=== PATIENT | female | born 1965 | race Caucasian/White ===

== ENCOUNTER → 2020-09-10 13:48 | Outpatient (BNVA) | payer BC, SELFPAY | PROVIDERS: PCP Nurse Practitioner Family; Referring Provider Nurse Practitioner Family; Visit Provider Surgery | DX: Z76.89 Persons encountering health services in other specified circumstances (principal) ==

== ENCOUNTER 2020-09-20 07:22 | Outpatient (REF) | payer OTHER, SELFPAY ==
[2020-09-20 08:04] LABS: MANUAL DIFF FLAG NO
[2020-09-20 08:06] LABS: Basophils Percent Auto 0.6 % (0-2); Eosinophils Absolute Auto 0.1 X10*3/uL (0.0-0.4); Eosinophils Percent Auto 2.1 % (0-4); Hemoglobin 12.7 g/dl (12.0-16.0); Imm Gran Abs Auto 0.02 X10*3/uL (0.00-0.03); Imm Gran Pct Auto 0.4 % (0.0-0.4); Lymphocytes Absolute Auto 1.4 X10*3/uL (1.2-4.9); Lymphocytes Percent Auto 29.8 % (20-40); Mean Corpuscular HGB Conc 33.4 g/dl (31.0-35.0); Mean Corpuscular Hemoglobin 31.1 pg (27.0-33.0); Mean Corpuscular Volume 92.9 fL (80-98); Mean Platelet Volume 10.2 fL (9.4-12.3); Monocytes Absolute Auto 0.4 X10*3/uL (0.1-1.2); Monocytes Percent Auto 8.5 % (2-11); Neutrophils Absolute Auto 2.8 X10*3/uL (2.0-8.3); Neutrophils Percent Auto 58.6 % (45-73); Platelet Count 239 X10*3/uL (160-400); Red Blood Count 4.09 X10*6/uL (4.20-5.50); Red Cell Distribution Width 12.6 % (11.0-16.0); White Blood Count 4.7 X10*3/uL (4.8-10.8)
[2020-09-20 08:37] LABS: Alanine Aminotransferase 24 U/L (0-31); Albumin Level 4.5 g/dL (3.5-5.0); Alkaline Phosphatase 100 U/L (39-117); Anion Gap 10 (12-20); Aspartate Amino Transferase 23 U/L (5-31); Bilirubin Total 0.6 mg/dL (0.0-1.0); Blood Urea Nitrogen 18 mg/dL (9-16); C Reactive Protein 0.07 mg/dL (< or = 0.50); Calcium 9.1 mg/dL (8.4-10.2); Carbon Dioxide 31 mmol/L (22-29); Chloride 105 mmol/L (96-108); Cholesterol 165 mg/dL; Estimated Glomerular Filt Rate > 60; Glucose Fasting 102 mg/dL (60-99); HDL Cholesterol 50 mg/dL; Iron 111 mcg/dL (30-160); LDL Cholesterol Calculated 92 mg/dl; Percent Iron Saturation 35 % (15-50); Potassium 4.2 mmol/l (3.3-5.1); Sodium 142 mmol/L (135-145); Total Iron Binding Capacity 321 mcg/dL (228-428); Total Protein 6.8 g/dL (6.5-8.0); Triglycerides 119 mg/dL; Unsaturated Iron Binding 210 ug/dL
[2020-09-20 08:58] LABS: Thyroid Stimulating Hormone 3.18 uIU/mL (0.32-4.0); Vitamin D 25-OH Total 55.3 ng/mL (>30)
[2020-09-20 09:02] LABS: Vitamin B12 901 pg/mL (200-900)
[2020-09-24 17:38] LABS: Vitamin A 55 mcg/dL (38-98)
[2020-09-25 03:18] LABS: Zinc 68 mcg/dL (60-130)
[2020-09-25 12:12] LABS: Vitamin B1 53 nmol/L (8-30)
== END 2020-09-20 07:23 | disposition home or self-care (01) ==
LOC: HO.LAB 07:22
PROVIDERS: PCP Nurse Practitioner Family; Visit Provider Surgery
DX: Z01.818 Encounter for other preprocedural examination (principal); K91.2 Postsurgical malabsorption, not elsewhere classified; Z90.3 Acquired absence of stomach [part of]
CPT/HCPCS: 36415; 80053; 80061; 82306; 82607; 83540; 84425; 84443; 84590; 84630; 85025; 86140

== ENCOUNTER 2021-05-09 07:58 | Outpatient (REF) | payer OTHER, SELFPAY ==
--- NOTE | ~2021-05-09 | XR_ITS ---
EXAMINATION: WEIGHT-BEARING AP VIEWS OF BOTH KNEES AND LATERAL AND SUNRISE VIEW OF THE LEFT KNEE CLINICAL INFORMATION: Pain COMPARISON: None TECHNIQUE: As above FINDINGS: No effusion. Minor patella spurring. No subluxation. Minor tibial spine for for spurring bilaterally. Joint spaces are preserved. XR/XR knee LT 2V IMPRESSION: Minor spurring only.
--- NOTE | ~2021-05-09 | XR_ITS ---
EXAMINATION: WEIGHT-BEARING AP VIEWS OF BOTH KNEES AND LATERAL AND SUNRISE VIEW OF THE LEFT KNEE CLINICAL INFORMATION: Pain COMPARISON: None TECHNIQUE: As above FINDINGS: No effusion. Minor patella spurring. No subluxation. Minor tibial spine for for spurring bilaterally. Joint spaces are preserved. XR/XR knee standing BI IMPRESSION: Minor spurring only.
== END 2021-05-09 07:59 | disposition home or self-care (01) ==
LOC: HO.HOSX 07:58
PROVIDERS: Visit Provider Orthopaedic Surgery
DX: M17.12 Unilateral primary osteoarthritis, left knee (principal)
CPT/HCPCS: 73560; 73565

== ENCOUNTER → 2021-08-28 07:55 | Outpatient (BNVA) | payer OTHER, SELFPAY | PROVIDERS: PCP Nurse Practitioner Family; Referring Provider Nurse Practitioner Family; Visit Provider Nurse Practitioner ==

== ENCOUNTER → 2021-09-12 07:40 | Outpatient (BNVA) | payer OTHER, SELFPAY | PROVIDERS: PCP Nurse Practitioner Family; Referring Provider Nurse Practitioner Family; Visit Provider Nurse Practitioner ==

== ENCOUNTER → 2021-10-31 10:18 | Outpatient (BNVA) | payer OTHER, SELFPAY | PROVIDERS: PCP Nurse Practitioner Family; Referring Provider Nurse Practitioner Family; Visit Provider Nurse Practitioner ==

== ENCOUNTER 2021-11-07 07:13 | Outpatient (REF) | payer OTHER, SELFPAY ==
[2021-11-07 07:49] LABS: Cholesterol 172 mg/dL; HDL Cholesterol 48 mg/dL; LDL Cholesterol Calculated 93 mg/dl; Triglycerides 158 mg/dL
[2021-11-07 08:09] LABS: TSH reflex Free T4 2.86 uIU/mL (0.32-4.0)
== END 2021-11-07 07:14 | disposition home or self-care (01) ==
LOC: HO.LAB 07:13
PROVIDERS: PCP Nurse Practitioner Family; Visit Provider Nurse Practitioner
DX: E03.9 Hypothyroidism, unspecified (principal); E78.5 Hyperlipidemia, unspecified
CPT/HCPCS: 36415; 80061; 84443

== ENCOUNTER → 2021-12-06 08:26 | Outpatient (BNVA) | payer OTHER, SELFPAY | PROVIDERS: PCP Nurse Practitioner Family; Referring Provider Nurse Practitioner Family; Visit Provider Nurse Practitioner | DX: Z13.89 Encounter for screening for other disorder (principal) ==

== ENCOUNTER → 2022-01-14 11:34 | Outpatient (BNVA) | payer OTHER, SELFPAY | PROVIDERS: PCP Nurse Practitioner Family; Visit Provider Physician Assistant | DX: Z13.89 Encounter for screening for other disorder (principal) ==

== ENCOUNTER → 2022-01-16 07:51 | Outpatient (BNVA) | payer OTHER, SELFPAY | PROVIDERS: PCP Nurse Practitioner Family; Visit Provider Nurse Practitioner | DX: Z13.89 Encounter for screening for other disorder (principal) ==

== ENCOUNTER 2022-01-24 08:50 | Outpatient (REF) | payer OTHER, SELFPAY ==
--- NOTE | ~2022-01-24 | XR_ITS ---
EXAMINATION: XR PELVIS CLINICAL INFORMATION: Pain COMPARISON: Previous x-ray of the pelvis October 2014, CT and MR of the left hip October and December 2014 TECHNIQUE: AP view of the pelvis. FINDINGS: Bone alignment is normal. No acute fracture or dislocation is seen. There is abnormal appearance of the left greater trochanter. This is similar to previous exams. Again, differential would include changes related to old trauma and possible osteochondroma. There is mild arthritis at both hip joints. There is a small osteophyte at the left iliac crest. Sacroiliac joints and pubic symphysis are normal. Soft tissues are normal. XR/XR pelvis 1-2V IMPRESSION: Mild arthritis at both hip joints. Stable appearance to the left lesser trochanter. Again, differential would include changes related to old trauma and osteochondroma.
== END 2022-01-24 08:51 | disposition home or self-care (01) ==
LOC: HO.HOSX 08:50
PROVIDERS: Visit Provider Orthopaedic Surgery
DX: M93.25 Osteochondritis dissecans of hip (principal)
CPT/HCPCS: 72170

== ENCOUNTER → 2022-02-04 08:51 | Outpatient (BNVA) | payer OTHER, SELFPAY | PROVIDERS: PCP Nurse Practitioner Family; Visit Provider Surgery Vascular Surgery | DX: I83.11 Varicose veins of right lower extremity with inflammation (principal) ==

== ENCOUNTER → 2022-02-07 12:32 | Outpatient (BNVA) | payer OTHER, SELFPAY | PROVIDERS: PCP Nurse Practitioner Family; Visit Provider Surgery Vascular Surgery | DX: I83.11 Varicose veins of right lower extremity with inflammation (principal) | CPT/HCPCS: 36475 ==

== ENCOUNTER 2022-02-10 15:28 | Outpatient (REF) | payer OTHER, SELFPAY ==
--- NOTE | ~2022-02-10 | US_ITS ---
EXAMINATION: US VENOUS ULTRASOUND WITH DOPPLER LOWER EXTREMITY, RIGHT CLINICAL INFORMATION: Status post right greater saphenous vein radiofrequency ablation. Evaluate for DVT COMPARISON: None TECHNIQUE: Ultrasound of the deep veins is performed from the hip to the calf with compression sonography and color and pulse Doppler assessment. Spectral analysis with color-flow imaging is performed. FINDINGS: There is normal venous compression and respiratory variation and augmented flow. The visualized common femoral vein, superficial femoral vein, profunda femoral vein, popliteal vein, and the trifurcation region shows no evidence of deep venous thrombosis. There is no significant popliteal fossa cyst. Incidental note is made of a right inguinal node at 35 x 6 x 18 mm. US/US venous duplex LE RT IMPRESSION: No DVT demonstrated in the right lower extremity.
== END 2022-02-10 15:29 | disposition home or self-care (01) ==
LOC: HO.US 15:28
PROVIDERS: Visit Provider Surgery Vascular Surgery
DX: M79.604 Pain in right leg (principal)
CPT/HCPCS: 93971

== ENCOUNTER → 2022-02-20 11:46 | Outpatient (BNVA) | payer OTHER, SELFPAY | PROVIDERS: PCP Nurse Practitioner Family; Visit Provider Surgery Vascular Surgery | DX: Z13.89 Encounter for screening for other disorder (principal) ==

== ENCOUNTER → 2022-02-28 12:24 | Outpatient (BNVA) | payer OTHER, SELFPAY | PROVIDERS: PCP Nurse Practitioner Family; Visit Provider Surgery Vascular Surgery | DX: I83.12 Varicose veins of left lower extremity with inflammation (principal) | CPT/HCPCS: 36475 ==

== ENCOUNTER 2022-03-03 13:25 | Outpatient (REF) | payer OTHER, SELFPAY ==
--- NOTE | ~2022-03-03 | US_ITS ---
EXAMINATION: US VENOUS ULTRASOUND WITH DOPPLER LOWER EXTREMITY, LEFT CLINICAL INFORMATION: Leg pain. Post RF ablation 02/28/2022 COMPARISON: Previous exam January 2022 TECHNIQUE: Ultrasound of the deep veins is performed from the hip to the calf with compression sonography and color and pulse Doppler assessment. Spectral analysis with color-flow imaging is performed. FINDINGS: There is normal venous compression and respiratory variation and augmented flow. The visualized common femoral vein, superficial femoral vein, profunda femoral vein, popliteal vein, and the trifurcation region shows no evidence of deep venous thrombosis. There is echogenic material seen in the greater saphenous vein post RF ablation. This is 4.5 cm from the saphenofemoral junction. The greater saphenous vein is closed. The contralateral right common femoral vein is patent. There is no significant popliteal fossa cyst. US/US venous duplex LE LT IMPRESSION: No DVT demonstrated in the left lower extremity.
== END 2022-03-03 13:26 | disposition home or self-care (01) ==
LOC: HO.US 13:25
PROVIDERS: Visit Provider Surgery Vascular Surgery
DX: M79.605 Pain in left leg (principal)
CPT/HCPCS: 93971

== ENCOUNTER 2022-03-05 07:40 | Outpatient (REF) | payer OTHER, SELFPAY ==
--- NOTE | ~2022-03-05 | FL_ITS ---
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 Fluoroscopy time: 0.4 minutes DAP: 1.07 Gycm2 Images: 2 FINDINGS: There is spinal needle with tip at the left hip lesser trochanter in area of chronic osseous deformity. There is contrast along the intertrochanteric region. No visible vascular communication. FL/FL guidance in treatment room IMPRESSION: Fluoroscopy for pain management procedure.
== END 2022-03-05 07:41 | disposition home or self-care (01) ==
LOC: HO.RADIR 07:40
PROVIDERS: Visit Provider Internal Medicine
DX: M93.25 Osteochondritis dissecans of hip (principal)
CPT/HCPCS: 20610; J1040

== ENCOUNTER 2022-04-07 08:30 | Outpatient (REF) | payer OTHER, SELFPAY ==
[2022-04-07 08:57] LABS: MANUAL DIFF FLAG NO
[2022-04-07 09:27] LABS: Basophils Absolute Auto 0.1 X10*3/uL (0.0-0.2); Basophils Percent Auto 0.7 % (0-2); Eosinophils Absolute Auto 0.1 X10*3/uL (0.0-0.4); Eosinophils Percent Auto 1.8 % (0-4); Hemoglobin 12.7 g/dl (12.0-16.0); Imm Gran Abs Auto 0.06 X10*3/uL (0.00-0.03); Imm Gran Pct Auto 0.8 % (0.0-0.4); Lymphocytes Absolute Auto 1.7 X10*3/uL (1.2-4.9); Lymphocytes Percent Auto 24.5 % (20-40); Mean Corpuscular HGB Conc 33.4 g/dl (31.0-35.0); Mean Corpuscular Hemoglobin 30.5 pg (27.0-33.0); Mean Corpuscular Volume 91.3 fL (80.0-98.0); Mean Platelet Volume 9.8 fL (9.4-12.3); Monocytes Absolute Auto 0.6 X10*3/uL (0.1-1.2); Monocytes Percent Auto 8.4 % (2-11); Neutrophils Absolute Auto 4.5 x10*3/uL (2.0-8.3); Neutrophils Percent Auto 63.8 % (45-73); Platelet Count 293 X10*3/uL (160-400); Red Blood Count 4.16 X10*6/uL (4.20-5.50); Red Cell Distribution Width 13.2 % (11.0-16.0); White Blood Count 7.1 X10*3/uL (4.8-10.8)
[2022-04-07 09:54] LABS: Alanine Aminotransferase 37 U/L (0-31); Albumin Level 4.6 g/dL (3.5-5.0); Alkaline Phosphatase 141 U/L (39-117); Anion Gap 11 (12-20); Aspartate Amino Transferase 28 U/L (5-31); Bilirubin Total 0.5 mg/dL (0.0-1.0); Blood Urea Nitrogen 14 mg/dL (9-16); C Reactive Protein 0.34 mg/dL (< or = 0.50); Calcium 9.2 mg/dL (8.4-10.2); Carbon Dioxide 30 mmol/L (22-29); Chloride 103 mmol/L (96-108); Cholesterol 214 mg/dL; Estimated Glomerular Filt Rate > 60; Glucose Random 122 mg/dL (60-115); HDL Cholesterol 52 mg/dL; Iron 85 mcg/dL (30-160); LDL Cholesterol Calculated 110 mg/dl; Percent Iron Saturation 22 % (15-50); Potassium 4.2 mmol/L (3.3-5.1); Sodium 140 mmol/L (135-145); Total Iron Binding Capacity 378 mcg/dL (228-428); Total Protein 7.3 g/dL (6.5-8.0); Triglycerides 264 mg/dL; Unsaturated Iron Binding 293 ug/dL
[2022-04-07 10:05] LABS: Estimated Average Glucose 128 mg/dL; Hemoglobin A1c % 6.1 %
[2022-04-07 10:19] LABS: Ferritin 127 ng/mL (10-250); TSH reflex Free T4 4.13 uIU/mL (0.32-4.0); Vitamin D 25-OH Total 48.8 ng/mL (>30)
[2022-04-07 10:32] LABS: Folate > 20.0 ng/mL (> or = 4.0); Vitamin B12 970 pg/mL (200-900)
[2022-04-07 10:51] LABS: Free T4 (Free Thyroxine) 0.92 ng/dL (0.71-1.85); Insulin 18 uU/mL (2-29)
[2022-04-09 12:56] LABS: Calcium (PTHI) 9.4 mg/dL (8.6-10.4); PTHI 48 pg/mL (16-77)
[2022-04-11 21:47] LABS: Zinc 78 mcg/dL (60-130)
[2022-04-12 10:22] LABS: Vitamin B1 33 nmol/L (8-30)
== END 2022-04-07 08:31 | disposition home or self-care (01) ==
LOC: HO.LAB 08:30
PROVIDERS: PCP Nurse Practitioner Family; Visit Provider Physician Assistant Surgical
DX: Z90.3 Acquired absence of stomach [part of] (principal)
CPT/HCPCS: 36415; 80053; 80061; 82306; 82607; 82728; 82746; 83036; 83525; 83540; 83970; 84425; 84439; 84443; 84590; 84630; 85025; 86140

== ENCOUNTER 2022-04-25 11:24 | Emergency (ER) | payer OTHER, SELFPAY ==
--- NOTE | ~2022-04-25 | MR_ITS ---
STUDY PERFORMED: MRA CHEST WITH AND WITHOUT CONTRAST Stacy Palomares M.D., Ph.D. HISTORY: Chest pain. Jerman-Danlos syndrome COMPARISON: Noncontrast chest CT 04/25/2022 DESCRIPTION: Routine chest MRA protocol without and with contrast was performed. 20 mL of Gadavist was administered. Images were evaluated on independent dedicated technologist workstation and images were reconstructed with concurrent radiologist supervision and subsequently interpreted. FINDINGS: VASCULAR: 1. Ascending thoracic aorta: Descending thoracic aorta measures 3.6 x 3.7 cm. No evidence of aneurysm, dissection or stenosis. 2. Thoracic aortic arch: No evidence of aneurysm, dissection or stenosis. 3. Descending thoracic aorta: No evidence of aneurysm, dissection or stenosis. 4. Mesenteric arteries: The visualized portions of the celiac axis and superior mesenteric artery are patent. 5. Renal arteries: Single right renal artery is patent with an early bifurcation. 2 left renal arteries are both patent. 6. Abdominal aorta: The visualized portions of the abdominal aorta are patent without evidence of aneurysm, dissection or stenosis. NON-VASCULAR: Lungs: The lungs are clear with no evidence of inflammation or nodules. Mediastinum: The mediastinum is normal. Central vascular structures are unremarkable. No hilar or mediastinal lymphadenopathy. Pericardium/Pleura: There is no significant effusion. No pleural mass or thickening. Chest Wall/Axilla: Unremarkable. Upper Abdomen: No acute findings. Osseous Structures: No acute findings. MR/MR angio chest wo/w con IMPRESSION: No evidence of aneurysm, dissection or stenosis involving the thoracic aorta or visualized portions of the upper abdominal aorta.
--- NOTE | ~2022-04-25 | XR_ITS ---
EXAMINATION: XR CHEST CLINICAL INFORMATION: Chest pain. COMPARISON: 09/06/2018 chest radiographs. TECHNIQUE: Frontal view of the chest was obtained. FINDINGS: No significant abnormality is noted involving the heart, lungs, mediastinum, bony thorax or soft tissues. XR/XR chest 1V IMPRESSION: No acute cardiopulmonary process.
--- NOTE | ~2022-04-25 | CT_ITS ---
EXAMINATION: CT CHEST WITHOUT CONTRAST CLINICAL INFORMATION: Chest pain. History of Jerman-Danlos. Aortic dissection? COMPARISON: None TECHNIQUE: Multidetector volumetric CT imaging of the chest was done. Axial MIP volume rendering provided. Sagittal and coronal reformatted images were obtained. This CT examination was performed using dose optimization techniques as appropriate, variously including the following: *Automated exposure control *Adjustment of mA and/or kV according to patient size (this includes techniques or standardized protocols for targeted exams where dose is matched to indication/reason for exam; i.e. extremities or head) *Use of iterative reconstruction technique DLP: 290 mGy-cm FINDINGS: LUNGS AND PLEURA: Trachea and central airways are widely patent and normal in caliber. There is mild, symmetric appearance of scarring at lung apices. A 0.4 cm subpleural opacity of the medial right apex is likely a component of the apical scarring (image 78, series 5). Small foci of mucus are present in a bronchus of the lateral segment of the right middle lobe (images 201 and 203, series 5). No suspicious lung nodule, mass or pleural effusion. No interstitial lung disease. CARDIOVASCULAR: The heart size is normal. No pericardial effusion. Pulmonary arteries are normal in caliber. The thoracic aorta is in the normal size range. At the level of the right pulmonary artery, the ascending aorta is 3.7 cm AP, 3.5 cm transverse. No intramural hematoma. There are no noncontrast imaging findings to suggest aortic dissection, although evaluation is somewhat limited for lack of IV contrast administration. MEDIASTINUM AND LOWER NECK: No mediastinal mass. The esophagus is unremarkable. The right thyroid lobe is not identified and the visualized left thyroid lobe has an atrophied appearance. LYMPHATICS: No axillary or internal mammary lymphadenopathy. No pathologic sized mediastinal or hilar lymph nodes. UPPER ABDOMEN: Prior gastric sleeve surgery. Adrenal glands are normal. The visualized solid viscera of the upper abdomen are normal. SKELETAL AND CHEST WALL: No chest wall mass. The thoracic vertebra have normal height and alignment. Mild spondylosis of the thoracic spine. CT/CT chest wo IV con IMPRESSION: * No acute imaging abnormalities in the chest. * No aortic aneurysm. No noncontrast imaging findings to suggest aortic dissection.
[2022-04-25 11:27] VITALS: BP 173/93; PULSE 110; RESP 18; TEMP 37.2; O2SAT 94; BMI 31.4
--- NOTE | 2022-04-25 11:28 | ECG_ITS ---
Test Reason : chest pain Blood Pressure : / mmHG Vent. Rate : 108 BPM Atrial Rate : 108 BPM P-R Int : 140 ms QRS Dur : 086 ms QT Int : 358 ms P-R-T Axes : 046 000 022 degrees QTc Int : 479 ms Sinus tachycardia Nonspecific ST and T wave abnormality Abnormal ECG When compared with ECG of 09-SEP-2018 13:23, Nonspecific T wave abnormality now evident in Lateral leads Referred By: Generic ED Physician Electronically Signed By:HECTOR CAMPOS MD
[2022-04-25 11:42] LABS: MANUAL DIFF FLAG NO
[2022-04-25 11:44] LABS: Basophils Absolute Auto 0.1 X10*3/uL (0.0-0.2); Basophils Percent Auto 0.8 % (0-2); Eosinophils Absolute Auto 0.2 X10*3/uL (0.0-0.4); Eosinophils Percent Auto 2.5 % (0-4); Hematocrit 37.9 % (37.0-47.0); Hemoglobin 12.8 g/dl (12.0-16.0); Imm Gran Abs Auto 0.06 X10*3/uL (0.00-0.03); Imm Gran Pct Auto 0.8 % (0.0-0.4); Lymphocytes Absolute Auto 1.6 X10*3/uL (1.2-4.9); Lymphocytes Percent Auto 21.7 % (20-40); Mean Corpuscular HGB Conc 33.8 g/dl (31.0-35.0); Mean Corpuscular Hemoglobin 30.7 pg (27.0-33.0); Mean Corpuscular Volume 90.9 fL (80.0-98.0); Mean Platelet Volume 9.4 fL (9.4-12.3); Monocytes Absolute Auto 0.7 X10*3/uL (0.1-1.2); Monocytes Percent Auto 8.8 % (2-11); Neutrophils Absolute Auto 4.9 x10*3/uL (2.0-8.3); Neutrophils Percent Auto 65.4 % (45-73); Platelet Count 272 X10*3/uL (160-400); Red Blood Count 4.17 X10*6/uL (4.20-5.50); Red Cell Distribution Width 13.2 % (11.0-16.0); White Blood Count 7.5 X10*3/uL (4.8-10.8)
[2022-04-25 12:06] LABS: Troponin-I High Sensitivity < 3.5 ng/L (<3.5-17.0)
[2022-04-25 12:07] LABS: Anion Gap 15 (12-20); Blood Urea Nitrogen 10 mg/dL (9-16); Calcium 9.4 mg/dL (8.4-10.2); Carbon Dioxide 28 mmol/L (22-29); Chloride 101 mmol/L (96-108); Creatinine Clr Calc Pharmacy 76.1; Estimated Glomerular Filt Rate > 60; Glucose Random 118 mg/dL (60-115); Potassium 3.9 mmol/L (3.3-5.1); Sodium 140 mmol/L (135-145)
--- NOTE | 2022-04-25 13:05 | ED.CHESTPAIN ---
HPI - Chest Pain General Chief Complaint: Chest Pain Stated Complaint: chest pains/SOB Time Seen by Provider: 04/25/22 12:29 Source: patient Mode of arrival: ambulatory Limitations: no limitations History of Present Illness HPI narrative: Patient presents emergency department for evaluation of chest pain. Described as substernal crushing pain that radiates up the mid chest in in to her jaw. This started wall at work. States she was on the phone with patient when she suddenly developed the pain. She does report a history of anxiety, she trialed taking lorazepam without any change in her pain. Her pain has been constant for the past 2-1/2 hours but varying in intensity. At its worst is 8/10, currently 3/10. Unable to identify any exacerbating or alleviating factors. Reports associated shortness of breath when the pain is more severe. States she has had similar episodes of pain like this in the past, but have not occurred over the past year. Has a prior history of attention per her report, which resolved after her gastrectomy. She reports otherwise feeling well recently with no concerning symptoms for possible sick exposures. Denies fevers, chills, lightheadedness, dizziness, headache, neck pain, back pain, nausea, vomiting, abdominal pain, numbness or tingling of the extremities, weakness. Related Data Home Medications Medication Instructions Recorded Confirmed amitriptyline 100 mg tablet 100 mg PO BEDTIME 09/10/20 03/31/22 atorvastatin 20 mg tablet 20 mg PO DAILY 09/10/20 03/31/22 biotin 10,000 mcg capsule mcg PO DAILY 09/10/20 03/31/22 clonidine HCl 0.2 mg tablet 0.2 mg PO BEDTIME 09/10/20 03/31/22 duloxetine 60 mg capsule,delayed 60 mg PO DAILY 09/10/20 03/31/22 release levothyroxine 75 mcg tablet 75 mcg PO DAILY 09/10/20 03/31/22 multivitamin with iron 1 tab PO DAILY 09/10/20 03/31/22 dicyclomine 10 mg capsule 10 mg PO QID 08/28/21 03/31/22 trazodone 50 mg tablet 100 mg PO BEDTIME 04/22/22 Previous Rx's Medication Instructions Recorded linaclotide 290 mcg capsule 290 mcg PO QAM 90 days #90 caps 09/24/21 (Linzess) sennosides 8.6 mg capsule (senna) 17.2 mg PO BEDTIME constipation 30 12/06/21 days #60 caps Allergies Allergy/AdvReac Type Severity Reaction Status Date / Time promethazine [From PHENERGAN] Allergy Intermediate RASH Verified 04/25/22 11:26 cefazolin [CEFAZOLIN] Allergy Unknown ANAPHYLAXIS Verified 04/25/22 11:26 Iodinated Contrast Media Allergy Unknown ANAPHYLAXIS Verified 04/25/22 11:26 [IV Dye, Iodine Containing Contrast ] prednisone [PREDNISONE] Allergy Unknown HYPERTENSION, Verified 04/25/22 11:26 high BP,headache aripiprazole [From Abilify] AdvReac Severe tardive Verified 04/25/22 11:26 dyskinesia DOG SHAMPOO Allergy Unknown ANAPHYLAXIS Uncoded 03/31/22 11:02 Review of Systems Review of Systems: Constitutional : No Weight loss, No Fever, No Chills ENT/Mouth :? No sore throat, No Rhinorrhea Eyes: No Eye Pain, No Swelling Cardiovascular : pos Chest Pain, pos SOB, no Dyspnea on Exertion, No Orthopnea, No Edema, No Palpitations Respiratory : No Cough, No Sputum Gastrointestinal : no Nausea, No Vomiting, No Diarrhea, No abdominal Pain, No Hematochezia, No Melena Genitourinary : No Dysuria, No Urinary Frequency Musculoskeletal : No joint pain, No Myalgias, No Joint Swelling Skin : No Skin Lesions, No rash Neuro : No Weakness, No Numbness, No Dizziness, No Headache Psych : No Anxiety/Panic, No Depression Heme/Lymph: No Bruising, No Lymphadenopathy Endocrine : No Polyuria, No Polydipsia Yes all other systems are reviewed and are negative [facility] Past Medical History Attestation statement: The following information was validated with the patient. Source: old records reviewed Medical History Anxiety Back pain Chronic constipation Depression Jerman-Danlos syndrome type III Fibromyalgia History of kidney stones Hyperlipidemia Hypothyroidism IBS (irritable colon syndrome) Insomnia Surgical History History of bladder suspension procedure History of endometrial ablation History of sleeve gastrectomy Hx of appendectomy Hx of hysterectomy Hx of partial thyroidectomy Hx of toe surgery Hx of tubal ligation Status post left foot surgery Family History Family History Father Liver disease Diabetes mellitus Hypertension Mother Hypertension Diabetes mellitus Arthritis Son Asthma Depression Anxiety Daughter Asthma Depression Migraines Chronic pain Anxiety Sister No problems noted. Brother Down's syndrome Hypothyroidism Social History Social History Alcohol intake: never Patient Tobacco Use Status: Never used Tobacco Use of substances other than those prescribed or required for medical reasons: No Advance Directives: Yes Advance Directives Information Provided: Yes Advance Directives on File: No Current occupational status: employed Current occupation: rt handed/[employer] Physical Exam Vital Signs: Vital Signs: Last Vital Signs Temp 98.6 F 04/25/22 15:25 Pulse 83 04/25/22 21:12 Resp 16 04/25/22 21:12 BP 143/70 H 04/25/22 21:12 Pulse Ox 95 04/25/22 18:08 O2 Del Method 04/25/22 18:08 BMI result Body Mass Index 31.4 Vital signs have been reviewed as normal and appeared to be correct. Hypertensive 159/90 on repeat.? tachycardia 110 initially, 95 on repeat.? Respiration rate normal. Temperature normal.? Oxygen saturation normal. Appearance: Alert.?Oriented to person, place and time. No acute distress.?Normal affect. Eyes: Pupils equal, round and reactive to light.? ENT: Pharynx normal.?? Neck: Normal inspection.? Neck supple.?? CVS: Heart sounds normal. Sinus tachycardia? Pulses normal and equal bilaterally?? Respiratory: No respiratory distress.? Lung sounds clear to auscultation bilaterally?? Abdomen: Soft and non-tender. Normoactive bowel sounds. Skin: Skin warm and dry.? Normal skin color.? Extremities: No lower extremity edema.? Neuro: Moves all extremities spontaneously. Sensation intact bilaterally. CN II-XII intact. No focal neuro deficits. Ambulates with normal steady gait. Course Course Course Narrative: Patient is a 56-year-old female with a past medical history of obesity, sleeve gastrectomy, hyperlipidemia, hypothyroidism, irritable bowel syndrome, fibromyalgia, reportedly thought to have postural tachycardia syndrome per her r developer with no confirmed diagnosis, and Jerman-Danlos syndrome type 3. She presents emergency department today for evaluation of chest pain. Reports a history of similar pains in the past but not within the last year. Reports a history of having an echocardiogram and stress test through [facility] some years ago which were reportedly normal. Will obtain CBC to evaluate for leukocytosis/ anemia, CMP and lipase to evaluate for abnormal electrolytes /abnormal renal function/ abnormal hepatic/biliary function, EKG and troponin to evaluate for ischemia/ACS. Chest x-ray to evaluate for consolidation/ infiltrate/ mass/ pulmonary congestion. Will trial nitro paste. Given presenting symptoms and history of Jerman-Danlos will obtain CTA of the chest to exclude aortic dissection. No tachycardia, no hypoxia, PERC negative unlikely PE. Reevaluation(s) Reevaluation #1: CBC is overall unremarkable. CMP overall unremarkable. Troponin <3.5, EKG reveals sinus tachycardia no acute ischemic findings, will obtain delta troponin for re-evaluation. Chest x-ray with no acute cardiopulmonary findings, no widened mediastinum. Time: 13:30 Reevaluation #2: Patient allergic to iodinated contrast media, reports an anaphylactic reaction at the age of 17. Discussed this case with ED Attending Dr. Fagan, who recommends/ agrees with plan of care; obtain CT of the chest without contrast in addition to D-dimer to evaluate for aortic dissection. Time: 14:26 Reevaluation #3: Delta troponin negative, < 3.5, unlikely ACS. D-dimer is elevated 471. Given anaphylactic allergy to contrast dye, allergy to prednisone, unable to obtain CT imaging to rule out dissection. Spoke with radiologist provided recommendation to obtain MRA of chest for further evaluation of aortic dissection. Time: 15:06 Additional Reevaluation(s): 1800: had MRA chest, results pending, CP currently 10/31. no apparent distress. MRA of the chest without evidence of aneurysm, dissection, or stenosis. Discussed these findings with patient. Advised the plan of care for discharge home, outpatient follow-up with her primary care provider within 1-2 days, discussed worrisome signs and symptoms to return back to the emergency department for. All questions were answered, and patient discharged home in stable condition. MDM - Chest Pain Medical Records Data Attestation: I reviewed the patient's medical records. Lab Data Attestation: I reviewed the patient's lab results. Result diagrams: 04/25/22 11:35 04/25/22 11:35 Labs: Lab Results 04/25/22 04/25/22 04/25/22 Range/Units 11:35 11:35 11:35 WBC 7.5 (4.8-10.8) X10*3/uL RBC 4.17 L (4.20-5.50) X10*6/uL Hgb 12.8 (12.0-16.0) g/dl Hct 37.9 (37.0-47.0) % MCV 90.9 (80.0-98.0) fL MCH 30.7 (27.0-33.0) pg MCHC 33.8 (31.0-35.0) g/dl RDW 13.2 (11.0-16.0) % Plt Count 272 (160-400) X10*3/uL MPV 9.4 (9.4-12.3) fL Immature Gran % (Auto) 0.8 H (0.0-0.4) % Neut % (Auto) 65.4 (45-73) % Lymph % (Auto) 21.7 (20-40) % Milam % (Auto) 8.8 (2-11) % Eos % (Auto) 2.5 (0-4) % Baso % (Auto) 0.8 (0-2) % Lymph # (Auto) 1.6 (1.2-4.9) X10*3/uL Milam # (Auto) 0.7 (0.1-1.2) X10*3/uL Eos # (Auto) 0.2 (0.0-0.4) X10*3/uL Baso # (Auto) 0.1 (0.0-0.2) X10*3/uL Abs Immat Gran (auto) 0.06 H (0.00-0.03) X10*3/uL Absolute Neuts (auto) 4.9 (2.0-8.3) x10*3/uL Absolute Nucleated RBC 0.000 (0.0-0.012) X10*3/uL Nucleated RBC % (auto) 0.0 (0.0-0.2) /100WBC D-Dimer High Sensitivty NG/ML Sodium 140 (135-145) mmol/L Potassium 3.9 (3.3-5.1) mmol/L Chloride 101 (96-108) mmol/L Carbon Dioxide 28 (22-29) mmol/L Anion Gap 15 (12-20) BUN 10 (9-16) mg/dL Creatinine 0.85 (0.5-1.4) mg/dL Estim Creat Clear Calc 76.1 Estimated GFR > 60 Random Glucose 118 H (60-115) mg/dL Calcium 9.4 (8.4-10.2) mg/dL Total Bilirubin 0.5 (0.0-1.0) mg/dL Direct Bilirubin < 0.2 (0.0-0.5) mg/dL AST 24 (5-31) U/L ALT 32 H (0-31) U/L Alkaline Phosphatase 143 H (39-117) U/L Troponin I High Sens < 3.5 (<3.5-17.0) ng/L Total Protein 7.8 (6.5-8.0) g/dL Albumin 4.7 (3.5-5.0) g/dL Lipase 60 (8-78) U/L 04/25/22 04/25/22 Range/Units 14:25 14:33 WBC (4.8-10.8) X10*3/uL RBC (4.20-5.50) X10*6/uL Hgb (12.0-16.0) g/dl Hct (37.0-47.0) % MCV (80.0-98.0) fL MCH (27.0-33.0) pg MCHC (31.0-35.0) g/dl RDW (11.0-16.0) % Plt Count (160-400) X10*3/uL MPV (9.4-12.3) fL Immature Gran % (Auto) (0.0-0.4) % Neut % (Auto) (45-73) % Lymph % (Auto) (20-40) % Milam % (Auto) (2-11) % Eos % (Auto) (0-4) % Baso % (Auto) (0-2) % Lymph # (Auto) (1.2-4.9) X10*3/uL Milam # (Auto) (0.1-1.2) X10*3/uL Eos # (Auto) (0.0-0.4) X10*3/uL Baso # (Auto) (0.0-0.2) X10*3/uL Abs Immat Gran (auto) (0.00-0.03) X10*3/uL Absolute Neuts (auto) (2.0-8.3) x10*3/uL Absolute Nucleated RBC (0.0-0.012) X10*3/uL Nucleated RBC % (auto) (0.0-0.2) /100WBC D-Dimer High Sensitivty 471 NG/ML Sodium (135-145) mmol/L Potassium (3.3-5.1) mmol/L Chloride (96-108) mmol/L Carbon Dioxide (22-29) mmol/L Anion Gap (12-20) BUN (9-16) mg/dL Creatinine (0.5-1.4) mg/dL Estim Creat Clear Calc Estimated GFR Random Glucose (60-115) mg/dL Calcium (8.4-10.2) mg/dL Total Bilirubin (0.0-1.0) mg/dL Direct Bilirubin (0.0-0.5) mg/dL AST (5-31) U/L ALT (0-31) U/L Alkaline Phosphatase (39-117) U/L Troponin I High Sens < 3.5 (<3.5-17.0) ng/L Total Protein (6.5-8.0) g/dL Albumin (3.5-5.0) g/dL Lipase (8-78) U/L Imaging Data Chest x-ray: Radiologist's impression: XR/XR chest 1V IMPRESSION: No acute cardiopulmonary process. CT scan - chest: Radiologist's impression: CT/CT chest wo con IMPRESSION: *? No acute imaging abnormalities in the chest. *? No aortic aneurysm. No noncontrast imaging findings to suggest aortic dissection. MRA chest: Radiologist's impression: MR/MR angio chest wo/w con IMPRESSION: No evidence of aneurysm, dissection or stenosis involving the thoracic aorta or visualized portions of the upper abdominal aorta. ECG Data ECG #1: Attestation: I personally reviewed and interpreted this ECG as follows: ECG interpretation date: 04/25/22 Interpretation: Rate: 108 Rhythm:? Sinus tachycardia Humphrey:? Normal Normal P waves.? Normal [place].?? Normal QRS complex.?? ST T wave :??No ST elevation, no T-wave inversion qTC: 479 prior studies:? August 2018 The study has been interpreted contemporaneously by me. Discharge Plan Discharge Clinical Impression: Chest pain Patient Disposition: Home, Self-Care Instructions: Chest Pain (ED), Noncardiac Chest Pain (ED) Additional Instructions: Please contact your primary care provider to arrange for a follow-up visit within the next 3 days. Return to the emergency department any new or worsening symptoms or concerns. Prescriptions: No Action Linzess 290 mcg capsule 290 mcg PO QAM 90 Days Qty: 90 2RF trazodone 50 mg tablet 100 mg PO BEDTIME amitriptyline 100 mg tablet 100 mg PO BEDTIME duloxetine 60 mg capsule,delayed release(DR/EC) 60 mg PO DAILY clonidine HCl 0.2 mg tablet 0.2 mg PO BEDTIME atorvastatin 20 mg tablet 20 mg PO DAILY levothyroxine 75 mcg tablet 75 mcg PO DAILY biotin 10,000 mcg capsule PO DAILY multivitamin with iron Tablet 1 tab PO DAILY Label Comments: opurity bariatric vitamin senna 8.6 mg capsule 17.2 mg PO BEDTIME 30 Days Qty: 60 3RF dicyclomine 10 mg capsule 10 mg PO QID Interventions: ED Discharge Assessment Last Done: 04/25/22 21:12 Discharge Date/Time: 04/25/22 21:13
[2022-04-25 13:08] LABS: Alanine Aminotransferase 32 U/L (0-31); Albumin Level 4.7 g/dL (3.5-5.0); Alkaline Phosphatase 143 U/L (39-117); Aspartate Amino Transferase 24 U/L (5-31); Bilirubin Direct < 0.2 mg/dL (0.0-0.5); Bilirubin Total 0.5 mg/dL (0.0-1.0); Lipase 60 U/L (8-78); Total Protein 7.8 g/dL (6.5-8.0)
[2022-04-25 13:30] VITALS: BP 147/84; PULSE 90; RESP 18; O2SAT 97
[2022-04-25] MEDS: Nitroglycerin 2 % Oint 1 GM Packet 0.5 INCH TRANSDERMA (13:39)
[2022-04-25 14:44] LABS: D Dimer High Sensitivity 471 NG/ML
[2022-04-25 14:50] LABS: Troponin-I High Sensitivity < 3.5 ng/L (<3.5-17.0)
[2022-04-25 15:25] VITALS: BP 149/86; PULSE 94; RESP 16; TEMP 37; O2SAT 97
--- NOTE | 2022-04-25 16:48 | PC.NURSE ---
pt of to mri
[2022-04-25 18:08] VITALS: BP 146/88; PULSE 92; RESP 18; O2SAT 95
--- NOTE | 2022-04-25 19:05 | PC.NURSE ---
Assumed care of this pt. at 1900 - report from Yudith Gamboa RN
[2022-04-25 21:12] VITALS: BP 143/70; PULSE 83; RESP 16
--- NOTE | 2022-04-25 21:13 | PC.NURSE ---
discussed pt concerns regarding chest pain. Reviewed discharge instructions with pt . Pt verbalized understanding.
== END 2022-04-25 21:13 | disposition home or self-care (01) ==
PROVIDERS: Nurse Practitioner Family; Emergency Provider Emergency Medicine; PCP Nurse Practitioner Family
DX: R07.89 Other chest pain (principal); R06.02 Shortness of breath; Z79.899 Other long term (current) drug therapy; Z20.822 Contact with and (suspected) exposure to COVID-19
CPT/HCPCS: 36415; 71045; 71250; 71555; 80048; 80076; 83690; 84484; 85025; 85379; 93005; 96374; 99285; A9585

== ENCOUNTER 2022-04-30 06:07 | Outpatient (REF) | payer OTHER, SELFPAY ==
--- NOTE | ~2022-04-30 | FL_ITS ---
EXAMINATION: XR FLUOROSCOPY WITH IMAGES CLINICAL INFORMATION: SI joint pain. COMPARISON: None. TECHNIQUE: Fluoroscopy performed by Myrna. Fluoroscopy time: 0.1 minute. Cumulative Dose: 5.42 mGy. DAP: 0.883 Gy-cm2. Images: 1. FINDINGS: There is needle positioned over the right SI joint. There is no contrast visualized. The soft tissues are normal. No bony abnormality. FL/FL guidance in treatment room IMPRESSION: Fluoroscopy was provided to referrer for pain management.
--- NOTE | ~2022-04-30 | FL_ITS ---
EXAMINATION: XR FLUOROSCOPY WITH IMAGES CLINICAL INFORMATION: SI joint pain. COMPARISON: None. TECHNIQUE: Fluoroscopy performed by Myrna. Fluoroscopy time: 0.1 minute. Cumulative Dose: 5.42 mGy. DAP: 0.883 Gy-cm2. Images: 1. FINDINGS: There is needle positioned over the right SI joint. There is no contrast visualized. The soft tissues are normal. No bony abnormality. FL/FL guidance in treatment room IMPRESSION: Fluoroscopy was provided to referrer for pain management.
== END 2022-04-30 06:08 | disposition home or self-care (01) ==
LOC: HO.RADIR 06:07
PROVIDERS: Visit Provider Internal Medicine
DX: M70.61 Trochanteric bursitis, right hip (principal); M53.3 Sacrococcygeal disorders, not elsewhere classified
CPT/HCPCS: 20610; 27096; J1040; J2795; Q9967

== ENCOUNTER 2022-06-05 13:41 | Outpatient (REF) | payer OTHER, SELFPAY ==
[2022-06-07 08:06] LABS: Follicle Stimulating Hormone 38.3 mIU/mL
[2022-06-10 15:32] LABS: Testosterone, Total 10 ng/dL (2-45)
[2022-06-13 22:15] LABS: Estradiol Free 0.06 pg/mL; Estradiol, Ultrasensitive 3 pg/mL
== END 2022-06-05 13:42 | disposition home or self-care (01) ==
LOC: HO.LAB 13:41
PROVIDERS: PCP Nurse Practitioner Family; Visit Provider Nurse Practitioner Family
DX: E03.9 Hypothyroidism, unspecified (principal); R61 Generalized hyperhidrosis
CPT/HCPCS: 36415; 82670; 82681; 83001; 84403

== ENCOUNTER 2022-07-03 11:19 | Outpatient (REF) | payer OTHER, SELFPAY ==
[2022-07-03 12:38] LABS: Thyroid Stimulating Hormone 1.16 uIU/mL (0.32-4.0)
== END 2022-07-03 11:20 | disposition home or self-care (01) ==
LOC: HO.LAB 11:19
PROVIDERS: PCP Nurse Practitioner Family; Visit Provider Internal Medicine Endocrinology, Diabetes & Metabolism
DX: E03.9 Hypothyroidism, unspecified (principal)
CPT/HCPCS: 36415; 84439; 84443

== ENCOUNTER 2022-07-30 07:00 | Outpatient (RCR) | payer OTHER, SELFPAY ==
--- NOTE | 2022-06-19 09:20 | MHC.PT.EP ---
[facility] [place] [facility] [place] Office [place] Office [address] Grisel Ivan [address] [phone] F: [phone] F: [phone] F: [phone] F: [phone] Physical Therapy Plan of Care Date of Evaluation: Date of Surgery: Diagnosis: low back pain GOES BY MARIN Assessment: 56 y/o F referred to PT with LBP. 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 S/s consistent with lumbar derangement, overlapping SI dysfunction, and L-sided hip impingement resulting in pain and difficulty with prolonged sitting > 30min, driving, and sleeping secondary to decreased lumbar AROM, decreased L hip AROM, decreased hip/core strength, increased tissue tension, R posterior innominate, and impaired gait pattern. We reviewed her desk ergnomics and reviewed using a lumbar roll in addition to her other set-up. Recommend PT 2x/week for 5 weeks to address impairments, implement HEP, and optimize functional mobility. Frequency and Duration: The patient will be seen 2x/week for 5 weeks Short Term Goals: 3 weeks Initiate and compliance with HEP Improve lumbar AROM extension to 100% to faciliate normal joint mechanics Demonstrate symmetrical arm swing with gait Mcfp Goals: 5 weeks I with HEP and self management of sx Improve B LE strength to 4+/5 throughout to faciliate daily activites. Pt will reports 50% decrease in overall pain with sitting and tolerate sitting > 60min Treatment Plan: Modalities to reduce pain, spasms and effusion. Manual therapy to restore motion and function. Therapeutic exercise to improve strength and flexibility. Neuromuscular re-education for posture and balance. Therapeutic activities to return to functional activities of daily living. Electronically signed by: Angela Bey PT Please sign and return to therapist. Thank you for your referral.
--- NOTE | 2022-07-30 09:44 | MHC.PT.DC ---
[facility] [place] Office [place] Office [place] Office [address] Grisel Ivan [address] [phone] F: [phone] F: [phone] F: [phone] F: [phone] Physical Therapy Discharge Report Diagnosis: low back pain Date of Surgery: Date of Evaluation: 06/19/22 Date of Discharge: 07/30/22 Treatments to Date: 8 Cancellations to Date: 3 No Shows to Date: 0 Discharge Status: Improved Function Independent with HEP Discharge Summary: Reports feeling ready for d/c and is I with HEP. She has made progress towards goals and has decreased pain overall. No further questions. Electronically signed by: Angela Bey PT Please sign and return to therapist. Thank you for your referral.
== END 2022-07-30 09:45 | disposition home or self-care (01) ==
LOC: HO.PT 07:00
PROVIDERS: Visit Provider Internal Medicine
DX: M54.50 Low back pain, unspecified (principal)
CPT/HCPCS: 97110; 97140; 97161; 97530

== ENCOUNTER 2022-12-04 07:51 | Outpatient (REF) | payer OTHER, SELFPAY ==
--- NOTE | ~2022-12-04 | US_ITS ---
EXAMINATION: US ABDOMEN LIMITED CLINICAL INFORMATION: Right upper quadrant pain. COMPARISON: None available. TECHNIQUE: Real-time imaging of the right upper quadrant abdominal viscera. FINDINGS: PANCREAS: Normal. LIVER: Normal. The liver is normal in size. The liver contour is normal. Mild increased echogenicity observed likely related to fatty infiltration. No focal hepatic lesion. There is no intrahepatic biliary duct dilatation seen. GALLBLADDER: Normal. The gallbladder is physiologically distended without evidence of stones, sludge, polyps, wall thickening or pericholecystic fluid. COMMON BILE DUCT: Normal in caliber measuring 0.3 cm in diameter. RIGHT KIDNEY: Normal. No hydronephrosis. No renal calculi or focal parenchymal lesions. The kidney measures 12.4 cm in maximum dimension. FREE FLUID: None. US/US abdomen limited IMPRESSION: No gallstones or biliary dilatation. Mild increased echogenicity of the liver consistent with fatty infiltration.
== END 2022-12-04 07:52 | disposition home or self-care (01) ==
LOC: HO.US 07:51
PROVIDERS: PCP Nurse Practitioner Family; Visit Provider Physician Assistant Surgical
DX: R10.11 Right upper quadrant pain (principal)
CPT/HCPCS: 76705

== ENCOUNTER 2022-12-09 16:15 | Outpatient (REF) | payer OTHER, SELFPAY ==
[2022-12-18 22:23] LABS: Pancreatic Elastase-1 >500 mcg/g
== END 2022-12-09 16:16 | disposition home or self-care (01) ==
LOC: HO.LNP 16:15
PROVIDERS: Visit Provider Nurse Practitioner
DX: K58.1 Irritable bowel syndrome with constipation (principal)
CPT/HCPCS: 82656

== ENCOUNTER 2022-12-16 08:00 | Outpatient (REF) | payer OTHER, SELFPAY ==
[2022-12-16 10:04] LABS: Alanine Aminotransferase 26 U/L (0-31); Anion Gap 13 (12-20); Aspartate Amino Transferase 24 U/L (5-31); Blood Urea Nitrogen 12 mg/dL (9-16); Calcium 9.3 mg/dL (8.4-10.2); Carbon Dioxide 29 mmol/L (22-29); Chloride 103 mmol/L (96-108); Cholesterol 177 mg/dL; Estimated Glomerular Filt Rate > 60; Glucose Random 144 mg/dL (60-115); HDL Cholesterol 42 mg/dL; LDL Cholesterol Calculated 84 mg/dl; Potassium 4.3 mmol/L (3.3-5.1); Sodium 141 mmol/L (135-145); Triglycerides 256 mg/dL
[2022-12-16 10:28] LABS: Estimated Average Glucose 134 mg/dL; Hemoglobin A1c % 6.3 %
[2022-12-16 10:34] LABS: Free T4 (Free Thyroxine) 0.98 ng/dL (0.71-1.85); Thyroid Stimulating Hormone 0.42 uIU/mL (0.32-4.0)
== END 2022-12-16 08:01 | disposition home or self-care (01) ==
LOC: HO.LAB 08:00
PROVIDERS: Absent Provider Nurse Practitioner Family; PCP Nurse Practitioner Family; Visit Provider Internal Medicine Endocrinology, Diabetes & Metabolism
DX: E03.9 Hypothyroidism, unspecified (principal); R61 Generalized hyperhidrosis; I73.9 Peripheral vascular disease, unspecified; E78.5 Hyperlipidemia, unspecified; R73.01 Impaired fasting glucose
CPT/HCPCS: 36415; 80048; 80061; 83036; 84439; 84443; 84450; 84460

== ENCOUNTER → 2022-12-23 07:58 | Outpatient (BNVA) | payer OTHER, MEDICAID, SELFPAY | PROVIDERS: PCP Nurse Practitioner Family; Visit Provider Internal Medicine Endocrinology, Diabetes & Metabolism | DX: Z13.89 Encounter for screening for other disorder (principal) ==

== ENCOUNTER → 2023-01-09 10:54 | Outpatient (REF) | payer OTHER, MEDICAID, SELFPAY ==
--- NOTE | ~2023-01-09 | NM_ITS ---
EXAMINATION: BILIARY TRACT IMAGING STUDY WITH CCK CLINICAL INFORMATION: Right upper quadrant pain.. COMPARISON: No previous biliary scan is available for comparison. Abdominal ultrasound dated 12/04/2022 is available for comparison.. TECHNIQUE: Serial gamma scintillation camera images were obtained over the abdomen for a total observation period of 90 minutes following the intravenous administration of 5.0 mCi Tc-99m Mebrofenin. FINDINGS: There is good concentration of activity in the liver by 5 minutes post injection. Biliary activity is visualized by 15 minutes. The gallbladder is well visualized by 25 minutes. Small bowel is well visualized by 60 minutes. At 60 minutes post radiopharmaceutical injection, a 30-minute infusion of 1.7 micrograms Sincalide was then begun and an additional 30 minutes of images were obtained. Some gallbladder emptying is noted, but this is less than normal. At the end of the study there is almost complete clearance of activity from the liver and visualization of diffuse small bowel activity but abnormal persistent activity is present in the gallbladder. The calculated gallbladder ejection fraction is 32% (normal gallbladder ejection fraction is greater than 35%). NM/NM hepatobiliary w pharm IMPRESSION: 1. Visualization of the gallbladder is evidence of a patent cystic duct and strong evidence against the diagnosis of acute cholecystitis. The common bile duct is patent. Liver function appears normal. 2. Poor gallbladder emptying and a low gallbladder ejection fraction are evidence of impaired gallbladder contractility and most likely due to chronic cholecystitis.
== END ==
LOC: HO.NUCMED 10:54
PROVIDERS: Visit Provider Physician Assistant Surgical
DX: R10.11 Right upper quadrant pain (principal); Z90.3 Acquired absence of stomach [part of]
CPT/HCPCS: 78227; A9537

== ENCOUNTER 2023-05-24 21:27 | Emergency (ER) | payer OTHER, SELFPAY ==
[2023-05-24 21:29] VITALS: BMI 30.9
[2023-05-24 21:36] VITALS: BP 157/78; PULSE 95; RESP 12; TEMP 37; O2SAT 96
--- NOTE | 2023-05-24 22:21 | ED_ITS ---
HPI - General Adult General Chief complaint: Back Pain/Injury Stated complaint: Back pain/Work Inj Time Seen by Provider: 05/24/23 21:55 Source: patient, RN notes reviewed and old records reviewed Mode of arrival: ambulatory Limitations: no limitations History of Present Illness HPI narrative: 57-year-old female presents for evaluation of lower back pain. 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 She reports that she was pushing a stretcher around 9 hours ago when she felt a pressure in my lower back. ? She reports the pain is slowly been getting worse throughout her shift Her pain is worse with walking and standing from a seated position Her pain is a 7/10 Denies any bladder or bowel incontinence pain Denies any lower extremity weakness The patient has a history of a mild disc bulge and arthritis in her back Related Data Home Medications Medication Instructions Recorded Confirmed amitriptyline 100 mg tablet 100 mg PO BEDTIME 09/10/20 05/30/22 atorvastatin 20 mg tablet 20 mg PO DAILY 09/10/20 05/30/22 biotin 10,000 mcg capsule mcg PO DAILY 09/10/20 05/30/22 clonidine HCl 0.2 mg tablet 0.2 mg PO BEDTIME 09/10/20 05/30/22 duloxetine 60 mg capsule,delayed 60 mg PO DAILY 09/10/20 05/30/22 release multivitamin with iron 1 tab PO DAILY 09/10/20 05/30/22 dicyclomine 10 mg capsule 10 mg PO QID 08/28/21 05/30/22 trazodone 50 mg tablet 100 mg PO BEDTIME 04/22/22 05/30/22 valbenazine 80 mg capsule 80 mg PO DAILY 05/30/22 05/30/22 (Ingrezza) lorazepam 1 mg tablet 1 mg PO TID PRN 06/24/22 amitriptyline 100 mg tablet 100 mg PO BEDTIME 12/23/22 atorvastatin 20 mg tablet 20 mg PO DAILY 12/23/22 bupropion HCl 150 mg 24 hr tablet, 150 mg PO QAM 12/23/22 extended release cetirizine 10 mg capsule (Zyrtec) 10 mg PO DAILY PRN 12/23/22 clonidine HCl 0.2 mg tablet 0.2 mg PO QPM 12/23/22 dicyclomine 10 mg capsule 10 mg PO TID 12/23/22 duloxetine 60 mg capsule,delayed 60 mg PO QAM 12/23/22 release lorazepam 1 mg tablet 1 mg PO TID PRN 12/23/22 valbenazine 80 mg capsule 80 mg PO DAILY 12/23/22 (Ingrezza) Previous Rx's Medication Instructions Recorded sennosides 8.6 mg capsule (senna) 17.2 mg PO BEDTIME constipation 30 12/06/21 days #60 caps linaclotide 290 mcg capsule 290 mcg PO QAM #30 caps 06/10/22 (Linzess) levothyroxine 125 mcg tablet 125 mcg PO DAILY #30 tabs 11/14/22 (Synthroid) omeprazole 40 mg capsule,delayed 40 mg PO DAILY #30 caps 01/19/23 release dexamethasone 4 mg tablet 4 mg PO BID #6 tabs 05/24/23 methocarbamol 500 mg tablet 500 mg PO QID PRN muscle spasm #20 05/24/23 tabs Allergies Allergy/AdvReac Type Severity Reaction Status Date / Time promethazine [From PHENERGAN] Allergy Intermediate RASH Verified 12/02/22 14:40 cefazolin [CEFAZOLIN] Allergy Unknown ANAPHYLAXIS Verified 12/02/22 14:40 Iodinated Contrast Media Allergy Unknown ANAPHYLAXIS Verified 12/02/22 14:40 [IV Dye, Iodine Containing Contrast ] aripiprazole [From Abilify] AdvReac Severe tardive Verified 12/02/22 14:40 dyskinesia prednisone [PREDNISONE] AdvReac Unknown HYPERTENSION, Verified 12/02/22 14:40 high BP,headache DOG SHAMPOO Allergy Unknown ANAPHYLAXIS Uncoded 12/02/22 14:40 Review of Systems 2 Constitutional: Constitutional: Denies chills and Denies fever(s) Cardiovascular: Cardiovascular: Denies chest pain and Denies dyspnea Respiratory: Respiratory: Denies cough and Denies dyspnea Gastrointestinal: Gastrointestinal: Denies abdominal pain, Denies nausea and Denies vomiting Musculoskeletal: Musculoskeletal: Reports back pain and Denies tingling Integumentary/Breasts: Skin/Breast: Denies erythema Neurologic: Denies tingling, Denies paresthesias and Denies tremor(s) [facility] Past Medical History Medical History (Updated 05/24/23 @ 22:24 by Tavares Muller) Anxiety Back pain Chronic constipation Depression Jerman-Danlos syndrome type III Fibromyalgia History of kidney stones Hyperlipidemia Hypothyroidism IBS (irritable colon syndrome) Insomnia Surgical History History of bladder suspension procedure History of endometrial ablation History of sleeve gastrectomy Hx of appendectomy Hx of hysterectomy Hx of partial thyroidectomy Hx of toe surgery Hx of tubal ligation Status post left foot surgery Family History Family History Father Liver disease Diabetes mellitus Hypertension Mother Hypertension Diabetes mellitus Arthritis Son Asthma Depression Anxiety Daughter Asthma Depression Migraines Chronic pain Anxiety Sister No problems noted. 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 [employer] Physical Exam ED Vital Signs: Vital Signs - 24 hr 05/24/23 21:36 Temperature 98.6 F Pulse Rate 95 Respiratory Rate 12 Blood Pressure 157/78 H Pulse Oximetry 96 Oxygen Delivery Method Room Air BMI result Body Mass Index 30.9 Const General: healthy appearing, comfortable, no acute distress, alert and awake Nutritional Appearance: well nourished Orientation/consciousness: patient oriented x3 HENMT Head: Yes normocephalic and Yes atraumatic Eyes Eyelids: Yes eyelids normal Conjunctivae: conjunctivae normal Sclerae: sclerae normal Corneas: corneas normal Pupils: Equal, round and reactive pupils present EOM: EOMs intact bilaterally Neck Neck: Yes full ROM Resp Effort & Inspection: normal respiratory effort, able to speak in complete sentences and not labored Back/Spine/Pelvis Other: Tenderness in the lumbar sacral region without any focal tenderness. There is no service of deformities. Straight leg raise negative bilaterally. Skin General skin exam: elasticity normal Neuro General: patient oriented x3 Cranial nerves: Yes Equal, round and reactive pupils present and Yes Bilaterally intact EOM present Cognition (Neuro): normal cognition Extrem Other: Moving all extremities well without any obvious deformities Medical Decision Making Medical Decision Making MDM Narrative: [age] in female presents for evaluation of lower back pain after pushing a stretcher. There were no falls. History exam consistent muscle strain, she has some tenderness with no deformities or neurologic signs or symptoms. No indication for emergent imaging at this time. The patient will follow-up with [facility] Differential Diagnosis Differential Diagnoses: The differential diagnosis associated with the presentation includes Acute low back pain Sciatica Radiculopathy Burst fracture less likely Tests considered The following testing was considered but not selected: X-ray of the lumbar spine Discharge Plan Discharge Clinical Impression: Low back pain Patient Disposition: Home, Self-Care Instructions: Acute Low Back Pain (ED) Additional Instructions: Your symptoms are likely related to a pulled muscle plus or minus a pinched nerve. Take dexamethasone twice daily for the next 3 days Use ibuprofen/Tylenol for pain Use methocarbamol as needed for muscle spasms. This may make you sleepy, do not drink alcohol or drive after taking it Follow-up with your primary doctor Follow-up with [facility] by calling on Thursday Return for new or worsening symptoms, especially develops fevers, intractable pain that does not improve, weakness, bladder or bowel incontinence Prescriptions: New dexamethasone 4 mg tablet 4 mg PO BID Qty: 6 0RF methocarbamol 500 mg tablet 500 mg PO QID PRN (Reason: muscle spasm) Qty: 20 0RF No Action trazodone 50 mg tablet 100 mg PO BEDTIME Linzess 290 mcg capsule 290 mcg PO QAM Qty: 30 6RF levothyroxine [Synthroid] 125 mcg tablet 125 mcg PO DAILY Qty: 30 4RF omeprazole 40 mg capsule,delayed release(DR/EC) 40 mg PO DAILY Qty: 30 2RF amitriptyline 100 mg tablet 100 mg PO BEDTIME duloxetine 60 mg capsule,delayed release(DR/EC) 60 mg PO DAILY clonidine HCl 0.2 mg tablet 0.2 mg PO BEDTIME atorvastatin 20 mg tablet 20 mg PO DAILY biotin 10,000 mcg capsule PO DAILY multivitamin with iron Tablet 1 tab PO DAILY Patient Comments: opurity bariatric vitamin senna 8.6 mg capsule 17.2 mg PO BEDTIME 30 Days Qty: 60 3RF lorazepam 1 mg tablet 1 mg PO TID PRN amitriptyline 100 mg tablet 100 mg PO BEDTIME dicyclomine 10 mg capsule 10 mg PO TID duloxetine 60 mg capsule,delayed release(DR/EC) 60 mg PO QAM bupropion HCl 150 mg tablet extended release 24 hr 150 mg PO QAM atorvastatin 20 mg tablet 20 mg PO DAILY Zyrtec 10 mg capsule 10 mg PO DAILY PRN clonidine HCl 0.2 mg tablet 0.2 mg PO QPM Ingrezza 80 mg capsule 80 mg PO DAILY dicyclomine 10 mg capsule 10 mg PO QID Ingrezza 80 mg capsule 80 mg PO DAILY lorazepam 1 mg tablet 1 mg PO TID PRN Referrals: [facility] [Provider Group] (low back pain)
== END 2023-05-24 22:43 | disposition home or self-care (01) ==
PROVIDERS: Emergency Provider Student in an Organized Health Care Education/Training Program; PCP Nurse Practitioner Family
DX: S39.012A Strain of muscle, fascia and tendon of lower back, initial encounter (principal); X50.9XXA Other and unspecified overexertion or strenuous movements or postures, initial encounter; Y93.9 Activity, unspecified; Y92.239 Unspecified place in hospital as the place of occurrence of the external cause; Y99.0 Civilian activity done for income or pay; Z79.899 Other long term (current) drug therapy
CPT/HCPCS: 99283

== ENCOUNTER → 2023-05-27 10:28 | Outpatient (BNVA) | payer OTHER, SELFPAY | PROVIDERS: PCP Nurse Practitioner Family; Visit Provider Physician Assistant | DX: Z13.89 Encounter for screening for other disorder (principal) | CPT/HCPCS: 99203 ==

== ENCOUNTER → 2023-05-29 15:05 | Outpatient (BNVA) | payer OTHER, SELFPAY | PROVIDERS: PCP Nurse Practitioner Family; Visit Provider Physician Assistant | DX: Z13.89 Encounter for screening for other disorder (principal) | CPT/HCPCS: 99213 ==

== ENCOUNTER → 2023-06-02 14:43 | Outpatient (BNVA) | payer OTHER, SELFPAY | PROVIDERS: PCP Nurse Practitioner Family; Visit Provider Physician Assistant Medical | DX: Z13.89 Encounter for screening for other disorder (principal) | CPT/HCPCS: 99213 ==

== ENCOUNTER 2023-06-09 13:05 | Outpatient (AMB) | payer OTHER, SELFPAY ==
[2023-06-09 13:07] VITALS: BP 116/64; PULSE 87; TEMP 36.4; O2SAT 96; BMI 31.7
--- NOTE | 2023-06-09 13:07 | A.OFFVIS_ITS ---
Intake Vital Signs 06/09/23 13:07 Height 5 ft 4 in Weight 184 lb 11.958 oz BMI 31.7 BP 116/64 Blood Pressure Location Rt brachial Position Sitting Pulse 87 Pulse Source Pulse Oximeter Temp 97.5 F Temp Source Skin Pulse Oximetry (%) 96 Intake Visit Reasons: FM Intake Note: New pt seen today for FM. C/o flare up a few months ago, couldn't think straight. PCP prescribed Lyrica and muscle realxers has gotten better. Also c/o bl hip pain Nuclear Worker Technician Required: No Accompanied by: Self / Same As Patient Allergies promethazine [From PHENERGAN] Allergy (Intermediate, Verified 06/09/23 13:11) RASH cefazolin [CEFAZOLIN] Allergy (Unknown, Verified 06/09/23 13:11) ANAPHYLAXIS Iodinated Contrast Media [IV Dye, Iodine Containing Contrast ] Allergy (Unknown, Verified 06/09/23 13:11) ANAPHYLAXIS aripiprazole [From Abilify] Adverse Reaction (Severe, Verified 06/09/23 13:11) tardive dyskinesia prednisone [PREDNISONE] Adverse Reaction (Unknown, Verified 06/09/23 13:11) HYPERTENSION, high BP,headache DOG SHAMPOO Allergy (Unknown, Uncoded 06/09/23 13:11) ANAPHYLAXIS Medication List - Last Reconciled 06/09/23 by Alisha Rios MD amitriptyline 100 mg PO BEDTIME atorvastatin 20 mg PO DAILY bupropion HCl 150 mg PO QAM cetirizine (Zyrtec) 10 mg PO DAILY PRN chlorhexidine gluconate 0.12% 15 mL PO BID clonidine HCl 0.2 mg PO QPM cyclobenzaprine 10 mg PO TID dicyclomine 10 mg PO TID duloxetine 60 mg PO QAM estradiol 1 patch transdermal QWEEK ibuprofen 800 mg PO TID levothyroxine 125 mcg PO DAILY linaclotide (Linzess) 290 mcg PO QAM lorazepam 1 mg PO TID PRN omeprazole 40 mg PO DAILY pregabalin 100 mg PO TID sennosides (senna) 17.2 mg (2 x 8.6 mg) PO BEDTIME 30 days trazodone 100 mg PO BEDTIME valbenazine (Ingrezza) 80 mg PO DAILY HPI HPI Comments History of Present Illness Details This is a 57-year-old female with fibromyalgia who presents for evaluation. She was last evaluated by whip operator in [address]. [address] Corbin. Patient states that she has had fibromyalgia for many years. Recently she was started on Lyrica by her PCP a few months ago with 90% improvement in her fibromyalgia pain she also gets burning tingling and numbness when she gets up to her 3rd floor in her apartment building. She also gets 10 shortness of breath with activity. She states that she goes to the gym 3 days a week and does resistance training for 30 minutes and she feels great afterwards. She is able to sleep 9-10 hours at night. She uses a CPAP mask but sometimes the mask is not completely firm on her face. She follows up with a psychiatrist every 2- 3 months. Does not have a psychologist [facility] Medical History Jerman-Danlos syndrome type III History of kidney stones Hypothyroidism Back pain Chronic constipation IBS (irritable colon syndrome) Insomnia Hyperlipidemia Anxiety Fibromyalgia Depression Surgical History Hx of partial thyroidectomy Status post left foot surgery History of sleeve gastrectomy History of endometrial ablation Hx of toe surgery History of bladder suspension procedure Hx of hysterectomy Hx of tubal ligation Hx of appendectomy Family History Father Liver disease Diabetes mellitus Hypertension Mother Hypertension Diabetes mellitus Arthritis Son Asthma Depression Anxiety Daughter Asthma Depression Migraines Chronic pain Anxiety Sister No problems noted. 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 Review of Systems Const Reports fatigue, Reports headache(s) and Reports weakness Eyes Reports dry eyes ENT Reports dry mouth and Reports headache(s) Card Reports chest pain and Reports dyspnea on exertion Resp Reports dyspnea on exertion Reports difficulty voiding Musc Reports arthralgias, Reports numbness, Reports stiffness and Reports tingling Neuro Reports headache(s), Reports numbness, Reports tingling and Reports weakness Psych Reports abnormal sleep pattern, Reports anxiety and Reports depression Endo Reports fatigue Physical Exam Vital Signs: Last Vital Signs Temp 97.5 F 06/09/23 13:07 Pulse 87 06/09/23 13:07 BP 116/64 06/09/23 13:07 Pulse Ox 96 06/09/23 13:07 BMI result Body Mass Index 31.7 Const General: cooperative, healthy appearing and comfortable Nutritional Appearance: obese Orientation/consciousness: patient oriented x3 Limitations: no limitations HEENT Head: Yes normocephalic and Yes atraumatic Mouth: moist mucous membranes Resp Effort & Inspection: normal respiratory effort and able to speak in complete sentences Auscultation: clear to auscultation bilaterally Cardio Rate: regular rate Rhythm: regular rhythm Skin General skin exam: no rashes or lesions noted Neuro General: patient oriented x3 Extrem Other: Minimal osteoarthritic changes of both hands with no active synovitis Normal range of motion of both hands, elbows, shoulders without pain Few fibromyalgia tender points Normal nailfold capillaroscopy Positive straight leg raise test on the left Mildly reduced sensation to touch both legs Assessment & Plan Assessment & Plan (1) Fibromyalgia, primary: Code(s): M79.7 - Fibromyalgia Plan: This is a 57-year-old female fibromyalgia who presents as a new patient. I do not see any signs of autoimmune rheumatic disease Discussed management of fibromyalgia with patient. Is a noninflammatory, non- autoimmune central afferent processing disorder leading to a diffuse pain syndrome. Patient follows up regularly with a psychiatrist, I suggested evaluation by a psychotherapist. Try to follow sleep hygiene practices. Patient goes to the gym 3 days a week and does resistance training and feels great afterwards. I advised patient continue to exercise informed her that symptoms will be worse if she stops exercising Patient is already on duloxetine by her psychiatrist, started recently on Lyrica by her PCP which she feels is helping her fibromyalgia symptoms. She can continue with duloxetine and Lyrica Patient states that she gets burning pain in her right leg when climbing up stairs for about 10 years. I suggested evaluation by Neurology. I suggested cardiology evaluation for her chest pain and shortness of breath. Discussed with PCP Follow-up as needed Plan I spent 46 minutes reviewing patient's chart, evaluating patient, counseling patient and documenting in the chart Coding Level of Care Code New Pt Level 4 (45880) Diagnoses Fibromyalgia, primary M79.7
== END 2023-06-09 13:42 | disposition home or self-care (01) ==
PROVIDERS: PCP Nurse Practitioner Family; Visit Provider Student in an Organized Health Care Education/Training Program
DX: M79.7 Fibromyalgia (principal)
CPT/HCPCS: 99204

== ENCOUNTER → 2023-06-09 13:05 | Outpatient (BNVA) | payer OTHER, SELFPAY | PROVIDERS: PCP Nurse Practitioner Family; Visit Provider Student in an Organized Health Care Education/Training Program ==

== ENCOUNTER → 2023-06-09 14:13 | Outpatient (BNVA) | payer OTHER, SELFPAY | PROVIDERS: PCP Nurse Practitioner Family; Visit Provider Physician Assistant Medical | DX: Z13.89 Encounter for screening for other disorder (principal) | CPT/HCPCS: 99213 ==

== ENCOUNTER 2023-06-19 13:00 | Outpatient (RCR) | payer OTHER, SELFPAY ==
--- NOTE | 2023-06-01 14:55 | MHC.PT.EP ---
[facility] [place] Office [place] Office [place] Office [address] Grisel Ivan [address] [phone] F: [phone] F: [phone] F: [phone] F: [phone] Physical Therapy Plan of Care Date of Evaluation: 06/01/23 Date of Surgery: n/a Diagnosis: lumbar sprain Assessment: Patient is a 57 year old female presenting to PT with complaints of pain in her low back. Pt reports onset of pain began 05/24/2023 due to pushing a stretcher at work. She presents today with impairments in pain, lumbar ROM, core strength, hip strength, posture. 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 Pt expresses usp goal of reducing pain, and is motivated to work towards this in PT. Clinical presentation today is most consistent with signs and sx associated with low back pain and pt will benefit from skilled PT 2 week x 4 weeks to address the following problems and impairments noted upon evaluation: pain, lumbar ROM, core strength, hip strength, posture. These problems limit the patient with the following functional activities: pain, lumbar ROM, core strength, hip strength, posture. The prescribed treatment plan of care is medically necessary. Co-morbidities of erwin danlos syndrome type III and fibromyalgia were identified and taken into considerations of plan of care. Pt was educated on HEP, role of PT, prognosis, POC. Frequency and Duration: The patient will be seen 2 x week x 4 weeks Short Term Goals: Pt will demonstrate centralization of sx in 2 weeks. Pt will demonstrate improved hip MMT strength by 1/3 grade in 2 weeks for improved lumbopelvic stability. Pt will demonstrate ability to perform PPT with good core control in 2 weeks. Intermediate Goals: Pt will demonstrate improved Raissa by 10% in 4 weeks for improved functional mobility. Pt will demonstrate ability to ambulate with min to no pain in 4 weeks for return to PLOF. Pt will demonstrate ability to work a full shift with min to no pain in 4 weeks for improved tolerance to work. Pt will demonstrate ability to bend and lift with min to no pain in 4 weeks for improved tolerance to ADLs and household duties. Treatment Plan: Modalities to reduce pain, spasms and effusion. Manual therapy to restore motion and function. Therapeutic exercise to improve strength and flexibility. Neuromuscular re-education for posture and balance. Therapeutic activities to return to functional activities of daily living. Electronically signed by: Shanae Jean, PT, DPT, ATC Please sign and return to therapist. Thank you for your referral.
--- NOTE | 2023-07-24 07:16 | MHC.PT.DC ---
[facility] [place] Office [place] [facility] [place] [facility] [address] Grisel Ivan [address] [phone] F: [phone] F: [phone] F: [phone] F: [phone] Physical Therapy Discharge Report Diagnosis: lumbar sprain Date of Surgery: n/a Date of Evaluation: 06/01/23 Date of Discharge: 07/24/23 Treatments to Date: 6 Cancellations to Date: 1 No Shows to Date: 0 Discharge Status: Improved Function Independent with HEP Discharge Summary: Pt was placed on 30 day hold. Has not called to be scheduled so will be d/c as previously planned. Electronically signed by: Shanae Jean, PT, DPT, ATC Please sign and return to therapist. Thank you for your referral.
== END 2023-07-24 07:16 | disposition home or self-care (01) ==
LOC: HO.PTCHIC 13:00
PROVIDERS: PCP Nurse Practitioner Family; Visit Provider Physician Assistant
DX: S33.5XXD Sprain of ligaments of lumbar spine, subsequent encounter (principal)
CPT/HCPCS: 97110; 97140; 97161

== ENCOUNTER → 2023-06-19 14:52 | Outpatient (BNVA) | payer OTHER, SELFPAY | PROVIDERS: PCP Nurse Practitioner Family; Visit Provider Physician Assistant | DX: Z13.89 Encounter for screening for other disorder (principal) | CPT/HCPCS: 99213 ==

== ENCOUNTER 2023-07-15 08:05 | Outpatient (REF) | payer OTHER, SELFPAY ==
[2023-07-15 09:18] LABS: MANUAL DIFF FLAG NO
[2023-07-15 09:25] LABS: Basophils Percent Auto 0.6 % (0-2); Eosinophils Absolute Auto 0.3 X10*3/uL (0.0-0.4); Eosinophils Percent Auto 5.1 % (0-4); Hemoglobin 11.4 g/dl (12.0-16.0); Imm Gran Abs Auto 0.05 X10*3/uL (0.00-0.03); Imm Gran Pct Auto 0.7 % (0.0-0.4); Lymphocytes Absolute Auto 1.8 X10*3/uL (1.2-4.9); Lymphocytes Percent Auto 26.3 % (20-40); Mean Corpuscular HGB Conc 32.6 g/dl (31.0-35.0); Mean Corpuscular Hemoglobin 29.5 pg (27.0-33.0); Mean Corpuscular Volume 90.7 fL (80.0-98.0); Mean Platelet Volume 9.9 fL (9.4-12.3); Monocytes Absolute Auto 0.5 X10*3/uL (0.1-1.2); Monocytes Percent Auto 8.1 % (2-11); Neutrophils Percent Auto 59.2 % (45-73); Platelet Count 286 X10*3/uL (160-400); Red Blood Count 3.86 X10*6/uL (4.20-5.50); Red Cell Distribution Width 13.3 % (11.0-16.0); White Blood Count 6.7 X10*3/uL (4.8-10.8)
[2023-07-15 09:42] LABS: Estimated Average Glucose 146 mg/dL; Hemoglobin A1c % 6.7 % (<6.0)
[2023-07-15 09:50] LABS: Alanine Aminotransferase 36 U/L (0-31); Anion Gap 15 (12-20); Aspartate Amino Transferase 25 U/L (5-31); Blood Urea Nitrogen 12 mg/dL (9-16); Calcium 9.2 mg/dL (8.4-10.2); Carbon Dioxide 27 mmol/L (22-29); Chloride 101 mmol/L (96-108); Cholesterol 225 mg/dL (<200); Estimated Glomerular Filt Rate > 60; Glucose Random 177 mg/dL (60-115); HDL Cholesterol 42 mg/dL (>40); LDL Cholesterol Calculated 107 mg/dL (<100); Potassium 3.9 mmol/L (3.3-5.1); Sodium 139 mmol/L (135-145); Triglycerides 384 mg/dL (<150)
[2023-07-15 10:27] LABS: Vitamin B12 945 pg/mL (200-900)
== END 2023-07-15 08:06 | disposition home or self-care (01) ==
LOC: HO.10HDL 08:05
PROVIDERS: Visit Provider Nurse Practitioner Family
DX: R51.9 Headache, unspecified (principal); E78.5 Hyperlipidemia, unspecified; E03.9 Hypothyroidism, unspecified; E11.9 Type 2 diabetes mellitus without complications
CPT/HCPCS: 36415; 80048; 80061; 82607; 83036; 84443; 84450; 84460; 85025

== ENCOUNTER 2023-07-20 11:59 | Emergency (ER) | payer OTHER, SELFPAY ==
[2023-07-20] VITALS (7 sets, daily range): BP systolic 118–171; BP diastolic 68–89; PULSE 84–95; RESP 16–20; TEMP 36.4–37.1; O2SAT 98–99; BMI 33.0
--- NOTE | ~2023-07-20 | XR_ITS ---
EXAMINATION: XR KNEE, RIGHT CLINICAL INFORMATION: Pain. Fall. COMPARISON: Previous x-ray April 2021 TECHNIQUE: Four views of the right knee. FINDINGS: Bone alignment is normal. No fracture or dislocation. Disc spaces are normal. No joint effusion. Small osteophyte at the quadriceps tendon insertion to the patella. 0.8 x 1.2 cm sclerotic density in the distal femoral metaphysis. This is stable from previous x-ray April 2021. 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 XR/XR knee RT 4V IMPRESSION: No fracture or dislocation.
--- NOTE | 2023-07-20 12:03 | ED.GENADULT ---
HPI - General Adult General Chief complaint: Fall Stated complaint: Fall Time Seen by Provider: 07/20/23 13:05 Related Data Home Medications Medication Instructions Recorded Confirmed biotin 10,000 mcg capsule mcg PO DAILY 09/10/20 05/30/22 multivitamin with iron 1 tab PO DAILY 09/10/20 05/30/22 trazodone 50 mg tablet 100 mg PO BEDTIME 04/22/22 05/30/22 amitriptyline 100 mg tablet 100 mg PO BEDTIME 12/23/22 atorvastatin 20 mg tablet 20 mg PO DAILY 12/23/22 bupropion HCl 150 mg 24 hr tablet, 150 mg PO QAM 12/23/22 extended release cetirizine 10 mg capsule (Zyrtec) 10 mg PO DAILY PRN 12/23/22 clonidine HCl 0.2 mg tablet 0.2 mg PO QPM 12/23/22 dicyclomine 10 mg capsule 10 mg PO TID 12/23/22 duloxetine 60 mg capsule,delayed 60 mg PO QAM 12/23/22 release lorazepam 1 mg tablet 1 mg PO TID PRN 12/23/22 valbenazine 80 mg capsule 80 mg PO DAILY 12/23/22 (Ingrezza) cyclobenzaprine 10 mg tablet 10 mg PO TID 06/05/23 pregabalin 100 mg capsule 100 mg PO TID 06/05/23 Previous Rx's Medication Instructions Recorded sennosides 8.6 mg capsule (senna) 17.2 mg (2 x 8.6 mg) PO BEDTIME 12/06/21 constipation 30 days #60 caps linaclotide 290 mcg capsule 290 mcg PO QAM #30 caps 06/10/22 (Linzess) levothyroxine 125 mcg tablet 125 mcg PO DAILY #30 tabs 06/01/23 omeprazole 40 mg capsule,delayed 40 mg PO DAILY #30 caps 06/03/23 release naproxen 500 mg tablet 500 mg PO BID PRN back pain #28 06/09/23 tabs Allergies Allergy/AdvReac Type Severity Reaction Status Date / Time promethazine [From PHENERGAN] Allergy Intermediate RASH Verified 07/20/23 12:08 cefazolin [CEFAZOLIN] Allergy Unknown ANAPHYLAXIS Verified 07/20/23 12:08 Iodinated Contrast Media Allergy Unknown ANAPHYLAXIS Verified 07/20/23 12:08 [IV Dye, Iodine Containing Contrast ] aripiprazole [From Abilify] AdvReac Severe tardive Verified 07/20/23 12:08 dyskinesia prednisone [PREDNISONE] AdvReac Unknown HYPERTENSION, Verified 07/20/23 12:08 high BP,headache DOG SHAMPOO Allergy Unknown ANAPHYLAXIS Uncoded 06/09/23 13:11 [facility] Past Medical History Medical History Jerman-Danlos syndrome type III History of kidney stones Hypothyroidism Back pain Chronic constipation IBS (irritable colon syndrome) Insomnia Hyperlipidemia Anxiety Fibromyalgia Depression Surgical History Hx of partial thyroidectomy Status post left foot surgery History of sleeve gastrectomy History of endometrial ablation Hx of toe surgery History of bladder suspension procedure Hx of hysterectomy Hx of tubal ligation Hx of appendectomy Family History Family History Father Liver disease Diabetes mellitus Hypertension Mother Hypertension Diabetes mellitus Arthritis Son Asthma Depression Anxiety Daughter Asthma Depression Migraines Chronic pain Anxiety Sister No problems noted. 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 Physical Exam ED Vital Signs: Vital Signs - 24 hr 07/20/23 12:04 07/20/23 12:31 07/20/23 13:28 Temperature 97.6 F 98.7 F Pulse Rate 88 86 84 Respiratory Rate 20 16 Blood Pressure 158/79 H 171/89 H 158/83 H Pulse Oximetry 99 99 Oxygen Delivery Method Room Air Room Air 07/20/23 13:31 07/20/23 13:31 07/20/23 16:00 Temperature Pulse Rate 91 95 91 Respiratory Rate 16 Blood Pressure 143/71 H 118/68 139/71 Pulse Oximetry 98 Oxygen Delivery Method Room Air 07/20/23 17:35 07/20/23 17:35 07/20/23 17:36 Temperature Pulse Rate 85 90 90 Respiratory Rate Blood Pressure 135/77 132/82 126/79 Pulse Oximetry Oxygen Delivery Method BMI result Body Mass Index 33.0 Course Course Course Narrative: This is an RME: Additional HPI, ROS, PE not included below will be deferred to primary provider. This is a [id number]-female, with a hx of anxiety, depression, Jerman-Danlos syndrome, hyperlipidemia, hypothyroidism, presenting to the emergency department with a complaint of near syncope just [employer]. Pt states that she was feeling lightheaded while walking and started to get wobbly legs, like spaghetti . She then collapsed. Reports that this is the second time that this has happened. She states that she is scheduled to have an echocardiogram tomorrow. She ate breakfast at 9am this morning. She also endorses that she her her right knee during this episode. Plan: Labs, EKG, POC, right knee x-ray Medications Administered Discontinued Medications Generic Name Dose Route Start Last Admin Trade Name Freq PRN Reason Stop Dose Admin Sodium Chloride 2,000 mls @ 999 mls/hr 07/20/23 13:42 07/20/23 16:03 Ns IVCONT 07/20/23 15:42 Infused .Q2H1M ONE Infusion Medical Decision Making Medical Decision Making MDM Narrative: -until pros Lab Data 07/20/23 12:19 07/20/23 12:19 Labs: Lab Results 07/20/23 07/20/23 07/20/23 Range/Units 12:19 12:30 13:30 WBC 8.1 (4.8-10.8) X10*3/uL RBC 4.08 L (4.20-5.50) X10*6/uL Hgb 12.5 (12.0-16.0) g/dl Hct 36.5 L (37.0-47.0) % MCV 89.5 (80.0-98.0) fL MCH 30.6 (27.0-33.0) pg MCHC 34.2 (31.0-35.0) g/dl RDW 13.3 (11.0-16.0) % Plt Count 292 (160-400) X10*3/uL MPV 9.5 (9.4-12.3) fL Immature Gran % (Auto) 0.6 H (0.0-0.4) % Neut % (Auto) 60.0 (45-73) % Lymph % (Auto) 26.3 (20-40) % [place] % (Auto) 9.5 (2-11) % Eos % (Auto) 2.7 (0-4) % Baso % (Auto) 0.9 (0-2) % Lymph # (Auto) 2.1 (1.2-4.9) X10*3/uL [place] # (Auto) 0.8 (0.1-1.2) X10*3/uL Eos # (Auto) 0.2 (0.0-0.4) X10*3/uL Baso # (Auto) 0.1 (0.0-0.2) X10*3/uL Abs Immat Gran (auto) 0.05 H (0.00-0.03) X10*3/uL Absolute Neuts (auto) 4.8 (2.0-8.3) x10*3/uL Absolute Nucleated RBC 0.000 (0.0-0.012) X10*3/uL Nucleated RBC % (auto) 0.0 (0.0-0.2) /100WBC Hold Purple Top SEE NOTE PT 10.7 L (11.1-13.3) SEC INR 0.9 (0.9-1.1) APTT 29.3 (26.0-36.4) SEC D-Dimer High Sensitivty 272 NG/ML Sodium 136 (135-145) mmol/L Potassium 3.8 (3.3-5.1) mmol/L Chloride 101 (96-108) mmol/L Carbon Dioxide 25 (22-29) mmol/L Anion Gap 14 (12-20) BUN 12 (9-16) mg/dL Creatinine 0.82 (0.5-1.4) mg/dL Estim Creat Clear Calc 79.8 Estimated GFR > 60 POC Glucose 135 H (60-115) mg/dL Random Glucose 136 H (60-115) mg/dL Calcium 10.0 D (8.4-10.2) mg/dL Total Bilirubin 0.3 (0.0-1.0) mg/dL Direct Bilirubin 0.1 (0.0-0.5) mg/dL AST 24 (5-31) U/L ALT 29 (0-31) U/L Alkaline Phosphatase 140 H (39-117) U/L Troponin I High Sens < 2.7 (<3.5-17.0) ng/L B-Natriuretic Peptide < 10 (<100) pg/mL Total Protein 7.8 (6.5-8.0) g/dL Albumin 4.5 (3.5-5.0) g/dL Urine Color Yellow Urine Appearance Clear Urine pH 7.0 (5.0-9.0) Ur Specific [place] 1.010 (1.005-1.025) Urine Protein Negative (Neg-Trace) mg/dL Urine Glucose (UA) Negative (Negative) mg/dL Urine Ketones Negative (Negative) mg/dL Urine Blood Negative (Negative) Urine Nitrite Negative (Negative) Ur Leukocyte Esterase Trace H (Negative) Urine RBC 0-2 (0-2) /HPF Urine WBC 0-5 (0-5) /HPF Ur Squamous Epith Cells 0-2 (0-2) /HPF Urine Bacteria None Seen (None Seen) Hyaline Casts 0-2 (0-2) /LPF Urine Opiates Screen Not Detected (Not Detect) Urine Fentanyl Screen Not Detected (Not Detect) Ur Barbiturates Screen Not Detected (Not Detect) Ur Phencyclidine Scrn Not Detected (Not Detect) Ur Amphetamines Screen Not Detected (Not Detect) U Benzodiazepines Scrn Not Detected (Not Detect) Urine Cocaine Screen Not Detected (Not Detect) U Marijuana (THC) Screen Not Detected (Not Detect) Ethyl Alcohol < 10 mg/dL Discharge Plan Discharge Prescriptions: No Action trazodone 50 mg tablet 100 mg PO BEDTIME Linzess 290 mcg capsule 290 mcg PO QAM Qty: 30 6RF levothyroxine 125 mcg tablet 125 mcg PO DAILY Qty: 30 4RF omeprazole 40 mg capsule,delayed release(DR/EC) 40 mg PO DAILY Qty: 30 0RF biotin 10,000 mcg capsule PO DAILY multivitamin with iron Tablet 1 tab PO DAILY Patient Comments: opurity bariatric vitamin senna 8.6 mg capsule 17.2 mg PO BEDTIME 30 Days Qty: 60 3RF lorazepam 1 mg tablet 1 mg PO TID PRN amitriptyline 100 mg tablet 100 mg PO BEDTIME dicyclomine 10 mg capsule 10 mg PO TID duloxetine 60 mg capsule,delayed release(DR/EC) 60 mg PO QAM bupropion HCl 150 mg tablet extended release 24 hr 150 mg PO QAM atorvastatin 20 mg tablet 20 mg PO DAILY Zyrtec 10 mg capsule 10 mg PO DAILY PRN clonidine HCl 0.2 mg tablet 0.2 mg PO QPM Ingrezza 80 mg capsule 80 mg PO DAILY pregabalin 100 mg capsule 100 mg PO TID cyclobenzaprine 10 mg tablet 10 mg PO TID naproxen 500 mg tablet 500 mg PO BID PRN (Reason: back pain) Qty: 28 0RF
--- NOTE | 2023-07-20 12:05 | ECG_ITS ---
Test Reason : lightheaded/syncope Blood Pressure : / mmHG Vent. Rate : 091 BPM Atrial Rate : 091 BPM P-R Int : 130 ms QRS Dur : 090 ms QT Int : 368 ms P-R-T Axes : 041 003 012 degrees QTc Int : 452 ms Normal sinus rhythm RSR' or QR pattern in V1 suggests right ventricular conduction delay Otherwise normal ECG No previous ECGs available Referred By: Brenda Caldwell Electronically Signed By:JOLIE STARK MD
[2023-07-20 12:26] LABS: MANUAL DIFF FLAG NO
[2023-07-20 12:28] LABS: Basophils Absolute Auto 0.1 X10*3/uL (0.0-0.2); Basophils Percent Auto 0.9 % (0-2); Eosinophils Absolute Auto 0.2 X10*3/uL (0.0-0.4); Eosinophils Percent Auto 2.7 % (0-4); Hematocrit 36.5 % (37.0-47.0); Hemoglobin 12.5 g/dl (12.0-16.0); Imm Gran Abs Auto 0.05 X10*3/uL (0.00-0.03); Imm Gran Pct Auto 0.6 % (0.0-0.4); Lymphocytes Absolute Auto 2.1 X10*3/uL (1.2-4.9); Lymphocytes Percent Auto 26.3 % (20-40); Mean Corpuscular HGB Conc 34.2 g/dl (31.0-35.0); Mean Corpuscular Hemoglobin 30.6 pg (27.0-33.0); Mean Corpuscular Volume 89.5 fL (80.0-98.0); Mean Platelet Volume 9.5 fL (9.4-12.3); Monocytes Absolute Auto 0.8 X10*3/uL (0.1-1.2); Monocytes Percent Auto 9.5 % (2-11); Neutrophils Absolute Auto 4.8 x10*3/uL (2.0-8.3); Platelet Count 292 X10*3/uL (160-400); Red Blood Count 4.08 X10*6/uL (4.20-5.50); Red Cell Distribution Width 13.3 % (11.0-16.0); White Blood Count 8.1 X10*3/uL (4.8-10.8)
--- NOTE | 2023-07-20 12:37 | PC.NURSE ---
a&ox3, vss and up to date aside from being slightly hypertensive. pt comes in today d/t fall at work. pt is employee at [employer]. states she was walking down the stairs when all of the sudden she became dizzy/lightheaded. pt attempted to walk across the street and fell to the ground hitting right side of body. pt c/o 5/10 right shoulder/hip/knee pain. small scrape noted on right knee. bleeding controlled. POC = 135mg/dL. pt awaiting xray. pt aware of plan of care at this time. respirations even and unlabored. call mott placed within reach.
[2023-07-20 12:38] LABS: Glucose, Whole Blood 135 mg/dL (60-115)
[2023-07-20 12:44] LABS: Alanine Aminotransferase 29 U/L (0-31); Albumin Level 4.5 g/dL (3.5-5.0); Alkaline Phosphatase 140 U/L (39-117); Anion Gap 14 (12-20); Aspartate Amino Transferase 24 U/L (5-31); Bilirubin Direct 0.1 mg/dL (0.0-0.5); Bilirubin Total 0.3 mg/dL (0.0-1.0); Blood Urea Nitrogen 12 mg/dL (9-16); Carbon Dioxide 25 mmol/L (22-29); Chloride 101 mmol/L (96-108); Creatinine Clr Calc Pharmacy 79.8; Estimated Glomerular Filt Rate > 60; Glucose Random 136 mg/dL (60-115); Potassium 3.8 mmol/L (3.3-5.1); Sodium 136 mmol/L (135-145); Total Protein 7.8 g/dL (6.5-8.0)
[2023-07-20 12:55] LABS: Troponin-I High Sensitivity < 2.7 ng/L (<3.5-17.0)
--- NOTE | 2023-07-20 13:20 | ED.FALL ---
HPI - Fall General Chief Complaint: Fall Stated Complaint: Fall Time Seen by Provider: 07/20/23 13:05 Source: patient Mode of arrival: ambulatory Limitations: no limitations History of Present Illness HPI Narrative: To the emergency room complaining of a fall after feeling lightheaded, sudden onset of decreased lower extremity strength, near syncope and a fall. Patient states that she was walking up the stairs to work, patient started feeling lightheaded, shaky, landed on the right side of her body. Patient currently complaining of significant right knee pain, mild shoulder pain. Patient states that she did not hit her head, did not lose consciousness, not on blood thinners. Patient denies any prior chest pain or shortness of breath. Patient states this is the 2nd time that it has happens, it is that she feels lightheaded and falls. Patient is scheduled for an outpatient echocardiogram tomorrow. Patient states that several years ago she had a Holter monitor, diagnosed with an arrhythmia and started on digoxin. Patient currently does not follow up with Cardiology Related Data Home Medications Medication Instructions Recorded Confirmed biotin 10,000 mcg capsule mcg PO DAILY 09/10/20 05/30/22 multivitamin with iron 1 tab PO DAILY 09/10/20 05/30/22 trazodone 50 mg tablet 100 mg PO BEDTIME 04/22/22 05/30/22 amitriptyline 100 mg tablet 100 mg PO BEDTIME 12/23/22 atorvastatin 20 mg tablet 20 mg PO DAILY 12/23/22 bupropion HCl 150 mg 24 hr tablet, 150 mg PO QAM 12/23/22 extended release cetirizine 10 mg capsule (Zyrtec) 10 mg PO DAILY PRN 12/23/22 clonidine HCl 0.2 mg tablet 0.2 mg PO QPM 12/23/22 dicyclomine 10 mg capsule 10 mg PO TID 12/23/22 duloxetine 60 mg capsule,delayed 60 mg PO QAM 12/23/22 release lorazepam 1 mg tablet 1 mg PO TID PRN 12/23/22 valbenazine 80 mg capsule 80 mg PO DAILY 12/23/22 (Ingrezza) cyclobenzaprine 10 mg tablet 10 mg PO TID 06/05/23 pregabalin 100 mg capsule 100 mg PO TID 06/05/23 Previous Rx's Medication Instructions Recorded sennosides 8.6 mg capsule (senna) 17.2 mg (2 x 8.6 mg) PO BEDTIME 12/06/21 constipation 30 days #60 caps linaclotide 290 mcg capsule 290 mcg PO QAM #30 caps 06/10/22 (Linzess) levothyroxine 125 mcg tablet 125 mcg PO DAILY #30 tabs 06/01/23 omeprazole 40 mg capsule,delayed 40 mg PO DAILY #30 caps 06/03/23 release naproxen 500 mg tablet 500 mg PO BID PRN back pain #28 06/09/23 tabs Allergies Allergy/AdvReac Type Severity Reaction Status Date / Time promethazine [From PHENERGAN] Allergy Intermediate RASH Verified 07/20/23 12:08 cefazolin [CEFAZOLIN] Allergy Unknown ANAPHYLAXIS Verified 07/20/23 12:08 Iodinated Contrast Media Allergy Unknown ANAPHYLAXIS Verified 07/20/23 12:08 [IV Dye, Iodine Containing Contrast ] aripiprazole [From Abilify] AdvReac Severe tardive Verified 07/20/23 12:08 dyskinesia prednisone [PREDNISONE] AdvReac Unknown HYPERTENSION, Verified 07/20/23 12:08 high BP,headache DOG SHAMPOO Allergy Unknown ANAPHYLAXIS Uncoded 06/09/23 13:11 Review of Systems Review of Systems: Constitutional : No Weight loss, No Fever, No Chills, No Night Sweats, No Fatigue, No Malaise ENT/Mouth : No Hearing loss, No Ear Pain, No Nasal Congestion, No Sinus Pain, No Hoarseness, No sore throat, No Rhinorrhea, No Swallowing Difficulty Eyes: No Eye Pain, No Swelling, No Redness, No Foreign Body, No Discharge, No Vision Changes Cardiovascular : No Chest Pain, No SOB, No Dyspnea on Exertion, No Orthopnea, No Edema, No Palpitations, complaining of near syncope Respiratory : No Cough, No Sputum, No Wheezing, No Smoke Exposure, No Dyspnea Gastrointestinal : No Nausea, No Vomiting, No Diarrhea, No Constipation, No abdominal Pain, No Hematochezia, No Melena Genitourinary : no irregular bleeding, No Dysuria, No Urinary Frequency, No Hematuria, No Urinary Incontinence, No Urgency, No Flank Pain, No Urinary Flow Changes, No Hesitancy Musculoskeletal : Complaining of right shoulder pain, complaining of right knee pain , complaining of sudden onset of lower extremity weakness, No Myalgias, No Joint Swelling Skin : No Skin Lesions, No rash Neuro : Sudden onset of lower extremity weakness accompanied by lightheadedness, No Numbness, No Paresthesias, No Loss of Consciousness, No Dizziness, No Headache Psych : No Anxiety/Panic, No Depression, No SI/HI/AH/VH, No Social Issues, Heme/Lymph: No Bruising, No Bleeding,No Lymphadenopathy Endocrine : No Polyuria, No Polydipsia, No Temperature Intolerance [facility] Past Medical History Medical History Jerman-Danlos syndrome type III History of kidney stones Hypothyroidism Back pain Chronic constipation IBS (irritable colon syndrome) Insomnia Hyperlipidemia Anxiety Fibromyalgia Depression Surgical History Hx of partial thyroidectomy Status post left foot surgery History of sleeve gastrectomy History of endometrial ablation Hx of toe surgery History of bladder suspension procedure Hx of hysterectomy Hx of tubal ligation Hx of appendectomy Family History Family History Father Liver disease Diabetes mellitus Hypertension Mother Hypertension Diabetes mellitus Arthritis Son Asthma Depression Anxiety Daughter Asthma Depression Migraines Chronic pain Anxiety Sister No problems noted. 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 Oriented X3. No acute distress. Eyes: Pupils equal, round and reactive to light. ENT: Pharynx normal. Neck: Normal inspection. Neck supple. No lymph nodes noted. No crepitus CVS: Normal heart rate and rhythm. Pulses normal. Normal S1 and S2 Respiratory: No respiratory distress. Breath sounds normal. No Wheezing. No rales Abdomen: Soft and nontender. No rigidity. No distention. Skin: Skin warm and dry. Normal skin color. Normal skin turgor. Extremities: No lower extremity edema. No Lacerations. No Rash Neuro: Oriented X 3. No motor deficit. No sensory deficit. Moving all extremities. No slurred speech. CN 2 through 12 grossly intact Psych: calm, cooperative, normal affect Medications Administered Discontinued Medications Generic Name Dose Route Start Last Admin Trade Name Freq PRN Reason Stop Dose Admin Sodium Chloride 2,000 mls @ 999 mls/hr 07/20/23 13:42 07/20/23 16:03 Ns IVCONT 07/20/23 15:42 Infused .Q2H1M ONE Infusion Medical Decision Making Medical Decision Making [facility] Narrative: -my interpretation of EKG: Normal sinus rhythm, heart rate 91, no ST segment depression or elevation, no T-wave inversion, QTC 452 -my interpretation of labs, hematology and chemistry of baseline, troponin 1. Negative -BNP, D-dimer, urinalysis, imaging and orthostatic vitals pending -my interpretation of labs, BMP negative, D-dimer is 278, age adjustment dimer of 520 to be considered positive, wells criteria score for pulmonary embolism is 0 -patient's orthostatic vitals were positive, a blood pressure drop of 25 points. Patient was very lightheaded. Patient received IV fluids. -after IV fluids, orthostatic vitals negative, patient was walked around the emergency room, no lightheadedness/dizziness. Vitals stable, patient ready for discharge. Patient will follow-up with her primary care physician and her echocardiogram tomorrow Differential Diagnosis Differential Diagnoses: The differential diagnosis associated with the presentation includes (UTI, orthostatic hypertension, ACS) Admission/Observation Consideration of admission/observation: Escalation of care including admission/observation considered (Given the patient's presentation, admission on arrival was considered) Lab Data [facility] Lab Attestation statement: I reviewed the patient's lab results. 07/20/23 12:19 07/20/23 12:19 Labs: Lab Results 07/20/23 07/20/23 07/20/23 Range/Units 12:19 12:30 13:30 WBC 8.1 (4.8-10.8) X10*3/uL RBC 4.08 L (4.20-5.50) X10*6/uL Hgb 12.5 (12.0-16.0) g/dl Hct 36.5 L (37.0-47.0) % MCV 89.5 (80.0-98.0) fL MCH 30.6 (27.0-33.0) pg MCHC 34.2 (31.0-35.0) g/dl RDW 13.3 (11.0-16.0) % Plt Count 292 (160-400) X10*3/uL MPV 9.5 (9.4-12.3) fL Immature Gran % (Auto) 0.6 H (0.0-0.4) % Neut % (Auto) 60.0 (45-73) % Lymph % (Auto) 26.3 (20-40) % [place] % (Auto) 9.5 (2-11) % Eos % (Auto) 2.7 (0-4) % Baso % (Auto) 0.9 (0-2) % Lymph # (Auto) 2.1 (1.2-4.9) X10*3/uL [place] # (Auto) 0.8 (0.1-1.2) X10*3/uL Eos # (Auto) 0.2 (0.0-0.4) X10*3/uL Baso # (Auto) 0.1 (0.0-0.2) X10*3/uL Abs Immat Gran (auto) 0.05 H (0.00-0.03) X10*3/uL Absolute Neuts (auto) 4.8 (2.0-8.3) x10*3/uL Absolute Nucleated RBC 0.000 (0.0-0.012) X10*3/uL Nucleated RBC % (auto) 0.0 (0.0-0.2) /100WBC Hold Purple Top SEE NOTE PT 10.7 L (11.1-13.3) SEC INR 0.9 (0.9-1.1) APTT 29.3 (26.0-36.4) SEC D-Dimer High Sensitivty 272 NG/ML Sodium 136 (135-145) mmol/L Potassium 3.8 (3.3-5.1) mmol/L Chloride 101 (96-108) mmol/L Carbon Dioxide 25 (22-29) mmol/L Anion Gap 14 (12-20) BUN 12 (9-16) mg/dL Creatinine 0.82 (0.5-1.4) mg/dL Estim Creat Clear Calc 79.8 Estimated GFR > 60 POC Glucose 135 H (60-115) mg/dL Random Glucose 136 H (60-115) mg/dL Calcium 10.0 D (8.4-10.2) mg/dL Total Bilirubin 0.3 (0.0-1.0) mg/dL Direct Bilirubin 0.1 (0.0-0.5) mg/dL AST 24 (5-31) U/L ALT 29 (0-31) U/L Alkaline Phosphatase 140 H (39-117) U/L Troponin I High Sens < 2.7 (<3.5-17.0) ng/L B-Natriuretic Peptide < 10 (<100) pg/mL Total Protein 7.8 (6.5-8.0) g/dL Albumin 4.5 (3.5-5.0) g/dL Urine Color Yellow Urine Appearance Clear Urine pH 7.0 (5.0-9.0) Ur Specific [place] 1.010 (1.005-1.025) Urine Protein Negative (Neg-Trace) mg/dL Urine Glucose (UA) Negative (Negative) mg/dL Urine Ketones Negative (Negative) mg/dL Urine Blood Negative (Negative) Urine Nitrite Negative (Negative) Ur Leukocyte Esterase Trace H (Negative) Urine RBC 0-2 (0-2) /HPF Urine WBC 0-5 (0-5) /HPF Ur Squamous Epith Cells 0-2 (0-2) /HPF Urine Bacteria None Seen (None Seen) Hyaline Casts 0-2 (0-2) /LPF Urine Opiates Screen Not Detected (Not Detect) Urine Fentanyl Screen Not Detected (Not Detect) Ur Barbiturates Screen Not Detected (Not Detect) Ur Phencyclidine Scrn Not Detected (Not Detect) Ur Amphetamines Screen Not Detected (Not Detect) U Benzodiazepines Scrn Not Detected (Not Detect) Urine Cocaine Screen Not Detected (Not Detect) U Marijuana (THC) Screen Not Detected (Not Detect) Ethyl Alcohol < 10 mg/dL Critical Care Time Critical Care Time Critical Care Time: Yes Total Critical Care Time: 60 Attestation: I have personally provided critical care time. Time includes review of lab data, radiology results, discussion with consultants, and monitoring for potential decompensation. Intervention performed as documented. Discharge Plan Discharge Clinical Impression: Orthostatic hypotension Patient Disposition: Home, Self-Care Instructions: Near Syncope (ED) Additional Instructions: Please follow-up with your primary care physician tomorrow. If you have any worsening or new symptoms, please return to the emergency room or call 911 Prescriptions: No Action trazodone 50 mg tablet 100 mg PO BEDTIME Linzess 290 mcg capsule 290 mcg PO QAM Qty: 30 6RF levothyroxine 125 mcg tablet 125 mcg PO DAILY Qty: 30 4RF omeprazole 40 mg capsule,delayed release(DR/EC) 40 mg PO DAILY Qty: 30 0RF biotin 10,000 mcg capsule PO DAILY multivitamin with iron Tablet 1 tab PO DAILY Patient Comments: opurity bariatric vitamin senna 8.6 mg capsule 17.2 mg PO BEDTIME 30 Days Qty: 60 3RF lorazepam 1 mg tablet 1 mg PO TID PRN amitriptyline 100 mg tablet 100 mg PO BEDTIME dicyclomine 10 mg capsule 10 mg PO TID duloxetine 60 mg capsule,delayed release(DR/EC) 60 mg PO QAM bupropion HCl 150 mg tablet extended release 24 hr 150 mg PO QAM atorvastatin 20 mg tablet 20 mg PO DAILY Zyrtec 10 mg capsule 10 mg PO DAILY PRN clonidine HCl 0.2 mg tablet 0.2 mg PO QPM Ingrezza 80 mg capsule 80 mg PO DAILY pregabalin 100 mg capsule 100 mg PO TID cyclobenzaprine 10 mg tablet 10 mg PO TID naproxen 500 mg tablet 500 mg PO BID PRN (Reason: back pain) Qty: 28 0RF
--- NOTE | 2023-07-20 13:39 | PC.NURSE ---
labs drawn and orthostats performed by [employer].
[2023-07-20 13:46] LABS: Appearance Urine Clear; Color Urine Yellow; Glucose Urine UA Negative (Negative); Leukocyte Esterase Urine Trace (Negative); Nitrite Urine Negative (Negative); UMIC TRIGGER UACC YES; Urine Blood Negative (Negative); Urine Ketones Negative (Negative); Urine Protein Negative (Neg-Trace)
[2023-07-20 13:48] LABS: Amphetamine Screen Urine Not Detected (Not Detect); Barbiturates, Urine Not Detected (Not Detect); Benzodiazepines Screen Urine Not Detected (Not Detect); Cannabinoid Screen Urine Not Detected (Not Detect); Cocaine Screen Urine Not Detected (Not Detect); Fentanyl, urine Not Detected (Not Detect); INTERNATIONAL NORM RATIO 0.9 (0.9-1.1); Opiate Screen Urine Not Detected (Not Detect); Phencyclidine Screen Urine Not Detected (Not Detect); Prothrombin Time 10.7 SEC (11.1-13.3)
[2023-07-20 13:50] LABS: D Dimer High Sensitivity 272 NG/ML
[2023-07-20 13:51] LABS: Partial Thromboplastin Time 29.3 SEC (26.0-36.4)
[2023-07-20] MEDS: 0.9 % Sodium Chloride 2,000 ML 999 ML IVCONT (13:51)
[2023-07-20 13:52] LABS: Bacteria Urine None Seen (None Seen); Hyaline Casts Urine 0-2 /LPF (0-2); RBC Urine 0-2 /HPF (0-2); Squamous Epithelial Cell Urine 0-2 /HPF (0-2); WBC Urine 0-5 /HPF (0-5)
[2023-07-20 13:52] LABS: B Type Natriuretic Peptide < 10 pg/mL (<100)
[2023-07-20 13:53] LABS: Ethanol < 10 mg/dL
--- NOTE | 2023-07-20 14:02 | PC.NURSE ---
20gIV placed in left AC w/o difficultly. IV fluids administered per provider order. non-stick adhesive w/ lubricant jelly and gauze applied to right knee laceration. pt resting comfortably in no apparent distress at this time. respirations even and unlabored.
--- NOTE | 2023-07-20 16:05 | PC.NURSE ---
vss and u to date. IV fluids completely administered and d/c'd. pt resting comfortably in no distress. c/o no pain at this time. respirations remain even and unlabored. call mott placed within reach.
--- NOTE | 2023-07-20 17:51 | PC.NURSE ---
pt able to ambulate w/o difficulty at this time. will notify provider so pt can be provided w/ d/c paperwork.
--- NOTE | 2023-07-20 17:51 | MHC.EDTECH ---
Patient walk around 200 ft did well. no dizziness or lightheaded.
== END 2023-07-20 18:19 | disposition home or self-care (01) ==
PROVIDERS: Physician Assistant Medical; Emergency Provider Emergency Medicine; PCP Nurse Practitioner Family
DX: S89.91XA Unspecified injury of right lower leg, initial encounter (principal); I16.0 Hypertensive urgency; M25.561 Pain in right knee; R51.9 Headache, unspecified; M54.2 Cervicalgia; R06.02 Shortness of breath; R55 Syncope and collapse; W10.2XXA Fall (on)(from) incline, initial encounter; Y93.9 Activity, unspecified; Y92.9 Unspecified place or not applicable; Y99.0 Civilian activity done for income or pay; Z79.899 Other long term (current) drug therapy
CPT/HCPCS: 36415; 73564; 80048; 80076; 80307; 81001; 82947; 83880; 84484; 85025; 85379; 85610; 85730; 93005; 96360; 96361; 99285

== ENCOUNTER → 2023-07-21 11:01 | Outpatient (REF) | payer OTHER, SELFPAY ==
--- NOTE | 2023-07-21 11:05 | CA_ITS ---
Acquisition Time: 2023-07-21 11:06:29 Total Exercise Time: 00:04:00 Test Indications: Chest Pain Medications: LEVITHYROXINE CLONIDINE DYCYCLOMINE LINZESS LORAZAPAM OMEPRAZOLE PRAVASTATIN WELLBUTRIN Protocol: ANNE Max HR: 171 BPM 105% of Pred: 162 BPM Max BP: 184/068 mmHG Max Work Load: 5.8 METS Exercise stress test exercise 4 min of anne protocol achieving 90% MPHR, with mild to moderate SOB, 6/10 chest discomfort in immedate recovery, without arrhythmias seen through artifact, with normotensive response to exercise, without EKG changes Chest doe resolved with rest.Test reviewed with Dr. Navarro Exercise stress echocardiogram was reviewed. At rest, there is normal LVEF and wall motion. With peak exercise, there is appropriate augmentation of wall thickening and contractility. There is normal decrease in end-systolic volumes. Overall, no evidence of ischemia at the attained workload. Referred By: Blanco Price Overread By: ARAMIS NAILS
== END ==
LOC: HO.CARD 11:01
PROVIDERS: PCP Nurse Practitioner Family; Visit Provider Nurse Practitioner Family
DX: R07.89 Other chest pain (principal)
CPT/HCPCS: 93350; Q9957

== ENCOUNTER → 2023-07-21 11:05 | Outpatient (BNV) | payer OTHER, SELFPAY | PROVIDERS: PCP Nurse Practitioner Family; Visit Provider Internal Medicine | DX: R07.89 Other chest pain (principal) | CPT/HCPCS: 93016; 93018; 93350 ==

== ENCOUNTER → 2023-07-27 10:04 | Outpatient (BNVA) | payer OTHER, SELFPAY | PROVIDERS: PCP Nurse Practitioner Family; Visit Provider Internal Medicine ==

== ENCOUNTER 2023-07-31 10:04 | Outpatient (AMB) | payer OTHER, SELFPAY ==
--- NOTE | 2023-07-31 10:09 | A.OFFVIS_ITS ---
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/ Magdalena Garner/ortho hypoten/chest pain Intake Note: NPV Veneer Glue Spreader Required: No Accompanied by: Self / Same As Patient Allergies promethazine [From PHENERGAN] Allergy (Intermediate, Verified 07/31/23 10:11) RASH cefazolin [CEFAZOLIN] Allergy (Unknown, Verified 07/31/23 10:11) ANAPHYLAXIS Iodinated Contrast Media [IV Dye, Iodine Containing Contrast ] Allergy (Unknown, Verified 07/31/23 10:11) ANAPHYLAXIS aripiprazole [From Abilify] Adverse Reaction (Severe, Verified 07/31/23 10:11) tardive dyskinesia prednisone [PREDNISONE] Adverse Reaction (Unknown, Verified 07/31/23 10:11) HYPERTENSION, high BP,headache DOG SHAMPOO Allergy (Unknown, Uncoded 07/31/23 10:11) ANAPHYLAXIS Medication List - Last Reconciled 07/31/23 by Curt Lainez MD amitriptyline 100 mg PO BEDTIME atorvastatin 20 mg PO DAILY bupropion HCl 150 mg PO QAM cetirizine (Zyrtec) 10 mg PO DAILY PRN clonidine HCl 0.2 mg PO QPM cyclobenzaprine 10 mg PO TID dicyclomine 10 mg PO TID duloxetine 60 mg PO QAM levothyroxine 125 mcg PO DAILY linaclotide (Linzess) 290 mcg PO QAM lorazepam 1 mg PO TID PRN naproxen 500 mg PO BID PRN omeprazole 40 mg PO DAILY pregabalin 100 mg PO TID sennosides (senna) 17.2 mg (2 x 8.6 mg) PO BEDTIME 30 days tirzepatide (Mounjaro) 2.5 mg subcut QWEEK trazodone 100 mg PO BEDTIME valbenazine (Ingrezza) 80 mg PO DAILY HPI HPI Comments History of Present Illness Details Kiana is here for evaluation various symptoms. She has fibromyalgia and many chronic complaints. From the cardiac standpoint, she is concerned about a couple of falls. She states that she randomly gets sensation of her legs getting extremely weak and they start shaky and that she also gets dizzy and she has fallen a couple of times. No true loss of consciousness. Otherwise, she gets chest pains intermittently with and without exertion. Shortness of breath as well. There is no documented coronary disease, myocardial infarction or cardiomyopathy in the past. [facility] Medical History Jerman-Danlos syndrome type III History of kidney stones Hypothyroidism Back pain Chronic constipation IBS (irritable colon syndrome) Insomnia Hyperlipidemia Anxiety Fibromyalgia Depression Surgical History Hx of partial thyroidectomy Status post left foot surgery History of sleeve gastrectomy History of endometrial ablation Hx of toe surgery History of bladder suspension procedure Hx of hysterectomy Hx of tubal ligation Hx of appendectomy Family History Father Liver disease Diabetes mellitus Hypertension Mother Hypertension Diabetes mellitus Arthritis Son Asthma Depression Anxiety Daughter Asthma Depression Migraines Chronic pain Anxiety Sister No problems noted. 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 Review of Systems Const Denies chills, Denies daytime sleepiness, Denies fatigue, Denies fever(s), Denies frequent falls, Denies night sweats, Denies snoring, Denies weakness, Denies weight gain and Denies weight loss Eyes Denies loss of vision ENT Denies dizziness and Denies hearing loss Card Denies chest pain, Denies chest pain with activity, Denies syncope, Denies rapid heart rate, Denies edema, Denies claudication, Denies leg edema, Denies lightheadedness, Denies palpitations, Denies dyspnea, Denies dyspnea on exertion and Denies orthopnea Resp Denies cough, Denies excessive phlegm production, Denies dyspnea, Denies dyspnea on exertion, Denies snoring and Denies wheezing GI Denies abdominal pain, Denies hematochezia, Denies change in bowel habits, Denies change in stool character, Denies heartburn, Denies nausea and Denies vomiting Denies hematuria, Denies urinary frequency and Denies dysuria Musc Denies arthralgias, Denies muscle weakness, Denies numbness and Denies tingling Skin/Breast Denies nail changes and Denies rash Neuro Denies Abnormal speech present, Denies dizziness, Denies syncope, Denies frequent falls, Denies loss of vision, Denies memory loss, Denies numbness, Denies tingling and Denies weakness Psych Denies depression and Denies memory loss Endo Denies fatigue and Denies palpitations Aller/Immun Denies wheezing Physical Exam Vital Signs: Last Vital Signs Pulse 89 07/31/23 10:10 BP 118/74 07/31/23 10:10 BMI result Body Mass Index 32.5 Const General: comfortable and no acute distress Orientation/consciousness: patient oriented x3 HEENT Other: Unremarkable Head: Yes normal to inspection Neck Neck: Yes normal visual inspection Chest Chest palpation & inspection: normal inspection of the chest Resp Auscultation: clear to auscultation bilaterally Cardio Palpation: normal PMI Heart sounds: S1 normal heart sound present, S2 normal heart sound present, no gallops, no murmurs and no rubs GI Palpation (GI): Soft to palpation Back/Spine/Pelvis Other: unremarkable Skin General skin exam: no rashes or lesions noted Neuro General: patient oriented x3 Speech: No Abnormal speech present Extrem General: Yes normal to inspection Psych Mental Status: mental status grossly normal Assessment & Plan Assessment & Plan (1) Dizziness: Code(s): R42 - Dizziness and giddiness Plan: Uncertain etiology. Could be just gait issues/muscular weakness. From the cardiac standpoint, we will assess for any orthostatic hypotension extra. Get a formal tilt-table test. Echocardiogram. (2) Precordial chest pain: Code(s): R07.2 - Precordial pain Plan: EKG shows sinus rhythm at 91/Min; no significant ST-T changes and otherwise unremarkable. Normal OH and corrected QT. In the exercise stress echocardiogram, no significant abnormality at 5.8 Mets. She exercised for about 4 minutes. Had complained of shortness of breath and chest discomfort. Can proceed with coronary CTA for further evaluation. Orders: Orders CT Cardiac Coronary Angio Today I25.10 - Atherosclerotic heart disease of steb[place] coronary artery without angina pectoris, R07.2 - Precordial pain CA echo transthoracic complete Today R07.2 - Precordial pain ECG Tilt Table Test Today R42 - Dizziness and giddiness, R55 - Syncope and collapse Basic Metabolic Panel Today R07.2 - Precordial pain Coding Level of Care Code New Pt Level 4 (34601) Diagnoses Dizziness R42 Precordial chest pain R07.2
[2023-07-31 10:10] VITALS: BP 118/74; PULSE 89; BMI 32.5
== END 2023-07-31 10:32 | disposition home or self-care (01) ==
PROVIDERS: PCP Nurse Practitioner Family; Visit Provider Internal Medicine
DX: R42 Dizziness and giddiness (principal); R07.2 Precordial pain
CPT/HCPCS: 99204

== ENCOUNTER → 2023-07-31 10:04 | Outpatient (BNVA) | payer OTHER, SELFPAY | PROVIDERS: PCP Nurse Practitioner Family; Visit Provider Internal Medicine | DX: R07.2 Precordial pain (principal); R42 Dizziness and giddiness | CPT/HCPCS: 99202 ==

== ENCOUNTER 2023-08-11 13:00 | Outpatient (AMB) | payer OTHER, SELFPAY ==
--- NOTE | 2023-08-11 13:02 | MHC.OFFVIS ---
Intake Vital Signs 08/11/23 13:04 Weight 188 lb 7.924 oz BP 144/80 H Blood Pressure Location Lt brachial Position Sitting Pulse 109 H Pulse Source Pulse Oximeter Intake Visit Reasons: hyperglycemia Intake Note: New patient of Dr. Chavez present today for Hyperglycemia. HgA1C: 6.1% Check And Transfer Beader Required: No Accompanied by: Self / Same As Patient Allergies promethazine [From PHENERGAN] Allergy (Intermediate, Verified 08/11/23 13:06) RASH cefazolin [CEFAZOLIN] Allergy (Unknown, Verified 08/11/23 13:06) ANAPHYLAXIS Iodinated Contrast Media [IV Dye, Iodine Containing Contrast ] Allergy (Unknown, Verified 08/11/23 13:06) ANAPHYLAXIS aripiprazole [From Abilify] Adverse Reaction (Severe, Verified 08/11/23 13:06) tardive dyskinesia prednisone [PREDNISONE] Adverse Reaction (Unknown, Verified 08/11/23 13:06) HYPERTENSION, high BP,headache DOG SHAMPOO Allergy (Unknown, Uncoded 07/31/23 10:11) ANAPHYLAXIS Medication List - Last Reconciled 08/11/23 by Bobby Chavez MD amitriptyline 100 mg PO BEDTIME atorvastatin 20 mg PO DAILY bupropion HCl 150 mg PO QAM cetirizine (Zyrtec) 10 mg PO DAILY PRN clonidine HCl 0.2 mg PO QPM cyclobenzaprine 10 mg PO TID dicyclomine 10 mg PO TID diphenhydramine HCl (Benadryl) 25 mg PO DIRECTED PRN duloxetine 60 mg PO QAM famotidine (Pepcid) 20 mg PO DIRECTED levothyroxine 125 mcg PO DAILY linaclotide (Linzess) 290 mcg PO QAM lorazepam 1 mg PO TID PRN naproxen 500 mg PO BID PRN omeprazole 40 mg PO DAILY prednisone 20 mg PO DIRECTED pregabalin 100 mg PO TID sennosides (senna) 17.2 mg (2 x 8.6 mg) PO BEDTIME 30 days tirzepatide (Mounjaro) 2.5 mg subcut QWEEK tirzepatide (Mounjaro) 2.5 mg subcut QWEEK trazodone 100 mg PO BEDTIME valbenazine (Ingrezza) 80 mg PO DAILY HPI HPI Comments History of Present Illness Details 57 YO F who is seen in consultation for T2DM at the request of PCP. Initially diagnosed with T2DM in 6 mos . Was initially started on treatment with metformin .Prior to slleve in 2018 - Tolerated metformin and glipizide Current regimen Mounjaro 2.5 mg Qwkly. Per the CGM Dexcom CGMS is active 93 % of time . data t Avg glucose is 113 . Variability of 24 The patient's blood sugars were in target 97% of the time, above target 3% of the time, and below target 0% of the time Most recent A1C [], [down] from prior [] on []. Family history of T2DM in []. Has eyes checked yearly, last eye exam last wk , denies retinopathy. Denies neuropathy, . Denies nephropathy, Not on SHANTI/ARB. Has HLD, on statin. . Denies CAD. [facility] Medical History (Updated 08/11/23 @ 13:29 by Bobby Chavez MD) Orthostatic dizziness Type 2 diabetes mellitus Jerman-Danlos syndrome type III History of kidney stones Hypothyroidism Back pain Chronic constipation IBS (irritable colon syndrome) Insomnia Hyperlipidemia Anxiety Fibromyalgia Depression Surgical History Hx of partial thyroidectomy Status post left foot surgery History of sleeve gastrectomy History of endometrial ablation Hx of toe surgery History of bladder suspension procedure Hx of hysterectomy Hx of tubal ligation Hx of appendectomy Family History Father Liver disease Diabetes mellitus Hypertension Mother Hypertension Diabetes mellitus Arthritis Son Asthma Depression Anxiety Daughter Asthma Depression Migraines Chronic pain Anxiety Sister No problems noted. 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 Absence of acromegalic features. Neck exam reveals nl size thyroid about 15 gms. No thyroid nodules palpable. No carotid bruits present. Lungs CTA. Heart S1 S2, Reg R/R. No M/R/ G. Skin exam reveals absence of vitiligo or acanthosis nigricans. Abdominal exam reveals Soft NT/ND with NA BS. No organomegaly present. Neck Other: . Extrem Other: Visual exam of foot performed. No ulcerations or open lesions. No onchomycosis, no callouses.Pulses 2 + distally Sensation intact to monofilament exam. Vibratory sensation sensed is intact with 128 Hz tuning fork Assessment & Plan Assessment & Plan (1) Type 2 diabetes mellitus: Code(s): E11.9 - Type 2 diabetes mellitus without complications Plan: This is a 57-year-old female with history of type 2 diabetes being treated with Mounjaro 2.5 mg Qwkly with excellent glycemic control and no known microvascular or macrovascular complications. Plan is to continue current therapy. Will also push lifestyle changes diet and exercise (2) Orthostatic dizziness: Code(s): R42 - Dizziness and giddiness Plan: Will refer to Dr.. Cowan of [facility] (3) Hyperlipidemia: Code(s): E78.5 - Hyperlipidemia, unspecified Plan: Elevated triglycerides on a statin. LDL is at goal. Will start Vascepa 2 g b.i.d. and recheck lipid profile in 2 months Orders: Orders Lipid Panel 2 Months E11.9 - Type 2 diabetes mellitus without complications Referrals Cardiology Referral R42 - Dizziness and giddiness Medications: New icosapent ethyl (Vascepa) 2 grams (2 x 1 gram) PO BID 120 caps 5RF tirzepatide (Mounjaro) 5 mg (0.5 mL) subcut QWEEK 2 mL 4RF blood-glucose sensor (Dexcom G7 Sensor device) As directed change every 10 days 3 ea 4RF Coding Level of Care Code Est Pt Level 4 (56802) Diagnoses Type 2 diabetes mellitus E11.9 Orthostatic dizziness R42 Hyperlipidemia E78.5
[2023-08-11 13:04] VITALS: BP 144/80; PULSE 109
== END 2023-08-11 14:00 | disposition home or self-care (01) ==
PROVIDERS: PCP Nurse Practitioner Family; Visit Provider Internal Medicine Endocrinology, Diabetes & Metabolism
DX: E11.9 Type 2 diabetes mellitus without complications (principal); R42 Dizziness and giddiness; E78.5 Hyperlipidemia, unspecified
CPT/HCPCS: 99214

== ENCOUNTER → 2023-08-11 13:00 | Outpatient (BNVA) | payer OTHER, SELFPAY | PROVIDERS: PCP Nurse Practitioner Family; Visit Provider Internal Medicine Endocrinology, Diabetes & Metabolism | DX: E11.9 Type 2 diabetes mellitus without complications (principal); E78.5 Hyperlipidemia, unspecified; R42 Dizziness and giddiness; Z79.899 Other long term (current) drug therapy | CPT/HCPCS: 83036 ==

== ENCOUNTER → 2023-08-31 07:54 | Outpatient (REF) | payer OTHER, SELFPAY ==
--- NOTE | 2023-08-31 07:56 | CA_ITS ---
Transthoracic Echocardiogram Patient (Last, First, Middle): Kiana Fournier M Gender: Female Date of : 1965 Age: 57 Procedure Date: 08/31/2023 Procedure Type: Transthoracic Echocardiogram Location: OP Height: 162.56 cm Weight: 82.56 kg BSA: 1.88 m2 Heart Rate: bpm BP: 124 / 80 mmHg Case Manager: VISHNU/VIKI Referring MD: Curt Lainez MD Symptoms: R07.2 - Precordial pain Study Quality: Adequate with contrast ECG Rhythm: Sinus Conclusions: - The left ventricular systolic function is normal. The calculated ejection fraction is 55% by biplane method. - No obvious valvular pathology seen on this study. - There is mild dilatation of the ascending aorta measuring 3.80 cm. Findings Procedure Information Contrast agent, definity, is being given per protocol without apparent complications. Left Ventricle Normal left ventricular cavity size. There is normal left ventricular wall thickness. The left ventricular systolic function is normal. The calculated ejection fraction is 55% by biplane method. There is no evidence of regional wall motion abnormalities. Diastolic function is normal for age. Right Ventricle Normal right ventricular cavity size. There is mildly decreased right ventricular systolic function. Atria Both atria are normal in size. Aortic Valve There is a normal trileaflet aortic valve. There is no aortic valve stenosis. There is no aortic valve regurgitation. Mitral Valve The mitral valve appears normal. There is no mitral valve regurgitation. There is no mitral valve stenosis. Pulmonic Valve The pulmonic valve is likely normal. Tricuspid Valve There is trace tricuspid valve regurgitation. There is no evidence of pulmonary hypertension. Great Vessels There is mild dilatation of the ascending aorta measuring 3.80 cm. Venous The inferior vena cava is normal in size and collapses greater than 50% with inspiration. Pericardium/Pleural There is no evidence of pericardial effusion. Prior Study Comparison No prior study available for comparison. Recommendations, Care & Conclusions No obvious valvular pathology seen on this study. Measurements 2D Linear Measurements IVSd: 1.07 0.6-0.9/0.6-1.0 cm LVIDd: 4.94 3.9-5.3/4.2-5.9 cm LVIDd Index: 2.63 2.4-3.2/2.2-3.1 cm/m2 LVIDs: 3.12 2.0-3.6 cm LVPWd: 0.69 0.7-1.1 cm LA Diam: 3.20 2.7-3.8/3.0-4.0 cm LAIDs Index: 1.70 1.5-2.3 cm/m2 LV Mass: 187.42 67-162/88-224 g LV Mass Index: 99.69 43-95/49-115 g/m2 LVOT Diam: 2.00 3.0+(-)1.3 cm 2D Systolic Function EF 4C: 60.50 >55% EF 2C: 48.20 >55% EF BiP: 55.00 >55% Mitral Valve MV Pk E: 0.61 MV PK A: 0.89 MV Decel Time: 197.00 E/A: 0.70 E'Lateral: 10.00 E'Medial: 8.27 E/E' Med: 7.30 E/E' Lat: 6.10 PHT: 58.00 MVA PHT: 3.79 Decel Garrett: 3.08 Aortic Valve AoV Pk Toro: 1.24 AoV Mn Toro: 0.86 AoV VTI: 0.22 AoV Pk Grad: 6.00 Aov Mn Grad: 3.00 ABBEY Cont.VTI: 2.95 LVOT LVOT Pk Toro: 0.95 LVOT Mn Toro: 0.62 LVOT VTI: 0.20 LVOT Pk Grad: 4.00 LVOT Mn Grad: 2.00 LVOT Diam: 2.00 LVOT Area: 3.14 Diastolic Function MV Pk E: 0.61 MV Pk A: 0.89 E/A: 0.70 E'Medial: 8.27 E/E' Med: 7.30 E' Laterial: 10.00 E/E' Lat: 6.10 Right Ventricle TAPSE (mm): 16.50 TVS' Toro: 8.70 Tricuspid Valve TR Pk Toro: 2.13 TR Pk Grad: 18.00 RA Press: 3.00 RVSP: 21.00 Great Vessels Aorta Sinus of Valsalva: 3.04 2.0-3.[address] Ridge: 2.64 1.7-3.4 cm Ao Asc: 3.80 2.1-3.4 cm Updated in Other Vendor System with Status of Final Curt Lainez MD electronically signed on 08/31/2023 11:54:00 AM with status of Final
== END ==
LOC: HO.CARD 07:54
PROVIDERS: PCP Nurse Practitioner Family; Visit Provider Internal Medicine
DX: R07.2 Precordial pain (principal)
CPT/HCPCS: 93306; Q9957

== ENCOUNTER → 2023-08-31 07:56 | Outpatient (BNV) | payer OTHER, SELFPAY | PROVIDERS: PCP Nurse Practitioner Family; Visit Provider Internal Medicine | DX: R07.2 Precordial pain (principal) | CPT/HCPCS: 93306 ==

== ENCOUNTER 2023-09-02 09:25 | Outpatient (REF) | payer OTHER, SELFPAY ==
[2023-09-02 11:06] LABS: Erythrocyte Sedimentation Rate 14 MM/HR (0-20)
[2023-09-02 11:13] LABS: T4 Thyroxine 8.7 ug/dL (4.5-12.0); Thyroid Stimulating Hormone 0.52 uIU/mL (0.32-4.0)
[2023-09-03 15:34] LABS: Lyme Abs Screen <0.90 index
[2023-09-11 04:18] LABS: Aldolase 4.5 U/L (<=8.1)
== END 2023-09-02 09:26 | disposition home or self-care (01) ==
LOC: HO.10HDL 09:25
PROVIDERS: Visit Provider Psychiatry & Neurology Neurology
DX: M79.10 Myalgia, unspecified site (principal)
CPT/HCPCS: 36415; 82085; 82550; 84436; 84443; 85652; 86617; 86618

== ENCOUNTER 2023-10-29 08:07 | Outpatient (AMB) | payer OTHER, SELFPAY ==
[2023-10-29 08:16] VITALS: BP 132/80; PULSE 99; BMI 29.5
--- NOTE | 2023-10-29 08:16 | A.OFFVIS_ITS ---
Intake Vital Signs 10/29/23 08:16 Height 5 ft 4 in Weight 171 lb 15.369 oz BMI 29.5 BP 132/80 Pulse 99 Pulse Source Pulse Oximeter Intake Visit Reasons: follow-up after tilt and cta Allergies promethazine [From PHENERGAN] Allergy (Intermediate, Verified 10/29/23 08:17) RASH cefazolin [CEFAZOLIN] Allergy (Unknown, Verified 10/29/23 08:17) ANAPHYLAXIS Iodinated Contrast Media [IV Dye, Iodine Containing Contrast ] Allergy (Unknown, Verified 10/29/23 08:17) ANAPHYLAXIS aripiprazole [From Abilify] Adverse Reaction (Severe, Verified 10/29/23 08:17) tardive dyskinesia prednisone [PREDNISONE] Adverse Reaction (Unknown, Verified 10/29/23 08:17) HYPERTENSION, high BP,headache DOG SHAMPOO Allergy (Unknown, Uncoded 07/31/23 10:11) ANAPHYLAXIS Medication List - Last Reconciled 10/29/23 by Lizbeth Prieto NP-C amitriptyline 100 mg PO BEDTIME atorvastatin 20 mg PO DAILY blood-glucose sensor ([employer] G7 Sensor device) As directed change every 10 days bupropion HCl 150 mg PO QAM cetirizine (Zyrtec) 10 mg PO DAILY PRN clonidine HCl 0.2 mg PO QPM cyclobenzaprine 10 mg PO TID dicyclomine 10 mg PO TID diphenhydramine HCl (Benadryl) 25 mg PO DIRECTED PRN duloxetine 60 mg PO QAM famotidine (Pepcid) 20 mg PO DIRECTED icosapent ethyl (Vascepa) 2 grams (2 x 1 gram) PO BID levothyroxine 125 mcg PO DAILY linaclotide (Linzess) 290 mcg PO QAM lorazepam 1 mg PO TID PRN naproxen 500 mg PO BID PRN omeprazole 40 mg PO DAILY prednisone 20 mg PO DIRECTED pregabalin 100 mg PO TID sennosides (senna) 17.2 mg (2 x 8.6 mg) PO BEDTIME 30 days tirzepatide (Mounjaro) 2.5 mg (0.5 mL) subcut QWEEK trazodone 100 mg PO BEDTIME valbenazine (Ingrezza) 80 mg PO DAILY HPI follow-up after tilt and cta HPI Details Kiana is a 57-year-old female with past medical history of hyperlipidemia, Jerman-Danlos syndrome, fibromyalgia, hyperthyroid who has been experiencing symptoms of lightheadedness and weakness in her legs upon standing. She recently underwent cardiac testing with echocardiogram, stress echo, CTA of the coronary arteries and tilt-table test. She now presents for follow-up. Today she reports that she has been having symptoms like this for years but it has been increasing in severity. She notices that at times when she gets up from sitting to standing and starts to walk her legs feel unsteady. She has so me involuntary movement of the legs which she is describing as possible seizures. She has had at least 2 falls. No syncope. She does not get symptoms sitting or laying. If she notices her symptoms and sits down they will start to dissipate. No shortness of breath, chest discomfort, palpitations, PND, orthopnea or edema. She has been working on maintaining good hydration. She wears compression stockings daily. [facility]LY [facility] Medical History Orthostatic dizziness Type 2 diabetes mellitus Jerman-Danlos syndrome type III History of kidney stones Hypothyroidism Back pain Chronic constipation IBS (irritable colon syndrome) Insomnia Hyperlipidemia Anxiety Fibromyalgia Depression Surgical History Hx of partial thyroidectomy Status post left foot surgery History of sleeve gastrectomy History of endometrial ablation Hx of toe surgery History of bladder suspension procedure Hx of hysterectomy Hx of tubal ligation Hx of appendectomy Family History Father Liver disease Diabetes mellitus Hypertension Mother Hypertension Diabetes mellitus Arthritis Son Asthma Depression Anxiety Daughter Asthma Depression Migraines Chronic pain Anxiety Sister No problems noted. Brother Down's syndrome Hypothyroidism Social History Alcohol intake: never Patient Tobacco Use Status: Never used Tobacco Current occupational status: employed Current occupation: rt handed/[employer] Review of Systems Const All systems reviewed & are unremarkable except as noted in HPI and below ENT Reports dizziness Card Denies chest pain, Denies chest pain at rest, Denies chest pain with activity, Denies rapid heart rate, Denies pedal edema, Denies edema, Denies leg edema, Denies lightheadedness, Denies palpitations, Denies dyspnea, Denies dyspnea on exertion and Denies orthopnea Resp Denies cough, Denies dyspnea and Denies dyspnea on exertion GI Denies hematochezia and Denies change in stool character Musc Details: spaghetti legs Denies abnormal gait, Denies limited range of motion, Denies muscle cramps, Denies muscle weakness, Denies numbness, Denies radiating pain into limb, Denies stiffness and Denies tingling Neuro Denies abnormal gait, Reports dizziness, Denies numbness and Denies tingling Endo Denies palpitations Physical Exam Vital Signs: Last Vital Signs Pulse 99 10/29/23 08:16 BP 132/80 10/29/23 08:16 BMI result Body Mass Index 29.5 Const General: cooperative, healthy appearing, comfortable and no acute distress Orientation/consciousness: patient oriented x3 Neck Neck: Yes normal visual inspection and Yes no JVD Resp Effort & Inspection: normal respiratory effort Auscultation: clear to auscultation bilaterally, no crackles, no rales, no rhonchi and no wheezes Cardio Jugular venous distension: no JVD Rate: regular rate Rhythm: regular rhythm Heart sounds: S1 normal heart sound present, S2 normal heart sound present, no murmurs and no rubs Skin General skin exam: no rashes or lesions noted Neuro General: patient oriented x3 Extrem General: Yes normal to inspection and No no pedal edema Psych Appearance: grossly normal Mental Status: mental status grossly normal Speech and movement: Normal speech and movement present Assessment & Plan Assessment & Plan (1) Orthostatic dizziness: Code(s): R42 - Dizziness and giddiness Plan: Reports of feeling lightheaded, unsteady and with shaking legs at times when going sitting to standing and walking. Has had 2 falls. No full syncope. Symptoms sound like orthostatic hypotension. She did undergo cardiac testing with EKG last visit showing sinus rhythm with incomplete right bundle branch block, no acute ST or T-wave abnormalities, rate 91. And exercise stress echo done 07/21/2023 with exercise 4 minutes, no EKG changes, brief chest discomfort following peak exercise, no echo evidence of ischemia. A echocardiogram done 08/31/2023 showed EF 55%, no regional wall motion abnormalities, no valve abnormalities, ascending aorta 3.8 cm. A CTA of the coronary arteries was 09/25/2023 showing no definite plaque or stenosis. A tilt-table test was done and results available this visit. Plan on obtaining results and calling with results and plan. She is orthostatic at this visit with blood pressure sitting 126/62, blood pressure standing 108/78, no symptoms at this time. Reviewed need for good hydration, add Gatorade to liquids 3-4 times weekly. Ongoing use of compression stockings. Use caution when going sitting to standing. Sit down if you become symptomatic. Cardiology follow-up when. (2) Precordial chest pain: Comment: CTA of the carter Contreras's done 09/25/2023 showing left main normal, lad, left circumflex and RCA no definitive plaque or stenosis. Code(s): R07.2 - Precordial pain Plan: Prior reports of chest discomfort. Atypical for angina. Cardiac testing as above. No findings of coronary artery disease Coding Level of Care Code Est Pt Level 3 (76217) Diagnoses Orthostatic dizziness R42 Precordial chest pain R07.2 Time Spent (min) 24
== END 2023-10-29 09:11 | disposition home or self-care (01) ==
PROVIDERS: PCP Nurse Practitioner Family; Visit Provider Nurse Practitioner Family
DX: R42 Dizziness and giddiness (principal); R07.2 Precordial pain
CPT/HCPCS: 99213

== ENCOUNTER → 2023-10-29 08:07 | Outpatient (BNVA) | payer OTHER, SELFPAY | PROVIDERS: PCP Nurse Practitioner Family; Visit Provider Nurse Practitioner Family ==

== ENCOUNTER 2023-12-03 07:59 | Outpatient (REF) | payer OTHER, SELFPAY ==
[2023-12-03 11:37] LABS: Cortisol Random 15.8 ug/dL
[2023-12-03 11:40] LABS: Cholesterol 135 mg/dL (<200); HDL Cholesterol 39 mg/dL (>40); LDL Cholesterol Calculated 68 mg/dL (<100); Triglycerides 140 mg/dL (<150)
[2023-12-03 11:45] LABS: Free T4 (Free Thyroxine) 0.96 ng/dL (0.71-1.85); Thyroid Stimulating Hormone 1.29 uIU/mL (0.32-4.0)
== END 2023-12-03 08:00 | disposition home or self-care (01) ==
LOC: HO.10HDL 07:59
PROVIDERS: Visit Provider Internal Medicine Endocrinology, Diabetes & Metabolism
DX: E03.9 Hypothyroidism, unspecified (principal); R42 Dizziness and giddiness; E11.9 Type 2 diabetes mellitus without complications
CPT/HCPCS: 36415; 80061; 82533; 84439; 84443

== ENCOUNTER 2023-12-23 12:01 | Outpatient (AMB) | payer OTHER, SELFPAY ==
--- NOTE | 2023-12-23 12:06 | A.OFFVIS_ITS ---
Vital Signs 12/23/23 12:15 Height 5 ft 4 in Weight 168 lb 13.985 oz BMI 29.0 BP 116/59 L Blood Pressure Location Rt brachial Position Sitting Pulse 102 H Intake Visit Reasons: r/s from missed appointment 11/13 Intake Note: Patient in office today for follow up of IBS. CC: Patient reports occasional constipation. Denies other GI symptoms today. Music Promoter Required: No Allergies promethazine [From PHENERGAN] Allergy (Intermediate, Verified 01/12/24 10:39) RASH cefazolin [CEFAZOLIN] Allergy (Unknown, Verified 01/12/24 10:39) ANAPHYLAXIS Iodinated Contrast Media [IV Dye, Iodine Containing Contrast ] Allergy (Unknown, Verified 01/12/24 10:39) ANAPHYLAXIS aripiprazole [From Abilify] Adverse Reaction (Severe, Verified 01/12/24 10:39) tardive dyskinesia prednisone [PREDNISONE] Adverse Reaction (Unknown, Verified 01/12/24 10:39) HYPERTENSION, high BP,headache DOG SHAMPOO Allergy (Unknown, Uncoded 07/31/23 10:11) ANAPHYLAXIS HPI HPI r/s from missed appointment 11/13: Details: Assessment & Plan (1) Irritable bowel syndrome with constipation: Code(s): K58.1 - Irritable bowel syndrome with constipation Plan: She is dong better and moving her bowels more frequently. She found that if she takes 2 fiber gummies one day and 1 the next along with the senna she is moving her bowels okay. However she continues to have a great deal of bloating and even looks distended today on examination. I am a her to try Gas-X in the evening to see if gas trapping is a part of the problem and will get a stool calprotectin to see if there is any pancreatic insufficiency. If this is okay then we can try treating her for small-bowel bacterial overgrowth. She can not remember when her last colonoscopy was but she thinks that it was performed at [facility]. I will try to request records so I can better guide her as to when she will be due for re-screening. Return office visit in 6 weeks to see how she is doing (2) Abdominal bloating: Code(s): R14.0 - Abdominal distension (gaseous) Orders: Orders Pancreatic Elastase-1 Today K58.1 - Irritable bowel syndrome with constipation LABS: Laboratory Tests 12/09/22 16:15 Stool Pancreat Elastase >500 TODAY'S VISIT She is ok if she continues on her Linzess, she ran out of it for a brief time because she was switching pharmacies but she did restart it. Obviously her constipation returned during this time. She has a new complicating factor of a rectocele it seems to be growing. This causes the stools to pool in the area and she has to usually manipulate the perirectal area to move her bowels which of course is extremely difficult. She wants a referral to a urogynecologist and she thinks we may have 1 here at [facility] but I am uncertain. As I can not pull this up in the computer all refer to gynecology instruct her to call them in find out if they do have someone that does this sort of surgery here. Her doughnut machine operator helper had referred [place] of course but that would be more expensive. She continues on Linzess 290 micro g, she no longer takes her needs omeprazole with the restored bowel motility, she does utilize dicyclomine for cramping. Return office visit in 6 months [facility] Medical History Orthostatic dizziness Type 2 diabetes mellitus Jerman-Danlos syndrome type III History of kidney stones Hypothyroidism Back pain Chronic constipation IBS (irritable colon syndrome) Insomnia Hyperlipidemia Anxiety Fibromyalgia Depression Surgical History Hx of partial thyroidectomy Status post left foot surgery History of sleeve gastrectomy History of endometrial ablation Hx of toe surgery History of bladder suspension procedure Hx of hysterectomy Hx of tubal ligation Hx of appendectomy Family History Father Liver disease Diabetes mellitus Hypertension Mother Hypertension Diabetes mellitus Arthritis Son Asthma Depression Anxiety Daughter Asthma Depression Migraines Chronic pain Anxiety Sister No problems noted. 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 Review of Systems Const Denies fatigue, Denies fever(s), Denies night sweats, Denies poor appetite and Denies weight loss Eyes Details: glasses Reports requires corrective lenses ENT Reports Normal hearing present, Denies dental pain, Denies dysphagia, Denies hearing loss, Denies mouth pain, Denies odynophagia, Denies throat swelling, Denies tongue swelling and Reports other (Dentition adequate) Card Reports no additional complaints Resp Reports no additional complaints GI Details: Denies abdominal pain, Denies melena, Reports bloating, Denies hematochezia, Reports constipation, Denies GI cramping, Denies dysphagia, Denies excessive flatus, Denies early satiety, Reports heartburn, Denies diarrhea, Denies nausea, Denies odynophagia, Denies vomiting and Denies hematemesis Skin/Breast Denies pruritus, Denies lesions, Denies rash and Denies jaundice Neuro Reports Normal hearing present and Denies Abnormal speech present Endo Denies fatigue Aller/Immun Denies throat swelling and Denies tongue swelling Physical Exam Vital Signs: Last Vital Signs Pulse 102 H 12/23/23 12:15 BP 116/59 L 12/23/23 12:15 BMI result Body Mass Index 29.0 Const General: cooperative, no acute distress, well developed and well groomed Nutritional Appearance: well nourished and overweight Orientation/consciousness: oriented to person, oriented to place and oriented to time Limitations: No language barrier HEENT Head: Yes normocephalic and Yes atraumatic Eyes General: appearance normal, both eyes and all related structures Pupils: Equal, round and reactive pupils present Neck Neck: Yes normal visual inspection and Yes no lymphadenopathy Thyroid: Thyroid normal Resp Effort & Inspection: normal respiratory effort and able to speak in complete sentences Auscultation: clear to auscultation bilaterally Cardio Rate: regular rate Rhythm: regular rhythm Heart sounds: Normal, physiologic split S2 sound present Peripheral pulses: radial pulses present and posterior tibial pulses present GI Inspection: No distended, No Abdominal panniculus present and Yes obesity Palpation (GI): Soft to palpation, nontender, no guarding, not rigid and No hepatosplenomegaly present Percussion: Yes normal to percussion Auscultation: normal bowel sounds Rectal Exam - Female: deferred Skin General skin exam: no rashes or lesions noted, turgor normal, skin not dry, no jaundice, No spider nevi and no striae Rashes: no rashes Nails: normal Neuro General: oriented to person, oriented to place and oriented to time Cranial nerves: Yes Equal, round and reactive pupils present and Yes Normal hearing present Speech: No Abnormal speech present Extrem General: Yes normal to inspection, No clubbing, No cyanosis and No edema Psych Appearance: grossly normal and well kempt Mental Status: mental status grossly normal Speech and movement: Normal speech and movement present Affect: normal affect Attitude: cooperative Thought process: Normal thought process present and not confabulating Thought content: Normal thought content present Insight: Limited insight present (Psych) Judgement: Limited judgement present (Psych) Assessment & Plan Assessment & Plan (1) GERD (gastroesophageal reflux disease): Code(s): K21.9 - Gastro-esophageal reflux disease without esophagitis Category: Medical (2) Irritable bowel syndrome with constipation: Code(s): K58.1 - Irritable bowel syndrome with constipation Category: Medical (3) Rectocele: Code(s): N81.6 - Rectocele Category: Medical Plan She is ok if she continues on her Linzess, she ran out of it for a brief time because she was switching pharmacies but she did restart it. Obviously her constipation returned during this time. She has a new complicating factor of a rectocele it seems to be growing. This causes the stools to pool in the area and she has to usually manipulate the perirectal area to move her bowels which of course is extremely difficult. She wants a referral to a urogynecologist and she thinks we may have 1 here at [facility] but I am uncertain. As I can not pull this up in the computer all refer to gynecology instruct her to call them in find out if they do have someone that does this sort of surgery here. Her doughnut machine operator helper had referred [facility] of course but that would be more expensive. She continues on Linzess 290 micro g, she no longer takes her needs omeprazole with the restored bowel motility, she does utilize dicyclomine for cramping. Return office visit in 6 months Orders: Referrals HEAD OF DATA Referral N81.6 - Rectocele Medications: New dicyclomine 10 mg PO TID 90 caps 6RF Refilled linaclotide (Linzess) 290 mcg PO QAM 30 caps 6RF K58.1 - Irritable bowel syndrome with constipation sennosides (senna) 17.2 mg (2 x 8.6 mg) PO BEDTIME 60 caps 6RF constipation 30 days K58.1 - Irritable bowel syndrome with constipation Coding Level of Care Code Est Pt Level 3 (83619) Diagnoses GERD (gastroesophageal reflux disease) K21.9 Irritable bowel syndrome with constipation K58.1 Rectocele N81.6
[2023-12-23 12:15] VITALS: BP 116/59; PULSE 102; BMI 29.0
== END 2023-12-23 12:49 | disposition home or self-care (01) ==
PROVIDERS: PCP Nurse Practitioner Family; Visit Provider Nurse Practitioner
DX: K21.9 Gastro-esophageal reflux disease without esophagitis (principal); K58.1 Irritable bowel syndrome with constipation; N81.6 Rectocele
CPT/HCPCS: 99213

== ENCOUNTER → 2023-12-23 12:01 | Outpatient (BNVA) | payer OTHER, SELFPAY | PROVIDERS: PCP Nurse Practitioner Family; Visit Provider Nurse Practitioner ==

== ENCOUNTER 2024-01-12 10:28 | Outpatient (AMB) | payer OTHER, SELFPAY ==
--- NOTE | 2024-01-12 10:30 | A.OFFVIS_ITS ---
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: No Accompanied by: Self / Same As Patient Allergies promethazine [From PHENERGAN] Allergy (Intermediate, Verified 01/12/24 10:39) RASH cefazolin [CEFAZOLIN] Allergy (Unknown, Verified 01/12/24 10:39) ANAPHYLAXIS Iodinated Contrast Media [IV Dye, Iodine Containing Contrast ] Allergy (Unknown, Verified 01/12/24 10:39) ANAPHYLAXIS aripiprazole [From Abilify] Adverse Reaction (Severe, Verified 01/12/24 10:39) tardive dyskinesia prednisone [PREDNISONE] Adverse Reaction (Unknown, Verified 01/12/24 10:39) HYPERTENSION, high BP,headache DOG SHAMPOO Allergy (Unknown, Uncoded 07/31/23 10:11) ANAPHYLAXIS HPI Comments Details: Patient is a pleasant 58 years old female presents today for follow up for chronic pain syndrome due to fibromyalgia which exacerbates her low back pain, left shoulder, neck and sacroiliac joint pain. 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 She was diagnosed with lumbar strain and prescribed dexamethasone and methocarbamol with partial relief. Patient currently manages her fibromyalgia symptoms with pre gabalin, duloxetine and naproxen. She sees her Psychiatrist Dr. Libia Moyer for anxiety and depression, and takes trazadone, amitriptyline and clonidine. Patient reports she recently tried tizanidine for muscles spasms in her lower back and neck and this has been working well for her with good tolerance and no side effects. She requests refill for this today. Patient would like to address her left shoulder, neck and lower back with interventional treatments. Back pain is axial with facetogenic, discogenic and bilateral SIJ pain components. She has limited range of motion of her neck, worse with extension and lateral rotations. Patient also presents with painful arc syndrome and difficulty with overhead reaches. Pain is described as widespread body pain and localized named pain generators which are constant, dull, sore, hurting, aching, heavy, tiring, exhausting, tight and squeezing. Denies any fever, chills, dizziness, chest pain, weakness, burning, numbness, tingling, gait imbalances, weakness, bladder or bowel dysfunction, or saddle anesthesia. PRIOR Dr. Mejia 05/30/22: Patient is a 56-year-old female presenting for a follow-up after right therapeutic SIJ GTB injection. Patient reports very little relief following the SIJ injection. However, she does complete relief from the trochanteric bursa injection. Past Procedures: 04/30/22: Right Therapeutic SIJ/GTB injection ? No relief from SIJ inj, 100% relief from GTB inj. 03/05/22: Left lesser trochanteric Injection ? 90% relief. FOR[facility]LY [facility], [facility] Medical History Orthostatic dizziness Type 2 diabetes mellitus Jerman-Danlos syndrome type III History of kidney stones Hypothyroidism Back pain Chronic constipation IBS (irritable colon syndrome) Insomnia Hyperlipidemia Anxiety Fibromyalgia Depression Surgical History Hx of partial thyroidectomy Status post left foot surgery History of sleeve gastrectomy History of endometrial ablation Hx of toe surgery History of bladder suspension procedure Hx of hysterectomy Hx of tubal ligation Hx of appendectomy Family History Father Liver disease Diabetes mellitus Hypertension Mother Hypertension Diabetes mellitus Arthritis Son Asthma Depression Anxiety Daughter Asthma Depression Migraines Chronic pain Anxiety Sister No problems noted. 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 Alert and oriented. Mood and affect appropriate. Follows and participates in conversation appropriately. Respiratory effort is unlabored. Able to transition from sit to stand unassisted. Ambulates with bilaterally normal heel strike and toe off. Neck Neck: Yes no lymphadenopathy, Yes supple, No anterior neck swelling, No torticollis, Yes no JVD, No prominent supraclavicular fat pad and No prominent dorsocervical fat pad Back/Spine/Pelvis Other: Patient is able to walk and stand on heels and tip toes with no difficulties demonstrating good motor tone. No limping. Can flex forward to 75-80 degrees and extend to 5-10 degrees before experiencing lumbar pain. Increased pain with lumbar extension. Demonstrates 5/5 strength of quadriceps bilaterally as well as flexion/dorsiflexion of bilateral feet against resistance. 2+ pedal pulses b ilaterally. Seated straight leg rise with dorsiflexion negative bilaterally. +2 patellar and achilles reflexes bilaterally. Facet loading test positive bilaterally. Boom sign, Vinod?s, SI distraction, Pelvic compression and Stinchfield tests are positive bilaterally, right>left. No groin pain with I/E hip rotations. Mild TTP to GTB on the right. Multiple widespread TTPs 16/16 bilaterally, including upper and lower extremities. Cervical Spine: cervical muscular tenderness, pain with cervical ROM, No Cervical spine scars present, cervical spasm, No Cervical spine tenderness and No step off deformity Thoracic/Lumbar Spine: thoracic and lumbar spine normal to inspection, No Thoracic/lumbar spine scar(s), Lasegue's sign negative, straight leg raise negative bilaterally, pain with thoraco-lumbar ROM, paraspinal muscle tenderness, thoraco-lumbar ROM limited, No thoracic spinal tenderness and lumbar spinal tenderness (L4-S1) Pelvis: buttock tenderness Sacroiliac joints: bilaterally tender to palpation Extrem General: Yes capillary refill normal, Yes no clubbing, cyanosis or edema and Yes no calf tenderness Left upper extremity: shoulder/upper arm (Pain and difficulty with overhead reach and backside pocket reaches.) Details: inspection abnormal, tenderness (anterior and lateral aspects) Location: over the biceps tendon, over the subacromial bursa and over the deltoid bursa and crepitus; no ecchymosis, no deformity and no unsual warmth Assessment & Plan Assessment & Plan (1) Low back pain: Code(s): M54.50 - Low back pain, unspecified Category: Medical (2) Fibromyalgia, primary: Code(s): M79.7 - Fibromyalgia Category: Medical (3) Chronic pain syndrome: Code(s): G89.4 - Chronic pain syndrome Category: Medical (4) Sacroiliitis: Code(s): M46.1 - Sacroiliitis, not elsewhere classified Category: Medical (5) Cervical spondylosis: Code(s): M47.812 - Spondylosis without myelopathy or radiculopathy, cervical region Category: Medical (6) Low back pain: Code(s): M54.50 - Low back pain, unspecified Category: Medical (7) Sacroiliitis: Code(s): M46.1 - Sacroiliitis, not elsewhere classified Category: Medical (8) Left shoulder pain: Code(s): M25.512 - Pain in left shoulder Category: Medical Plan Cervical and lumbar spine imaging to assess degree of degenerative changes, any subluxation, listhesis, compression fractures or pars defects. We will also obtain left shoulder xray to assess degree of arthritis prior to interventional treatments. Discussed treatments for axial low back pain, left shoulder pain and repeating sacroiliac joint injections. Informational booklets provided to patient. Reviewed management of fibromyalgia with patient. Continue current treatment, will restart tizanidine. Side effects and precautions discussed with patient. Consider swimming, gentle stretching exercises, walking, cycling, and aerobic exercise which are the overall most effective treatments. Discuss CBT with psychotherapist. Follow sleep hygiene practices for adequate and maintained sleep. Encouraged weight optimization and well-balanced diet. All questions and concerns have been answered and patient agreed with the plan. Follow-up for x-rays review and sooner as needed. Orders: Orders XR cervical spine 3V 01/12/24 M47.812 - Spondylosis without myelopathy or radiculopathy, cervical region XR shoulder LT min 2V 01/12/24 M25.512 - Pain in left shoulder XR lumbar spine 4V min 01/12/24 M46.1 - Sacroiliitis, not elsewhere classified, M54.50 - Low back pain, unspecified Medications: New tizanidine 2 mg PO TID 30 days PRN 90 tabs 3RF muscle spasticity G89.4 - Chronic pain syndrome, M54.50 - Low back pain, unspecified, M79.7 - Fibromyalgia Coding Level of Care Code Est Pt Level 4 (27583) Diagnoses Low back pain M54.50 Fibromyalgia, primary M79.7 Chronic pain syndrome G89.4 Sacroiliitis M46.1 Cervical spondylosis M47.812 Left shoulder pain M25.512
[2024-01-12 10:37] VITALS: BP 157/74; PULSE 87; O2SAT 98; BMI 28.7
== END 2024-01-12 11:33 | disposition home or self-care (01) ==
PROVIDERS: PCP Nurse Practitioner Family; Visit Provider Nurse Practitioner Family
DX: M54.50 Low back pain, unspecified (principal); M79.7 Fibromyalgia; G89.4 Chronic pain syndrome; M46.1 Sacroiliitis, not elsewhere classified; M47.812 Spondylosis without myelopathy or radiculopathy, cervical region; M25.512 Pain in left shoulder
CPT/HCPCS: 99214

== ENCOUNTER → 2024-01-12 10:28 | Outpatient (BNVA) | payer OTHER, SELFPAY | PROVIDERS: PCP Nurse Practitioner Family; Visit Provider Nurse Practitioner Family ==

== ENCOUNTER 2024-01-15 14:49 | Outpatient (REF) | payer OTHER, SELFPAY ==
--- NOTE | ~2024-01-15 | XR_ITS ---
EXAMINATION: XR SHOULDER, LEFT CLINICAL INFORMATION: Left shoulder pain which developed in the past month. COMPARISON: None available. TECHNIQUE: AP external rotation, Grashey, scapular Y, and axillary views of the left shoulder. FINDINGS: Bony alignment and mineralization are normal. The glenohumeral joint is intact. The acromioclavicular and coracoclavicular intervals are normal. A tiny distal acromial undersurface osteophyte is seen. No soft tissue calcification or foreign body is seen. There is left apical pleural thickening. There is no left pneumothorax. XR/XR shoulder LT min 2V IMPRESSION: 1. No fracture or dislocation is seen. 2. A tiny distal acromial undersurface osteophyte is seen, which can be associated with rotator cuff impingement. No rivas calcific tendinitis is presently noted.
--- NOTE | ~2024-01-15 | XR_ITS ---
EXAMINATION: XR CERVICAL SPINE CLINICAL INFORMATION: Spondylosis without myelopathy or radiculopathy, cervical region COMPARISON: None available. TECHNIQUE: 5 views of the cervical spine were obtained. FINDINGS: The tip of the odontoid is obscured on the open-mouth view. The inferior endplate of C7 is obscured by the soft tissues of the patient's shoulders. No fracture or subluxation. Prevertebral soft tissues are within normal limits. There is straightening of the usual cervical lordosis which can be seen with muscle spasm or be due to patient positioning. There are prominent anterior marginal osteophytes noted from C4 through C7. There is marked disc space narrowing at C6-C7. A few surgical clips project over the lower cervical spine on the right. XR/XR cervical spine 3V IMPRESSION: 1. Degenerative disc disease at C6-C7. 2. Straightening of the usual cervical lordosis which can be seen with muscle spasm or be due to patient positioning.
--- NOTE | ~2024-01-15 | XR_ITS ---
EXAMINATION: XR LUMBOSACRAL SPINE WITH OBLIQUES CLINICAL INFORMATION: Sacroiliitis, not elsewhere classified COMPARISON: None available. TECHNIQUE: AP, both oblique, and lateral views of the lumbar spine. Lateral view of the lumbosacral junction. FINDINGS: There are 5 nonrib-bearing lumbar-type vertebral bodies the height of vertebral bodies is well-maintained. There is straightening of the usual lumbar lordosis which can be seen with muscle spasm. There is no disc space narrowing. There is no spondylolysis. There is mild retrolisthesis of L5 respect to S1. The sacroiliac joints are widely patent without associated erosions. Anastomotic sutures are seen in the left upper quadrant. XR/XR lumbar spine 4V min IMPRESSION: 1. Muscle spasm. 2. Mild retrolisthesis of L5 with respect to S1. 3. The sacroiliac joints are widely patent without associated erosions.
== END 2024-01-15 14:50 | disposition home or self-care (01) ==
LOC: HO.XRAY 14:49
PROVIDERS: Visit Provider Nurse Practitioner Family
DX: M47.812 Spondylosis without myelopathy or radiculopathy, cervical region (principal); M46.1 Sacroiliitis, not elsewhere classified; M54.50 Low back pain, unspecified; M25.512 Pain in left shoulder
CPT/HCPCS: 72040; 72110; 73030

== ENCOUNTER 2024-01-26 09:30 | Outpatient (AMB) | payer OTHER, SELFPAY ==
--- NOTE | 2024-01-26 09:31 | A.OFFVIS_ITS ---
Vital Signs 01/26/24 09:35 Height 5 ft 4 in Weight 169 lb BMI 29.0 BP 140/74 H Blood Pressure Location Lt brachial Position Sitting Respiration 16 Pulse 87 Pulse Source Pulse Oximeter Pulse Oximetry (%) 97 Oxygen Delivery Method Room Air Intake Visit Reasons: Discuss Cervical Spine X-Ray Results Allergies promethazine [From PHENERGAN] Allergy (Intermediate, Verified 01/26/24 09:35) RASH cefazolin [CEFAZOLIN] Allergy (Unknown, Verified 01/26/24 09:35) ANAPHYLAXIS Iodinated Contrast Media [IV Dye, Iodine Containing Contrast ] Allergy (Unknown, Verified 01/26/24 09:35) ANAPHYLAXIS aripiprazole [From Abilify] Adverse Reaction (Severe, Verified 01/26/24 09:35) tardive dyskinesia prednisone [PREDNISONE] Adverse Reaction (Unknown, Verified 01/26/24 09:35) HYPERTENSION, high BP,headache DOG SHAMPOO Allergy (Unknown, Uncoded 07/31/23 10:11) ANAPHYLAXIS HPI Comments Details: Patient presents today to discuss recent spine and shoulder xrays results. Patient continues to endorse left shoulder and neck pain that extends into her upper back with constant pain, muscle spasms and stiffness. She reports partial myofascial pain relief with low dose tizanidine without any side effects. Patient reports regularly participating in home exercise program for her neck and lower back pain. Patient is interested to proceed with diagnostic cervical medial branch blocks and personal TENS unit for her chronic neck pain. Denies any recent cough, cold, infection, fever, any significant changes in her medical history, medications or recent hospitalizations. Oswestry Neck Disability Score=15 (moderate disability) PRIOR: Patient is a pleasant 58 years old female presents today for follow up for chronic pain syndrome due to fibromyalgia which exacerbates her low back pain, left shoulder, neck and sacroiliac joint pain. 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 She was diagnosed with lumbar strain and prescribed dexamethasone and methocarbamol with partial relief. Patient currently manages her fibromyalgia symptoms with pregabalin, duloxetine and naproxen. She sees her Psychiatrist Dr. Libia Moyer for anxiety and depression, and takes trazadone, amitriptyline and clonidine. Patient reports she recently tried tizanidine for muscles spasms in her lower back and neck and this has been working well for her with good tolerance and no side effects. She requests refill for this today. Patient would like to address her left shoulder, neck and lower back with interventional treatments. Back pain is axial with facetogenic, discogenic and bilateral SIJ pain components. She has limited range of motion of her neck, worse with extension and lateral rotations. Patient also presents with painful arc syndrome and difficulty with overhead reaches. Pain is described as widespread body pain and localized named pain generators which are constant, dull, sore, hurting, aching, heavy, tiring, exhausting, tight and squeezing. Denies any fever, chills, dizziness, chest pain, weakness, burning, numbness, tingling, gait imbalances, weakness, bladder or bowel dysfunction, or saddle anesthesia. PRIOR Dr. Mejia 05/30/22: Patient is a 56-year-old female presenting for a follow-up after right therapeutic SIJ GTB injection. Patient reports very little relief following the SIJ injection. However, she does complete relief from the trochanteric bursa injection. Past Procedures: 04/30/22: Right Therapeutic SIJ/GTB injection ? No relief from SIJ inj, 100% relief from GTB inj. 03/05/22: Left lesser trochanteric Injection ? 90% relief. [facility] Medical History Orthostatic dizziness Type 2 diabetes mellitus Jerman-Danlos syndrome type III History of kidney stones Hypothyroidism Back pain Chronic constipation IBS (irritable colon syndrome) Insomnia Hyperlipidemia Anxiety Fibromyalgia Depression Surgical History Hx of partial thyroidectomy Status post left foot surgery History of sleeve gastrectomy History of endometrial ablation Hx of toe surgery History of bladder suspension procedure Hx of hysterectomy Hx of tubal ligation Hx of appendectomy Family History Father Liver disease Diabetes mellitus Hypertension Mother Hypertension Diabetes mellitus Arthritis Son Asthma Depression Anxiety Daughter Asthma Depression Migraines Chronic pain Anxiety Sister No problems noted. 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 Alert and oriented. Mood and affect appropriate. Follows and participates in conversation appropriately. Respiratory effort is unlabored. Able to transition from sit to stand unassisted. Ambulates with bilaterally normal heel strike and toe off. Neck Other: Patient with decreased cervical ROM in all planes, especially with lateral rotation and bending. Reports increased pain with cervical extension. Spurling compression test negative. Pain is unchanged by Spurling maneuver with retraction. Elvey's tension test negative bilaterally. Lhermitte's test was negative. DTR intact, +2 and symmetrical. Patient demonstrated 5/5 motor strength of bilateral upper extremities. 2 + radial pulses. Significant tightness throughout upper trapezius and rhomboid muscles. No paravertebral tenderness over facet joints bilaterally. Neck: Yes no lymphadenopathy, Yes supple, No anterior neck swelling, No torticollis, Yes no JVD, No prominent supraclavicular fat pad and No prominent dorsocervical fat pad Back/Spine/Pelvis Other: Patient is able to walk and stand on heels and tip toes with no difficulties demonstrating good motor tone. No limping. Can flex forward to 70-80 degrees and extend to 5-10 degrees before experiencing lumbar pain. Increased pain with lumbar extension. Demonstrates 5/5 strength of quadriceps bilaterally as well as flexion/dorsiflexion of bilateral feet against resistance. 2+ pedal pulses bilaterally. Seated straight leg rise with dorsiflexion negative bilaterally. +2 patellar and achilles reflexes bilaterally. Facet loading test positive bilaterally. Boom sign, Vinod?s, SI distraction, Pelvic compression and Stinchfield tests are positive bilaterally, right>left. No groin pain with I/E hip rotations. Mild TTP to GTB on the right. Multiple widespread TTPs 16/16 bilaterally, including upper and lower extremities. Cervical Spine: loss of normal cervical lordosis, cervical muscular tenderness, pain with cervical ROM, No Cervical spine scars present, cervical spasm, No Cervical spine tenderness and No step off deformity Thoracic/Lumbar Spine: thoracic and lumbar spine normal to inspection, No Thoracic/lumbar spine scar(s), Lasegue's sign negative, straight leg raise negative bilaterally, pain with thoraco-lumbar ROM, paraspinal muscle tendernes s, thoraco-lumbar ROM limited, No thoracic spinal tenderness and lumbar spinal tenderness (L4-S1) Pelvis: buttock tenderness Sacroiliac joints: bilaterally tender to palpation Extrem General: Yes capillary refill normal, Yes no clubbing, cyanosis or edema and Yes no calf tenderness Left upper extremity: shoulder/upper arm (Pain and difficulty with overhead reach and backside pocket reaches.) Details: inspection abnormal, tenderness (anterior and lateral aspects) Location: over the biceps tendon, over the subacromial bursa and over the deltoid bursa and crepitus; no ecchymosis, no deformity and no unsual warmth Results Reviewed Results Reviewed: XR SHOULDER, LEFT 01/15/24 CLINICAL INFORMATION: Left shoulder pain which developed in the past month. FINDINGS: Bony alignment and mineralization are normal. The glenohumeral joint is intact. The acromioclavicular and coracoclavicular intervals are normal. A tiny distal acromial undersurface osteophyte is seen. No soft tissue calcification or foreign body is seen. There is left apical pleural thickening. There is no left pneumothorax. IMPRESSION: 1. No fracture or dislocation is seen. 2. A tiny distal acromial undersurface osteophyte is seen, which can be associated with rotator cuff impingement. No rivas calcific tendinitis is presently noted. XR LUMBOSACRAL SPINE WITH OBLIQUES 01/15/24 CLINICAL INFORMATION: Sacroiliitis, not elsewhere classified FINDINGS: There are 5 nonrib-bearing lumbar-type vertebral bodies the height of vertebral bodies is well-maintained. There is straightening of the usual lumbar lordosis which can be seen with muscle spasm. There is no disc space narrowing. There is no spondylolysis. There is mild retrolisthesis of L5 respect to S1. The sacroiliac joints are widely patent without associated erosions. Anastomotic sutures are seen in the left upper quadrant. IMPRESSION: 1. Muscle spasm. 2. Mild retrolisthesis of L5 with respect to S1. 3. The sacroiliac joints are widely patent without associated erosions. XR CERVICAL SPINE 01/15/24 CLINICAL INFORMATION: Spondylosis without myelopathy or radiculopathy, cervical region FINDINGS: The tip of the odontoid is obscured on the open-mouth view. The inferior endplate of C7 is obscured by the soft tissues of the patient's shoulders. No fracture or subluxation. Prevertebral soft tissues are within normal limits. There is straightening of the usual cervical lordosis which can be seen with muscle spasm or be due to patient positioning. There are prominent anterior marginal osteophytes noted from C4 through C7. There is marked disc space narrowing at C6-C7. A few surgical clips project over the lower cervical spine on the right. IMPRESSION: 1. Degenerative disc disease at C6-C7. 2. Straightening of the usual cervical lordosis which can be seen with muscle spasm or be due to patient positioning. Assessment & Plan Assessment & Plan (1) Low back pain: Code(s): M54.50 - Low back pain, unspecified Category: Medical (2) Fibromyalgia, primary: Code(s): M79.7 - Fibromyalgia Category: Medical (3) Chronic pain syndrome: Code(s): G89.4 - Chronic pain syndrome Category: Medical (4) Sacroiliitis: Code(s): M46.1 - Sacroiliitis, not elsewhere classified Category: Medical (5) Cervical spondylosis: Code(s): M47.812 - Spondylosis without myelopathy or radiculopathy, cervical region Category: Medical (6) Low back pain: Code(s): M54.50 - Low back pain, unspecified Category: Medical (7) Sacroiliitis: Code(s): M46.1 - Sacroiliitis, not elsewhere classified Category: Medical (8) Left shoulder pain: Code(s): M25.512 - Pain in left shoulder Category: Medical (9) Muscle spasm: Code(s): M62.838 - Other muscle spasm Category: Medical Plan Cervical and lumbar spine and left shoulder xray results were discussed with patient in greater detail today and are noted above. Discussed treatments for axial low back pain, left shoulder pain and repeating sacroiliac joint injections. Recommend PT and HEP for neck and low back. Patient reports she continues home exercise program for these pain generators daily as well as regular walking. For ongoing neck pain, we will proceed with Diagnostic Bilateral C5-C6-C6 MBBs with local and fluoroscopy. If she has significant relief from the diagnostic blocks for her axial cervical spine pain, will consider either therapeutic injections, Sprint PNS or RFA depending on her preference. Informational booklets provided. Expectations, risks and benefits were reviewed. Patient is aware she will be contacted to schedule this procedure. Script sent to [facility] for personal use TENS unit. Patient is aware [facility] will contact patient prior to ship device to her home. All questions were answered and the patient is in agreement of plan. Follow-up after injections and sooner as needed. Coding Level of Care Code Est Pt Level 4 (83187) Diagnoses Low back pain M54.50 Fibromyalgia, primary M79.7 Chronic pain syndrome G89.4 Sacroiliitis M46.1 Cervical spondylosis M47.812 Left shoulder pain M25.512 Muscle spasm M62.838
[2024-01-26 09:35] VITALS: BP 140/74; PULSE 87; RESP 16; O2SAT 97; BMI 29.0
== END 2024-01-26 10:08 | disposition home or self-care (01) ==
PROVIDERS: PCP Nurse Practitioner Family; Visit Provider Nurse Practitioner Family
DX: M54.50 Low back pain, unspecified (principal); M79.7 Fibromyalgia; G89.4 Chronic pain syndrome; M46.1 Sacroiliitis, not elsewhere classified; M47.812 Spondylosis without myelopathy or radiculopathy, cervical region; M25.512 Pain in left shoulder; M62.838 Other muscle spasm
CPT/HCPCS: 99214

== ENCOUNTER → 2024-01-26 09:30 | Outpatient (BNVA) | payer OTHER, SELFPAY | PROVIDERS: PCP Nurse Practitioner Family; Visit Provider Nurse Practitioner Family ==

== ENCOUNTER 2024-02-11 06:21 | Outpatient (REF) | payer OTHER, SELFPAY ==
--- NOTE | ~2024-02-11 | FL_ITS ---
EXAMINATION: XR FLUOROSCOPY WITH IMAGES CLINICAL INFORMATION: Left cervical injection. Spondylosis. COMPARISON: None available. TECHNIQUE: Fluoroscopy Supervised By: Dr. Mejia. Fluoroscopy Time: 0.1 min. Cumulative Dose: 0.988 mGy. DAP: 0.121 Gycm2. Images: 2. FINDINGS: Intraoperative fluoroscopy and spot films were performed during a procedure in the OR. 3 needles are seen overlying the region of C4, C5 and C6 on the left. Please see Dr. Mejia' report for complete details. FL/FL guidance in treatment room IMPRESSION: Intraoperative fluoroscopy and spot films were obtained. Please see Dr. Mejia' report for complete details.
== END 2024-02-11 06:22 | disposition home or self-care (01) ==
LOC: CF 06:21
PROVIDERS: Visit Provider Internal Medicine
DX: M47.812 Spondylosis without myelopathy or radiculopathy, cervical region (principal)
CPT/HCPCS: 64490; 64491; J2795; Q9967

== ENCOUNTER 2024-02-11 13:09 | Outpatient (AMB) | payer OTHER, SELFPAY ==
--- NOTE | 2024-02-11 13:18 | MHC.OFFVIS ---
Vital Signs 02/11/24 14:38 02/11/24 14:42 Height 5 ft 4 in Weight 169 lb BMI 29.0 BP 132/72 128/82 Blood Pressure Location Lt brachial Lt brachial Position Sitting Sitting Respiration 16 18 Pulse 81 74 Pulse Source Pulse Oximeter Pulse Oximeter Pulse Oximetry (%) 98 96 Oxygen Delivery Method Room Air Room Air Comment Pre-Op Post-Op Intake Visit Reasons: Left Dx C5-C6-C7 MBB Allergies promethazine [From PHENERGAN] Allergy (Intermediate, Verified 01/26/24 09:35) RASH cefazolin [CEFAZOLIN] Allergy (Unknown, Verified 01/26/24 09:35) ANAPHYLAXIS Iodinated Contrast Media [IV Dye, Iodine Containing Contrast ] Allergy (Unknown, Verified 01/26/24 09:35) ANAPHYLAXIS aripiprazole [From Abilify] Adverse Reaction (Severe, Verified 01/26/24 09:35) tardive dyskinesia prednisone [PREDNISONE] Adverse Reaction (Unknown, Verified 01/26/24 09:35) HYPERTENSION, high BP,headache DOG SHAMPOO Allergy (Unknown, Uncoded 07/31/23 10:11) ANAPHYLAXIS HPI HPI Left Dx C5-C6-C7 MBB: Details: Patient presents for scheduled procedure. Denies any recent cough, cold, infection, fever or other significant changes in medical history since last office visit. PFSH Medical History Orthostatic dizziness Type 2 diabetes mellitus Jerman-Danlos syndrome type III History of kidney stones Hypothyroidism Back pain Chronic constipation IBS (irritable colon syndrome) Insomnia Hyperlipidemia Anxiety Fibromyalgia Depression Surgical History Hx of partial thyroidectomy Status post left foot surgery History of sleeve gastrectomy History of endometrial ablation Hx of toe surgery History of bladder suspension procedure Hx of hysterectomy Hx of tubal ligation Hx of appendectomy Family History Father Liver disease Diabetes mellitus Hypertension Mother Hypertension Diabetes mellitus Arthritis Son Asthma Depression Anxiety Daughter Asthma Depression Migraines Chronic pain Anxiety Sister No problems noted. 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 The patient was placed in a lateral position. The respective cervical area was prepped with chloraprep and draped in sterile fashion. The skin over the target medial branch nerves was anesthetized with 0.5% lidocaine. A 25 gauge 1.5 inch needle was inserted into the target medial branch nerve under fluoroscopic guidance. No paresthesias were elicited with needle placement and aspiration was negative for blood and CSF. Contrast was not utilized due to contrast allergy. Next 0.5 ml 0.5% ropivicaine was injected (0.5 cc total per level). The identical procedure was performed at the remaining levels. The skin was cleansed and a sterile bandage was applied. Following the procedure the patient's vital signs were stable. The patient tolerated the procedure well and no complications were encountered. Following the procedure the patient's vital signs were stable. The patient was discharged home in good condition with post-procedural instructions. Time Out: Immediately prior to the procedure, the following was verbally confirmed that there is a signed consent form and that the correct patient, planned procedure, site and side are consistent with documentation and that necessary equipment and/or blood products are available prior to the start of the case. Complications: none EBL: <5 cc 89274 - with Fluoroscopy 04279 - second level, with Fluoroscopy Procedure code (CPT) selection complete Assessment & Plan Assessment & Plan (1) Cervical spondylosis: Code(s): M47.812 - Spondylosis without myelopathy or radiculopathy, cervical region Category: Medical Plan Patient is status post left C4, C5, C6 diagnostic medial branch blocks. Patient tolerated procedure well and was discharged home in stable condition with discharge instructions. All questions were answered. We will follow-up via telephone or in clinic to assess response to therapy. A follow-up appointment was made during today's visit. Orders: Orders FL guidance in treatment room Today M47.812 - Spondylosis without myelopathy or radiculopathy, cervical region Coding Level of Care Code Procedure Only Diagnoses Cervical spondylosis M47.812 CPT Codes Facet Injection Cervical/Thoracic - CPT: 88784 - with Fluoroscopy ([id number]) Facet Injection Cervical/Thoracic - CPT: 01057 - second level, with Fluoroscopy ([id number])
[2024-02-11 14:38] VITALS: BP 132/72; PULSE 81; RESP 16; O2SAT 98; BMI 29.0
[2024-02-11 14:42] VITALS: BP 128/82; PULSE 74; RESP 18; O2SAT 96
== END 2024-02-11 14:26 | disposition home or self-care (01) ==
LOC: HO.PMCPRC 13:09
PROVIDERS: PCP Nurse Practitioner Family; Visit Provider Internal Medicine
DX: M47.812 Spondylosis without myelopathy or radiculopathy, cervical region (principal)
CPT/HCPCS: 64490; 64491

== ENCOUNTER 2024-02-18 06:19 | Outpatient (REF) | payer OTHER, SELFPAY ==
--- NOTE | ~2024-02-18 | FL_ITS ---
EXAMINATION: XR FLUOROSCOPY WITH IMAGES CLINICAL INFORMATION: Cervical spondylosis. COMPARISON: None available. TECHNIQUE: Fluoroscopy Supervised By: Dr. Mejia. Fluoroscopy Time: 0.0 min. Cumulative Dose: 0.341 mGy. DAP: 0.0029 Gycm2. Images: 2. FINDINGS: Intraoperative fluoroscopy and spot films were performed during a procedure in the OR. Images demonstrate 3 needles overlying the right cervical spine. Exact levels cannot be ascertained because of image coning. Please see Dr. Mejia' report for complete details. FL/FL guidance in treatment room IMPRESSION: Intraoperative fluoroscopy and spot films were obtained. Please see Dr. Mejia' report for complete details.
== END 2024-02-18 06:20 | disposition home or self-care (01) ==
LOC: CF 06:19
PROVIDERS: Visit Provider Internal Medicine
DX: M47.812 Spondylosis without myelopathy or radiculopathy, cervical region (principal)
CPT/HCPCS: 64490; 64491; J2795; Q9967

== ENCOUNTER 2024-02-18 13:43 | Outpatient (AMB) | payer OTHER, SELFPAY ==
--- NOTE | 2024-02-18 14:07 | MHC.OFFVIS ---
Vital Signs 02/18/24 14:08 02/18/24 14:13 Height 5 ft 4 in Weight 169 lb BMI 29.0 BP 102/62 114/68 Blood Pressure Location Lt brachial Lt brachial Position Sitting Sitting Respiration 16 16 Pulse 72 88 Pulse Source Pulse Oximeter Pulse Oximeter Pulse Oximetry (%) 98 95 Oxygen Delivery Method Room Air Room Air Comment Pre-Op Post-Op Intake Visit Reasons: Right Dx C5-C6-C7 MBB Allergies promethazine [From PHENERGAN] Allergy (Intermediate, Verified 01/26/24 09:35) RASH cefazolin [CEFAZOLIN] Allergy (Unknown, Verified 01/26/24 09:35) ANAPHYLAXIS Iodinated Contrast Media [IV Dye, Iodine Containing Contrast ] Allergy (Unknown, Verified 01/26/24 09:35) ANAPHYLAXIS aripiprazole [From Abilify] Adverse Reaction (Severe, Verified 01/26/24 09:35) tardive dyskinesia prednisone [PREDNISONE] Adverse Reaction (Unknown, Verified 01/26/24 09:35) HYPERTENSION, high BP,headache DOG SHAMPOO Allergy (Unknown, Uncoded 07/31/23 10:11) ANAPHYLAXIS HPI HPI Right Dx C5-C6-C7 MBB: Details: Patient presents for scheduled procedure. Denies any recent cough, cold, infection, fever or other significant changes in medical history since last office visit. PFSH Medical History Orthostatic dizziness Type 2 diabetes mellitus Jerman-Danlos syndrome type III History of kidney stones Hypothyroidism Back pain Chronic constipation IBS (irritable colon syndrome) Insomnia Hyperlipidemia Anxiety Fibromyalgia Depression Surgical History Hx of partial thyroidectomy Status post left foot surgery History of sleeve gastrectomy History of endometrial ablation Hx of toe surgery History of bladder suspension procedure Hx of hysterectomy Hx of tubal ligation Hx of appendectomy Family History Father Liver disease Diabetes mellitus Hypertension Mother Hypertension Diabetes mellitus Arthritis Son Asthma Depression Anxiety Daughter Asthma Depression Migraines Chronic pain Anxiety Sister No problems noted. 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 The patient was placed in a lateral position. The respective cervical area was prepped with chloraprep and draped in sterile fashion. The skin over the target medial branch nerves was anesthetized with 0.5% lidocaine. A 25 gauge 1.5 inch needle was inserted into the target medial branch nerve under fluoroscopic guidance. No paresthesias were elicited with needle placement and aspiration was negative for blood and CSF. Next, 0.2cc of omnipaque 180 was injected to verify positioning. Next 0.5 ml 0.5% ropivicaine was injected (0.5 cc total per level). The identical procedure was performed at the remaining levels. The skin was cleansed and a sterile bandage was applied. Following the procedure the patient's vital signs were stable. The patient tolerated the procedure well and no complications were encountered. Following the procedure the patient's vital signs were stable. The patient was discharged home in good condition with post-procedural instructions. Time Out: Immediately prior to the procedure, the following was verbally confirmed that there is a signed consent form and that the correct patient, planned procedure, site and side are consistent with documentation and that necessary equipment and/or blood products are available prior to the start of the case. Complications: none EBL: <5 cc 24977 - with Fluoroscopy 27863 - second level, with Fluoroscopy Procedure code (CPT) selection complete Assessment & Plan Assessment & Plan (1) Cervical spondylosis: Code(s): M47.812 - Spondylosis without myelopathy or radiculopathy, cervical region Category: Medical Plan Patient is status post right C4, C5, C6 diagnostic medial branch blocks. Patient tolerated procedure well and was discharged home in stable condition with discharge instructions. All questions were answered. We will follow-up via telephone or in clinic to assess response to therapy. A follow-up appointment was made during today's visit. Orders: Orders FL guidance in treatment room Today M47.812 - Spondylosis without myelopathy or radiculopathy, cervical region Coding Level of Care Code Procedure Only Diagnoses Cervical spondylosis M47.812 CPT Codes Facet Injection Cervical/Thoracic - CPT: 82931 - with Fluoroscopy ([id number]) Facet Injection Cervical/Thoracic - CPT: 28449 - second level, with Fluoroscopy ([id number])
--- NOTE | 2024-02-18 14:07 | MHC.OFFVIS ---
Vital Signs 02/18/24 14:08 Height 5 ft 4 in Weight 169 lb BMI 29.0 BP 102/62 Blood Pressure Location Lt brachial Position Sitting Respiration 16 Pulse 72 Pulse Source Pulse Oximeter Pulse Oximetry (%) 98 Oxygen Delivery Method Room Air Comment Pre-Op Intake Visit Reasons: Right Dx C5-C6-C7 MBB Allergies promethazine [From PHENERGAN] Allergy (Intermediate, Verified 01/26/24 09:35) RASH cefazolin [CEFAZOLIN] Allergy (Unknown, Verified 01/26/24 09:35) ANAPHYLAXIS Iodinated Contrast Media [IV Dye, Iodine Containing Contrast ] Allergy (Unknown, Verified 01/26/24 09:35) ANAPHYLAXIS aripiprazole [From Abilify] Adverse Reaction (Severe, Verified 01/26/24 09:35) tardive dyskinesia prednisone [PREDNISONE] Adverse Reaction (Unknown, Verified 01/26/24 09:35) HYPERTENSION, high BP,headache DOG SHAMPOO Allergy (Unknown, Uncoded 07/31/23 10:11) ANAPHYLAXIS PFSH Medical History Orthostatic dizziness Type 2 diabetes mellitus Jerman-Danlos syndrome type III History of kidney stones Hypothyroidism Back pain Chronic constipation IBS (irritable colon syndrome) Insomnia Hyperlipidemia Anxiety Fibromyalgia Depression Surgical History Hx of partial thyroidectomy Status post left foot surgery History of sleeve gastrectomy History of endometrial ablation Hx of toe surgery History of bladder suspension procedure Hx of hysterectomy Hx of tubal ligation Hx of appendectomy Family History Father Liver disease Diabetes mellitus Hypertension Mother Hypertension Diabetes mellitus Arthritis Son Asthma Depression Anxiety Daughter Asthma Depression Migraines Chronic pain Anxiety Sister No problems noted. 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 The patient was placed in a lateral position. The respective cervical area was prepped with chloraprep and draped in sterile fashion. The skin over the target medial branch nerves was anesthetized with 0.5% lidocaine. A 25 gauge 1.5 inch needle was inserted into the target medial branch nerve under fluoroscopic guidance. No paresthesias were elicited with needle placement and aspiration was negative for blood and CSF. Next, 0.2cc of omnipaque 180 was injected to verify positioning. Next 0.5 ml 0.5% ropivicaine was injected (0.5 cc total per level). The identical procedure was performed at the remaining levels. The skin was cleansed and a sterile bandage was applied. Following the procedure the patient's vital signs were stable. The patient tolerated the procedure well and no complications were encountered. Following the procedure the patient's vital signs were stable. The patient was discharged home in good condition with post-procedural instructions. Time Out: Immediately prior to the procedure, the following was verbally confirmed that there is a signed consent form and that the correct patient, planned procedure, site and side are consistent with documentation and that necessary equipment and/or blood products are available prior to the start of the case. Complications: none EBL: <5 cc 60386 - with Fluoroscopy 91912 - second level, with Fluoroscopy Procedure code (CPT) selection complete Assessment & Plan Assessment & Plan Orders: Orders FL guidance in treatment room Today M47.812 - Spondylosis without myelopathy or radiculopathy, cervical region Coding CPT Codes Facet Injection Cervical/Thoracic - CPT: 75493 - with Fluoroscopy ([id number]) Facet Injection Cervical/Thoracic - CPT: 87589 - second level, with Fluoroscopy ([id number])
[2024-02-18 14:08] VITALS: BP 102/62; PULSE 72; RESP 16; O2SAT 98; BMI 29.0
[2024-02-18 14:13] VITALS: BP 114/68; PULSE 88; RESP 16; O2SAT 95
== END 2024-02-18 14:08 | disposition home or self-care (01) ==
LOC: HO.PMCPRC 13:43
PROVIDERS: PCP Nurse Practitioner Family; Visit Provider Internal Medicine
DX: M47.812 Spondylosis without myelopathy or radiculopathy, cervical region (principal)
CPT/HCPCS: 64490; 64491

== ENCOUNTER 2024-02-22 08:29 | Outpatient (AMB) | payer OTHER, SELFPAY ==
--- NOTE | 2024-02-22 08:31 | MHC.OFFVIS ---
Vital Signs 02/22/24 08:38 Height 5 ft 4 in Weight 172 lb BMI 29.5 BP 142/72 H Blood Pressure Location Lt brachial Position Sitting Pulse 71 Pulse Source Pulse Oximeter Pulse Oximetry (%) 97 Oxygen Delivery Method Room Air Intake Visit Reasons: s/p wilfredo Dx C5-C6-C7 MBB Intake Note: Pain today 12/29 Umbrella Finisher Required: No Accompanied by: Self / Same As Patient Allergies promethazine [From PHENERGAN] Allergy (Intermediate, Verified 02/22/24 08:39) RASH cefazolin [CEFAZOLIN] Allergy (Unknown, Verified 02/22/24 08:39) ANAPHYLAXIS Iodinated Contrast Media [IV Dye, Iodine Containing Contrast ] Allergy (Unknown, Verified 02/22/24 08:39) ANAPHYLAXIS aripiprazole [From Abilify] Adverse Reaction (Severe, Verified 02/22/24 08:39) tardive dyskinesia prednisone [PREDNISONE] Adverse Reaction (Unknown, Verified 02/22/24 08:39) HYPERTENSION, high BP,headache DOG SHAMPOO Allergy (Unknown, Uncoded 07/31/23 10:11) ANAPHYLAXIS HPI Comments Details: Patient presents today to assess response to Bilateral Diagnostic C4-C5-C6 MBBs on 02/11/24 left and 02/18/[address] Mejia. Patient reports 100% pain relief for at least 6 hours for both procedure dates with significant improvement in her functioning and sleep. Patient is interested to repeat diagnostic cervical medial branch block injections in order to establish reproducible response to the treatment for potential RFA procedure. Sprint PNS trial and therapeutic injections were also discussed but declined. Patient also reports ongoing left shoulder pain with overhead reaches and muscle spasms with tenderness in her mid thoracic paraspinals areas. She is interested to pursure physical therapy for this. Patient is applying for intermittent FMLA to allow her better management her chronic pain syndrome of neck, shoulder and low back. Denies any recent cough, cold, infection, fever, any significant changes in her medical history, medications or recent hospitalizations. Past Procedures: 02/18/24: Right Diagnostic C4-C5-C6 MBB-100% pain relief for >6 hours 02/11/24: Left Diagnostic C4-C5-C6 MBB-100% pain relief for >6 hours PRIOR: Patient presents today to discuss recent spine and shoulder xrays results. Patient continues to endorse left shoulder and neck pain that extends into her upper back with constant pain, muscle spasms and stiffness. She reports partial myofascial pain relief with low dose tizanidine without any side effects. Patient reports regularly participating in home exercise program for her neck and lower back pain. Patient is interested to proceed with diagnostic cervical medial branch blocks and personal TENS unit for her chronic neck pain. Denies any recent cough, cold, infection, fever, any significant changes in her medical history, medications or recent hospitalizations. Oswestry Neck Disability Score=15 (moderate disability) PRIOR: Patient is a pleasant 58 years old female presents today for follow up for chronic pain syndrome due to fibromyalgia which exacerbates her low back pain, left shoulder, neck and sacroiliac joint pain. 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 She was diagnosed with lumbar strain and prescribed dexamethasone and methocarbamol with partial relief. Patient currently manages her fibromyalgia symptoms with pregabalin, duloxetine and naproxen. She sees her Psychiatrist Dr. Libia Noble for anxiety and depression, and takes trazadone, amitriptyline and clonidine. Patient reports she recently tried tizanidine for muscles spasms in her lower back and neck and this has been working well for her with good tolerance and no side effects. She requests refill for this today. Patient would like to address her left shoulder, neck and lower back with interventional treatments. Back pain is axial with facetogenic, discogenic and bilateral SIJ pain components. She has limited range of motion of her neck, worse with extension and lateral rotations. Patient also presents with painful arc syndrome and difficulty with overhead reaches. Pain is described as widespread body pain and localized named pain generators which are constant, dull, sore, hurting, aching, heavy, tiring, exhausting, tight and squeezing. Denies any fever, chills, dizziness, chest pain, weakness, burning, numbness, tingling, gait imbalances, weakness, bladder or bowel dysfunction, or saddle anesthesia. PRIOR Dr. Mejia 05/30/22: Patient is a 56-year-old female presenting for a follow-up after right therapeutic SIJ GTB injection. Patient reports very little relief following the SIJ injection. However, she does complete relief from the trochanteric bursa injection. Past Procedures: 04/30/22: Right Therapeutic SIJ/GTB injection ? No relief from SIJ inj, 100% relief from GTB inj. 03/05/22: Left lesser trochanteric Injection ? 90% relief. [facility] Medical History Orthostatic dizziness Type 2 diabetes mellitus Jerman-Danlos syndrome type III History of kidney stones Hypothyroidism Back pain Chronic constipation IBS (irritable colon syndrome) Insomnia Hyperlipidemia Anxiety Fibromyalgia Depression Surgical History Hx of partial thyroidectomy Status post left foot surgery History of sleeve gastrectomy History of endometrial ablation Hx of toe surgery History of bladder suspension procedure Hx of hysterectomy Hx of tubal ligation Hx of appendectomy Family History Father Liver disease Diabetes mellitus Hypertension Mother Hypertension Diabetes mellitus Arthritis Son Asthma Depression Anxiety Daughter Asthma Depression Migraines Chronic pain Anxiety Sister No problems noted. Brother Down's syndrome Hypothyroidism Social History Alcohol intake: never Patient Tobacco Use Status: Never used Tobacco Current occupational status: employed Current occupation: rt handed/[employer] Review of Systems Const All systems reviewed & are unremarkable except as noted in HPI and below Physical Exam Vital Signs: Last Vital Signs Pulse 71 02/22/24 08:38 BP 142/72 H 02/22/24 08:38 Pulse Ox 97 02/22/24 08:38 Oxygen Delivery Method Room Air 02/22/24 08:38 BMI result Body Mass Index 29.5 General: Appears afebrile. Alert and oriented. Mood and affect appropriate. Follows and participates in conversation appropriately. Respiratory effort is unlabored. Able to transition from sit to stand unassisted. Ambulates with bilaterally normal heel strike and toe off. Neck Neck: Yes no lymphadenopathy, No anterior neck swelling, Yes no JVD, No prominent supraclavicular fat pad and No prominent dorsocervical fat pad Back/Spine/Pelvis Cervical Spine: loss of normal cervical lordosis, cervical muscular tenderness, pain with cervical ROM, No Cervical spine scars present and No Cervical spine tenderness Thoracic/Lumbar Spine: thoracic and lumbar spine normal to inspection, No Thoracic/lumbar spine scar(s), pain with thoraco-lumbar ROM, paraspinal muscle tenderness, thoraco-lumbar ROM limited, No thoracic spinal tenderness and lumbar spinal tenderness (L4-S1) Sacroiliac joints: bilaterally tender to palpation Extrem General: Yes capillary refill normal, Yes no clubbing, cyanosis or edema and Yes no calf tenderness Left upper extremity: shoulder/upper arm (Pain and difficulty with overhead reach and backside pocket reaches.) Details: inspection abnormal, tenderness (anterior and lateral aspects) Location: over the biceps tendon, over the subacromial bursa and over the deltoid bursa and crepitus; no ecchymosis, no deformity and no unsual warmth Assessment & Plan Assessment & Plan (1) Low back pain: Code(s): M54.50 - Low back pain, unspecified Category: Medical (2) Fibromyalgia, primary: Code(s): M79.7 - Fibromyalgia Category: Medical (3) Chronic pain syndrome: Code(s): G89.4 - Chronic pain syndrome Category: Medical (4) Cervical spondylosis: Code(s): M47.812 - Spondylosis without myelopathy or radiculopathy, cervical region Category: Medical (5) Left shoulder pain: Code(s): M25.512 - Pain in left shoulder Category: Medical (6) Muscle spasm: Code(s): M62.838 - Other muscle spasm Category: Medical Plan Schedule Repeat Diagnostic Bilateral C4-C5-C6 MBBs with local and fluoroscopy for potential cervical medial branch RFA. Patient declined Sprint PNS. Expectations, risks and benefits were reviewed. Patient is aware she will be contacted to schedule this procedure. Script provided for formal PT for left shoulder, neck and mid back pain. Continue daily physical activity and HEP. Patient is applying for intermittent FMLA to allow her better management her chronic pain syndrome of neck, shoulder and low back. All questions were answered and the patient is in agreement of plan. Follow-up after injections and sooner as needed. Coding Level of Care Code Est Pt Level 3 (65009) Diagnoses Low back pain M54.50 Fibromyalgia, primary M79.7 Chronic pain syndrome G89.4 Cervical spondylosis M47.812 Left shoulder pain M25.512 Muscle spasm M62.838
[2024-02-22 08:38] VITALS: BP 142/72; PULSE 71; O2SAT 97; BMI 29.5
== END 2024-02-22 09:08 | disposition home or self-care (01) ==
PROVIDERS: PCP Nurse Practitioner Family; Visit Provider Nurse Practitioner Family
DX: M54.50 Low back pain, unspecified (principal); M79.7 Fibromyalgia; G89.4 Chronic pain syndrome; M47.812 Spondylosis without myelopathy or radiculopathy, cervical region; M25.512 Pain in left shoulder; M62.838 Other muscle spasm
CPT/HCPCS: 99213

== ENCOUNTER → 2024-02-22 08:29 | Outpatient (BNVA) | payer OTHER, SELFPAY | PROVIDERS: PCP Nurse Practitioner Family; Visit Provider Nurse Practitioner Family ==

== ENCOUNTER 2024-02-29 07:51 | Outpatient (AMB) | payer OTHER, SELFPAY ==
--- NOTE | 2024-02-29 07:57 | MHC.OFFVIS ---
Vital Signs 02/29/24 07:58 Height 5 ft 4 in Weight 168 lb 13.985 oz BMI 29.0 BP 116/68 Blood Pressure Location Rt brachial Pulse 88 Pulse Source Pulse Oximeter Pulse Oximetry (%) 97 Oxygen Delivery Method Room Air Intake Visit Reasons: FM/CM Intake Note: Pt last seen in May presents today with complaints of increased pain, heavy breathing and hard time focusing. Still taking duloxetine and lyrica. Accompanied by: Self / Same As Patient Allergies promethazine [From PHENERGAN] Allergy (Intermediate, Verified 02/29/24 08:07) RASH cefazolin [CEFAZOLIN] Allergy (Unknown, Verified 02/29/24 08:07) ANAPHYLAXIS Iodinated Contrast Media [IV Dye, Iodine Containing Contrast ] Allergy (Unknown, Verified 02/29/24 08:07) ANAPHYLAXIS aripiprazole [From Abilify] Adverse Reaction (Severe, Verified 02/29/24 08:07) tardive dyskinesia prednisone [PREDNISONE] Adverse Reaction (Unknown, Verified 02/29/24 08:07) HYPERTENSION, high BP,headache DOG SHAMPOO Allergy (Unknown, Uncoded 02/29/24 08:07) ANAPHYLAXIS Medication List - Last Reconciled 02/29/24 by Alisha Rios MD amitriptyline 100 mg PO BEDTIME atorvastatin 20 mg PO DAILY biotin mcg PO DAILY blood-glucose sensor (PEPperPRINT G7 Sensor device) As directed change every 10 days bupropion HCl XL 150 mg PO QAM cetirizine (Zyrtec) 10 mg PO DAILY PRN clonidine HCl 0.2 mg PO QPM dicyclomine 10 mg PO TID duloxetine 60 mg PO QAM fludrocortisone 0.1 mg PO DAILY levothyroxine 125 mcg PO DAILY linaclotide (Linzess) 290 mcg PO QAM lorazepam 1 mg PO TID PRN multivitamin with iron 1 tab PO DAILY sennosides (senna) 17.2 mg (2 x 8.6 mg) PO BEDTIME 30 days tirzepatide (Mounjaro) 2.5 mg (0.5 mL) subcut QWEEK 4 weeks tizanidine 2 mg PO TID PRN 30 days trazodone 100 mg PO BEDTIME valbenazine (Ingrezza) 80 mg PO DAILY HPI Comments Details: 58-year-old female with fibromyalgia returns for follow-up. She remains on duloxetine and Lyrica. She feels worse if she stopped them. She is compliant with her CPAP. She states that over the last 1-2 months she has been having worsening or back pain and knee pain. She feels it has a flare-up of her fibromyalgia. She had back x-rays done which showed muscle spasm. She has been taking tizanidine regularly over the last 2 months without much improvement. She can not think of any new stressor in her life. She sees her psychotherapist and psychiatrist regularly. [facility] Medical History Orthostatic dizziness Type 2 diabetes mellitus Jerman-Danlos syndrome type III History of kidney stones Hypothyroidism Back pain Chronic constipation IBS (irritable colon syndrome) Insomnia Hyperlipidemia Anxiety Fibromyalgia Depression Surgical History Hx of partial thyroidectomy Status post left foot surgery History of sleeve gastrectomy History of endometrial ablation Hx of toe surgery History of bladder suspension procedure Hx of hysterectomy Hx of tubal ligation Hx of appendectomy Family History Father Liver disease Diabetes mellitus Hypertension Mother Hypertension Diabetes mellitus Arthritis Son Asthma Depression Anxiety Daughter Asthma Depression Migraines Chronic pain Anxiety Sister No problems noted. 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 of Systems [facility] Reports back pain, Reports arthralgias and Reports stiffness Physical Exam Vital Signs: Last Vital Signs Pulse 88 02/29/24 07:58 BP 116/68 02/29/24 07:58 Pulse Ox 97 02/29/24 07:58 Oxygen Delivery Method Room Air 02/29/24 07:58 BMI result Body Mass Index 29.0 Const General: cooperative, healthy appearing and comfortable Nutritional Appearance: obese Orientation/consciousness: patient oriented x3 Limitations: no limitations HEENT Head: Yes normocephalic and Yes atraumatic Mouth: moist mucous membranes Resp Effort & Inspection: normal respiratory effort and able to speak in complete sentences Auscultation: clear to auscultation bilaterally Cardio Rate: regular rate Rhythm: regular rhythm Skin General skin exam: no rashes or lesions noted Neuro General: patient oriented x3 Extrem Other: Minimal osteoarthritic changes of both hands with no active synovitis Normal range of motion of both hands, elbows, shoulders without pain Bilateral lumbar paraspinal muscle spasm Multiple fibromyalgia tender points Normal nailfold capillaroscopy Assessment & Plan Assessment & Plan (1) Fibromyalgia, primary: Code(s): M79.7 - Fibromyalgia Category: Medical Plan: This is a 57-year-old female fibromyalgia who presents for follow-up. Has been having more back pain over the last 1-2 months. Some muscle spasm on exam. She has been taking tizanidine regularly over last 2 months without relief. Will prescribe PT for her lower back. Continue with Lyrica and duloxetine. Prescribed by other providers. Patient feels much worse if she stops them. She follows up regularly with psychiatrist and psychotherapist. Uses her CPAP regularly. Follow-up as needed Plan I spent 16 minutes reviewing patient's chart, evaluating patient, placing orders, counseling patient and documenting in the chart Orders: Orders PT Evaluation and Treatment Today M51.36 - Other intervertebral disc degeneration, lumbar region Coding Level of Care Code Est Pt Level 3 (50043) Diagnoses Fibromyalgia, primary M79.7
[2024-02-29 07:58] VITALS: BP 116/68; PULSE 88; O2SAT 97; BMI 29.0
== END 2024-02-29 08:31 | disposition home or self-care (01) ==
PROVIDERS: PCP Nurse Practitioner Family; Visit Provider Student in an Organized Health Care Education/Training Program
DX: M79.7 Fibromyalgia (principal)
CPT/HCPCS: 99213

== ENCOUNTER → 2024-02-29 07:51 | Outpatient (BNVA) | payer OTHER, SELFPAY | PROVIDERS: PCP Nurse Practitioner Family; Visit Provider Student in an Organized Health Care Education/Training Program ==

== ENCOUNTER 2024-03-01 08:31 | Outpatient (AMB) | payer OTHER, SELFPAY ==
[2024-03-01 08:33] VITALS: BP 118/72; PULSE 82; BMI 28.9
--- NOTE | 2024-03-01 08:33 | MHC.OFFVIS ---
Vital Signs 03/01/24 08:33 Height 5 ft 4 in Weight 168 lb 6.931 oz BMI 28.9 BP 118/72 Blood Pressure Location Rt brachial Position Sitting Pulse 82 Pulse Source Pulse Oximeter Intake Visit Reasons: 4 mth f/up Allergies promethazine [From PHENERGAN] Allergy (Intermediate, Verified 03/01/24 08:39) RASH cefazolin [CEFAZOLIN] Allergy (Unknown, Verified 03/01/24 08:39) ANAPHYLAXIS Iodinated Contrast Media [IV Dye, Iodine Containing Contrast ] Allergy (Unknown, Verified 03/01/24 08:39) ANAPHYLAXIS aripiprazole [From Abilify] Adverse Reaction (Severe, Verified 03/01/24 08:39) tardive dyskinesia prednisone [PREDNISONE] Adverse Reaction (Unknown, Verified 03/01/24 08:39) HYPERTENSION, high BP,headache DOG SHAMPOO Allergy (Unknown, Uncoded 03/01/24 08:39) ANAPHYLAXIS Medication List - Last Reconciled 03/01/24 by Lizbeth Prieto NP-C amitriptyline 100 mg PO BEDTIME atorvastatin 20 mg PO DAILY biotin mcg PO DAILY blood-glucose sensor (ID.me G7 Sensor device) As directed change every 10 days bupropion HCl XL 150 mg PO QAM cetirizine (Zyrtec) 10 mg PO DAILY PRN clonidine HCl 0.2 mg PO QPM dicyclomine 10 mg PO TID duloxetine 60 mg PO QAM fludrocortisone 0.1 mg PO DAILY levothyroxine 125 mcg PO DAILY linaclotide (Linzess) 290 mcg PO QAM lorazepam 1 mg PO TID PRN multivitamin with iron 1 tab PO DAILY sennosides (senna) 17.2 mg (2 x 8.6 mg) PO BEDTIME 30 days tirzepatide (Mounjaro) 2.5 mg (0.5 mL) subcut QWEEK 4 weeks tizanidine 2 mg PO TID PRN 30 days trazodone 100 mg PO BEDTIME valbenazine (Ingrezza) 80 mg PO DAILY HPI HPI 4 mth f/up: Details: Kiana is a 58-year-old female with past medical history of hyperlipidemia, Jerman-Danlos syndrome, fibromyalgia, hyperthyroid who has been experiencing symptoms of lightheadedness and weakness in her legs upon standing. She recently underwent cardiac testing with echocardiogram, stress echo, CTA of the coronary arteries and tilt-table test without significant findings. On last visit she was noted to be orthostatic and was managed with increase fluids, salt and compression stockings. She did see Neurology and was started on fludrocortisone. Today she reports that she has been feeling much better since the start of fludrocortisone. She had been noticing lightheadedness symptoms a few times daily and now it is down to 2 to 3 times a week. She has some unsteadiness at times with ambulation. This symptom continues but it is not as pronounced as it had been. No recent falls. She has some involuntary movement of the legs which she is describing as possible seizures and is now following with neurology. She does not get symptoms sitting or laying. If she notices her symptoms and sits down they will start to dissipate. No shortness of breath, chest discomfort, palpitations, PND, orthopnea or edema. She has been working on maintaining good hydration. She wears compression stockings daily. [facility] Medical History Orthostatic dizziness Type 2 diabetes mellitus Jerman-Danlos syndrome type III History of kidney stones Hypothyroidism Back pain Chronic constipation IBS (irritable colon syndrome) Insomnia Hyperlipidemia Anxiety Fibromyalgia Depression Surgical History Hx of partial thyroidectomy Status post left foot surgery History of sleeve gastrectomy History of endometrial ablation Hx of toe surgery History of bladder suspension procedure Hx of hysterectomy Hx of tubal ligation Hx of appendectomy Family History Father Liver disease Diabetes mellitus Hypertension Mother Hypertension Diabetes mellitus Arthritis Son Asthma Depression Anxiety Daughter Asthma Depression Migraines Chronic pain Anxiety Sister No problems noted. 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[employer] Review of Systems Const All systems reviewed & are unremarkable except as noted in HPI and below ENT Reports dizziness Card Reports chest pain, Reports chest pain at rest, Denies chest pain with activity, Denies rapid heart rate, Denies pedal edema, Denies edema, Denies leg edema, Denies lightheadedness, Denies palpitations, Denies dyspnea, Denies dyspnea on exertion and Denies orthopnea Resp Denies cough, Denies dyspnea and Denies dyspnea on exertion GI Denies hematochezia and Denies change in stool character Musc Denies abnormal gait, Denies limited range of motion, Denies muscle cramps, Denies muscle weakness, Denies numbness, Denies radiating pain into limb, Denies stiffness and Denies tingling Neuro Denies abnormal gait, Reports dizziness, Denies numbness and Denies tingling Endo Denies palpitations Physical Exam Vital Signs: Last Vital Signs Pulse 82 03/01/24 08:33 BP 118/72 03/01/24 08:33 BMI result Body Mass Index 28.9 Const General: cooperative, healthy appearing, comfortable and no acute distress Orientation/consciousness: patient oriented x3 Neck Neck: Yes normal visual inspection and Yes no JVD Resp Effort & Inspection: normal respiratory effort Auscultation: clear to auscultation bilaterally, no crackles, no rales, no rhonchi and no wheezes Cardio Jugular venous distension: no JVD Rate: regular rate Rhythm: regular rhythm Heart sounds: S1 normal heart sound present, S2 normal heart sound present, no murmurs and no rubs Skin General skin exam: no rashes or lesions noted Neuro General: patient oriented x3 Extrem General: Yes normal to inspection and No no pedal edema Psych Appearance: grossly normal Mental Status: mental status grossly normal Speech and movement: Normal speech and movement present Assessment & Plan Assessment & Plan (1) Orthostatic dizziness: Code(s): R42 - Dizziness and giddiness Category: Medical Plan: Reports of feeling lightheaded, unsteady and with shaking legs at times when going sitting to standing and walking. Has had 2 falls in past. No full syncope. She did undergo cardiac testing with EKG showing sinus rhythm with incomplete right bundle branch block, no acute ST or T-wave abnormalities, rate 91. An exercise stress echo done 07/21/2023 with exercise 4 minutes, no EKG changes, brief chest discomfort following peak exercise, no echo evidence of ischemia. A echocardiogram done 08/31/2023 showed EF 55%, no regional wall motion abnormalities, no valve abnormalities, ascending aorta 3.8 cm. A CTA of the coronary arteries was 09/25/2023 showing no definite plaque or stenosis. A tilt-table test showed normal blood pressure and heart rate response to tilt. On last visit she was noted to be orthostatic. She was managed with increased fluids, increase salt and compression stockings. Since last visit she was evaluated by Neurology and started on fludrocortisone. At this time she reports much improvement in her symptoms. The frequency has greatly decreased. She continues with conservative measures as well. She does have an upcoming follow-up with Neurology. At this point will continue with med management. She has not orthostatic on exam today. Instructed to use caution when going sitting to standing, ambulates. Sit down if you become symptomatic. Cardiology follow-up 6 months, sooner if needed. (2) Precordial chest pain: Comment: CTA of the coronary arteries done 09/25/2023 showing left main normal, lad, left circumflex and RCA no definitive plaque or stenosis. Code(s): R07.2 - Precordial pain Category: Medical Plan: Prior reports of chest discomfort. Atypical for angina. Sounds like it could be GERD. Cardiac testing as above. No findings of coronary artery disease. Offered her reassurance. Plan Time spent on chart review, documentation, intravenous sestamibi Coding Level of Care Code Est Pt Level 3 (19587) Diagnoses Orthostatic dizziness R42 Precordial chest pain R07.2 Time Spent (min) 24
== END 2024-03-01 09:17 | disposition home or self-care (01) ==
PROVIDERS: PCP Nurse Practitioner Family; Visit Provider Nurse Practitioner Family
DX: R42 Dizziness and giddiness (principal); R07.2 Precordial pain
CPT/HCPCS: 99213

== ENCOUNTER → 2024-03-01 08:31 | Outpatient (BNVA) | payer OTHER, SELFPAY | PROVIDERS: PCP Nurse Practitioner Family; Visit Provider Nurse Practitioner Family ==

== ENCOUNTER 2024-03-03 06:12 | Outpatient (REF) | payer OTHER, SELFPAY ==
--- NOTE | ~2024-03-03 | FL_ITS ---
EXAMINATION: XR FLUOROSCOPY WITH IMAGES CLINICAL INFORMATION: Cervical spondylosis. COMPARISON: None available. TECHNIQUE: Fluoroscopy Supervised By: Dr. Mejia. Fluoroscopy Time: 0.2 min. Cumulative Dose: 1.15 mGy. DAP: 0.0105 Gycm2. Images: 4. FINDINGS: Intraoperative fluoroscopy and spot films were performed during a procedure in the OR. Kiln are seen overlying the right as well as left sides of C3, C4 and C5, with injected contrast seen in the epidural space. Please correlate with Dr. Mejia' report for complete details. FL/FL guidance in treatment room IMPRESSION: Intraoperative fluoroscopy and spot films were obtained. Please see Dr. Mejai' report for complete details.
== END 2024-03-03 06:13 | disposition home or self-care (01) ==
LOC: CF 06:12
PROVIDERS: Visit Provider Internal Medicine
DX: M47.812 Spondylosis without myelopathy or radiculopathy, cervical region (principal)
CPT/HCPCS: 64490; 64491; J2795; Q9967

== ENCOUNTER 2024-03-03 09:45 | Outpatient (AMB) | payer OTHER, SELFPAY ==
--- NOTE | 2024-03-03 10:56 | MHC.OFFVIS ---
Vital Signs 03/03/24 11:06 03/03/24 11:08 Height 5 ft 4 in Weight 168 lb BMI 28.8 BP 104/64 116/70 Blood Pressure Location Lt brachial Lt brachial Position Sitting Sitting Respiration 16 16 Pulse 96 87 Pulse Source Pulse Oximeter Pulse Oximeter Pulse Oximetry (%) 97 94 Oxygen Delivery Method Room Air Room Air Comment Pre-Op Post-Op Intake Visit Reasons: Repeat wilfredo Dx C4-C5-C6 MBB Allergies promethazine [From PHENERGAN] Allergy (Intermediate, Verified 03/01/24 08:39) RASH cefazolin [CEFAZOLIN] Allergy (Unknown, Verified 03/01/24 08:39) ANAPHYLAXIS Iodinated Contrast Media [IV Dye, Iodine Containing Contrast ] Allergy (Unknown, Verified 03/01/24 08:39) ANAPHYLAXIS aripiprazole [From Abilify] Adverse Reaction (Severe, Verified 03/01/24 08:39) tardive dyskinesia prednisone [PREDNISONE] Adverse Reaction (Unknown, Verified 03/01/24 08:39) HYPERTENSION, high BP,headache DOG SHAMPOO Allergy (Unknown, Uncoded 03/01/24 08:39) ANAPHYLAXIS HPI HPI Repeat wilfredo Dx C4-C5-C6 MBB: Details: Patient presents for scheduled procedure. Denies any recent cough, cold, infection, fever or other significant changes in medical history since last office visit. PFSH Medical History Orthostatic dizziness Type 2 diabetes mellitus Jerman-Danlos syndrome type III History of kidney stones Hypothyroidism Back pain Chronic constipation IBS (irritable colon syndrome) Insomnia Hyperlipidemia Anxiety Fibromyalgia Depression Surgical History Hx of partial thyroidectomy Status post left foot surgery History of sleeve gastrectomy History of endometrial ablation Hx of toe surgery History of bladder suspension procedure Hx of hysterectomy Hx of tubal ligation Hx of appendectomy Family History Father Liver disease Diabetes mellitus Hypertension Mother Hypertension Diabetes mellitus Arthritis Son Asthma Depression Anxiety Daughter Asthma Depression Migraines Chronic pain Anxiety Sister No problems noted. 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 The patient was placed in a lateral position. The respective cervical area was prepped with chloraprep and draped in sterile fashion. The skin over the target medial branch nerves was anesthetized with 0.5% lidocaine. A 25 gauge 1.5 inch needle was inserted into the target medial branch nerve under fluoroscopic guidance. No paresthesias were elicited with needle placement and aspiration was negative for blood and CSF. Next, 0.2cc of omnipaque 180 was injected to verify positioning. Next 0.5 ml 0.5% ropivicaine was injected (0.5 cc total per level). The identical procedure was performed at the remaining levels. The skin was cleansed and a sterile bandage was applied. Following the procedure the patient's vital signs were stable. The patient tolerated the procedure well and no complications were encountered. Following the procedure the patient's vital signs were stable. The patient was discharged home in good condition with post-procedural instructions. Time Out: Immediately prior to the procedure, the following was verbally confirmed that there is a signed consent form and that the correct patient, planned procedure, site and side are consistent with documentation and that necessary equipment and/or blood products are available prior to the start of the case. Complications: none EBL: <5 cc 77709 - with Fluoroscopy 62951 - second level, with Fluoroscopy (bilateral) Procedure code (CPT) selection complete Assessment & Plan Assessment & Plan (1) Cervical spondylosis: Code(s): M47.812 - Spondylosis without myelopathy or radiculopathy, cervical region Category: Medical Plan Patient is status post bilateral C3, C4, C5 diagnostic medial branch blocks. Patient tolerated procedure well and was discharged home in stable condition with discharge instructions. All questions were answered. We will follow-up via telephone or in clinic to assess response to therapy. A follow-up appointment was made during today's visit. Orders: Orders FL guidance in treatment room Today M47.812 - Spondylosis without myelopathy or radiculopathy, cervical region Coding Level of Care Code Procedure Only Diagnoses Cervical spondylosis M47.812 CPT Codes Facet Injection Cervical/Thoracic - CPT: 79472 - second level, with Fluoroscopy ([id number]) Facet Injection Cervical/Thoracic - CPT: 02557 - with Fluoroscopy ([id number])
[2024-03-03 11:06] VITALS: BP 104/64; PULSE 96; RESP 16; O2SAT 97; BMI 28.8
[2024-03-03 11:08] VITALS: BP 116/70; PULSE 87; RESP 16; O2SAT 94
== END 2024-03-03 10:52 | disposition home or self-care (01) ==
LOC: HO.PMCPRC 09:45
PROVIDERS: PCP Nurse Practitioner Family; Visit Provider Internal Medicine
DX: M47.812 Spondylosis without myelopathy or radiculopathy, cervical region (principal)
CPT/HCPCS: 64490; 64491

== ENCOUNTER 2024-03-07 08:58 | Outpatient (AMB) | payer OTHER, SELFPAY ==
--- NOTE | 2024-03-07 09:07 | A.OFFVIS_ITS ---
Vital Signs 03/07/24 09:10 Height 5 ft 4 in Weight 167 lb BMI 28.7 BP 102/58 L Blood Pressure Location Lt brachial Position Sitting Pulse 85 Pulse Source Pulse Oximeter Pulse Oximetry (%) 98 Oxygen Delivery Method Room Air Intake Visit Reasons: s/p repeat Dx cervical MBB Intake Note: Pain today 09/30 Health Science Writer Required: No Accompanied by: Self / Same As Patient Allergies promethazine [From PHENERGAN] Allergy (Intermediate, Verified 03/07/24 09:10) RASH cefazolin [CEFAZOLIN] Allergy (Unknown, Verified 03/07/24 09:10) ANAPHYLAXIS Iodinated Contrast Media [IV Dye, Iodine Containing Contrast ] Allergy (Unknown, Verified 03/07/24 09:10) ANAPHYLAXIS aripiprazole [From Abilify] Adverse Reaction (Severe, Verified 03/07/24 09:10) tardive dyskinesia prednisone [PREDNISONE] Adverse Reaction (Unknown, Verified 03/07/24 09:10) HYPERTENSION, high BP,headache DOG SHAMPOO Allergy (Unknown, Uncoded 03/01/24 08:39) ANAPHYLAXIS HPI Comments Details: Patient presents today to assess response to Bilateral Diagnostic C3-C4-C5 MBBs on 03/03/[address] Mejia. Patient reports 100% pain relief for at least almost 24 hours since procedure with significant improvement in her functioning and sleep. She reports mild neck stiffness with soreness at injection sites. Patient is interested to proceed with cervical medial branch RFA procedure. Sprint PNS trial and therapeutic injections were also discussed but declined. Patient is starting physical therapy for low back pain tomorrow. She reports exacerbation of her low back and hip pain with groin pain. Internal and external hip rotations did not reproduce groin pain during today's exam. Denies any recent cough, cold, infection, fever, any significant changes in her medical history, medications or recent hospitalizations. Past Procedures: 03/03/24: Bilateral C3-C4-C5 MBB-100% pain relief for 24 hours 02/18/24: Right Diagnostic C4-C5-C6 MBB-100% pain relief for >6 hours 02/11/24: Left Diagnostic C4-C5-C6 MBB-100% pain relief for >6 hours PRIOR: Patient presents today to discuss recent spine and shoulder xrays results. Patient continues to endorse left shoulder and neck pain that extends into her upper back with constant pain, muscle spasms and stiffness. She reports partial myofascial pain relief with low dose tizanidine without any side effects. Patient reports regularly participating in home exercise program for her neck and lower back pain. Patient is interested to proceed with diagnostic cervical medial branch blocks and personal TENS unit for her chronic neck pain. Denies any recent cough, cold, infection, fever, any significant changes in her medical history, medications or recent hospitalizations. Oswestry Neck Disability Score=15 (moderate disability) PRIOR: Patient is a pleasant 58 years old female presents today for follow up for chronic pain syndrome due to fibromyalgia which exacerbates her low back pain, left shoulder, neck and sacroiliac joint pain. 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 She was diagnosed with lumbar strain and prescribed dexamethasone and methocarbamol with partial relief. Patient currently manages her fibromyalgia symptoms with pregabalin, duloxetine and naproxen. She sees her Psychiatrist Dr. Libia Moyer for anxiety and depression, and takes trazadone, amitriptyline and clonidine. Patient reports she recently tried tizanidine for muscles spasms in her lower back and neck and this has been working well for her with good tolerance and no side effects. She requests refill for this today. Patient would like to address her left shoulder, neck and lower back with interventional treatments. Back pain is axial with facetogenic, discogenic and bilateral SIJ pain components. She has limited range of motion of her neck, worse with extension and lateral rotations. Patient also presents with painful arc syndrome and difficulty with overhead reaches. Pain is described as widespread body pain and localized named pain generators which are constant, dull, sore, hurting, aching, heavy, tiring, exhausting, tight and squeezing. Denies any fever, chills, dizziness, chest pain, weakness, burning, numbness, tingling, gait imbalances, weakness, bladder or bowel dysfunction, or saddle anesthesia. PRIOR Dr. Mejia 05/30/22: Patient is a 56-year-old female presenting for a follow-up after right therapeutic SIJ GTB injection. Patient reports very little relief following the SIJ injection. However, she does complete relief from the trochanteric bursa injection. Past Procedures: 04/30/22: Right Therapeutic SIJ/GTB injection ? No relief from SIJ inj, 100% relief from GTB inj. 03/05/22: Left lesser trochanteric Injection ? 90% relief. [facility] Medical History Orthostatic dizziness Type 2 diabetes mellitus Jerman-Danlos syndrome type III History of kidney stones Hypothyroidism Back pain Chronic constipation IBS (irritable colon syndrome) Insomnia Hyperlipidemia Anxiety Fibromyalgia Depression Surgical History Hx of partial thyroidectomy Status post left foot surgery History of sleeve gastrectomy History of endometrial ablation Hx of toe surgery History of bladder suspension procedure Hx of hysterectomy Hx of tubal ligation Hx of appendectomy Family History Father Liver disease Diabetes mellitus Hypertension Mother Hypertension Diabetes mellitus Arthritis Son Asthma Depression Anxiety Daughter Asthma Depression Migraines Chronic pain Anxiety Sister No problems noted. 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 Alert and oriented. Mood and affect appropriate. Follows and participates in conversation appropriately. Respiratory effort is unlabored. Able to transition from sit to stand unassisted. Ambulates with bilaterally normal heel strike and toe off. Neck Neck: Yes no lymphadenopathy, No anterior neck swelling, Yes no JVD, No prominent supraclavicular fat pad and No prominent dorsocervical fat pad Back/Spine/Pelvis Other: Limited lumbar ROM due to pain. Painful facet loading bilaterally. Lumbar flexion and extension reproduce mild-moderate pain. No groin pain with I/E hip rotations bilaterally. Multiple fibromyalgia tender points. Cervical Spine: loss of normal cervical lordosis, cervical muscular tenderness, pain with cervical ROM, No Cervical spine scars present and No Cervical spine tenderness Thoracic/Lumbar Spine: thoracic and lumbar spine normal to inspection, No Thoracic/lumbar spine scar(s), Lasegue's sign negative, straight leg raise negative bilaterally, pain with thoraco-lumbar ROM, paraspinal muscle tenderness, thoraco-lumbar ROM limited, No thoracic spinal tenderness and lumbar spinal tenderness (L4-S1) Sacroiliac joints: bilaterally tender to palpation Extrem General: Yes capillary refill normal, Yes no clubbing, cyanosis or edema and Yes no calf tenderness Results Reviewed Results Reviewed: XR SHOULDER, LEFT 01/15/24XR LUMBOSACRAL SPINE WITH OBLIQUES 01/15/24 CLINICAL INFORMATION: Sacroiliitis, not elsewhere classified FINDINGS: There are 5 nonrib-bearing lumbar-type vertebral bodies the height of vertebral bodies is well-maintained. There is straightening of the usual lumbar lordosis which can be seen with muscle spasm. There is no disc space narrowing. There is no spondylolysis. There is mild retrolisthesis of L5 respect to S1. The sacroiliac joints are widely patent without associated erosions. Anastomotic sutures are seen in the left upper quadrant. IMPRESSION: 1. Muscle spasm. 2. Mild retrolisthesis of L5 with respect to S1. 3. The sacroiliac joints are widely patent without associated erosions. XR CERVICAL SPINE 01/15/24 CLINICAL INFORMATION: Spondylosis without myelopathy or radiculopathy, cervical region FINDINGS: The tip of the odontoid is obscured on the open-mouth view. The inferior endplate of C7 is obscured by the soft tissues of the patient's shoulders. No fracture or subluxation. Prevertebral soft tissues are within normal limits. There is straightening of the usual cervical lordosis which can be seen with muscle spasm or be due to patient positioning. There are prominent anterior marginal osteophytes noted from C4 through C7. There is marked disc space narrowing at C6-C7. A few surgical clips project over the lower cervical spine on the right. IMPRESSION: 1. Degenerative disc disease at C6-C7. 2. Straightening of the usual cervical lordosis which can be seen with muscle spasm or be due to patient positioning. Assessment & Plan Assessment & Plan (1) Low back pain: Code(s): M54.50 - Low back pain, unspecified Category: Medical (2) Fibromyalgia, primary: Code(s): M79.7 - Fibromyalgia Category: Medical (3) Chronic pain syndrome: Code(s): G89.4 - Chronic pain syndrome Category: Medical (4) Cervical spondylosis: Code(s): M47.812 - Spondylosis without myelopathy or radiculopathy, cervical region Category: Medical (5) Muscle spasm: Code(s): M62.838 - Other muscle spasm Category: Medical (6) Cervicalgia: Code(s): M54.2 - Cervicalgia Category: Medical Plan Schedule Bilateral C4-C5-C6 medial branch RFA given good relief with initial and repeated diagnostic nerve blocks. Patient requests this under sedation and fluoroscopy. Patient declined Sprint PNS trial. Expectations, risks and benefits were reviewed. Patient is aware she will be contacted to schedule this procedure. Proceed with PT for neck and low back pain. Continue daily physical activity and HEP, adequate hydration, and good posture. All questions were answered and the patient is in agreement of plan. Follow-up after injections and sooner as needed. Coding Level of Care Code Est Pt Level 4 (03076) Diagnoses Low back pain M54.50 Fibromyalgia, primary M79.7 Chronic pain syndrome G89.4 Cervical spondylosis M47.812 Muscle spasm M62.838 Cervicalgia M54.2
[2024-03-07 09:10] VITALS: BP 102/58; PULSE 85; O2SAT 98; BMI 28.7
== END 2024-03-07 09:22 | disposition home or self-care (01) ==
PROVIDERS: PCP Nurse Practitioner Family; Visit Provider Nurse Practitioner Family
DX: M54.50 Low back pain, unspecified (principal); M79.7 Fibromyalgia; G89.4 Chronic pain syndrome; M47.812 Spondylosis without myelopathy or radiculopathy, cervical region; M62.838 Other muscle spasm; M54.2 Cervicalgia
CPT/HCPCS: 99214

== ENCOUNTER → 2024-03-07 08:58 | Outpatient (BNVA) | payer OTHER, SELFPAY | PROVIDERS: PCP Nurse Practitioner Family; Visit Provider Nurse Practitioner Family ==

== ENCOUNTER 2024-04-27 17:00 | Outpatient (RCR) | payer OTHER, SELFPAY ==
--- NOTE | 2024-03-08 10:03 | MHC.PT.EP ---
[facility] [place] Office [place] Office [place] Office [address] Grisel Ivan [address] [phone] F: [phone] F: [phone] F: [phone] F: [phone] Physical Therapy Plan of Care Date of Evaluation: 03/08/24 Date of Surgery: N/A Diagnosis: intervertebral disc degeneration, lumbar region (RL) prefers to go by Jyothi Assessment: pt is a 58 y/o female presenting to physical therapy w/ referring diagnosis of intervertebral disc degeneration, lumbar region. Impairments include pain, decreased range of motion, decreased strength, impaired functional mobility, impaired postural awareness, and altered ambulation mechanics. pt is a good candidate for skilled PT due to age, potential remediation of impairments, typical disease/condition progression and prognosis, comorbidities, and motivation. pt would benefit from skilled PT intervention to provide a tailored strengthening and stretching exercise program, functional training, gait training, postural re-training, neuromuscular re-education, modalities as needed for pain, equipment safety demonstration. Frequency and Duration: The patient will be seen 2x/wk for 4 wks Short Term Goals: pt will be I w/ HEP to promote self-management of condition. pt will demo proper sitting posture w/ lumbar roll to promote neutral spine w/ seated ADLs. pt will demo log rolling techniques for bed mobility to promote neutral spine w/ bed mobility. Roving Hauler Goals: pt will report a statistically significant improvement in self-reported outcome measure, Raissa, to promote return to PLOF. pt will report <3/10 low back and B hip pain w/ patient care activities to promote full return to work. pt will improve lumbar flexion and extension AROM to at least 85% to promote ease in ADLs. Treatment Plan: Modalities to reduce pain, spasms and effusion. Manual therapy to restore motion and function. Therapeutic exercise to improve strength and flexibility. Neuromuscular re-education for posture and balance. Therapeutic activities to return to functional activities of daily living. Electronically signed by: Leyla Harp PT, DPT Please sign and return to therapist. Thank you for your referral.
--- NOTE | 2024-04-27 18:11 | MHC.PT.DC ---
[facility] [place] Office [place] Office [place] Office [address] Grisel Ivan [address] [phone] F: [phone] F: [phone] F: [phone] F: [phone] Physical Therapy Discharge Report Diagnosis: intervertebral disc degeneration, lumbar region (RL) prefers to go by Jyothi Date of Surgery: N/A Date of Evaluation: 03/08/24 Date of Discharge: 04/27/24 Treatments to Date: 11 Cancellations to Date: 0 No Shows to Date: 0 Discharge Status: Achieved Goals Improved Function Independent with HEP Discharge Summary: The patient overall has been consistently reporting little to no low back or bilateral hip pain. She does have some occasional thoracic spine pain. She mentioned she is independent with her home exercise program and has techniques to resolve any flare ups. She has achieved all goals established at the initial evaluation. Significant time was spent educating the patient on neutral spine in all aspects of daily life. At this time, both myself and the patient are in agreement to discharge to her home exercise program. She is discharged from this physical therapy plan of care. Electronically signed by: Leyla Harp PT, DPT Please sign and return to therapist. Thank you for your referral.
== END 2024-04-27 18:11 | disposition home or self-care (01) ==
LOC: HO.PT 17:00
PROVIDERS: PCP Nurse Practitioner Family; Visit Provider Student in an Organized Health Care Education/Training Program
DX: M51.36 Other intervertebral disc degeneration, lumbar region (principal)
CPT/HCPCS: 97110; 97140; 97162; 97530

== ENCOUNTER 2024-07-05 14:39 | Outpatient (AMB) | payer OTHER, MEDICAID, SELFPAY ==
--- NOTE | 2024-07-05 15:05 | AM.OFFWIN_ITS ---
Intake Vital Signs 07/05/24 15:06 Height 5 ft 4 in Weight 167 lb BMI 28.7 BP 118/90 H Blood Pressure Location Rt brachial Position Sitting Pulse 96 Pulse Source Pulse Oximeter Pulse Oximetry (%) 96 Oxygen Delivery Method Room Air Intake Visit Reasons: EP-?lt side rib fracture from a fall, sob Intake Note: Patient here for left sided rib pain, she states she had a fall last night and landed on her left side. Patient Tobacco Use Status: Never used Tobacco Allergies promethazine [From PHENERGAN] Allergy (Intermediate, Verified 07/05/24 15:08) RASH cefazolin [CEFAZOLIN] Allergy (Unknown, Verified 07/05/24 15:08) ANAPHYLAXIS Iodinated Contrast Media [IV Dye, Iodine Containing Contrast ] Allergy (Unknown, Verified 07/05/24 15:08) ANAPHYLAXIS aripiprazole [From Abilify] Adverse Reaction (Severe, Verified 07/05/24 15:08) tardive dyskinesia prednisone [PREDNISONE] Adverse Reaction (Unknown, Verified 07/05/24 15:08) HYPERTENSION, high BP,headache DOG SHAMPOO Allergy (Unknown, Uncoded 07/05/24 15:08) ANAPHYLAXIS Do you need a note to return to daycare/school/sports/work: No HPI HPI Comments History of Present Illness Details 58 y/o female patient who presents to [facility] walk in clinic with c/o left sided chest wall and rib pain since last night. She had a fall at home yesterday and landed on her left side. Reports difficulty with breathing in due to pain. [facility] Medical History Orthostatic dizziness Type 2 diabetes mellitus Jerman-Danlos syndrome type III History of kidney stones Hypothyroidism Back pain Chronic constipation IBS (irritable colon syndrome) Insomnia Hyperlipidemia Anxiety Fibromyalgia Depression Surgical History Hx of partial thyroidectomy Status post left foot surgery History of sleeve gastrectomy History of endometrial ablation Hx of toe surgery History of bladder suspension procedure Hx of hysterectomy Hx of tubal ligation Hx of appendectomy Family History Father Liver disease Diabetes mellitus Hypertension Mother Hypertension Diabetes mellitus Arthritis Son Asthma Depression Anxiety Daughter Asthma Depression Migraines Chronic pain Anxiety Sister No problems noted. 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 Chest palpation & inspection: no crepitus, localized rib tenderness with anteroposterior compression and tenderness Resp Effort & Inspection: normal respiratory effort Auscultation: clear to auscultation bilaterally, no crackles, no rales, no rhonchi and no wheezes Cardio Heart sounds: S1 normal heart sound present and S2 normal heart sound present Skin General skin exam: no rashes or lesions noted Neuro General: patient oriented x3 Psych Speech and movement: Normal speech and movement present Assessment & Plan Assessment & Plan (1) Chest wall contusion: Code(s): S20.219A - Contusion of unspecified front wall of thorax, initial encounter Qualifiers: Encounter type: initial encounter Laterality: left Qualified Code(s): S20.212A - Contusion of left front wall of thorax, initial encounter Plan: Ordered Chest Rib Xray NSAIDS for pain relief. Wrapped chest wall with Maxi Bandage. Orders: Orders XR ribs LT min 3V w CXR1V Today S20.212A - Contusion of left front wall of thorax, initial encounter Medications: New metaxalone 800 mg PO TID 14 tabs 0RF S20.212A - Contusion of left front wall of thorax, initial encounter acetaminophen 1,000 mg (2 x 500 mg) PO Q6H PRN 30 caps 0RF pain S20.212A - Contusion of left front wall of thorax, initial encounter lidocaine 5% leave on most painful area for up to 12 hrs 1 patch topical DAILY 30 ea 0RF S20.212A - Contusion of left front wall of thorax, initial encounter Coding Level of Care Code Est Pt Level 4 (97402) Diagnoses Contusion of left chest wall, initial encounter S20.212A Encounter type: initial encounter Laterality: left Time Spent (min) 20
[2024-07-05 15:06] VITALS: BP 118/90; PULSE 96; O2SAT 96; BMI 28.7
== END 2024-07-05 16:59 | disposition home or self-care (01) ==
PROVIDERS: PCP Nurse Practitioner Family; Visit Provider Nurse Practitioner Family
DX: S20.212A Contusion of left front wall of thorax, initial encounter (principal)

== ENCOUNTER → 2024-07-05 14:39 | Outpatient (BNVA) | payer OTHER, MEDICAID, SELFPAY | PROVIDERS: PCP Nurse Practitioner Family ==

== ENCOUNTER 2024-07-05 15:26 | Outpatient (REF) | payer OTHER, MEDICAID, SELFPAY ==
--- NOTE | ~2024-07-05 | XR_ITS ---
EXAMINATION: XR RIBS, LEFT AND CHEST X-RAY CLINICAL INFORMATION: Left chest wall contusion COMPARISON: Chest x-ray of 04/25/2022 TECHNIQUE: 3 views of the left ribs are frontal radiograph of the chest were obtained. FINDINGS: Lungs are clear. No consolidation, pneumothorax, or pleural effusion. The cardiomediastinal silhouette and pulmonary vasculature are normal. Osseous structures are unremarkable. Ribs are intact. No fractures are identified. XR/XR ribs LT min 3V w CXR1V IMPRESSION: Unremarkable examination. Electronically signed by: Simeon Romo MD 07/05/2024 04:42 PM EDT RP
== END 2024-07-05 15:27 | disposition home or self-care (01) ==
LOC: HO.HMGCX 15:26
PROVIDERS: PCP Nurse Practitioner Family; Visit Provider Nurse Practitioner Family
DX: S20.212A Contusion of left front wall of thorax, initial encounter (principal)
CPT/HCPCS: 71101

== ENCOUNTER 2024-10-03 09:14 | Outpatient (REF) | payer OTHER, SELFPAY ==
[2024-10-03 10:59] LABS: TSH reflex Free T4 0.56 uIU/mL (0.32-4.0); Thyroid Stimulating Hormone 0.56 uIU/mL (0.32-4.0)
== END 2024-10-03 09:15 | disposition home or self-care (01) ==
LOC: HO.LAB 09:14
PROVIDERS: PCP Nurse Practitioner Family; Visit Provider Internal Medicine Endocrinology, Diabetes & Metabolism
DX: E03.9 Hypothyroidism, unspecified (principal); E11.9 Type 2 diabetes mellitus without complications
CPT/HCPCS: 36415; 82947; 83036; 84443

== ENCOUNTER 2024-10-03 09:52 | Outpatient (AMB) | payer OTHER, SELFPAY ==
--- NOTE | 2024-10-03 10:07 | MHC.OFFVIS ---
Vital Signs 10/03/24 10:15 Height 5 ft 4 in Weight 162 lb 4.163 oz BMI 27.8 BP 126/58 L Blood Pressure Location Rt brachial Position Sitting Pulse 102 H Pulse Source Pulse Oximeter Intake Visit Reasons: Hyperlipidemia,DM Intake Note: Patient present today to follow up on Type 2 Diabetes Mellitus. 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: No Accompanied by: Self / Same As Patient Allergies promethazine [From PHENERGAN] Allergy (Intermediate, Verified 10/03/24 10:17) RASH cefazolin [CEFAZOLIN] Allergy (Unknown, Verified 10/03/24 10:17) ANAPHYLAXIS Iodinated Contrast Media [IV Dye, Iodine Containing Contrast ] Allergy (Unknown, Verified 10/03/24 10:17) ANAPHYLAXIS aripiprazole [From Abilify] Adverse Reaction (Severe, Verified 10/03/24 10:17) tardive dyskinesia prednisone [PREDNISONE] Adverse Reaction (Unknown, Verified 10/03/24 10:17) HYPERTENSION, high BP,headache DOG SHAMPOO Allergy (Unknown, Uncoded 10/03/24 10:17) ANAPHYLAXIS Medication List - Last Reconciled 10/03/24 by Bobby Chavez MD acetaminophen 1,000 mg (2 x 500 mg) PO Q6H PRN amitriptyline 100 mg PO BEDTIME atorvastatin 20 mg PO DAILY biotin mcg PO DAILY bupropion HCl XL 150 mg PO QAM clonidine HCl 0.2 mg PO QPM dicyclomine 10 mg PO TID duloxetine 60 mg PO QAM epinephrine 1 mg IM DAILY fludrocortisone 0.1 mg PO DAILY levothyroxine 125 mcg PO DAILY lidocaine 5% 1 patch topical DAILY linaclotide (Linzess) 290 mcg PO QAM loratadine 10 mg PO DAILY lorazepam 1 mg PO TID PRN metaxalone 800 mg PO TID multivitamin with iron 1 tab PO DAILY pregabalin 200 mg PO BID sennosides (senna) 17.2 mg (2 x 8.6 mg) PO BEDTIME 30 days tirzepatide (Mounjaro) 7.5 mg (0.5 mL) subcut QWEEK tizanidine 2 mg PO TID PRN 30 days trazodone 100 mg PO BEDTIME valbenazine (Ingrezza) 80 mg PO DAILY HPI Comments Details: 58 YO F who is seen in consultation for T2DM at the request of PCP. Initially diagnosed with T2DM in 6 mos . Was initially started on treatment with metformin .Prior to slleve in 2018 - Tolerated metformin and glipizide Current regimen diet control Did not bring glucometer or log book with her to follow up visit Most recent A1C [], [down] from prior [] on []. Family history of T2DM in []. Has eyes checked yearly, last eye exam k , denies retinopathy. Denies neuropathy, . Denies nephropathy, Not on SHANTI/ARB. Has HLD, on statin. . Denies CAD. On levothyroxine 125 mcg for hypothyroidism off statin PFSH Medical History Orthostatic dizziness Type 2 diabetes mellitus Jerman-Danlos syndrome type III History of kidney stones Hypothyroidism Back pain Chronic constipation IBS (irritable colon syndrome) Insomnia Hyperlipidemia Anxiety Fibromyalgia Depression Surgical History Hx of partial thyroidectomy Status post left foot surgery History of sleeve gastrectomy History of endometrial ablation Hx of toe surgery History of bladder suspension procedure Hx of hysterectomy Hx of tubal ligation Hx of appendectomy Family History Father Liver disease Diabetes mellitus Hypertension Mother Hypertension Diabetes mellitus Arthritis Son Asthma Depression Anxiety Daughter Asthma Depression Migraines Chronic pain Anxiety Sister No problems noted. Brother Down's syndrome Hypothyroidism Social History Alcohol intake: never Patient Tobacco Use Status: Never used Tobacco Current occupational status: employed Current occupation: rt handed/[employer] Physical Exam Vital Signs: Last Vital Signs Pulse 102 H 10/03/24 10:15 BP 126/58 L 10/03/24 10:15 BMI result Body Mass Index 27.8 Absence of Cushingoid features. Absence of acromegalic features. Neck exam reveals nl size thyroid about 15 gms. No thyroid nodules palpable. No carotid bruits present. Lungs CTA. Heart S1 S2, Reg R/R. No M/R/ G. Skin exam reveals absence of vitiligo or acanthosis nigricans. Abdominal exam reveals Soft NT/ND with NA BS. No organomegaly present. Neck Other: . Extrem Other: Visual exam of foot performed. No ulcerations or open lesions. No onchomycosis, no callouses.Pulses 2 + distally Sensation intact to monofilament exam. Vibratory sensation sensed is intact with 128 Hz tuning fork Results AMB Hemoglobin A1c AMB Hemoglobin A1c 5.6 % Last Edit by JESSE Marino on 10/03/24 10:36 Results Reviewed Results Reviewed: Laboratory Last Values Glucose (Clinic) 200 mg/dL (60-115) H 10/03/24 10:24 Assessment & Plan Assessment & Plan (1) Type 2 diabetes mellitus: Code(s): E11.9 - Type 2 diabetes mellitus without complications Category: Medical Plan: This is a 57-year-old female with history of type 2 diabetes being treated with diet with excellent glycemic control and no known microvascular or macrovascular complications. Plan is to continue current therapy. Will also push lifestyle changes diet and exercise. (2) Hypothyroid: Code(s): E03.9 - Hypothyroidism, unspecified Category: Medical Plan: Currently on 125 mcg levothyroxine. Appears to be clinically euthyroid Will check TSH and free T4 and adjust levothyroxine accordingly (3) Hyperlipidemia: Code(s): E78.5 - Hyperlipidemia, unspecified Category: Medical Plan: Will reinitiate the atorvastatin 20 mg q.d. recheck lipid profile in 8 weeks Orders: Orders AMB Hemoglobin A1c Today E11.9 - Type 2 diabetes mellitus without complications Lipid Panel 8 Weeks E78.5 - Hyperlipidemia, unspecified Coding Level of Care Code Est Pt Level 4 (24795) Diagnoses Type 2 diabetes mellitus E11.9 Hypothyroid E03.9 Hyperlipidemia E78.5
[2024-10-03 10:15] VITALS: BP 126/58; PULSE 102; BMI 27.8
[2024-10-03 10:29] LABS: Glucose, Whole Blood 200 mg/dL (60-115)
== END 2024-10-03 10:57 | disposition home or self-care (01) ==
PROVIDERS: PCP Nurse Practitioner Family; Visit Provider Internal Medicine Endocrinology, Diabetes & Metabolism
DX: E11.9 Type 2 diabetes mellitus without complications (principal); E03.9 Hypothyroidism, unspecified; E78.5 Hyperlipidemia, unspecified
CPT/HCPCS: 99214

== ENCOUNTER 2024-12-08 14:32 | Outpatient (AMB) | payer OTHER, SELFPAY ==
--- NOTE | 2024-12-08 14:32 | A.OFFVIS_ITS ---
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 Allergies promethazine [From PHENERGAN] Allergy (Intermediate, Verified 12/08/24 14:50) RASH cefazolin [CEFAZOLIN] Allergy (Unknown, Verified 12/08/24 14:50) ANAPHYLAXIS Iodinated Contrast Media [IV Dye, Iodine Containing Contrast ] Allergy (Unknown, Verified 12/08/24 14:50) ANAPHYLAXIS aripiprazole [From Abilify] Adverse Reaction (Severe, Verified 12/08/24 14:50) tardive dyskinesia prednisone [PREDNISONE] Adverse Reaction (Unknown, Verified 12/08/24 14:50) HYPERTENSION, high BP,headache DOG SHAMPOO Allergy (Unknown, Uncoded 10/03/24 10:17) ANAPHYLAXIS Medication List - Last Reconciled 12/08/24 by ERIK Jo acetaminophen 1,000 mg (2 x 500 mg) PO Q6H PRN amitriptyline 100 mg PO BEDTIME atorvastatin 20 mg PO DAILY biotin mcg PO DAILY bupropion HCl XL 150 mg PO QAM clonidine HCl 0.2 mg PO QPM dicyclomine 10 mg PO TID duloxetine 60 mg PO QAM epinephrine 1 mg IM DAILY fludrocortisone 0.1 mg PO DAILY levothyroxine 125 mcg PO DAILY lidocaine 5% 1 patch topical DAILY linaclotide (Linzess) 290 mcg PO QAM loratadine 10 mg PO DAILY lorazepam 1 mg PO TID PRN multivitamin with iron 1 tab PO DAILY pregabalin 200 mg PO BID sennosides (senna) 17.2 mg (2 x 8.6 mg) PO BEDTIME 30 days tizanidine 2 mg PO TID PRN 30 days trazodone 100 mg PO BEDTIME valbenazine (Ingrezza) 80 mg PO DAILY HPI Comments Details: Patient is a pleasant 58-year-old female who returns to the office today in follow-up. She is approximately 6 years 3 months post sleeve gastrectomy performed by Dr. Schrader on 09/10/2018. She was last seen in the office in 04/09/2022 with a weight of 184.6 lb and a BMI of 31.6. Weight today is 171.4 lb with a BMI of 29.4. She states that over the last 2 months she has gained approximately 8 lb. This after stopping the tirzepatide that she had been taking. This was stopped due to insurance reasons. Meal plan: nothing formal Exercise plan: has PF membership Any post op complications: none SRUTHI: continues DM: resolved HTN: orthostatic hypotension Hyperlipidemia: improved GERD:?0-5 scale ??0 = no symptoms ??1 = symptoms noticeable but not bothersome 2 =symptoms bothersome but not daily ? 3 = symptoms bothersome and daily 4 = symptoms affect daily activities 5 = symptoms are incapacitating, unable to do daily activities ? How bad is the heartburn: 0 ? Heartburn while lying down: 0 ? Heartburn when standing up: 0 ? Heartburn after meals: 0 ? Does heartburn change your diet: 0 ? Does heartburn wake you up from sleep: 0 ? Do you have difficulty swallowin ? Do you have pain with swallowin ? If you take medicine for your reflux, does this affect your daily life: 0 Satisfaction with present condition - satisfied or not satisfied: dissatisfied [facility] Medical History Orthostatic dizziness Type 2 diabetes mellitus Jerman-Danlos syndrome type III History of kidney stones Hypothyroidism Back pain Chronic constipation IBS (irritable colon syndrome) Insomnia Hyperlipidemia Anxiety Fibromyalgia Depression Surgical History Hx of partial thyroidectomy Status post left foot surgery History of sleeve gastrectomy History of endometrial ablation Hx of toe surgery History of bladder suspension procedure Hx of hysterectomy Hx of tubal ligation Hx of appendectomy Family History Father Liver disease Diabetes mellitus Hypertension Mother Hypertension Diabetes mellitus Arthritis Son Asthma Depression Anxiety Daughter Asthma Depression Migraines Chronic pain Anxiety Sister No problems noted. 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 Physical Exam Vital Signs: Last Vital Signs Temp 96.8 F 12/08/24 14:35 Pulse 87 12/08/24 14:35 BP 144/73 H 12/08/24 14:35 Pulse Ox 97 12/08/24 14:35 Oxygen Delivery Method Room Air 12/08/24 14:35 BMI result Body Mass Index 29.4 Const General: cooperative and no acute distress Orientation/consciousness: patient oriented x3 Resp Effort & Inspection: normal respiratory effort Auscultation: clear to auscultation bilaterally Cardio Rate: regular rate Rhythm: regular rhythm GI Inspection: Yes normal to inspection and Yes incision (well healed) Palpation (GI): Soft to palpation and no masses Neuro General: patient oriented x3 Assessment & Plan Assessment & Plan (1) History of sleeve gastrectomy: Comment: 09/09/2018 Code(s): Z90.3 - Acquired absence of stomach [part of] Category: Surgical Plan: Patient was given information regarding right BMI. She will start her meal plan. Discussed the importance of exercise. She has membership to [employer]. She will use the recumbent bike. Goal of burning 300 calories per day. She does continue on a multivitamin and calcium plus D. She will get year ly labs drawn and assess for any other vitamin deficiencies. Encouraged to text or stop by with any questions as she does work in the office. Return to clinic 6 weeks. Orders: Orders Complete Blood Count Auto Diff 12/08/24 E03.9 - Hypothyroidism, unspecified, E78.5 - Hyperlipidemia, unspecified, Z90.3 - Acquired absence of stomach [part of] Lipid Panel 12/08/24 E03.9 - Hypothyroidism, unspecified, E78.5 - Hyperlipidemia, unspecified, Z90.3 - Acquired absence of stomach [part of] Vitamin B12 and Folate 12/08/24 E03.9 - Hypothyroidism, unspecified, E78.5 - Hyperlipidemia, unspecified, Z90.3 - Acquired absence of stomach [part of] TSH reflex Free T4 12/08/24 E03.9 - Hypothyroidism, unspecified, E78.5 - Hyperlipidemia, unspecified, Z90.3 - Acquired absence of stomach [part of] Ferritin 12/08/24 E03.9 - Hypothyroidism, unspecified, E78.5 - Hyperlipidemia, unspecified, Z90.3 - Acquired absence of stomach [part of] Insulin 12/08/24 E03.9 - Hypothyroidism, unspecified, E78.5 - Hyperlipidemia, unspecified, Z90.3 - Acquired absence of stomach [part of] Hemoglobin A1c 12/08/24 E03.9 - Hypothyroidism, unspecified, E78.5 - Hyperlipidemia, unspecified, Z90.3 - Acquired absence of stomach [part of] IRON PROFILE 12/08/24 E03. - Hypothyroidism, unspecified, E78.5 - Hyperlipidemia, unspecified, Z90.3 - Acquired absence of stomach [part of] Comprehensive Met. Panel 12/08/24 E03.9 - Hypothyroidism, unspecified, E78.5 - Hyperlipidemia, unspecified, Z90.3 - Acquired absence of stomach [part of] Zinc 12/08/24 E03.9 - Hypothyroidism, unspecified, E78.5 - Hyperlipidemia, unspecified, Z90.3 - Acquired absence of stomach [part of] C Reactive Protein 12/08/24 E03.9 - Hypothyroidism, unspecified, E78.5 - Hyperlipidemia, unspecified, Z90.3 - Acquired absence of stomach [part of] Vitamin B1 12/08/24 E03.9 - Hypothyroidism, unspecified, E78.5 - Hyperlipidemia, unspecified, Z90.3 - Acquired absence of stomach [part of] Vitamin A 12/08/24 E03.9 - Hypothyroidism, unspecified, E78.5 - Hyperlipidemia, unspecified, Z90.3 - Acquired absence of stomach [part of] Vitamin D 25-OH Total 12/08/24 E03.9 - Hypothyroidism, unspecified, E78.5 - Hy perlipidemia, unspecified, Z90.3 - Acquired absence of stomach [part of]
[2024-12-08 14:35] VITALS: BP 144/73; PULSE 87; TEMP 36; O2SAT 97; BMI 29.4
== END 2024-12-08 15:01 | disposition home or self-care (01) ==
LOC: HO.HBS 14:32
PROVIDERS: PCP Nurse Practitioner Family; Visit Provider Physician Assistant Surgical
DX: E66.3 Overweight (principal); Z68.29 Body mass index [BMI] 29.0-29.9, adult; Z90.3 Acquired absence of stomach [part of]; Z98.84 Bariatric surgery status
CPT/HCPCS: 99213

== ENCOUNTER → 2024-12-08 14:32 | Outpatient (BNVA) | payer OTHER, SELFPAY | PROVIDERS: PCP Nurse Practitioner Family; Visit Provider Physician Assistant Surgical ==

== ENCOUNTER → 2025-01-27 15:53 | Outpatient (BNVA) | payer OTHER, SELFPAY | PROVIDERS: PCP Nurse Practitioner Family; Visit Provider Physician Assistant Surgical ==

== ENCOUNTER 2025-02-17 08:42 | Outpatient (AMB) | payer OTHER, SELFPAY ==
--- OUTSIDE RECORDS SUMMARY | 2025-02-17 08:45 | XMS_ITS | Clinical Summary ---
Author Organization [employer] Address [address] [place] [address] [address] [place] [address] Care Team Providers Care Central Processing Tech Name Role Phone Unavailable Primary Care Provider [...] Panel 1964 SDOH Screening 1964 Sigmoidoscopy 1964 Disability Screening 1964 Alcohol/Substance Use Screening 1976 Hepatitis C [...] patient's age to complete this topic Meningococcal B Vaccine Aged Out No l onger eligible based on patient's age to complete [...] Most Recently Relevant to Health Maintenance Insurance [facility] [place] [id number]
--- NOTE | 2025-02-17 08:51 | A.OFFVIS_ITS ---
Vital Signs 02/17/25 08:59 Height 5 ft 3 in Weight 178 lb BMI 31.5 Handedness Right Intake Visit Reasons: New Prob - B/L hip pain Intake Note: Kiana is a 59 year old female who presents today for a evaluation of her bilateral hip pain. Patient was referred to pain management to get injections. Patient received a right greater trochanteric bursa injection done on 04/30/22 and a left lesser trochanteric injection done on 03/05/22. Patient found relief from the injection on her left hip but she had mild relief for her right hip. She notices that her right hip is worse than the left. Her pain is worse when she is walking, standing, laying down and bending over. She has tried taking Tylenol/Ibuprofen with no relief. Allergies promethazine [From PHENERGAN] Allergy (Intermediate, Verified 02/17/25 08:56) RASH cefazolin [CEFAZOLIN] Allergy (Unknown, Verified 02/17/25 08:56) ANAPHYLAXIS Iodinated Contrast Media [IV Dye, Iodine Containing Contrast ] Allergy (Unknown, Verified 02/17/25 08:56) ANAPHYLAXIS aripiprazole [From Abilify] Adverse Reaction (Severe, Verified 02/17/25 08:56) tardive dyskinesia prednisone [PREDNISONE] Adverse Reaction (Unknown, Verified 02/17/25 08:56) HYPERTENSION, high BP,headache DOG SHAMPOO Allergy (Unknown, Uncoded 10/03/24 10:17) ANAPHYLAXIS HPI HPI New Prob - B/L hip pain: Details: Ms. Garcia is a 59 year old female who presents today for a evaluation of her lateral bilateral hip pain. She reports that she has significant difficulty at night sleeping on her side. She is able to pinpoint the areas of discomfort. In the past, the patient was seen by Dr. Davison who referred the patient to pain management for intra-articular cortisone injections. The patient did receive a bursa injection in the past with great relief. Patient found relief from the greater troch bursa injection. She notices that her right hip is worse than the left. Her pain is worse when she is walking, standing, laying down and bending over. She has tried taking Tylenol/Ibuprofen with no relief. [facility] Medical History Orthostatic dizziness Type 2 diabetes mellitus Jerman-Danlos syndrome type III History of kidney stones Hypothyroidism Back pain Chronic constipation IBS (irritable colon syndrome) Insomnia Hyperlipidemia Anxiety Fibromyalgia Depression Surgical History Hx of partial thyroidectomy Status post left foot surgery History of sleeve gastrectomy History of endometrial ablation Hx of toe surgery History of bladder suspension procedure Hx of hysterectomy Hx of tubal ligation Hx of appendectomy Family History Father Liver disease Diabetes mellitus Hypertension Mother Hypertension Diabetes mellitus Arthritis Son Asthma Depression Anxiety Daughter Asthma Depression Migraines Chronic pain Anxiety Sister No problems noted. 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 No ecchymosis, erythema, or edema. Full hip ROM in all planes. Tenderness to palpation over the greater trochanteric bursa bilaterally. 5/5 strength with resisted hip flexion, knee extension, abduction, and abduction. Able to perform straight leg raise. NVI. Office Procedures AMB Joint Injection/Aspiration Joint Injection/Aspiration Primary Site: other (Right greater troch bursa) Secondary Site: other (Left greater troch bursa) Prep: site was prepped using aseptic technique, ethochloride spray was applied and injection warnings given Injected: 80 mg of, DepoMedrol and with 8 mL of (2% plain lidocaine) Approach Used: other (Right and left greater troch bursa) Procedure: The patient tolerated the procedure well, but had some pain with the injection and there was some relief with the local anesthesia Coding 36134 - Glenohumeral/Tronchanteric Bursa/Intraarticular (Bilateral greater trochanteric bursa injections) Procedure code (CPT) selection complete Assessment & Plan Assessment & Plan (1) Greater trochanteric bursitis of both hips: Code(s): M70.61 - Trochanteric bursitis, right hip; M70.62 - Trochanteric bursitis, left hip Category: Medical Plan Ms. Garcia is a 59 year old female who presents today for a evaluation of her lateral bilateral hip pain. She reports that she has significant difficulty at night sleeping on her side. She is able to pinpoint the areas of discomfort. In the past, the patient was seen by Dr. Davison who referred the patient to pain management for intra-articular cortisone injections. The patient did receive a bursa injection in the past with great relief. Patient found relief from the greater troch bursa injection. She notices that her right hip is worse than the left. Her pain is worse when she is walking, standing, laying down and bending over. She has tried taking Tylenol/Ibuprofen with no relief. The patient was offered a TYPE injection in the BODYPART with DOSE mg of DepoMedrol. The patient was explained the risks, benefits, and alternatives to receiving this injection. After receiving consent for the injection, the patient had the procedure done while in the office today. The patient tolerated the procedure well with no complications. Follow-up will be PRN, or sooner if needed. X-rays of bilateral hips which were obtained while in the office today and were reviewed by me, Leandra Damico PA-C, revealed no acute fracture or dislocation. There is evidence of right hip osteoarthritis and left hip evidence of old injury to the lesser troch. Orders: Orders XR hips DIANA min 3V Today M25.559 - Pain in unspecified hip Coding Level of Care Code New Pt Level 3 (96670) Diagnoses Greater trochanteric bursitis of both hips M70.61; M70.62 CPT Codes Coding - Joint 7: 10554 - Glenohumeral/Tronchanteric Bursa/Intraarticular ([id number])
[2025-02-17 08:59] VITALS: BMI 31.5
== END 2025-02-17 09:29 | disposition home or self-care (01) ==
LOC: HO.HOS 08:43
PROVIDERS: PCP Nurse Practitioner Family; Visit Provider Physician Assistant
DX: M70.61 Trochanteric bursitis, right hip (principal); M70.62 Trochanteric bursitis, left hip
CPT/HCPCS: 20610; 99203

== ENCOUNTER 2025-02-17 08:46 | Outpatient (REF) | payer OTHER, SELFPAY ==
--- NOTE | ~2025-02-17 | XR_ITS ---
EXAMINATION: XR HIP 2 OR MORE VIEWS BILATERAL HISTORY: M25.559 - Pain in unspecified hip COMPARISON: Correlation is made with a plain film of the pelvis dated 01/24/2022. FINDINGS: A single AP view of the pelvis and two views of each hip are submitted. Osseous mineralization is normal. Again seen is deformity of the left femoral neck which may be the result of old trauma. There is no acute fracture or dislocation. There is mild narrowing of the right hip joint space. Small osteophytes are again noted involving both acetabular roofs. The soft tissues are unremarkable. XR/XR hips DIANA min 3V IMPRESSION: Mild degenerative change of both hips. Electronically signed by: Bobby Segovia MD 02/17/2025 09:33 AM EDT
== END 2025-02-17 08:47 | disposition home or self-care (01) ==
LOC: HO.HOSX 08:46
PROVIDERS: Visit Provider Physician Assistant
DX: M70.61 Trochanteric bursitis, right hip (principal); M70.62 Trochanteric bursitis, left hip; M25.551 Pain in right hip; M25.552 Pain in left hip
CPT/HCPCS: 20610; 73522; J1010; J2003

== ENCOUNTER → 2025-02-17 08:47 | Outpatient (BNV) | payer OTHER, SELFPAY | PROVIDERS: Visit Provider Radiology Diagnostic Radiology | DX: M25.551 Pain in right hip (principal); M25.552 Pain in left hip | CPT/HCPCS: 73522 ==

== ENCOUNTER 2025-02-21 13:10 | Day surgery (SDC) | payer OTHER, SELFPAY ==
--- OUTSIDE RECORDS SUMMARY | 2025-01-30 11:25 | XMS_ITS | Clinical Summary ---
Author Organization [facility] Address [address] [place] [address] Care Team Providers Care Catalogue Maker Name Role Phone Bobby Chavez Laurette NP Primary Care Provider Marcos espino Allergies Active Allergy Reactions Severity Noted Date Comments Cefazolin Anaphylaxis 03/31/2018 Iv Contrast Dye Anaphylaxis 03/31/2018 Prednisone 03/31/2018 Headaches and HTN Medications Medication Sig Dispensed Refills Start Date End Date Status levothyroxine 100 MCG tablet Take 1 Tab by mouth daily. 0 03/31/2018 Active aspirin 81 MG tablet Take 1 Tab by mouth daily. 0 Active clonidine (CATAPRES) 0.2 MG tablet Take 1 Tab by mouth at bedtime. 0 Active lorazepam (ATIVAN) 1 MG tablet Take 1 Tab by mouth at bedtime. 0 Active atorvastatin (LIPITOR) 20 MG tablet Take 1 Tab by mouth daily. 0 Active amitriptyline (ELAVIL) 100 MG tablet Take 1 Tab by mouth at bedtime. 0 Active atenolol (TENORMIN) 25 MG tablet Take 1 Tab by mouth daily. 0 Active estradiol (VIVELLE-DOT) 0.05 MG/24HR Place 1 Patch onto the skin once a week. 0 Active omeprazole (PRILOSEC) 40 MG capsule Take 1 Cap by mouth daily. 0 Active metformin (GLUCOPHAGE) 500 MG tablet Take 1 Tab by mouth daily (with breakfast). 0 Active duloxetine (CYMBALTA) 60 MG capsule Take 2 Caps by mouth daily. 0 Active Active Problems Problem Noted Date Diabetes mellitus type 2, uncomplicated 03/31/2018 Hypertension 03/31/2018 SRUTHI (obstructive sleep apnea) 03/31/2018 Depression 03/31/2018 Anxiety 03/31/2018 Fibromyalgia 03/31/2018 Jerman-Danlos syndrome 03/31/2018 Hyperlipidemia 03/31/2018 GERD (gastroesophageal reflux disease) 0 03/31/2018 Hypothyroidism 03/31/2018 Obesity (BMI 30-39.9) 01/08/2018 Overview: Bariatric Surgery Program Surgeon: Initial visit date 11/18/17 [facility] Psychiatry clearance: 02/26/18 Sade PCP clearance: 02/04/18 Lexi Dukes NP Physical: Dietitian-Dietary Clearance: Provider and date Labs: Done. Support groups: Requested weight loss: Last Surgery appt prior to Surgery: Prior Authorization Number: Surgery date goal: Family History Medical History Relation Name Comments down syndrome Brother 31, cardi ac arrest sepsis Father Diabetes Mother rheumatoid arth ritis, cardiomyopathy Relation Name Status Comments Brother Father Mother Social History Tobacco Use Types Packs/Day Years Used Date Smoking Tobacco: Never Assessed Sex Assigned at Date Recorded Female 03/21/2021 10:23 PM EDT Last Filed Vital Signs Vital Sign Reading Time Taken Comments Blood Pressure - - Pulse - - Temperature - - Respiratory Rate - - Oxygen Saturation - - Inhaled Oxygen Concentration - - Weight 87.5 kg (193 lb) 03/17/2018 11:47 AM EDT Height 162.6 cm (5' 4 ) 01/08/2018 10:40 AM EDT Body Mass Index 33.13 01/08/2018 10:40 AM EDT Plan of Treatment Health Maintenance Due Date Last Done Comments Covid-19 Vaccine (#1) 06/11/1966 DIABETES/HEART DISEASE: ANNUAL CHOLESTEROL (LDL) 12/09 DIABETES: ANNUAL EYE EXAM 1982 DIABETES: ANNUAL FOOT EXAM 1982 DIABETES: ANNUAL URINE PROTEIN TEST (MICROALBUMIN) DIABETES: BLOOD SUGAR CONTROL TEST (HGBA1C) 1982 HEPATITIS C SCREENING 1982 TOBACCO CHECK/ADVISE 1982 DTAP/TDAP/TD (1 - Tdap) 12/10/1983 PNEUMOCOCCAL VACCINE FOR HIGH RISK PATIENTS (#1) 12/09 CERVICAL CANCER SCREENING 1985 BASELINE HEALTH EXAM 40-64 2004 MAMMOGRAM 2004 COLON CANCER SCREENING 2014 SHINGLES VACCINE (1 of 2) 2014 BMI CHECK/ADVISE 09/21/2024 INFLUENZA (Season Ended) 2025 Care Teams Catalogue Maker Relationship Specialty Start Date End Date Lexi Dukes NP PCP - General Internal Medicine 08/17/23 Bobby Chavez Endocrinology 08/17/23
--- OUTSIDE RECORDS SUMMARY | 2025-01-30 11:25 | XMS_ITS | Encounter Summary ---
Author Organization [employer] [facility] Address [address] [place] [address] Care Team Providers Care Ring Stamper Name Role Phone Bobby Chavez Unavailable Unavailable Lexi Dukes CANE PUSHER Primary Care Provider Marcos espino Encounter Details Date Type Department Care Team Description 08/17/2023 SCAN Cardio [facility] [address] [place] [address] Abstract, Provider Social History Tobacco Use Types Packs/Day Years Used Date Smoking Tobacco: Never Assessed Sex Assigned at Date Recorded Female 03/21/2021 10:23 PM EDT documented as of this encounter Plan of Treatment Not on file documented as of this encounter Visit Diagnoses Not on filedocumented in this encounter Care Teams Ring Stamper Relationship Specialty Start Date End Date Lexi Dukes NP PCP - General Internal Medicine 08/17/23 Bobby Chavez Endocrinology 08/17/23 documented as of this encounter
--- OUTSIDE RECORDS SUMMARY | 2025-01-30 11:25 | XMS_ITS | Encounter Summary ---
Author Organization [employer] [facility] Address [address] [place] [address] Care Team Providers Care Polymerization Oven Tender Name Role Phone Bobby Chavez Unavailable Unavailable Lexi Dukes REAL ESTATE OFFICE SUPERVISOR Primary Care Provider Marcos espino Encounter Details Date Type Department Care Team Description 09/17/2023 Orders Only Cardio [facility] [address] [place] [address] [address] [place] [address] Bobby Chavez Social History Tobacco Use Types Packs/Day Years Used Date Smoking Tobacco: Never Assessed Sex Assigned at Date Recorded Female 03/21/2021 10:23 PM EDT documented as of this encounter Plan of Treatment Not on file documented as of this encounter Procedures Procedure Name Priority Date/Time Associated Diagnosis Comments REFERRAL TO CARDIOLOGY Routine 08/17/2023 documented in this encounter Results * REFERRAL TO CARDIOLOGY (08/17/2023) Bobby Chavez REFERRALS documented in this encounter Visit Diagnoses Not on filedocumented in this encounter Care Teams Polymerization Oven Tender Relationship Specialty Start Date End Date Lexi Dukes NP PCP - General Internal Medicine 08/17/23 Bobby Chavez Endocrinology 08/17/23 documented as of this encounter
--- OUTSIDE RECORDS SUMMARY | 2025-01-30 11:25 | XMS_ITS | Encounter Summary ---
Author Organization [employer] [facility] Address [address] [place] [address] Care Team Providers Care Home Energy Inspector Name Role Phone Bobby Chavez Unavailable Unavailable Lexi Dukes PRODUCT DIRECTOR Primary Care Provider Marcos espino Encounter Details Date Type Department Care Team Description 08/17/2023 SCAN Cardio [facility] [address] [place] [address] Abstract, Provider Social History Tobacco Use Types Packs/Day Years Used Date Smoking Tobacco: Never Assessed Sex Assigned at Date Recorded Female 03/21/2021 10:23 PM EDT documented as of this encounter Plan of Treatment Not on file documented as of this encounter Visit Diagnoses Not on filedocumented in this encounter Care Teams Home Energy Inspector Relationship Specialty Start Date End Date Lexi Dukes NP PCP - General Internal Medicine 08/17/23 Bobby Chavez Endocrinology 08/17/23 documented as of this encounter
--- OUTSIDE RECORDS SUMMARY | 2025-01-30 11:25 | XMS_ITS | Patient Health Record ---
Author Organization [facility] Address [address] [place] [id number] Care Team Providers Care Block Cutter Name Role Phone Jimmie Cross MD Primary Care Provider ELIJAH Constantino Unavailable [phone] Allergies Allergen (clinical drug ingredient) Drug/Non Drug Allergy documented on EMR Reaction Allergy Type Onset Date Status IYP dye (uncoded) anaphylaxis Allergy Active aripiprazole Abilify tardive dyskinesia Drug Allergy Active cefazolin Cefazolin anaphylaxis Drug Allergy Activ e prednisone Prednisone severe headache/HTN Drug Allergy Active promethazine Promethazine hives Drug Allergy A ctive Reason For Referral No Information Medications Medication SIG (Take, Route, Frequency, Duration) Notes Start Date End Date Status Tylenol PRN Active Naproxen Sodium 220 MG as directed Orall y once a day Not-Taking buPROPion HCl ER (Smoking Det) 150 MG 1 tablet in the morning Orally Once a day for 30 day(s) Active Diphenhydramine PRN Acti ve Dicyclomine HCl 10 MG 2 capsules Orally TWICE a day Active Ingrezza 80 MG 1 capsule Orally Once a day for 30 days Active Estradiol 0.06 MG/24HR 1 patch to skin Transdermal weekly for 90 days 07/03/2022 Active DULoxetine HCl 60 MG 1 capsule Orally Once a day Active Levothyroxine Sodium 125 MCG 1 tablet in the morning on an empty stomach Orally Once a day Active Abilify 5 MG 1 tablet Orally Once a day Not-Taking ZyrTEC Allergy 10 MG 1 tablet Orally Once a day Active Opurity Not-Taking Biotin 74509 MCG 1 tablet Orally Once a day Active Linzess 290 MCG 1 capsule at least 30 minutes before the first meal of the day on an empty stomach Orally Once a day for 30 day(s) Active Fludrocortisone Acetate 0.1 MG 1 tablet Once a day Active Lyrica 200 MG 1 capsule Orally Twice a day Active Mounjaro 5 MG/0.5ML as directed Subcutaneous Once a day Active Ativan 1 MG 1 tablet at bedtime as needed Orally prn PRN Active cloNIDine HCl 0.1 MG Orally Active Atorvastatin Calcium 20 MG as directed Orally Once a day 5 mg at bedtime Active Amitriptyline HCl 100 MG Orally Active traZODone HCl 100 MG 1 tablet at bedtime Orally Once a day Active Social History Tobacco Use: Social History Observation Description Date Details (start date - stop date) Never Smoker NA - NA Tobacco Use/Smoking Question Answer Notes Are you a nonsmoker AUDIT-C (Standard) Question Answer Notes Did you have a drink containing alcohol in the p ast year? No Points 0 Interpretation Negative Problems Problem Type SNOMED Code ICD Code Onset Dates Problem Status W/U Status Risk Notes Problem Human papilloma virus deoxyribonucleic acid test positive, high risk on vaginal specimen (190463828588025) Cervical high risk human papillomavirus (HPV) DNA test positive (R87.810) Active confirmed Problem Herniation of rectum into vagina (926458513) Rectocele (N81.6) Active confirmed Problem Decreased libido (R68.82) Active confirmed Problem Menopause (474650306) Menopausal and female climacteric states (N95.1) Active confirmed Plan Of Treatment Pending Test Test Name Order Date Urinalysis 08/11/2019 Urinalysis 08/22/2019 THIN PREP,HPV,LILLIAN IF HPV+/CYT-,CT/GC(>2 9YR)(DIAG) 08/22/2019 MM Digital Screening Mammogram 3D 2020 MM Digital Screening Mammogram 3D 2021 MM Digital Screening Mammogram 3D 2023 Next Appt Details Provider Name:ELIJAH Gutierrez, 03/21/2025 03:30:00 PM, [address] [facility], [address], [place], [address], Insurance Providers Payer Name Payer Address Payer Phone Subscriber Number Group Number Insured Name Patient Relationship to Insured Coverage Start Date Coverage End Date [employer] [place] [address] [address] [place] [address] [id number] IBRAHIMA GREEN Self - patient is the insured BCBS MEDICARE HMO [address] [place] [address] [id number] IBRAHIMA GREEN Self - patient is the insured Medical (General) History Medical History History ICD Code Other specified arthritis, unspecified s ite M13.80 Hypothyroidism, unspecified E03.9 Pure hypercholesterolemia, unspecified E 78.00 Hypermobile Jerman-Danlos syndrome Q79.6 2 Major depressive disorder, recurrent, mi ld F33.0 Anxiety disorder, unspecified F41.9 Post-traumatic stress disorder, unspecif ied F43.10 Rectocele N81.6 Orthostatic hypotension I95.1 Drug induced subacute dyskinesia G24.01 Decreased libido R68.82 Menopausal and female climacteric states N95.1 Hormone replacement therapy Z79.890 Cervical high risk human papillomavirus (HPV) DNA test positive R87.810 Atypical squamous cells of u ndetermined significance on cytologic smear of cervix (ASC-US) R87.610 Dense breasts, unspecified R92.30 Mammographic heterogeneous density, bila teral breasts R92.333 Surgical History Surgery Date(Month/Year) gastric sleeve 2018 R-thyroidectomy 2011 Laparoscopic Supracervical Hysterectomy 1998 Tubal ligation 1992 ORIF L-foot 2014 Monarc sling 2009 endometrial ablation 1997 appendectomy 1982 correction of bilateral curly toe deform ity 1992 Hospitalization History Reason Date(Month/Year) Allergic reaction to dog shampoo 2001
--- OUTSIDE RECORDS SUMMARY | 2025-01-30 11:25 | XMS_ITS | Encounter Summary ---
Author Organization [facility] Address [address] [place] [address] Care Team Providers Care Recoater Name Role Phone Oj Boggs Primary Care Provider Bobby Otero Unavailable Unavailable Lexi Dukes ROAD WORKER Primary Care Provider Marcos espino Encounter Details Date Type Department Care Team Description 02/01/2019 Release of Information Medical Records [address] [place] [id number] Abstract, Provider Social History Tobacco Use Types Packs/Day Years Used Date Smoking Tobacco: Never Assessed Sex Assigned at Date Recorded Female 03/21/2021 10:23 PM EDT documented as of this encounter Plan of Treatment Not on file documented as of this encounter Visit Diagnoses Not on filedocumented in this encounter Care Teams Recoater Relationship Specialty Start Date End Date Oj Boggs PCP - General Internal Medicine 12/22/17 08/16/23 Lexi Dukes, LEXX PCP - General Internal Medicine 08/17/23 Bobby Chavez Endocrinology 08/17/23 documented as of this encounter
--- OUTSIDE RECORDS SUMMARY | 2025-01-30 11:25 | XMS_ITS | Referral Summary ---
Demographics Address [address] [place] [address] Home Phone Mobile Phone Preferred Language Tajik Marital Status Denominational Affiliation Unknown Race White Ethnic Group Unknown Author Organization [facility] Address [address] [place] [address] Support Name Relationship Address Phone Rev Olivia Emergency Contact [address] [place] [address] Erik Cobb Spouse [address] [place] [address] Care Team Providers Care Rn Hemodialysis Charge Name Role Phone Ernst Lexi Welsh Primary Care Provider Encounters Date Type Department Care Team Description 12/27/2024 Telephone [facility] [address] [place] [address] Jaclyn Cruz [place] 12/23/2024 Documentation [facility] [address] [address] Adriel Avila CPhT Prior Authorization ([place] Approved for Ingrezza 80mg capsule, #, through [facility] [[place]# [id number]]. Effective 12/22/24 - until further notice. May fill with [facility], Copay $12.15/) 12/22/2024 myChart Message [facility] [address] [place] [phone] [employer]: Arun Amador MD Akathisia 12/22/2024 Telephone [facility] [address] [place] [phone] [employer]: Arun Amador MD Prior Authorization (valbenazine (Ingrezza) 80 mg capsule) 12/21/2024 1:45 PM EDT Office Visit [facility] [address] [place] [address] Arun Morgan MD Akathisia (Primary Dx) from Last 3 Months Allergies Active Allergy Reactions Criticality Noted Date Comments Aripiprazole Tardive dyskinesia 12/21/2024 Cefazolin Anaphylaxis High 03/31/2018 Iodinated Contrast Media Anaphylaxis High 10/23/2022 Prednisone Other (see comments) 03/31/2018 Headaches and HTN Promethazine Hives,Other (see comments) 10/23/2022 Medications amitriptyline (ELAVIL) 100 mg tablet Take 100 mg by mouth. Active atenoloL (TENORMIN) 25 mg tablet Take 1 tablet by mouth once a day. Active atorvastatin (LIPITOR) 20 mg tablet Take 1 tablet by mouth once a day. Active biotin 10,000 mcg tablet,disinteg rating Active buPROPion XL (WELLBUTRIN XL) 150 mg tablet 12/13/2024 Activ e dicyclomine (BENTYL) 10 mg capsule Active DULoxetine DR (CYMBALTA) 60 mg capsule Take 120 mg by mouth. Active fludrocortisone (FLORINEF) 0.1 mg tablet Active ipratropium (ATROVENT) 0.03% nasal spray SMARTSIG:Bot h Nares 10/06/2024 Active levothyroxine (SYNTHROID, LEVOTHROID) 125 mcg tablet 11/25/2024 Active lidocaine (LIDODERM) 5% patch 11/09/2024 Active linaCLOtide (LINZESS) 290 mcg Active loratadine (CLARITIN) 10 mg tablet Active LORazepam (ATIVAN) 1 mg tablet Take 1 tablet by mouth every 8 (eight) hours. Active multivitamin/ir on/folic acid (MULTI COMPLETE WITH IRON ORAL) Acti ve pregabalin (LYRICA) 200 mg capsule Active traZODone (DESYREL) 50 mg tablet Active Ingrezza 80 mg capsule Active valbenazine (Ingrezza) 80 mg capsule Take 1 capsule (80 mg total) by mouth nightly. 30 capsule 2 12/21/2024 Active Social History Tobacco Use Types Packs/Day Years Used Date Smoking Tobacco: Never Smokeless Tobacco: Never Tobacco Cessation:Counseling Given: Not Answered Alcohol Use Standard Drinks/Week Comments Yes 0 (1 standard drink = 0.6 oz pur e alcohol) 1 sangria 2-3 times per year Comments Unknown Sex and Gender Information Value Date Recorded Sex Assigned at Female 09/28/2024 11:21 AM EST Legal Sex Female 11:17 AM EST Gender Identity Female 12/20/2024 6:22 PM EDT Sexual Orientation Straight 12/20/2024 6: 22 PM EDT Last Filed Vital Signs Vital Sign Reading Time Taken Comments Blood Pressure 131/77 12/21/2024 1:43 PM EDT Pulse 81 12/21/2024 1:43 PM EDT Temperature 36.2 ??C (97.2 ??F) 12/21/2024 1:29 PM ED T Respiratory Rate 18 12/21/2024 1:29 PM EDT Oxygen Saturation - - Inhaled Oxygen Concentration - - Weight 79.5 kg (175 lb 3.2 oz) 12/21/2024 1:29 P M EDT Height - - Body Mass Index - - Plan of Treatment Upcoming Encounters Date Type Department Care Team (Late st Contact Info) Description 07/19/2025 2:45 PM EDT Telehealth [facility] [address] [place] [phone] Arun Morgan MD [address] [place] [phone] Insurance * Guarantor: Kiana Fournier Account Type Relation to Patient Date of Phone Billing Address Personal/Family Self 1965 [address] [place] [address] [employer] Care Teams Rn Hemodialysis Charge Relationship Specialty Start Date End Date Lexi Dukes [address] [place] [address] PCP - General 12/07/24
--- OUTSIDE RECORDS SUMMARY | 2025-01-30 11:25 | XMS_ITS | Clinical Summary ---
Demographics Address [address] [place] [address] Home Phone Mobile Phone Preferred Language Divehi Marital Status Restoration Affiliation Unknown Race White Ethnic Group Unknown Author Organization [facility] Address [address] [place] [address] Support Name Relationship Address Phone Rev Baker Emergency Contact [address] [place] [address] Erik Cobb Spouse [address] [place] [address] Care Team Providers Care General Accountant Name Role Phone Lexi Dukes Primary Care Provider Allergies Active Allergy Reactions Criticality Noted Date [...] mouth nightly. 30 capsule 2 12/21/2024 Active Encounters Date Type Department Care Team Description 12/27/2024 Telephone [facility] [address] [place] [address] Jaclyn Cruz [place] 12/23/2024 Documentation [facility] [address] [address] Adriel Avila CPhT Prior Authorization ([place] Approved for Ingrezza 80mg capsule, #30/, [facility] [[place]# [id number]]. Effective 12/22/24 - until further notice. May fill with [facility], Copay $12.15/) 12/22/2024 Greenphirehart Message [facility] [address] [place] [address] Coordinator Of Evaluation: Arun Amador MD Akathisia 12/22/2024 Telephone [facility] [address] [place] [address] Coordinator Of Evaluation: Arun Amador MD Prior Authorization (valbenazine (Ingrezza) 80 mg capsule) 12/21/2024 1:45 PM EDT Office Visit [facility] [address] [place] [address] Arun Morgan MD Akathisia (Primary Dx) from Last 3 Months Family History Medical History Relation Name Comments Down syndrome Brother Hypothyroidism Brother Alcohol abuse Father Diabetes type II Father Hypertension Father Other Father Chronic Pain Pancreatitis Father Diabetes type II Maternal Grandmother Diabetes type II Mother Hypertension Mother Osteoporosis Mother Other Mother Cardiomegaly Angina Paternal Grandfather Other Sister Thyroid issues Relation Name Status Comments Brother Father Maternal Grandmother Mother Alive Paternal Grandfather Sister Social History Tobacco Use Types Packs/Day Years [...] Info) Description 07/19/2025 2:45 PM EDT Telehealth [facility] [address] [place] [address] Arun Morgan MD [address] [place] [address] Health Maintenance Due Date Last Done Comments Cervical Cancer Screening 1965 Cologuard 1964 Colon Cancer Screening 1964 Colonoscopy 1964 FOBT / Fit Test 1964 HIV Screening 1964 HPV and Pap Smear 1964 Hepatitis C Screening 1964 Pap Smear 1964 Sigmoidoscopy 1964 DTaP,Tdap,and Td Vaccines (1 - Tdap) 1986 Mammogram 2004 Pneumococcal Vaccine: 50+ Years (2 of 2 - PCV) 09/09/2019 09/09/2018 COVID-19 Vaccine (3 - 2023-2 5 season) 2024 01/11/2021, 12/14/2020 Alcohol/Substance Use Screening 09/21/2024 Depression Screening and Follow-Up 09/21/2024 Social Drivers of Health Annual Screening 09/21/2024 Zoster Vaccines (2 of 2) 01/26/2025 12/01/2024 Influenza Vaccine (Season Ended) 2025 07/15/2023, 07/04/2021, 10/19/2017 RSV Vaccine (60+ years old a nd patients) (1 - 1-dose 75+ series) 12/10/2039 Hepatitis B Vaccines Aged Out No long er eligible based on patient's age to complete this topic Insurance [employer] Care Teams General Accountant Relationship Specialty Start Date End Date Lexi Dukes [address] [place] [address] [place] [id number] PCP - General 12/07/24
--- OUTSIDE RECORDS SUMMARY | 2025-01-30 11:25 | XMS_ITS ---
Author Organization [facility] Address [address] [address] Care Team Providers Care Kalsominer Name Role Phone Jimmie Cross MD Primary Care Provider ELIJAH Constantino Unavailable [phone] Allergies Allergen (clinical drug ingredient) Drug/Non Drug Allergy documented on EMR Reaction Allergy Type Onset Date Status IYP dye (uncoded) anaphylaxis Allergy Active aripiprazole Abilify tardive dyskinesia Drug Allergy Active cefazolin Cefazolin anaphylaxis Drug Allergy Activ e prednisone Prednisone severe headache/HTN Drug Allergy Active promethazine Promethazine hives Drug Allergy A ctive REASON FOR VISIT Annual FERMENTER CHAMPAGNE Physical Social History Tobacco Use: Social History Observation Description Date Details (start date - stop date) Never Smoker NA - NA Tobacco Use/Smoking Question Answer Notes Are you a nonsmoker AUDIT-C (Standard) Question Answer Notes Did you have a drink containing alcohol in the p ast year? No Points 0 Interpretation Negative Encounters Encounter Location Date Provider Diagnosis [address] [address] 12/23/2024 ELIJAH BATES Encounter for gynecological examination [...] Follow Up: 1 Year, Reason: Y early Cash Grain Grower Exam Provider Name:ELIJAH Gutierrez, 03/21/2025 03:30:00 PM, [address], [address], [place], [address], Progress Notes * KIANA SANTIZODOB:[birth year] (59 yo F)Acc No.[id number]:12/23/2024 PROGRESS NOTES Patient:?KIANA SANTIZO Provider:?ELIJAH BATES MD :1965???Age:59 Y???Sex:Female D ate:12/23/2024 Address:[address] [place], [place] [id number] Pcp:Jimmie Cross MD Subjective: * Chief Complaints: * ???1. Annual FERMENTER CHAMPAGNE Physical. 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 ? She has been in state of good health since her last exam. She has the following concerns: . Last year she requested referral to urogyn for prolapse. She reports . ? She has received the Moderna Covid-19 vaccine. ? Relationship status: * for 20 years, together for 35-36 yrs. She is not sexually active - due to 's ED. Sexual partner(s): male. She does not wish to have STI testing. ? She does* report vaginal dryness - discussed Replenz. She does* have hot flashes/night sweats - intermittent - has been using estradiol patches. ? The patient has had an abnormal pap smear within the last 5 years. Her most recent pap smear was 12/10/23 - NIL, neg HR HPV. The previous pap was 08/25/22 - ASCUS, + HR HPV, Neg HPV 16/18/45.? Due for cotesting today. ? She has not been diagnosed with breast cancer. She does not have a family history of breast cancer. Her last mammogram was *03/23/23. ? She does *not have a family history of colon cancer. She a has had a colonoscopy. The last colonoscopy was 2017. ? The patient does* sometimes exercise. She goes to the gym 1-3 times weekly with a friend - strength training. * ROS:?Annual Cash Grain Grower Exam ROS:?Bowel habit changes?denies.?Bladder symptoms?denies.?Vaginal discharge, unusual?denies.?Vaginal itch or odor?denies.?weight or appetite changes?denies.?Chest pains, SOB?denies.?depression?denies.?Breast:?Denies?Breast lump.?Denies?Nipple discharge.?Hematology:?Denies?Swollen glands.?Skin:?Patient denies?changing moles.?Psychiatric:?Denies?Anxiety.? * Medical History:?Other speci fied arthritis, unspecified site, Hypothyroidism, unspecified, Pure hypercholesterolemia, unspecified, Hypermobile Jerman-Danlos syndrome, Major depressive disorder, recurrent, mild, Anxiety disorder, unspecified, Post-traumatic stress disorder, unspecified, Rectocele, Orthostatic hypotension, Drug induced subacute dyskinesia, Decreased libido, Menopausal and female climacteric states, Hormone replacement therapy, Cervical high risk human papillomavirus (HPV) DNA test positive, Atypical squamous cells of undetermined significance on cytologic smear of cervix (ASC-US), Dense breasts, unspecified, Mammographic heterogeneous density, bilateral breasts. * Cash Grain Grower History:?/ Para?3/2.?Sexual activity?not currently sexually active.?Last Pap Smear:?08/25/22 ASCUS, POS HRHPV -16,18/45, 08/22/19 NIL, NEG HPV, 08/31/17 - NIL, +HR-HPV.?Mammogram:?03/23/23 50-75% density, 11/15/2019, 50-75% density, 10/15/2018, 50- 75% density.?Abnormal Pap Smear:?04/2016 - +HPV, 08/2017 - NIL, +HPV.?LMP and menses?1999 Supracervical HYST.?History of STD's:?Herpes Simplex Virus (HSV).? Control:?hysterectomy - supracervical.?Menarche?11.?Colonoscopy?2018.?Gardasil:?has not had vaccine.? * OB History:?Total pregnancies?3.?NVD?2.?(s)?1.? # 1:?normal spontaneous vaginal delivery (), 09/14/86, Anshul, 7lb 5oz, PIH.? # 2:?elective terminations of (ETOP) (T1 due to depression).? # 3?normal spontaneous vaginal delivery (), 01/29/90, female to male, Silas, 7lb 10oz, no complications.?Full-term delivery?2.? * Social History:?Tobacco Use:?Tobacco Use/Smoking?Are you a?nonsmoker ???Sexual History:?Details of Sexual History?Are you sexually active??No ???Drugs/Alcohol:?Drugs?Have you used drugs other than those for medical reasons in the past 12 months??No ???Miscellaneous:?Children: yes, 2 (one biologic boy, one F2M transition). ?Domestic violence: no. ?Exercise: none. ?Home smoke detector use: yes, smoke detectors, carbon monoxide detector. ?Housing: renting. ?Living with: spouse. ?Marital status: , Erik. ?Natural support system: yes. 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 ?Others at home: none. ?Pets: none. ?Sexual abuse: no. ?Sexually active: no. ?Travel outside of the [place]: no. ?Verbal abuse: no. ???Drug/Alcohol:?AUDIT-C (Standard)?Did you have a drink containing alcohol in the past year??No ?Points?0 ?Interpretation?Negative * Allergies:?IYP dye: anaphyla xis, Cefazolin: anaphylaxis, Prednisone: severe headache/HTN, Promethazine: hives, Abilify: tardive dyskinesia. Objective: * Vitals:? * Examination: ???General Examination: ?GENERAL APPEARANCE:?in no acute distress, well developed, well nourished, dishroom attendant present in room.?HEAD:?normocephalic, atraumatic.?NECK/THYROID:?neck supple, full range of motion, thyroid normal.?LYMPH NODES:?no axillary or supraclavicular adenopathy.?SKIN:? normal, good turgor, no rashes, no suspicious lesions.?BREASTS:? normal, no dimpling, no discharge, no drainage, no masses palpable bilaterally, nontender.?ABDOMEN:? soft, non-tender, non distended without masses or hepatosplenomegay.?RECTAL:? normal tone, no masses palpable.?BACK:? no costovertebral angle tenderness.?FEMALE GENITOURINARY:?Vulva without lesions or masses, vagina pink without abnormal discharge, lesions or masses, cervix appears normal and is not tender to palpation, uterus is surgically absent, ovaries are not palpable.?NEUROLOGIC:? alert and oriented, gait normal.?PSYCH:? alert, oriented, cognitive function intact, cooperative with exam, good eye contact, mood/affect full range, speech clear.? Assessment: * Assessment: 1.?Encounter for gynecologic al examination (general) (routine) without abnormal findings - Z01.419 (Primary)???2.?Encounter for screening mammogram for malignant neoplasm of breast - Z12.31???3.?Encounter for screening for infections with a predominantly sexual mode of transmission - Z11.3??? Plan: * Treatment: 2.?Encounter for screening m ammogram for malignant neoplasm of breast?Imaging: MM Digital Screening Mammogram 3D * Follow Up:?1 Year (Reason: Y early Cash Grain Grower Exam) * Images: Billing Information: * Visit Code:? 84524 Preventive Care Est Pt. Age 40-64. * Procedure Codes:? 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 She has been in state of [...] General Examination GENERAL APPEARANCE: in no ac apache distress, well developed, well nourished, dishroom attendant present in room HEAD: normocephalic, atrau matic [...]
--- OUTSIDE RECORDS SUMMARY | 2025-01-30 11:25 | XMS_ITS ---
Author Organization [facility] Address [address] [facility] [address] [place] [address] Care Team Providers Care Debt Counselor Name Role Phone Jimmie Cross MD Primary Care Provider ELIJAH Constantino Unavailable [phone] Allergies Allergen (clinical drug ingredient) Drug/Non Drug Allergy documented on EMR Reaction Allergy Type Onset Date Status IYP dye (uncoded) anaphylaxis Allergy Active aripiprazole Abilify tardive dyskinesia Drug Allergy Active cefazolin Cefazolin anaphylaxis Drug Allergy Activ e prednisone Prednisone severe headache/HTN Drug Allergy Active promethazine Promethazine hives Drug Allergy A ctive Results Component Value Reference Range Notes [id number] IGP No Culture 30 Plus Reviewed date:12/15/2023 04:00:31 PM Interpretation: Performing Lab:[facility], [address] [place] [address], Phone - [phone], Director - [facility] Notes/Report: Clinical Information:VAGINAL/CERVICAL, S/P SUPR ACERVICAL HYST Source.............Cervix;Vagina LMP / Prev Treat...Hyst;Jena / BX Dates / Results....08/25/22 ASCUS, HR HPV POS No. of containers..01 ThinPrep Vial DIAGNOSIS: NEGATIVE FOR INTRAEPITHELIAL LESION OR MALIGNANCY. THIS SPECIMEN WAS RESCREENED PART OF OUR INSURANCE AGENT PROGRAM. Specimen adequacy: Satisfactory for evaluation. Endocervical and/or squamous metaplastic cells (endocervical component) are present. Areas of partially obscuring inflammatory exudate are present. Clinician provided ICD10: Z0 1.419 Performed by: Tavares Rosa , Recovery Rn (ASCP) QC reviewed by: Hermila benitez, Recovery Rn (ASCP) . . Note: The Pap smear is a screening test designed to aid in the detection of premalignant and malignant conditions of the uterine cervix. It is not a diagnostic procedure and should not be used as the sole means of detecting cervical cancer. Both false-positive and false-negative reports do occur. . Test Methodology: This liquid based ThinPrep(R) pap test was screened with the use of an image guided system. HPV Aptima Negative Negative This nucleic acid amplification test detects fourteen high-risk HPV types (16,18,31,33,35,39,45,51,52,56,58 ,59,66,68) without differentiation. HPV Genotype Reflex Criteria not met, HPV Genotype not performed. PDF Report Reviewed date:12/15/2023 04:00:39 PM Interpretation: Performing Lab:[facility], [address], Phone - [phone], Director - [facility] Notes/Report: Clinical Information:VAGINAL/CERVICAL, S/P SUPR ACERVICAL HYST Source.............Cervix;Vagina LMP / Prev Treat...Hyst;Jena / BX Dates / Results....08/25/22 ASCUS, HR HPV POS No. 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 Medication SIG (Take, Route, Frequency, Duration) Notes Start Date End Date Status Naproxen Sodium 220 MG as directed Orall y once a day Not-Taking Diphenhydramine PRN Acti ve Estradiol 0.06 MG/24HR 1 patch to skin Transdermal weekly for 90 days 07/03/2022 Active Abilify 5 MG 1 tablet Orally Once a day Not-Taking Opurity Not-Taking Ativan 1 MG 1 tablet at bedtime as needed Orally prn PRN Active cloNIDine HCl 0.1 MG Orally Active Atorvastatin Calcium 20 MG as directed Orally Once a day 5 mg at bedtime Active Amitriptyline HCl 100 MG Orally Active traZODone HCl 100 MG 1 tablet at bedtime Orally Once a day Active Tylenol PRN Active DULoxetine HCl 60 MG 1 capsule Orally Once a day Active Levothyroxine Sodium 125 MCG 1 tablet in the morning on an empty stomach Orally Once a day Active ZyrTEC Allergy 10 MG 1 tablet Orally Once a day Active Biotin 69253 MCG 1 tablet Orally Once a day Active buPROPion HCl ER (Smoking Det) 150 MG 1 tablet in the morning Orally Once a day for 30 day(s) Active Dicyclomine HCl 10 MG 2 capsules Orally TWICE a day Active Ingrezza 80 MG 1 capsule Orally Once a day for 30 days Active Linzess 290 MCG 1 capsule at least 30 minutes before the first meal of the day on an empty stomach Orally Once a day for 30 day(s) Active Fludrocortisone Acetate 0.1 MG 1 tablet Once a day Active Lyrica 200 MG 1 capsule Orally Twice a day Active Mounjaro 5 MG/0.5ML as directed Subcutaneous Once a day Active Social History Tobacco Use: Social History Observation Description Date Details (start date - stop date) Never Smoker NA - NA Tobacco Use/Smoking Question Answer Notes Are you a nonsmoker Alcohol Screen (Audit-C) Question Answer Notes Did you have a drink containing alcohol in the p ast year? No Points 0 Interpretation Negative Problems Problem Type SNOMED Code ICD Code Onset Dates Problem Status W/U Status Risk Notes Problem Decreased libido (R68.82) Active confirmed Vital Signs Blood pressure systolic 138 mm Hg 12/10/19 24 Blood pressure diastolic 82 mm Hg 024 Height 64 in 12/10/2023 Weight 168 lbs 12/10/2023 BMI 28.83 kg/m2 12/10/2023 Encounters Encounter Location Date Provider Diagnosis [address] [address] 12/10/2023 ELIJAH BATES Encounter for gynecological examination (general) (routine) without abnormal findings Z01.419 ; Encounter for screening mammogram for malignant neoplasm of breast Z12.31 ; Menopausal and female climacteric states N95.1 ; Rectocele N81.6 and Decreased libido R68.82 Assessments Encounter Date Diagnosis (ICD Code) Assessment Notes Treatment Notes Treatment Clinical Notes Section Notes 12/10/2023 Encounter for gynecological examination (general) (routine) without abnormal findings (ICD-10 - Z01.419) During the visit, the following areas of concern were addressed: Discussed cervical cancer screening with either cytology alone every 3 years or high risk HPV co-testing every 5 years as per ASCCP guidelines. Advised continued annual pelvic exams. Patient encouraged to increase her level of exercise. SBE technique encouraged/taug ht. Patient reminded when annual mammogram is due. Patient encouraged to keep colon screening up to date. 12/10/2023 Encounter for screening mammogram for malignant neoplasm of breast (ICD-10 - Z12.31) 12/10/2023 Menopausal and female climacteric states (ICD-10 - N95.1) 12/10/2023 Rectocele (ICD-10 - N81.6) Refer to Urogyn for rectocele 12/10/2023 Decreased libido (ICD-10 - R68.82) She is not sexually active due to 's ED, but reports decreased libido. Discussed the biology of libido related to menopause, and also recommended the book 101 Nights of Great Sex Plan Of Treatment Medication Medication Name Sig Start Date Stop Date Notes Estradiol 0.06 MG/24HR 1 patch to skin T ransdermal weekly for 90 days 07/03/2022 Treatment Notes Assessment Notes Encounter for gynecological [...] to keep colon screening up to date. Rectocele Refer to Urogyn for rectocele Decreased libido She is not sexually active due to 's ED, but reports decreased libido. Discussed the biology of libido related to menopause, and also recommended the book 101 Nights of Great Sex Pending Test Test Name Order Date MM Digital Screening Mammogram 3D 2023 Next Appt Details Follow Up: 1 Year, Reason: Y early Instrument Tester Exam Provider Name:ELIJAH Gutierrez, 03/21/2025 03:30:00 PM, [address], [address], [place], [address], Progress Notes * KIANA SANTIZODOB:[birth year] (58 yo F)Acc No.[id number]:12/10/2023 PROGRESS NOTES Patient:?KIANA SANTIZO Provider:?ELIJAH BATES MD :1965???Age:58 Y???Sex:Female D ate:12/10/2023 Address:[address] [place] [address], [id number] Pcp:Jimmie Cross MD Subjective: * Chief Complaints: * ???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 ? She has been in state of good health since her last exam. She has the following concerns: decreased libido; also - rectocele, necessitating splinting with bowel movements - plans to see GI for her chronic constipation, but would like to see urogyn. ? She has received the Moderna Covid-19 vaccine. ? Relationship status: for 19 years, together for 34-35 yrs. She is not sexually active - due to 's ED. Sexual partner(s): male. She does not wish to have STI testing. ? She does report vaginal dryness - discussed Replenz. She does have hot flashes/night sweats - intermittent - has been off patches for the last couple of months - she'd like to go back on them. ? The patient has not had an abnormal pap smear within the last 5 years. Her most recent pap smear was 08/25/22 - ASCUS, + HR HPV, Neg HPV 16/18/45. Due for cotesting today. ? She has not been diagnosed with breast cancer. She does not have a family history of breast cancer. Her last mammogram was 03/23/23. ? She does not have a family history of colon cancer. She a has had a colonoscopy. The last colonoscopy was 2017. ? The patient does sometimes exercise. She goes to the gym 1-3 times weekly with a friend - strength training ? She reported last year that both her kids were very depressed, and Anshul had attempted suicide in the previous year. * ROS:?Annual Instrument Tester Exam ROS:?Bowel habit changes? admits,?chronic constipation.?Bladder symptoms?denies.?Vaginal discharge, unusual?denies.?Vaginal itch or odor?denies.?weight or appetite changes?denies.?Chest pains, SOB?denies.?depression?denies.?Breast:?Denies?Breast lump.?Denies?Nipple discharge.?Hematology:?Denies?Swollen glands.?Skin:?Patient denies?changing moles.?Psychiatric:?Denies?Anxiety.? * Medical History:? * Instrument Tester History:?/ Para?3/2.?Sexual activity?not currently sexually active.?Last Pap [...] female to male, Del, 7lb 10oz, no complications.?Full-term delivery?2.? * Surgical History:?gastric sl eeve 2018R-thyroidectomy 2012Laparoscopic Supracervical Hysterectomy 1999Tubal ligation 1992ORIF L-foot 2014Monarc sling 2009endometrial ablation 1998appendectomy 1982correction of bilateral curly toe deformity 1991 * Hospitalization/Major Diagno stic Procedure:?Allergic reaction to dog shampoo 2002 * Family History:?Mother: shara medel 81 yrs, alcoholic, rheumatoid arthritis, dementia, osteoporosis.?Father: 76 yrs, sepsis following GI surgery 2016.? Denies family history of breast, colon, uterine or ovarian cancers. * Social History:?Tobacco Use:?Tobacco Use/Smoking?Are you a?nonsmoker ???Sexual History:?Details of Sexual History?Are you sexually active??No ???Drugs/Alcohol:?Drugs?Have you used drugs other than those for medical reasons in the past 12 months??No ?Alcohol Screen (Audit-C)?Did you have a drink containing alcohol in the past year??No ?Points?0 ?Interpretation?Negative ???Miscellaneous:?Children: 2 (one biologic boy, one F2M transition). ?no Domestic violence. ?Exercise: none. ?Home smoke detector use: yes, smoke detectors, carbon monoxide detector. ?Housing: renting. ?Living with: spouse. ?Marital status: , Erik. 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 ?Others at home: none. ?Pets: none. ?no Sexual abuse. ?no Sexually active. ?no Travel outside of the [place]. ?no Verbal abuse. * Medications:?TakingMounjaro 5 MG/0.5ML Solution Pen-injector as directed Subcutaneous Once a dayLyrica 200 MG Capsule 1 capsule Orally Twice a dayFludrocortisone Acetate 0.1 MG Tablet 1 tablet Once a dayLinzess 290 MCG Capsule 1 capsule at least 30 minutes before the first meal of the day on an empty stomach Orally Once a dayIngrezza 80 MG Capsule 1 capsule Orally Once a dayDicyclomine HCl 10 MG Capsule 2 capsules Orally TWICE a daybuPROPion HCl ER (Smoking Det) 150 MG Tablet Extended Release 12 Hour 1 tablet in the morning Orally Once a dayTylenol , Notes: PRNBiotin 08494 MCG Tablet 1 tablet Orally Once a dayZyrTEC Allergy 10 MG Tablet 1 tablet Orally Once a dayLevothyroxine Sodium 125 MCG Tablet 1 tablet in the morning on an empty stomach Orally Once a dayDULoxetine HCl 60 MG Capsule Delayed Release Particles 1 capsule Orally Once a dayAmitriptyline HCl 100 MG Tablet Orally Atorvastatin Calcium 20 MG Tablet as directed Orally Once a day, Notes: 5 mg at bedtimecloNIDine HCl 0.1 MG Tablet Orally Ativan 1 MG Tablet 1 tablet at bedtime as needed Orally prn, Notes: PRNtraZODone HCl 100 MG Tablet 1 tablet at bedtime Orally Once a dayDiphenhydramine , Notes: PRNTaking Mounjaro 5 MG/0.5ML Solution Pen-injector as directed Subcutaneous Once a dayTaking Lyrica 200 MG Capsule 1 capsule Orally Twice a dayTaking Fludrocortisone Acetate 0.1 MG Tablet 1 tablet Once a dayTaking Linzess 290 MCG Capsule 1 capsule at least 30 minutes before the first meal of the day on an empty stomach Orally Once a dayTaking Ingrezza 80 MG Capsule 1 capsule Orally Once a dayTaking Dicyclomine HCl 10 MG Capsule 2 capsules Orally TWICE a dayTaking buPROPion HCl ER (Smoking Det) 150 MG Tablet Extended Release 12 Hour 1 tablet in the morning Orally Once a dayTaking Tylenol , Notes: PRNTaking Biotin 20704 MCG Tablet 1 tablet Orally Once a dayTaking ZyrTEC Allergy 10 MG Tablet 1 tablet Orally Once a dayTaking Levothyroxine Sodium 125 MCG Tablet 1 tablet in the morning on an empty stomach Orally Once a dayTaking DULoxetine HCl 60 MG Capsule Delayed Release Particles 1 capsule Orally Once a dayTaking Amitriptyline HCl 100 MG Tablet Orally Taking Atorvastatin Calcium 20 MG Tablet as directed Orally Once a day, Notes: 5 mg at bedtimeTaking cloNIDine HCl 0.1 MG Tablet Orally Taking Ativan 1 MG Tablet 1 tablet at bedtime as needed Orally prn, Notes: PRNTaking traZODone HCl 100 MG Tablet 1 tablet at bedtime Orally Once a dayTaking Diphenhydramine , Notes: PRNNot-TakingNaproxen Sodium 220 MG Tablet as directed Orally once a dayEstradiol 0.06 MG/24HR Patch Weekly 1 patch to skin Transdermal weeklyOpurity Abilify 5 MG Tablet 1 tablet Orally Once a dayMedication List reviewed and reconciled with the patientNot-Taking Naproxen Sodium 220 MG Tablet as directed Orally once a dayNot-Taking Estradiol 0.06 MG/24HR Patch Weekly 1 patch to skin Transdermal weeklyNot-Taking Opurity Not-Taking Abilify 5 MG Tablet 1 tablet Orally Once a dayMedication List reviewed and reconciled with the patient * Allergies:?IYP dye: anaphyla xisCefazolin: anaphylaxisPrednisone: severe headache/HTNPromethazine: hivesAbilify: tardive dyskinesia Objective: * Vitals:?Ht: 64 in, Wt:168 lb s, BMI:28.83 Index, BP:138/82 mm Hg. * Examination: ???General Examination: ?GENERAL APPEARANCE:?in no acute distress, well developed, well nourished, chemistry account manager present in room.?HEAD:?normocephalic, atraumatic.?NECK/THYROID:?neck supple, full range [...] (general) (routine) without abnormal findings - Z01.419 (Primary)?2.?Encounter for screening mammogram for malignant neoplasm of breast - Z12.31?3.?Menopausal and female climacteric states - N95.1?4.?Rectocele - N81.6?5.?Decreased libido - R68.82? Plan: * Treatment: ? Value Reference Range ?. . - * ?HPV Aptima Negative Negative - * VAGINAL/CERVICAL, S/P SUPRAC ERVICAL HYST 1999This lab was reviewed by ELIJAH BATES on 12/15/2023 at 16:00 PM EDT Notes: During the visit, the following areas of [...] to keep colon screening up to date. ??2.?Encounter for screening mammogram for malignant neoplasm of breast?Imaging: MM Digital Screening Mammogram 3D3.?Menopausal and female climacteric states? Refill Estradiol Patch Weekly, 0.06 MG/24HR, 1 patch to skin, Transdermal, weekly, 90 days, 12 Patch, Refills 4.??4.?Rectocele? Notes: Refer to Urogyn for rectocele??5.?Decreased libido? Notes: She is not sexually active due to 's ED, but reports decreased libido. Discussed the biology of libido related to menopause, and also recommended the book 101 Nights of Great Sex? * Procedure Codes:? * Preventive Medicine:?101 Nights of Great Sex - book Replenz - vaginal moisturizer. * Follow Up:?1 Year (Reason: Y early Instrument Tester Exam) * Images: Billing Information: * Visit Code:? 42287 Preventive Care Est Pt. Age 40-64. * Procedure Codes:? 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 She has been in state of good health since her last exam. She has the following concerns: decreased libido; also - rectocele, necessitating splinting with bowel movements - plans to see GI for her chronic constipation, but would like to see urogyn. She has received the Moderna Covid-19 vaccine. Relationship status: for 19 years, together for 34-35 yrs. She is not sexually active - due to 's ED. Sexual partner(s): male. She does not wish to have STI testing. She does report vaginal dryness - discussed Replenz. She does have hot flashes/night sweats - intermittent - has been off patches for the last couple of months - she'd like to go back on them. The patient has not had an abnormal pap smear within the last 5 years. Her most recent pap smear was 08/25/22 - ASCUS, + HR HPV, Neg HPV 16/18/45. Due for cotesting today. She has not been diagnosed with breast cancer. She does not have a family history of breast cancer. Her last mammogram was 03/23/23. She does not have a family history of colon cancer. She a has had a colonoscopy. The last colonoscopy was 2017. The patient does sometimes exercise. She goes to the gym 1-3 times weekly with a friend - strength training She reported last year that both her kids were very depressed, and Anshul had attempted suicide in the previous year. Examination Category Sub-Category Detail Notes Category Not es General Examination GENERAL APPEARANCE: in no ac [place] distress, well developed, well nourished, chemistry account manager present in room HEAD: normocephalic, atrau matic [...]
--- OUTSIDE RECORDS SUMMARY | 2025-01-30 11:25 | XMS_ITS | Clinical Summary ---
Author Organization [facility] Address [address] [place] [address] [address] [place] [address] Care Team Providers Care Child Caregiver Private Home Name Role Phone Unavailable Primary Care Provider Unavailabl e Allergies Active Allergy Reactions Criticality Noted Date Comments Cefazolin 10/23/2022 Ioversol 10/23/2022 Prednisone 10/23/2022 Promethazine 10/23/2022 Medications atorvastatin (Lipitor) 10 MG tablet Take 1 tablet by mouth at bed time. Active LORazepam (Ativan) 1 MG tablet Take 1 tablet by mouth every 8 (eight) hours. Active amitriptyline (Elavil) 100 MG tablet Take 100 mg by mouth. Active buPROPion XL (Wellbutrin XL) 150 MG 24 hr tablet Take 150 mg by mouth in the morning. 10/08/2022 Active chlorhexidine (Peridex) 0.12 % solution SWISH AND SPIT WITH 15 ML IN THE MORNING AND EVENING FOR 2 WEEKS 09/30/2022 Active cloNIDine (Catapres) 0.2 MG tablet Take 0.2 mg by mouth. Active dicyclomine (Bentyl) 10 MG capsule Take 10 mg by mouth 3 times daily. 10/09/2022 Active DULoxetine (Cymbalta) [address] capsule Take 120 mg by mouth. Active levothyroxine (Tirosint) 100 MCG capsule Take 1 capsule by mouth at bed time. 11/23/2013 Active Linzess 290 MCG capsule Take 290 mcg by mouth in the morning. 10/09/2022 Active traZODone (Desyrel) 100 MG tablet Take 100-200 mg by mouth at bedtime. 10/08/2022 Active Social History Tobacco Use Types Packs/Day Years Used Date Smoking Tobacco: Never Passive Smoke Exposure: Never Smokeless Tobacco: Never Alcohol Use Standard Drinks/Week Comments Never 0 (1 standard drink = 0.6 oz pur e alcohol) Comments Unknown Sex and Gender Information Value Date Recorded Sex Assigned at Female 07/21/2022 10:25 AM EDT Legal Sex Female 10:25 AM EDT Gender Identity Female 01/27/2023 8:10 AM EDT Sexual Orientation Straight 01/27/2023 8: 10 AM EDT Last Filed Vital Signs Vital Sign Reading Time Taken Comments Blood Pressure 123/74 01/28/2023 8:11 AM EDT Pulse 65 01/28/2023 8:11 AM EDT Temperature - - Respiratory Rate - - Oxygen Saturation - - Inhaled Oxygen Concentration - - Weight - - Height - - Body Mass Index - - Plan of Treatment Health Maintenance Due Date Last Done Comments CT Colonography 1964 Colonoscopy 1964 Colorectal Cancer Screening 1964 Depression Screening 1964 FIT DNA/Cologuard 1964 FIT 1964 FOBT 1964 HIV Screening 1964 Lipid Panel 1964 SDOH Screening 1965 Sigmoidoscopy 1964 Alcohol/Substance Use Screening 1976 Hepatitis C Screening 1982 Pap Smear 1985 Cervical Cancer Screening 1994 HPV/Cotest 1994 Mammogram 2004 Zoster Vaccines (1 of 2) 2014 Pneumococcal Vaccine: 50+ Years (2 of 2 - PCV) 09/09/2019 09/09/2018, 06/19/2015 Dental Oral Exam 06/06/2023 12/03/2022, 04/2019, 04/23/2018 Dental Prophylaxis 07/31/2023 01/27/2023, 10/28/2018 Dental X-Ray: Bitewings 12/05/2023 12/03/2022, 10/29 Tobacco Screening 04/07/2024 04/07/2023 COVID-19 Vaccine ( season) 2024 01/11/2021, 12/14/2020 Influenza Vaccine (#1) 2024 , 07/04/2021, 10/19/2017, Additional history exists Dental X-Ray: Full Mouth 12/04/2025 12/03/2022, 09/22 DTaP/Tdap/Td Vaccines (2 - Td or Tdap) 10/22/2027 10/22/2017 RSV Patients and Patients Aged 60 years or older (1 - 1-dose 75+ series) 12/10/2039 HIB Vaccines Aged Out No longer eligi ble based on patient's age to complete this topic HPV Vaccines Aged Out No longer eligi ble based on patient's age to complete this topic Hepatitis A Vaccines Aged Out No long er eligible based on patient's age to complete this topic Hepatitis B Vaccines Aged Out No long er eligible based on patient's age to complete this topic IPV Vaccines Aged Out No longer eligi ble based on patient's age to complete this topic Meningococcal Vaccine Aged Out No kae arminda eligible based on patient's age to complete this topic RSV under 20 months Aged Out No longe r eligible based on patient's age to complete this topic Rotavirus Vaccines Aged Out No longer eligible based on patient's age to complete this topic Procedures Procedure Name Priority Date/Time Associated Diagnosis Comments PROPHYLAXIS - ADULT Routine 01/27/2023 8 :00 AM EDT INTRAORAL - COMPLETE SERIES OF RADIOGRAPHIC IMAGES Routine 12/03/2022 8:00 AM EDT COMPREHENSIVE ORAL EVALUATION - NEW OR ESTABLISHED PATIENT Routine 12/03/2022 8:00 AM EDT from Last 3 Months or Most Recently Relevant to Health Maintenance Insurance [employer] [facility] [place]
--- OUTSIDE RECORDS SUMMARY | 2025-01-30 11:25 | XMS_ITS | Encounter Summary ---
Author Organization [facility] Address [address] [place] [address] [address] [place] [address] Care Team Providers Care Sas Bi Developer Name Role Phone Unavailable Primary Care Provider Unavailabl e Encounter Details Date Type Department Care Team (Latest Contact Info) Description 10/28/2018 Abstract [facility] CONVERSIONS Dental, Provider, DDS Social History Tobacco Use Types Packs/Day Years Used Date Smoking Tobacco: Never Assessed Comments Unknown Sex and Gender Information Value Date Recorded Sex Assigned at Female 07/21/2022 10:25 AM EDT Legal Sex Female 10:25 AM EDT Gender Identity Female 01/27/2023 8:10 AM EDT Sexual Orientation Straight 01/27/2023 8: 10 AM EDT documented as of this encounter Plan of Treatment Not on file documented as of this encounter Visit Diagnoses Not on filedocumented in this encounter
--- OUTSIDE RECORDS SUMMARY | 2025-01-30 11:26 | XMS_ITS ---
Author Organization [facility] Address [address] [facility] [address] [place] [address] Care Team Providers Care Machine Coil Assembler Name Role Phone Tay RAMON, Jimmie Primary Care Provider ELIJAH Constantino [phone] REASON FOR VISIT URO/BEE KEEPER REQUEST Encounters Encounter Location Date Provider Diagnosis [facility] [address] [place] [address] 12/10/2023 ELIJAH BATES Plan Of Treatment Next Appt Details Provider Name:ELIJAH Gutierrez, 03/21/2025 03:30:00 PM, [address] [facility], [address], [place], [address], Progress Notes * IBRAHIMA SANTIZODOB:[birth year] (58 yo F)Acc No.[id number]:12/10/2023 Patient:?IBRAHIMA SANTIZO :1965???Age:58 Y???Sex:Female Address:[address] [place] [address], [address] * true * Date:? Generated for Printi ng/Fatammig/eTransmitting on:?01/30/2025 11:25 AM EDT
[2025-02-17 13:18] VITALS: BMI 29.3
--- NOTE | 2025-02-20 11:10 | P.CONAN_ITS ---
Documented by User: Sara Leroy NP 02/20/25 11:12 HPI - Anesthesia Eval Consult details Narrative: 59yo F for Upper Endoscopy PMFSH Active Problems Active Problems: All Active Problems Greater trochanteric bursitis of both hips (Acute) Cervicalgia (Acute) Muscle spasm (Acute) Left shoulder pain (Acute) Cervical spondylosis (Acute) Sacroiliitis (Acute) Chronic pain syndrome (Acute) Orthostatic dizziness (Acute) Type 2 diabetes mellitus (Acute) Precordial chest pain (Acute) Dizziness (Acute) Fibromyalgia, primary (Acute) GERD (gastroesophageal reflux disease) (Acute) History of sleeve gastrectomy (Acute) Intestinal malabsorption following gastrectomy (Acute) Hyperlipidemia (Acute) Body mass index (BMI) of 24.0-24.9 in adult (Acute) Patellofemoral arthritis of left knee (Acute) Jerman-Danlos syndrome type III (Acute) Irritable bowel syndrome with constipation (Acute) Rectocele (Acute) Hypothyroid (Acute) Cubital tunnel syndrome on left (Acute) Osteochondritis dissecans of left hip (Acute) Varicose veins of right lower extremity with inflammation (Acute) Varicose veins of left lower extremity with inflammation (Acute) Sacroiliac dysfunction (Acute) Greater trochanteric bursitis of right hip (Acute) Leg pain (Acute) Obesity (BMI 30.0-34.9) (Acute) Abdominal bloating (Acute) Low back pain (Acute) RUQ abdominal pain (Acute) Past Medical History Medical History Orthostatic dizziness Type 2 diabetes mellitus Jerman-Danlos syndrome type III History of kidney stones Hypothyroidism Back pain Chronic constipation IBS (irritable colon syndrome) Insomnia Hyperlipidemia Anxiety Fibromyalgia Depression Family History Family History Father Liver disease Diabetes mellitus Hypertension Mother Hypertension Diabetes mellitus Arthritis Son Asthma Depression Anxiety Daughter Asthma Depression Migraines Chronic pain Anxiety Sister No problems noted. Brother Down's syndrome Hypothyroidism Surgical History Surgical History Hx of partial thyroidectomy Status post left foot surgery History of sleeve gastrectomy History of endometrial ablation Hx of toe surgery History of bladder suspension procedure Hx of hysterectomy Hx of tubal ligation Hx of appendectomy Social History Social History Alcohol intake: never Patient Tobacco Use Status: Never used Tobacco Second Hand Smoke Exposure: No Use of substances other than those prescribed or required for medical reasons: No Have you been hit, kicked, punched, or otherwise hurt by someone within the past year? 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Medication ?Instructions ?Recorded ?Confirmed ?Last Taken ?Type biotin 10,000 mcg capsule 10,000 mcg PO DAILY 09/10/20 02/21/25 Unknown History multivitamin with iron 1 tab PO DAILY 09/10/20 02/21/25 Unknown History amitriptyline 100 mg tablet 100 mg PO BEDTIME 12/23/22 02/21/25 Unknown History atorvastatin 20 mg tablet 20 mg PO DAILY 12/23/22 02/21/25 Unknown History bupropion HCl 150 mg 24 hr tablet, 150 mg PO QAM 12/23/22 02/21/25 Unknown History extended release duloxetine 60 mg capsule,delayed 60 mg PO QAM 12/23/22 02/21/25 Unknown History release lorazepam 1 mg tablet 1 mg PO TID PRN Anxiety 12/23/22 02/21/25 Unknown History valbenazine 80 mg capsule 80 mg PO DAILY 12/23/22 02/21/25 Unknown History (Ingrezza) loratadine 10 mg tablet 10 mg PO DAILY 03/01/24 02/21/25 Unknown History pregabalin 200 mg capsule 200 mg PO BID 03/01/24 02/21/25 Unknown History epinephrine 0.3 mg/0.3 mL 1 mg IM DAILY 10/03/24 02/21/25 Unknown History injection, auto-injector mirtazapine 7.5 mg tablet 7.5 mg PO BEDTIME 02/17/25 02/21/25 Unknown History Exam Height,Weight and Vital Signs: Height 5 ft 4 in Weight 77.564 kg Assessment and Plan Assessment Anesthesia Assessment: Chart Reviewed Documented by User: Elvira Mcfadden MD 02/21/25 13:41 PMFSH Active Problems Active Problems: All Active Problems Greater trochanteric bursitis of both hips (Acute) Cervicalgia (Acute) Muscle spasm (Acute) Left shoulder pain (Acute) Cervical spondylosis (Acute) Sacroiliitis (Acute) Chronic pain syndrome (Acute) Orthostatic dizziness (Acute) Type 2 diabetes mellitus (Acute) Precordial chest pain (Acute) Dizziness (Acute) Fibromyalgia, primary (Acute) GERD (gastroesophageal reflux disease) (Acute) History of sleeve gastrectomy (Acute) Intestinal malabsorption following gastrectomy (Acute) Hyperlipidemia (Acute) Body mass index (BMI) of 24.0-24.9 in adult (Acute) Patellofemoral arthritis of left knee (Acute) Jerman-Danlos syndrome type III (Acute) Irritable bowel syndrome with constipation (Acute) Rectocele (Acute) Hypothyroid (Acute) Cubital tunnel syndrome on left (Acute) Osteochondritis dissecans of left hip (Acute) Varicose veins of right lower extremity with inflammation (Acute) Varicose veins of left lower extremity with inflammation (Acute) Sacroiliac dysfunction (Acute) Greater trochanteric bursitis of right hip (Acute) Leg pain (Acute) Obesity (BMI 30.0-34.9) (Acute) Abdominal bloating (Acute) Low back pain (Acute) RUQ abdominal pain (Acute) Past Medical History Medical History Orthostatic dizziness Type 2 diabetes mellitus Jerman-Danlos syndrome type III History of kidney stones Hypothyroidism Back pain Chronic constipation IBS (irritable colon syndrome) Insomnia Hyperlipidemia Anxiety Fibromyalgia Depression Family History Family History Father Liver disease Diabetes mellitus Hypertension Mother Hypertension Diabetes mellitus Arthritis Son Asthma Depression Anxiety Daughter Asthma Depression Migraines Chronic pain Anxiety Sister No problems noted. Brother Down's syndrome Hypothyroidism Surgical History Surgical History Hx of partial thyroidectomy Status post left foot surgery History of sleeve gastrectomy History of endometrial ablation Hx of toe surgery History of bladder suspension procedure Hx of hysterectomy Hx of tubal ligation Hx of appendectomy History of Problems with Anesthesia: No Social History Social History Alcohol intake: never Patient Tobacco Use Status: Never used Tobacco Second Hand Smoke Exposure: No Use of substances other than those prescribed or required for medical reasons: No Have you been hit, kicked, punched, or otherwise hurt by someone within the past year? 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Medication ?Instructions ?Recorded ?Confirmed ?Last Taken ?Type biotin 10,000 mcg capsule 10,000 mcg PO DAILY 09/10/20 02/21/25 Unknown History multivitamin with iron 1 tab PO DAILY 09/10/20 02/21/25 Unknown History amitriptyline 100 mg tablet 100 mg PO BEDTIME 12/23/22 02/21/25 Unknown History atorvastatin 20 mg tablet 20 mg PO DAILY 12/23/22 02/21/25 Unknown History bupropion HCl 150 mg 24 hr tablet, 150 mg PO QAM 12/23/22 02/21/25 Unknown History extended release duloxetine 60 mg capsule,delayed 60 mg PO QAM 12/23/22 02/21/25 Unknown History release lorazepam 1 mg tablet 1 mg PO TID PRN Anxiety 12/23/22 02/21/25 Unknown History valbenazine 80 mg capsule 80 mg PO DAILY 12/23/22 02/21/25 Unknown History (Ingrezza) loratadine 10 mg tablet 10 mg PO DAILY 03/01/24 02/21/25 Unknown History pregabalin 200 mg capsule 200 mg PO BID 03/01/24 02/21/25 Unknown History epinephrine 0.3 mg/0.3 mL 1 mg IM DAILY 10/03/24 02/21/25 Unknown History injection, auto-injector mirtazapine 7.5 mg tablet 7.5 mg PO BEDTIME 02/17/25 02/21/25 Unknown History Exam Airway Mallampati Class: II TM Dist: >3cm Neck ROM: Full Loose/Missing/Broken Teeth: No Heart: RRR Lungs: CTA Assessment and Plan Assessment Anesthesia Assessment: Anesthesia Plan Discussed Final Anesthetic Review History of Problems with Anesthesia: No NPO: Yes ASA Class: II Final Preanesthetic Review: Meds/Allgs Chart Reviewed, Consent Obtained/Reviewed and Anes Risks/Benef Reviewed Patient Risk: Low Procedure Risk: Intermediate Anesthetic Plan Anesthetic Plan: MAC: Disposition: Standard PACU
[2025-02-21 13:21] VITALS: BMI 30.8
[2025-02-21 13:23] VITALS: BP 151/94; PULSE 88; RESP 18; TEMP 36.1; O2SAT 97
[2025-02-21] MEDS: Lactated Ringers 1,000 ML 80 ML IVCONT (13:24)
[2025-02-21 13:30] LABS: Glucose, Whole Blood 119 mg/dL (60-115)
--- NOTE | 2025-02-21 13:46 | MHC.SHP ---
Pre-Procedural Eval Section A - 24 Hr Update-Section A only Date of Service: 02/21/25 The patient is an INPATIENT: No The patient has been examined within 24 hours of the surgical procedure. The History & Physical has been completed within 30 days and I have reviewed it.: Yes Section B - Complete if H&P > 30 days Chief Complaint: Bariatric surgery status Details of Present Illness: Weight regain & GERD Relevant Family History (Specify if Yes): No Relevant Social History: None Present Medications: None Medical History: No relevant PMH History of Previous Operations: Relevant previous surgery/procedure and date(s) (Lap sleeve gastrectomy ) Allergies: Allergies Allergy/AdvReac Type Severity Reaction Status Date / Time promethazine [From PHENERGAN] Allergy Intermediate RASH Verified 02/17/25 08:56 cefazolin [CEFAZOLIN] Allergy Unknown ANAPHYLAXIS Verified 02/17/25 08:56 Iodinated Contrast Media Allergy Unknown ANAPHYLAXIS Verified 02/17/25 08:56 [IV Dye, Iodine Containing Contrast ] aripiprazole [From Abilify] AdvReac Severe tardive Verified 02/17/25 08:56 dyskinesia prednisone [PREDNISONE] AdvReac Unknown HYPERTENSION, Verified 02/17/25 08:56 high BP,headache DOG SHAMPOO Allergy Unknown ANAPHYLAXIS Uncoded 10/03/24 10:17 Review of Systems Sugical H&P ROS: Negative: Constitution, Cardiovascular, Respiratory, Neurological, Psychiatric, Hem-Onc, Allergic/Immunologic, Gastrointestinal, Genitourinary, Musculoskeletal, Integumentary, Endocrine and Eyes/Ears/Nose/Throat Exam Surgical H&P Exam: Normal: HEENT, Normal: Heart, Normal: Lungs, Normal: Extremities, Normal: Abdomen, Normal: Skin and Normal: Neurological Plan Diagnosis/Plan: Unchanged (EGD to assess etiology of GERD and the sleeve's anatomy. Risks of bleeding and perforation were discussed with the patient and she is in agreement with the plan.) I have reviewed the history and physical and performed a pertinent physical examination on my patient. No changes have occurred unless specified. Time Spent With Patient Time: Total time managing care of this patient today ____ minutes.
--- NOTE | 2025-02-21 13:48 | P.BOP_ITS ---
Brief Operative Note Date of Service: 02/21/25 Pre-op diagnosis: GERD and weight regain Post-op diagnosis: same Procedure: PROCEDURE DATE: 02/21/2025 PREOPERATIVE DIAGNOSIS: GERD, s/p sleeve gastrectomy POSTOPERATIVE DIAGNOSIS: ?Same as above. 1) Enlarged sleeve with extra fundal redundancy PROCEDURE: Lypompmc-[id number] with biopsies Surgeon: ?Memo Oliva M.D.. Ph.D. Shell Reprint Operator: None ? Anesthesia: IV sedation Estimated blood loss: ?Minimal FINDINGS AND PROCEDURE: ? OPERATIVE INDICATIONS: ?The patient is a 59 year old female known to me who underwent a laparoscopic sleeve gastrectomy by Dr. Watson. The patient had indequate weight loss so far and had a completely uneventful recovery.?She is also on medical treatment for GERD. Based on this information I recommended an upper endoscopy to evaluate the sleeve's anatomy. Risks and complications of the surgery were discussed with the patient in advance particularly the possibility of perforation or bleeding that may require surgical intervention. The patient understood the risks and was in agreement with the plan. ? PROCEDURE: After informed consent was obtained by the patient, the patient was ?transferred to the Operating Room and was placed in the supine position.? After successful induction of IV sedation, a mouth block was inserted and the patient was placed in the left lateral decubitus position. An upper endoscopy was performed next, the oropharynx and esophagus appeared within the normal limits. There was no hiatal hernia. The z-line was smooth. Two biopsies were obtained from the distal esophagus 2-3 cm proximal to the GE junction and two additional biopsies from the GE junction. The sleeve was entered. It was even in caliber by evenly enlarged throughout. There was no gastritis. There was no stricture or ulcer. Biopsies were obtained from the proximal sleeve as well as the gastric fundus and the antrum. No significant bleeding was noted from any of the biopsy sites. The scope could be retroflexed and confirmed the significant sleeve enlargement and some additional redundancy of the proximal fundus. The scope was then advanced into the duodenum which appeared to be normal as well. At that point the duodenum ?and the sleeve were decompressed and the scope was withdrawn from the patient's mouth. The patient extubated and was transferred in stable condition to the Recovery Room for further care. I was present and performed all steps of the procedure. There were no residents to assist with this case. Memo Oliva M.D., Ph.D. Surgeon: Garfield Oliva MD Anesthesia: MAC Was an Shell Reprint Operator used for this Procedure?: No Estimated blood loss (mL): 0 IV fluids (mL): 400 Urine output (mL): 0 (No Zuleta to record output) Pathology: other (1) antrum x1, 2) proximal sleeve/gastric fundus x1, 3) EGJ x2, 4) distal esophagus x2) Condition: stable Disposition: PACU
[2025-02-21 14:24] VITALS: BP 126/56; PULSE 70; RESP 16; TEMP 36.3; O2SAT 97
[2025-02-21 14:39] VITALS: BP 138/79; PULSE 81; RESP 16; TEMP 36.1; O2SAT 97
== END 2025-02-21 14:55 | disposition home or self-care (01) ==
PROVIDERS: PCP Nurse Practitioner Family; Visit Provider Surgery
PROC: 0DJ08ZZ Inspection of Upper Intestinal Tract, Via Natural or Artificial Opening Endoscopic (ICD-10-PCS; CPT 43235; principal; 2025-02-21 15:40)
DX: K95.89 Other complications of other bariatric procedure (principal); R63.5 Abnormal weight gain; Z68.29 Body mass index [BMI] 29.0-29.9, adult; Z98.84 Bariatric surgery status; Z90.3 Acquired absence of stomach [part of]; K21.9 Gastro-esophageal reflux disease without esophagitis; G47.33 Obstructive sleep apnea (adult) (pediatric); E78.5 Hyperlipidemia, unspecified; E11.9 Type 2 diabetes mellitus without complications; R42 Dizziness and giddiness; K58.1 Irritable bowel syndrome with constipation; Q79.69 Other Ehlers-Danlos syndromes; Z87.442 Personal history of urinary calculi; Z79.899 Other long term (current) drug therapy; Z88.8 Allergy status to other drugs, medicaments and biological substances; Z88.1 Allergy status to other antibiotic agents; Z98.890 Other specified postprocedural states; Z91.041 Radiographic dye allergy status
CPT/HCPCS: 43239; 82947; 88305; 88313; 88342; J2704

== ENCOUNTER → 2025-02-21 13:10 | Outpatient (BNV) | payer OTHER, SELFPAY | PROVIDERS: PCP Nurse Practitioner Family; Visit Provider Surgery | DX: K21.9 Gastro-esophageal reflux disease without esophagitis (principal); K95.89 Other complications of other bariatric procedure | CPT/HCPCS: 43239 ==

== ENCOUNTER 2025-03-02 12:36 | Outpatient (AMB) | payer OTHER, SELFPAY ==
--- NOTE | 2025-03-02 12:37 | MHC.OFFVIS ---
Vital Signs 03/02/25 12:43 Height 5 ft 4 in Weight 177 lb BMI 30.4 BP 146/66 H Blood Pressure Location Rt brachial Position Sitting Pulse 110 H Pulse Source Pulse Oximeter Pulse Oximetry (%) 97 Oxygen Delivery Method Room Air Intake Visit Reasons: GERD ibs-constipation Rectocele Intake Note: Established patient for mgmt of GERD, IBS, CIC, rectocele. LEOPOLDO 2023. CC; C.O constipation persistence despite current tx. Pt states that it has improved some but has not fully resolved. Pt wants to stay ahead of the issue as she has rectocele procedure next month and wants to ensure no complications. Hydroelectric Station Operator Chief Required: No Accompanied by: Self / Same As Patient Allergies promethazine [From PHENERGAN] Allergy (Intermediate, Verified 03/02/25 12:37) RASH cefazolin [CEFAZOLIN] Allergy (Unknown, Verified 03/02/25 12:37) ANAPHYLAXIS Iodinated Contrast Media [IV Dye, Iodine Containing Contrast ] Allergy (Unknown, Verified 03/02/25 12:37) ANAPHYLAXIS aripiprazole [From Abilify] Adverse Reaction (Severe, Verified 03/02/25 12:37) tardive dyskinesia prednisone [PREDNISONE] Adverse Reaction (Unknown, Verified 03/02/25 12:37) HYPERTENSION, high BP,headache DOG SHAMPOO Allergy (Unknown, Uncoded 03/02/25 12:37) ANAPHYLAXIS HPI HPI GERD ibs-constipation Rectocele: Details: Assessment & Plan (1) GERD (gastroesophageal reflux disease): Code(s): K21.9 - Gastro-esophageal reflux disease without esophagitis Category: Medical (2) Irritable bowel syndrome with constipation: Code(s): K58.1 - Irritable bowel syndrome with constipation Category: Medical (3) Rectocele: Code(s): N81.6 - Rectocele Category: Medical Plan She is ok if she continues on her Linzess, she ran out of it for a brief time because she was switching pharmacies but she did restart it. Obviously her constipation returned during this time. She has a new complicating factor of a rectocele it seems to be growing. This causes the stools to pool in the area and she has to usually manipulate the perirectal area to move her bowels which of course is extremely difficult. She wants a referral to a urogynecologist and she thinks we may have 1 here at [facility] but I am uncertain. As I can not pull this up in the computer all refer to gynecology instruct her to call them in find out if they do have someone that does this sort of surgery here. Her underground utility locator had referred [facility] of course but that would be more expensive. She continues on Linzess 290 micro g, she no longer takes her needs omeprazole with the restored bowel motility, she does utilize dicyclomine for cramping. Return office visit in 6 months Orders: Referrals TRUCK DRIVER TEAMSTER Referral N81.6 - Rectocele Medications: New dicyclomine 10 mg PO TID 90 caps 6RF Refilled linaclotide (Linzess) 290 mcg PO QAM 30 caps 6RF K58.1 - Irritable bowel syndrome with constipation sennosides (senna) 17.2 mg (2 x 8.6 mg) PO BEDTIME 60 caps 6RF constipation 30 days K58.1 - Irritable bowel syndrome with constipation TODAYS VISIT She is moving her bowels better with jamin Linzess, but still will have periods of rectal leakage - yet she also has incomplete evacuation. We discuss fiber, and she has, in fact found oatmeal helpful. But she still needs better balancing - so I will try to order Benefiber tablets to provide a better option for later in the day. SHe has not been taking the senna because it did not work well for her. She had to stop the bentyl r/t some ? cognitive/memory problems r/t anticholinergic effects. She did eventually see a urogynecologist at [facility] and she has upcoming surgery for her significant rectocele. ROV 6 mos. PFSH Medical History Orthostatic dizziness Type 2 diabetes mellitus Jerman-Danlos syndrome type III History of kidney stones Hypothyroidism Back pain Chronic constipation IBS (irritable colon syndrome) Insomnia Hyperlipidemia Anxiety Fibromyalgia Depression Surgical History Hx of partial thyroidectomy Status post left foot surgery History of sleeve gastrectomy History of endometrial ablation Hx of toe surgery History of bladder suspension procedure Hx of hysterectomy Hx of tubal ligation Hx of appendectomy Family History Father Liver disease Diabetes mellitus Hypertension Mother Hypertension Diabetes mellitus Arthritis Son Asthma Depression Anxiety Daughter Asthma Depression Migraines Chronic pain Anxiety Sister No problems noted. 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 Review of Systems Const Denies fatigue, Denies fever(s), Denies night sweats, Denies poor appetite and Denies weight loss Eyes Details: glasses Reports requires corrective lenses ENT Reports Normal hearing present, Denies dental pain, Denies dysphagia, Denies hearing loss, Denies mouth pain, Denies odynophagia, Denies throat swelling, Denies tongue swelling and Reports other (Dentition adequate) Card Reports no additional complaints Resp Reports no additional complaints GI Details: Rectal leakage Denies abdominal pain, Denies melena, Denies bloating, Denies hematochezia, Reports constipation, Denies GI cramping, Denies dysphagia, Denies excessive flatus, Denies early satiety, Reports heartburn, Denies diarrhea, Denies nausea, Denies odynophagia, Denies vomiting and Denies hematemesis Skin/Breast Denies pruritus, Denies lesions, Denies rash and Denies jaundice Neuro Reports Normal hearing present and Denies Abnormal speech present Endo Denies fatigue Aller/Immun Denies throat swelling and Denies tongue swelling Physical Exam Vital Signs: Last Vital Signs Pulse 110 H 03/02/25 12:43 BP 146/66 H 03/02/25 12:43 Pulse Ox 97 03/02/25 12:43 Oxygen Delivery Method Room Air 03/02/25 12:43 BMI result Body Mass Index 30.4 Const General: cooperative, no acute distress, well developed and well groomed Nutritional Appearance: well nourished and overweight Orientation/consciousness: oriented to person, oriented to place and oriented to time Limitations: No language barrier HEENT Head: Yes normocephalic and Yes atraumatic Eyes General: appearance normal, both eyes and all related structures Pupils: Equal, round and reactive pupils present Neck Neck: Yes normal visual inspection and Yes no lymphadenopathy Thyroid: Thyroid normal Resp Effort & Inspection: normal respiratory effort and able to speak in complete sentences Auscultation: clear to auscultation bilaterally Cardio Rate: regular rate Rhythm: regular rhythm Heart sounds: Normal, physiologic split S2 sound present Peripheral pulses: radial pulses present and posterior tibial pulses present GI Inspection: No distended, No Abdominal panniculus present and Yes obesity Palpation (GI): Soft to palpation, nontender, no guarding, not rigid and No hepatosplenomegaly present Percussion: Yes normal to percussion Auscultation: normal bowel sounds Rectal Exam - Female: deferred Skin General skin exam: no rashes or lesions noted, turgor normal, skin not dry, no jaundice, No spider nevi and no striae Rashes: no rashes Nails: normal Neuro General: oriented to person, oriented to place and oriented to time Cranial nerves: Yes Equal, round and reactive pupils present and Yes Normal hearing present Speech: No Abnormal speech present Extrem General: Yes normal to inspection, No clubbing, No cyanosis and No edema Psych Appearance: grossly normal and well kempt Mental Status: mental status grossly normal Speech and movement: Normal speech and movement present Affect: normal affect Attitude: cooperative Thought process: Normal thought process present and not confabulating Thought content: Normal thought content present Insight: Fair insight present (Psych) Judgement: Fair judgement present (Psych) Assessment & Plan Assessment & Plan (1) Irritable bowel syndrome with constipation: Code(s): K58.1 - Irritable bowel syndrome with constipation Category: Medical Plan She is moving her bowels better with jamin Linzess, but still will have periods of rectal leakage - yet she also has incomplete evacuation. We discuss fiber, and she has, in fact found oatmeal helpful. But she still needs better balancing - so I will try to order Benefiber tablets to provide a better option for later in the day. SHe has not been taking the senna because it did not work well for her. SHe had to stop the bentyl r/t some ? cognitive/memory problems r/t anticholinergic effects. She did eventually see a urogynecologist at [facility] and she has upcomign surgery for her significant rectocele. ROV 6 mos. Medications: New wheat dextrin (Benefiber (wheat dextrin)) 2 grams (2 x 1 gram) PO DAILY 60 tabs 12RF K58.1 - Irritable bowel syndrome with constipation Refilled linaclotide (Linzess) 290 mcg PO QAM 30 caps 6RF K58.1 - Irritable bowel syndrome with constipation Discontinued dicyclomine Discontinued Reason: Doctor's Order 10 mg PO TID 90 caps 6RF Coding Level of Care Code Est Pt Level 3 (47847) Diagnoses Irritable bowel syndrome with constipation K58.1
[2025-03-02 12:43] VITALS: BP 146/66; PULSE 110; O2SAT 97; BMI 30.4
--- OUTSIDE RECORDS SUMMARY | 2025-03-02 14:28 | XMS_ITS | Clinical Summary ---
Author Organization [employer] Address [address] [place] [address] [address] [place] [address] Care Team Providers Care Chemicals Fermentation Operator Name Role Phone Unavailable Primary Care Provider [...] ( season) 2024 01/11/2021, 12/14/2020 Influenza Vaccine (Season Ended) 2025 07/04/2021, 07/04/2021, 10/19/2017, Additional history exists Dental X-Ray: [...] Most Recently Relevant to Health Maintenance Insurance [facility]
== END 2025-03-02 15:06 | disposition home or self-care (01) ==
LOC: HO.HGI 12:36
PROVIDERS: PCP Nurse Practitioner Family; Visit Provider Nurse Practitioner
DX: K58.1 Irritable bowel syndrome with constipation (principal)
CPT/HCPCS: 99213

== ENCOUNTER 2025-03-07 08:17 | Outpatient (REF) | payer OTHER, SELFPAY ==
--- OUTSIDE RECORDS SUMMARY | 2025-03-07 08:25 | XMS_ITS | Clinical Summary ---
Author Organization [employer] Address [address] [place] [address] [address] [place] [address] Care Team Providers Care Block Breaker Name Role Phone Unavailable Primary Care Provider [...] Most Recently Relevant to Health Maintenance Insurance [facility]
[2025-03-07 08:39] LABS: MANUAL DIFF FLAG NO
[2025-03-07 09:29] LABS: Basophils Absolute Auto 0.1 X10*3/uL (0.0-0.2); Basophils Percent Auto 0.7 % (0-2); Eosinophils Absolute Auto 0.1 X10*3/uL (0.0-0.4); Eosinophils Percent Auto 1.5 % (0-4); Hematocrit 38.3 % (37.0-47.0); Hemoglobin 13.2 g/dl (12.0-16.0); Imm Gran Abs Auto 0.05 X10*3/uL (0.00-0.03); Imm Gran Pct Auto 0.7 % (0.0-0.4); Lymphocytes Absolute Auto 2.2 X10*3/uL (1.2-4.9); Lymphocytes Percent Auto 29.3 % (20-40); Mean Corpuscular HGB Conc 34.5 g/dl (31.0-35.0); Mean Corpuscular Hemoglobin 30.7 pg (27.0-33.0); Mean Corpuscular Volume 89.1 fL (80.0-98.0); Mean Platelet Volume 9.8 fL (9.4-12.3); Monocytes Absolute Auto 0.5 X10*3/uL (0.1-1.2); Monocytes Percent Auto 7.1 % (2-11); Neutrophils Absolute Auto 4.6 x10*3/uL (2.0-8.3); Neutrophils Percent Auto 60.7 % (45-73); Platelet Count 278 X10*3/uL (160-400); Red Cell Distribution Width 13.2 % (11.0-16.0); White Blood Count 7.5 X10*3/uL (4.8-10.8)
[2025-03-07 09:47] LABS: Estimated Average Glucose 134 mg/dL; Hemoglobin A1C 162.6584 umol/L; Hemoglobin A1c % 6.3 % (<6.0)
[2025-03-07 10:05] LABS: Alanine Aminotransferase 53 U/L (0-31); Albumin Level 4.5 g/dL (3.5-5.0); Alkaline Phosphatase 138 U/L (39-117); Anion Gap 10 (12-20); Aspartate Amino Transferase 34 U/L (5-31); Bilirubin Total 0.7 mg/dL (0.0-1.0); Blood Urea Nitrogen 15 mg/dL (9-16); C Reactive Protein 0.22 mg/dL (< or = 0.50); Calcium 9.1 mg/dL (8.4-10.2); Carbon Dioxide 29 mmol/L (22-29); Chloride 107 mmol/L (96-108); Cholesterol 203 mg/dL (<200); Estimated Glomerular Filt Rate > 60; Glucose Random 120 mg/dL (60-115); HDL Cholesterol 61 mg/dL (>40); Iron 151 mcg/dL (30-160); LDL Cholesterol Calculated 98 mg/dL (<100); Percent Iron Saturation 46 % (15-50); Potassium 3.9 mmol/L (3.3-5.1); Sodium 142 mmol/L (135-145); Total Iron Binding Capacity 329 mcg/dL (228-428); Total Protein 7.1 g/dL (6.5-8.0); Triglycerides 221 mg/dL (<150); Unsaturated Iron Binding 178 ug/dL
[2025-03-07 10:29] LABS: Folate 14.1 ng/mL (> or = 4.0); Vitamin B12 818 pg/mL (200-900)
[2025-03-07 10:36] LABS: Ferritin 132 ng/mL (10-250); Insulin 15 uU/mL (2-29); TSH reflex Free T4 1.18 uIU/mL (0.32-4.0); Vitamin D 25-OH Total 47.4 ng/mL (>30)
[2025-03-09 20:15] LABS: Zinc 84 mcg/dL (60-130)
[2025-03-10 19:34] LABS: Vitamin A 99 mcg/dL (38-98)
[2025-03-12 13:03] LABS: Vitamin B1 42 nmol/L (8-30)
== END 2025-03-07 08:18 | disposition home or self-care (01) ==
LOC: HO.LAB 08:17
PROVIDERS: PCP Nurse Practitioner Family; Visit Provider Physician Assistant Surgical
DX: Z90.3 Acquired absence of stomach [part of] (principal); E78.5 Hyperlipidemia, unspecified; E03.9 Hypothyroidism, unspecified; Z93.0 Tracheostomy status
CPT/HCPCS: 36415; 80053; 80061; 82306; 82607; 82728; 82746; 83036; 83525; 83540; 84425; 84443; 84590; 84630; 85025; 86140

== ENCOUNTER 2025-03-10 07:59 | Outpatient (AMB) | payer OTHER, SELFPAY ==
--- OUTSIDE RECORDS SUMMARY | 2025-03-10 08:03 | XMS_ITS | Clinical Summary ---
Author Organization [employer] Address [address] [place] [address] [address] [place] [address] Care Team Providers Care Woods Manager Name Role Phone Unavailable Primary Care Provider [...] Most Recently Relevant to Health Maintenance Insurance [facility]
--- NOTE | 2025-03-10 09:19 | MHC.OFFVISWM ---
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 BMI 31.1 Allergies promethazine (From PHENERGAN) Allergy (Intermediate, Verified 03/10/25 09:19) RASH cefazolin (CEFAZOLIN) Allergy (Unknown, Verified 03/10/25 09:19) ANAPHYLAXIS Iodinated Contrast Media (IV Dye, Iodine Containing Contrast ) Allergy (Unknown, Verified 03/10/25 09:19) ANAPHYLAXIS aripiprazole (From Abilify) Adverse Reaction (Severe, Verified 03/10/25 09:19) tardive dyskinesia prednisone (PREDNISONE) Adverse Reaction (Unknown, Verified 03/10/25 09:19) HYPERTENSION, high BP,headache DOG SHAMPOO Allergy (Unknown, Uncoded 03/10/25 09:19) ANAPHYLAXIS Medication List - Last Reconciled 03/10/25 by Garfield Oliva MD acetaminophen 1,000 mg (2 x 500 mg) PO Q6H PRN amitriptyline 100 mg PO BEDTIME atorvastatin 20 mg PO DAILY biotin 10,000 mcg PO DAILY bupropion HCl XL 150 mg PO QAM duloxetine 60 mg PO QAM epinephrine 1 mg IM DAILY fludrocortisone 0.1 mg PO DAILY levothyroxine 125 mcg PO DAILY linaclotide (Linzess) 290 mcg PO QAM loratadine 10 mg PO DAILY lorazepam 1 mg PO TID PRN mirtazapine 15 mg PO BEDTIME multivitamin with iron 1 tab PO DAILY pregabalin 200 mg PO BID tizanidine 2 mg PO TID PRN 30 days valbenazine (Ingrezza) 80 mg PO DAILY wheat dextrin (Benefiber (wheat dextrin)) 2 grams (2 x 1 gram) PO DAILY HPI Comments Details: Previous weight loss efforts: LSG pre-LSlbs, lowest: 130lbs), Mounjaro (lost 25lbs, stopped as Hba1c was normal and regained) Wakes up: 6.45am, Sleeps: 10.30pm Breakfast: 7am (oatmeal) Lunch 12pm (Cafeteria) Dinner: 7pm (protein, vegetables, potatoes, rice) Snacks: 3-4pm (watermelon, melon) Exercise: none, gym membership: 2-3/wk Beverages: Coffee (1 cup/d with creamer), tea: none, soda: none, juice: none, ETOH: none PFSH Medical History (Updated 03/10/25 @ 09:29 by Garfield Oliva MD) Anxiety Obstructive sleep apnea on CPAP Obesity Orthostatic dizziness Type 2 diabetes mellitus Jerman-Danlos syndrome type III History of kidney stones Hypothyroidism Back pain Chronic constipation IBS (irritable colon syndrome) Insomnia Hyperlipidemia Fibromyalgia Depression Surgical History Hx of partial thyroidectomy Status post left foot surgery History of sleeve gastrectomy History of endometrial ablation Hx of toe surgery History of bladder suspension procedure Hx of hysterectomy Hx of tubal ligation Hx of appendectomy Family History Father Liver disease Diabetes mellitus Hypertension Mother Hypertension Diabetes mellitus Arthritis Son Asthma Depression Anxiety Daughter Asthma Depression Migraines Chronic pain Anxiety Sister No problems noted. 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 Plan for lap sleeve gastrectomy revision. If diaphragmatic or ventral hernias are present at time of surgery, these will be repaired laparoscopically as well. I emphasized the importance of close follow-up, adherence to instructions and good communication. The surgery does not replace the need to change your lifestlyle which is the cause of the obesity problem. The surgery provides the motivation to try again to change your lifestyle, it reduces the appetite and make the transition to a better lifestyle easier and doubles the amount of weight you would lose compared to doing the lifestyle change without the surgery. You will need to be on a liquid diet with protein shakes for 2 weeks before surgery to maximize weight loss and boost your nutritional status to recover better from surgery and also for the first two weeks after surgery to let the stomach heal before we introduce other foods. After the first 2 weeks we will introduce protein bars and soft foods like scrambled eggs, cottage cheese and yogurt and after the 6th week will introduce meat, fish and cooked vegetables in small amounts. Over time you should be able to eat everything in small amounts. Side effects like nausea, vomiting, heartburn or abdominal pain are not common in the practice unless you are not following in the practice. This operation requires lifetime commitment to following in our practice and communication with me. You will much less weight and experience side effects if you don?t communicate or not following in the practice. Complications are rare and in our practice is about 1/10 of the national average. However, you can develop bleeding that may require transfusion (hasn?t happened for year in the practice), you may from complications (we did not have any deaths in the practice) and infections. Infections are usually a result of breakdown in communication or not understanding or following directions correctly. They are difficult to treat, they can happen during the first 6 weeks, they may require to be in the hospital for weeks or even months, not being able to eat by mouth and you may have drains and surgeries to try and correct the issue. Other risks and complications include possible conversion to an open procedure, leaks, small bowel obstruction, blood clots, cardiac, or pulmonary complications, as correction complications such as ulcers, insufficient weight loss and vitamin deficiencies. 2. Nutritional counseling. Start with one ORGAIN protein shake (ONE scoop in 8oz low fat unsweetened almond milk each) at 8am-10am, two Fit Crunch protein bars at 11am-1pm and 2pm-4pm, dinner at 5pm (6 forks of protein and 6 forks of salad/vegetables) AND one more Orgain protein shake (ONE scoop in 8oz almond milk) at 7pm-9pm. If hungry, you can have another HALF Fit Crunch bar at 9pm-10pm So you do 2 protein shakes, 2 to 2.5 protein bars and one meal per day. Meal to include lean meat (beef, fish, pork, turkey, chicken), or georgian yogurt, or egg whites, or beans with a salad with olive oil and fruits (berries, pears, apples, kiwi). Avoid salt, breads, potatoes, rice, pasta, desserts. 3. Each shake would be drunk slowly, like coffee in a period of 2 hours. 4. Cut each bar in 4 pieces and eat each piece in 30min ?to make each bar last 2 hours. 5. I emphasized the importance of measuring accurately the food portion and measure it when serving the food in plate 6. The meal portions include 6 full-size forks of meat and 6 full-size forks of salad. You always eat the meat portion but you can replace up to 3 forks for salad/vegetables with rice, potatoes or pasta, or a fruit ?if you like. The less you do it the better weight loss will be. 7. One full-size fork is what it can be scooped on the fork without falling aside and not what can be bit with the fork. Use regular forks like those you find in a typical restaurant. 8.? Please buy the body composition scale we discussed and send me weight measurements as soon as possible and then once a week. Always include your diet and exercise plan. 9. Start stationary bike at a resistance level of 4.0 Increase level by 1.0 every 3 min to a max level of 10.0. Stay at this level for 3 min and then return to level 4.0 and repeat same steps until 300 calories are burned. Velocity target is 12mph and heart rate is 145 bpm. Goal is to burn 2000 calories per week on exercise 10. The best choice would be to purchase a stationary bike at home that can track calories. Let me know if you do so I can give you an exercise plan. 11. Goal is to lose at least 1.5-2lbs per week 12. Goal to lose 10% of your weight before surgery, which is about 26lbs. Ultimate weight goal: 240lbs before surgery 13. Please follow the diet plan exactly without any change. If you don't like something about the plan or you feel hungry you need to communicate with me so I can help you revise the plan. You should not change the plan yourself
== END 2025-03-10 10:02 | disposition home or self-care (01) ==
LOC: HO.HBS 07:59
PROVIDERS: PCP Nurse Practitioner Family; Visit Provider Surgery
DX: E66.9 Obesity, unspecified (principal)
CPT/HCPCS: 99215

== ENCOUNTER 2025-03-31 06:55 | Outpatient (REF) | payer OTHER, SELFPAY ==
--- OUTSIDE RECORDS SUMMARY | 2025-03-21 11:30 | XMS_ITS ---
Author Organization [employer] [facility] Address [address] [address] Care Team Providers Care Property Adjuster Name Role Phone Jimmie Cross MD Primary Care Provider ELIJAH Constantino Unavailable [phone] REASON FOR VISIT Annual RESIDENTIAL LEASING MANAGER Physical Encounters Encounter Location Date Provider Diagnosis [facility] [address] [place] [id number] 03/21/2025 ELIJAH BATES Encounter for gynecological examination (general) (routine) without abnormal findings Z01.419 ; Encounter for screening mammogram for malignant neoplasm of breast Z12.31 and Encounter for screening for infections with a predominantly sexual mode of transmission Z11.3 Assessments Encounter Date Diagnosis (ICD Code) Assessment Notes Treatment Notes Treatment Clinical Notes Section Notes 03/21/2025 Encounter for gynecological examination (general) (routine) without [...] to keep colon screening up to date. 03/21/2025 Encounter for screening mammogram for malignant neoplasm of breast (ICD-10 - Z12.31) 03/21/2025 Encounter for screening for infections with a [...] Follow Up: 1 Year, Reason: Y early Chair Post Machine Operator Exam Progress Notes * MELISSA KIANA WILLIAMSONDOB:[birth year] (59 yo F)Acc No.[id number]:03/21/2025 PROGRESS NOTES Patient: Avi PAYAN TERI KIANA Provider: Karin BATES MD :1965 A ge:59 Y S ex:Female Date:03/21/2025 Address:[address] [place] [address] Pcp:Jimmie Cross MD Subjective: * Chief Complaints: * 1 . Annual RESIDENTIAL LEASING MANAGER Physical. * HPI: C onstitutional: Karin sarkar is a 59yo s/p supracervical hysterectomy in 1998 who presents for her yearly valve steamer exam. She has been in state of [...] - strength training. * ROS: A nnual Chair Post Machine Operator Exam ROS: Bowel habit changes d enies. [...] sychiatric: Denies A nxiety. * Medical History: Objective: * Vitals: * Examination: G eneral Examination: GENERAL APPEARANCE: i n no acute distress, well developed, well nourished, earth science teacher present in room. HEAD: n ormocephalic, atraumatic. [...] is not tender to palpation, uterus is normal size, mobile, nontender and anteverted, ovaries are not palpable. NEUROLOGIC: alert and [...] * Follow Up: 1 Year (Reason: Yearly Chair Post Machine Operator Exam) * Images: Billing Information: * Visit Code: 70572 Preventive Care Est Pt. Age 40-64. 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 She has been in state of [...] weekly with a friend - strength training. Examination Category Sub-Category Detail Notes Category Not es General Examination GENERAL APPEARANCE: in no ac favio distress, well developed, well nourished, earth science teacher present in room HEAD: normocephalic, atrau matic [...] is not tender to palpation, uterus is normal size, mobile, nontender and anteverted, ovaries are not palpable
--- OUTSIDE RECORDS SUMMARY | 2025-04-03 06:57 | XMS_ITS | Clinical Summary ---
Author Organization [employer] Address [address] [place] [address] [address] [place] [address] Care Team Providers Care Strip Picker Name Role Phone Unavailable Primary Care Provider [...] season) 2024 01/11/2021, 12/14/2020 Influenza Vaccine (#1) 2025 , 07/04/2021, 10/19/2017, Additional history exists Dental [...] Most Recently Relevant to Health Maintenance Insurance [facility]
--- OUTSIDE RECORDS SUMMARY | 2025-04-03 06:58 | XMS_ITS | Referral Summary ---
Demographics Address [address] [place] [address] Home Phone Mobile Phone Preferred Language Cambodian Marital Status Quaker Affiliation Unknown Race White Ethnic Group Unknown Author Organization [facility] Address [address] [place] [address] Support Name Relationship Address Phone Rev Baker Emergency Contact [address] [place] [address] Erik Cobb Spouse [address] [place] [address] Care Team Providers Care Dealer Accounts Investigator Name Role Phone Lexi Dukes Anitha Primary Care Provider Allergies Active Allergy Reactions [...] by mouth nightly. 30 capsule 2 12/21/2024 03/21/20 25 Social History Tobacco Use Types Packs/Day Years [...] 81 12/21/2024 1:43 PM EDT Temperature 36.2 C (97.2 F) 12/21/2024 1:29 PM EDT Respiratory Rate 18 12/21/2024 1:29 PM EDT Oxygen Saturation - - Inhaled Oxygen Concentration - - Weight 79.5 kg (175 lb 3.2 oz) 12/21/2024 1:29 P M EDT Height - - Body Mass Index - - Plan of Treatment Upcoming Encounters Date Type Department Care Team (Late st Contact Info) Description 07/19/2025 2:45 PM EDT Telehealth [facility] [address] [place] [id number] Arun Morgan MD [address] [place] [address] [place] [address] Insurance * Guarantor: Kiana Fournier Account Type Relation to Patient Date of Phone Billing Address Personal/Family Self 1965 [address] [place] [address] [employer] Care Teams Dealer Accounts Investigator Relationship Specialty Start Date End Date Lexi Dukes [address] [place] [phone] PCP - General 12/07/24
== END 2025-03-31 06:56 | disposition home or self-care (01) ==
LOC: HO.HOSX 06:55
PROVIDERS: Visit Provider Physician Assistant
DX: Z13.89 Encounter for screening for other disorder (principal)

== ENCOUNTER 2025-04-06 09:22 | Outpatient (AMB) | payer OTHER, SELFPAY ==
--- OUTSIDE RECORDS SUMMARY | 2025-03-21 11:30 | XMS_ITS ---
Author Organization [employer] [facility] Address [address] [address] Care Team Providers Care Caravan Park And Camping Ground Manager Name Role Phone Jimmie Cross MD Primary Care Provider ELIJAH Constantino Unavailable [phone] REASON FOR VISIT Annual ADVERTISING WRITER Physical Encounters Encounter Location Date Provider Diagnosis [facility] [employer] [address] [place] [phone] 03/21/2025 ELIJAH BATES Encounter for gynecological examination [...] Follow Up: 1 Year, Reason: Y early Distance Education Coordinator Exam Progress Notes * MELISSA KIANA WILLIAMSONDOB:[birth year] (59 yo F)Acc No.[id number]:03/21/2025 PROGRESS NOTES Patient: Avi PAYAN TERI KIANA Provider: Karin BATES MD :1965 A ge:59 Y S ex:Female Date:03/21/2025 Address:[address] [place] [address] Pcp:Jimmie Cross MD Subjective: * Chief Complaints: * 1 . Annual ADVERTISING WRITER Physical. * HPI: C onstitutional: Karin sarkar is a 59yo s/p supracervical hysterectomy in 1998 who presents for her yearly hand tennis ball coverer exam. She has been in state of [...] - strength training. * ROS: A nnual Distance Education Coordinator Exam ROS: Bowel habit changes d enies. [...] no acute distress, well developed, well nourished, coal crusher operator present in room. HEAD: n ormocephalic, atraumatic. [...] * Follow Up: 1 Year (Reason: Yearly Distance Education Coordinator Exam) * Images: Billing Information: * Visit Code: 00340 Preventive Care Est Pt. Age 40-64. * Procedure Codes: * Electronic signature of ELIJAH BATES MD on 04/06/2025 at 09:40 AM EDT Sign off status: Pending * Provider: Karin BATES MD Date: 03/21/2025 Generated for Jenai gabo/Haydee/eTransmitting on: 04/06/2025 09:40 AM EDT History and Physical Notes * HPI (History of Present Illness) Category Sub-Category Detail Notes Category Not es Constitutional Kiana is a 59yo s/p supracervical hysterectomy in 1998 who presents for her yearly hand tennis ball coverer exam. She has been in state of [...] ac favio distress, well developed, well nourished, coal crusher operator present in room HEAD: normocephalic, atrau matic [...]
--- OUTSIDE RECORDS SUMMARY | 2025-04-06 09:40 | XMS_ITS | Referral Summary ---
Demographics Address [address] [place] [address] Home Phone Mobile Phone Preferred Language Ecuadorean Marital Status Muslim Affiliation Unknown Race White Ethnic Group Unknown Author Organization [facility] Address [address] [place] [address] Support Name Relationship Address Phone Rev Baker Emergency Contact [address] [place] [address] Erik Cobb Spouse [address] [place] [address] Care Team Providers Care Dip Tanker Name Role Phone Lexi Dukes Anitha Primary Care Provider [phone] Allergies Active Allergy Reactions Criticality Noted Date [...] Info) Description 07/19/2025 2:45 PM EDT Telehealth [facility] [address] [place] [phone] rAun Morgan MD [address] [place] [address] [place] [address] Insurance * Guarantor: Kiana Fournier Account Type Relation to Patient Date of Phone Billing Address Personal/Family Self 1965 [address] [place] [address] [employer] Care Teams Dip Tanker Relationship Specialty Start Date End Date Lexi Dukes [address] [place] [phone] PCP - General 12/07/24
--- OUTSIDE RECORDS SUMMARY | 2025-04-06 09:40 | XMS_ITS | Clinical Summary ---
Author Organization [employer] Address [address] [place] [address] 7[address] [place] [address] Care Team Providers Care Rice Farmworker Name Role Phone Unavailable Primary Care Provider [...] Most Recently Relevant to Health Maintenance Insurance [facility]
--- NOTE | 2025-04-06 09:41 | A.OFFVIS_ITS ---
Vital Signs 04/06/25 09:45 Height 5 ft 4 in Weight 179 lb 4 oz BMI 30.8 BP 134/61 Blood Pressure Location Lt brachial Position Sitting Pulse 94 Pulse Source Pulse Oximeter Pulse Oximetry (%) 100 Oxygen Delivery Method Room Air Intake Visit Reasons: PROCEDURE DISCUSSION Intake Note: Pain today 0/10 Desk Operator Required: No Accompanied by: Self / Same As Patient Allergies promethazine (From PHENERGAN) Allergy (Intermediate, Verified 04/06/25 09:46) RASH cefazolin (CEFAZOLIN) Allergy (Unknown, Verified 04/06/25 09:46) ANAPHYLAXIS Iodinated Contrast Media (IV Dye, Iodine Containing Contrast ) Allergy (Unknown, Verified 04/06/25 09:46) ANAPHYLAXIS aripiprazole (From Abilify) Adverse Reaction (Severe, Verified 04/06/25 09:46) tardive dyskinesia prednisone (PREDNISONE) Adverse Reaction (Unknown, Verified 04/06/25 09:46) HYPERTENSION, high BP,headache DOG SHAMPOO Allergy (Unknown, Uncoded 03/10/25 09:19) ANAPHYLAXIS HPI Comments Details: The patient is a 59-year-old female presenting for follow up for persistent chronic neck pain due to cervical spondylosis. She had a positive response to two sets of cervical medial branch blocks last year, achieving complete pain relief for nearly a day on two occasions. The patient reports neck pain with stiffness and muscle spasms, which are alleviated by oxycodone. She recently underwent rectocele repair surgery two days ago and reports no fever or infection following the procedure and was prescribed oxycodone which also provides temporary relief for neck pain. We were planning for cervical medial branch RFA last year but due to insurance changes, patient had to hold off on procedure. She is interested to proceed with RFA procedure as her insurance concerns have been resolved. Denies any recent cough, cold, infection, fever or any other significant changes in medical history since last office visit. - Onset: Chronic neck pain with stiffness and muscle spasms. - Quality: Stiffness and spasms in the neck region. Constant aching, sharp, dull, and - Relief: Pain alleviated by oxycodone; also has been taking Tylenol and tizanidine prn. - Affect: Pain affects daily activities, movements, work and home chores, sleep and mood. - Analgesia: Oxycodone and tizanidine provides relief from neck pain and muscle spasms. - Adverse Effects: No adverse effects from oxycodone reported. - Activities of Daily Living: Movements, driving, computer work, reading, work and home chores. - Aberrant Drug Related Behaviors: No aberrant behaviors reported. PRIOR 03/07/24: Patient presents today to assess response to Bilateral Diagnostic C3-C4-C5 MBBs on 03/03/[address] Mejia. Patient reports 100% pain relief for at least almost 24 hours since procedure with significant improvement in her functioning and sleep. She reports mild neck stiffness with soreness at injection sites. Patient is interested to proceed with cervical medial branch RFA procedure. Sprint PNS trial and therapeutic injections were also discussed but declined. Patient is starting physical therapy for low back pain tomorrow. She reports exacerbation of her low back and hip pain with groin pain. Internal and external hip rotations did not reproduce groin pain during today's exam. Denies any recent cough, cold, infection, fever, any significant changes in her medical history, medications or recent hospitalizations. Past Procedures: 03/03/24: Bilateral C3-C4-C5 MBB-100% pain relief for 24 hours 02/18/24: Right Diagnostic C4-C5-C6 MBB-100% pain relief for >6 hours 02/11/24: Left Diagnostic C4-C5-C6 MBB-100% pain relief for >6 hours PRIOR: Patient presents today to discuss recent spine and shoulder xrays results. Patient continues to endorse left shoulder and neck pain that extends into her upper back with constant pain, muscle spasms and stiffness. She reports partial myofascial pain relief with low dose tizanidine without any side effects. Patient reports regularly participating in home exercise program for her neck and lower back pain. Patient is interested to proceed with diagnostic cervical medial branch blocks and personal TENS unit for her chronic neck pain. Denies any recent cough, cold, infection, fever, any significant changes in her medical history, medications or recent hospitalizations. Oswestry Neck Disability Score=15 (moderate disability) PRIOR: Patient is a pleasant 58 years old female presents today for follow up for chronic pain syndrome due to fibromyalgia which exacerbates her low back pain, left shoulder, neck and sacroiliac joint pain. 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 She was diagnosed with lumbar strain and prescribed dexamethasone and methocarbamol with partial relief. Patient currently manages her fibromyalgia symptoms with pregabalin, duloxetine and naproxen. She sees her Psychiatrist Dr. Libia Moyer for anxiety and depression, and takes trazadone, amitriptyline and clonidine. Patient reports she recently tried tizanidine for muscles spasms in her lower back and neck and this has been working well for her with good tolerance and no side effects. She requests refill for this today. Patient would like to address her left shoulder, neck and lower back with interventional treatments. Back pain is axial with facetogenic, discogenic and bilateral SIJ pain components. She has limited range of motion of her neck, worse with extension and lateral rotations. Patient also presents with painful arc syndrome and difficulty with overhead reaches. Pain is described as widespread body pain and localized named pain generators which are constant, dull, sore, hurting, aching, heavy, tiring, exhausting, tight and squeezing. Denies any fever, chills, dizziness, chest pain, weakness, burning, numbness, tingling, gait imbalances, weakness, bladder or bowel dysfunction, or saddle anesthesia. PRIOR Dr. Mejia 05/30/22: Patient is a 56-year-old female presenting for a follow-up after right therapeutic SIJ GTB injection. Patient reports very little relief following the SIJ injection. However, she does complete relief from the trochanteric bursa injection. Past Procedures: 04/30/22: Right Therapeutic SIJ/GTB injection ? No relief from SIJ inj, 100% relief from GTB inj. 03/05/22: Left lesser trochanteric Injection ? 90% relief. [facility] Medical History Anxiety Obstructive sleep apnea on CPAP Obesity Orthostatic dizziness Type 2 diabetes mellitus Jerman-Danlos syndrome type III History of kidney stones Hypothyroidism Back pain Chronic constipation IBS (irritable colon syndrome) Insomnia Hyperlipidemia Fibromyalgia Depression Surgical History Hx of partial thyroidectomy Status post left foot surgery History of sleeve gastrectomy History of endometrial ablation Hx of toe surgery History of bladder suspension procedure Hx of hysterectomy Hx of tubal ligation Hx of appendectomy Family History Father Liver disease Diabetes mellitus Hypertension Mother Hypertension Diabetes mellitus Arthritis Son Asthma Depression Anxiety Daughter Asthma Depression Migraines Chronic pain Anxiety Sister No problems noted. 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 - Neurological: Reports headaches, denies fever or infection. All systems reviewed & are unremarkable except as noted in HPI and below Physical Exam Vital Signs: Last Vital Signs Pulse 94 04/06/25 09:45 BP 134/61 04/06/25 09:45 Pulse Ox 100 04/06/25 09:45 Oxygen Delivery Method Room Air 04/06/25 09:45 BMI result Body Mass Index 30.8 General: Appears afebrile. Alert and oriented. Mood and affect appropriate. Follows and participates in conversation appropriately. Respiratory effort is unlabored. Able to transition from sit to stand unassisted. Ambulates with bilaterally normal heel strike and toe off. Neck Other: Patient with decreased cervical ROM in all planes, especially with lateral rotation and bending. Reports increased pain with cervical extension. Spurling compression test negative. Pain is unchanged by Spurling maneuver with retraction. Elvey's tension test negative bilaterally. Lhermitte's test was negative. DTR intact, +2 and symmetrical. Patient demonstrated 5/5 motor strength of bilateral upper extremities. 2 + radial pulses. Significant tightness throughout upper trapezius and rhomboid muscles. No paravertebral tenderness over facet joints bilaterally. Neck: Yes no lymphadenopathy, Yes supple, No anterior neck swelling, Yes no JVD, No prominent supraclavicular fat pad and Yes prominent dorsocervical fat pad Back/Spine/Pelvis Other: Multiple widespread TTPs 16/16 bilaterally, including upper and lower extr emities. Cervical Spine: loss of normal cervical lordosis, cervical muscular tenderness, pain with cervical ROM, No Cervical spine scars present, cervical spasm and No Cervical spine tenderness Thoracic/Lumbar Spine: thoracic and lumbar spine normal to inspection, No Thoracic/lumbar spine scar(s), Lasegue's sign negative, straight leg raise negative bilaterally, pain with thoraco-lumbar ROM, paraspinal muscle tenderness, thoraco-lumbar ROM limited, No thoracic spinal tenderness and lumbar spinal tenderness (L4-S1) Pelvis: buttock tenderness Sacroiliac joints: bilaterally tender to palpation Extrem General: Yes capillary refill normal, Yes no clubbing, cyanosis or edema and Yes no calf tenderness Left upper extremity: shoulder/upper arm (Pain and difficulty with overhead reach and backside pocket reaches.) Details: inspection abnormal, tenderness (anterior and lateral aspects) Location: over the biceps tendon, over the subacromial bursa and over the deltoid bursa and crepitus; no ecchymosis, no deformity and no unsual warmth Results Reviewed Results Reviewed: XR CERVICAL SPINE 01/15/24 CLINICAL INFORMATION: Spondylosis without myelopathy or radiculopathy, cervical region FINDINGS: The tip of the odontoid is obscured on the open-mouth view. The inferior endplate of C7 is obscured by the soft tissues of the patient's shoulders. No fracture or subluxation. Prevertebral soft tissues are within normal limits. There is straightening of the usual cervical lordosis which can be seen with muscle spasm or be due to patient positioning. There are prominent anterior marginal osteophytes noted from C4 through C7. There is marked disc space narrowing at C6-C7. A few surgical clips project over the lower cervical spine on the right. IMPRESSION: 1. Degenerative disc disease at C6-C7. 2. Straightening of the usual cervical lordosis which can be seen with muscle spasm or be due to patient positioning. Assessment & Plan Assessment & Plan (1) Fibromyalgia, primary: Code(s): M79.7 - Fibromyalgia Category: Medical (2) Chronic pain syndrome: Code(s): G89.4 - Chronic pain syndrome Category: Medical (3) Cervical spondylosis: Code(s): M47.812 - Spondylosis without myelopathy or radiculopathy, cervical region Category: Medical (4) Muscle spasm: Code(s): M62.838 - Other muscle spasm Category: Medical (5) Cervicalgia: Code(s): M54.2 - Cervicalgia Category: Medical (6) Cervicogenic headache: Code(s): G44.86 - Cervicogenic headache Category: Medical Plan Schedule Bilateral C4-C5-C6 medial branch RFA given good relief with initial and repeated diagnostic nerve blocks. Patient requests this under sedation and fluoroscopy, within the next four weeks per patient's request, contingent upon insurance approval. Patient declined Sprint PNS trial. Expectations, risks and benefits were reviewed. Patient is aware she will be contacted to schedule this procedure. Continue home exercise program and learned PT exercises for neck and low back pain. Continue daily physical activity and HEP, adequate hydration, and good posture. All questions were answered and the patient is in agreement of plan. Follow-up after cervical medial branch RFA and sooner as needed. Coding Level of Care Code Est Pt Level 4 (91110) Complex EM visit Add On G2211 Diagnoses Fibromyalgia, primary M79.7 Chronic pain syndrome G89.4 Cervical spondylosis M47.812 Muscle spasm M62.838 Cervicalgia M54.2 Cervicogenic headache G44.86
[2025-04-06 09:45] VITALS: BP 134/61; PULSE 94; O2SAT 100; BMI 30.8
== END 2025-04-06 10:04 | disposition home or self-care (01) ==
LOC: HO.PMC 09:23
PROVIDERS: PCP Nurse Practitioner Family; Visit Provider Nurse Practitioner Family
DX: M79.7 Fibromyalgia (principal); G89.4 Chronic pain syndrome; M47.812 Spondylosis without myelopathy or radiculopathy, cervical region; M62.838 Other muscle spasm; M54.2 Cervicalgia; G44.86 Cervicogenic headache
CPT/HCPCS: 99214

== ENCOUNTER 2025-04-18 13:06 | Outpatient (AMB) | payer OTHER, SELFPAY ==
--- OUTSIDE RECORDS SUMMARY | 2025-03-21 11:30 | XMS_ITS ---
Author Organization [employer] [facility] Address [address] [address] Care Team Providers Care Lamination Spinner Name Role Phone Jimmie Cross MD Primary Care Provider ELIJAH Constantino Unavailable [phone] REASON FOR VISIT Annual MEDICAL OFFICE ASST Physical Encounters Encounter Location Date Provider Diagnosis [facility] [employer] [address] [place] [phone] 03/21/2025 ELIJAH BATES Encounter for gynecological examination [...] Follow Up: 1 Year, Reason: Y early Forming Acid Dumper Exam Progress Notes * MELISSA KIANA WILLIAMSONDOB:[birth year] (59 yo F)Acc No.[id number]:03/21/2025 PROGRESS NOTES Patient: Avi PAYAN TERI KIANA Provider: Karin BATES MD :1965 A ge:59 Y S ex:Female Date:03/21/2025 Address:[address] [place] [address] Pcp:Jimmie Cross MD Subjective: * Chief Complaints: * 1 . Annual MEDICAL OFFICE ASST Physical. 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 She has been in state of [...] - strength training. * ROS: A nnual Forming Acid Dumper Exam ROS: Bowel habit changes d enies. [...] no acute distress, well developed, well nourished, architectural technologist present in room. HEAD: n ormocephalic, atraumatic. [...] * Follow Up: 1 Year (Reason: Yearly Forming Acid Dumper Exam) * Images: Billing Information: * Visit Code: 55902 Preventive Care Est Pt. Age 40-64. 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 She has been in state of [...] ac favio distress, well developed, well nourished, architectural technologist present in room HEAD: normocephalic, atrau matic [...]
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
--- OUTSIDE RECORDS SUMMARY | 2025-04-18 13:53 | XMS_ITS | Referral Summary ---
Demographics Address [address] [place] [address] Home Phone Mobile Phone Preferred Language Ken[place] Marital Status Moravian Affiliation Unknown Race White Ethnic Group Unknown Author Organization [facility] Address [address] [place] [address] Support Name Relationship Address Phone Rev Baker Emergency Contact [address] [place] [address] Erik Cobb Spouse [address] [place] [address] Care Team Providers Care Bacteriologist Dairy Name Role Phone Lexi Dukes Anitha Primary [...] Info) Description 07/19/2025 2:45 PM EDT Telehealth [facility] [address] [place] [id number] Arun Morgan MD [address] [place] [address] [place] [address] Insurance * Guarantor: Kiana Fournier Account Type Relation to Patient Date of Phone Billing Address Personal/Family Self 1965 [address] [place] [address] [employer] Care Teams Bacteriologist Dairy Relationship Specialty Start Date End Date Lexi Dukes [address] [place] [id number] PCP - General 12/07/24
--- OUTSIDE RECORDS SUMMARY | 2025-04-18 13:53 | XMS_ITS | Clinical Summary ---
Author Organization [employer] Address [address] [place] [address] [address] [place] [address] Care Team Providers Care Hog Sticker Name Role Phone Unavailable Primary Care Provider [...] Most Recently Relevant to Health Maintenance Insurance [facility]
== END 2025-04-18 14:12 | disposition home or self-care (01) ==
LOC: HO.HBST 13:06
PROVIDERS: PCP Nurse Practitioner Family; Visit Provider Counselor Mental Health
DX: F43.9 Reaction to severe stress, unspecified (principal); Z71.89 Other specified counseling
CPT/HCPCS: 90791

== ENCOUNTER 2025-04-19 11:25 | Outpatient (AMB) | payer OTHER, SELFPAY ==
--- OUTSIDE RECORDS SUMMARY | 2025-03-21 11:30 | XMS_ITS ---
Author Organization [employer] [facility] Address [address] [address] Care Team Providers Care Apparatus Repair Mechanic Name Role Phone Jimmie Cross MD Primary Care Provider ELIJAH Constantino Unavailable [phone] REASON FOR VISIT Annual SORT LINE WORKER Physical Encounters Encounter Location Date Provider Diagnosis [facility] [employer] [address] [place] [phone] 03/21/2025 ELIJAH BATES Encounter for gynecological examination [...] Follow Up: 1 Year, Reason: Y early Clothing Supervisor Exam Progress Notes * MELISSA KIANA WILLIAMSONDOB:[birth year] (59 yo F)Acc No.[id number]:03/21/2025 PROGRESS NOTES Patient: Avi PAYAN TERI KIANA Provider: Karin BATES MD :1965 A ge:59 Y S ex:Female Date:03/21/2025 Address:[address] [place] [address] Pcp:Jimmie Cross MD Subjective: * Chief Complaints: * 1 . Annual SORT LINE WORKER Physical. 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 She has been in state of [...] - strength training. * ROS: A nnual Clothing Supervisor Exam ROS: Bowel habit changes d enies. [...] no acute distress, well developed, well nourished, stone fabricator present in room. HEAD: n ormocephalic, atraumatic. [...] * Follow Up: 1 Year (Reason: Yearly Clothing Supervisor Exam) * Images: Billing Information: * Visit Code: 82096 Preventive Care Est Pt. Age 40-64. 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 She has been in state of [...] ac favio distress, well developed, well nourished, stone fabricator present in room HEAD: normocephalic, atrau matic [...]
[2025-04-19 11:33] VITALS: BP 124/86; PULSE 80; O2SAT 94; BMI 31.6
--- NOTE | 2025-04-19 11:33 | MHC.OFFVIS ---
Vital Signs 04/19/25 11:33 Height 5 ft 4 in Weight 183 lb 13.848 oz BMI 31.6 BP 124/86 Blood Pressure Location Lt brachial Position Sitting Pulse 80 Pulse Source Pulse Oximeter Pulse Oximetry (%) 94 Oxygen Delivery Method Room Air Intake Visit Reasons: Hyperlipidemia, DM Intake Note: Patient present today to follow up on Type 2 Diabetes Mellitus. Last Diabetic Eye exam: Last year, Due for exam Last Podiatry Visit: Does not see Outpatient Scheduler Random Glucose: 120 mg/dl HgA1C: 6.3% 03/07/2025 Melt House Drag Operator Required: No Accompanied by: Self / Same As Patient Allergies promethazine (From PHENERGAN) Allergy (Intermediate, Verified 04/19/25 11:39) RASH cefazolin (CEFAZOLIN) Allergy (Unknown, Verified 04/19/25 11:39) ANAPHYLAXIS Iodinated Contrast Media (IV Dye, Iodine Containing Contrast ) Allergy (Unknown, Verified 04/19/25 11:39) ANAPHYLAXIS aripiprazole (From Abilify) Adverse Reaction (Severe, Verified 04/19/25 11:39) tardive dyskinesia prednisone (PREDNISONE) Adverse Reaction (Unknown, Verified 04/19/25 11:39) HYPERTENSION, high BP,headache DOG SHAMPOO Allergy (Unknown, Uncoded 04/19/25 11:39) ANAPHYLAXIS HPI Comments Details: 59 YO F who is seen in consultation for T2DM at the request of PCP. Initially diagnosed with T2DM in 6 mos . Was initially started on treatment with metformin .Prior to slleve in 2018 - Tolerated metformin and glipizide Current regimen Mounjaro 2.5 mg Did not bring glucometer or log book with her to follow up visit Most recent A1C [], [down] from prior [] on []. Family history of T2DM in []. Has eyes checked yearly, last eye exam k , denies retinopathy. Denies neuropathy, . Denies nephropathy, Not on SHANTI/ARB. Has HLD, on statin. . Denies CAD. On levothyroxine 125 mcg for hypothyroidism off statin PFSH Medical History (Updated 04/06/25 @ 14:47 by SERGIO Villavicencio) Anxiety Obstructive sleep apnea on CPAP Obesity Orthostatic dizziness Type 2 diabetes mellitus Jerman-Danlos syndrome type III History of kidney stones Hypothyroidism Back pain Chronic constipation IBS (irritable colon syndrome) Insomnia Hyperlipidemia Fibromyalgia Depression Surgical History (Updated 04/19/25 @ 11:39 by JESSE Cook) History of repair of rectocele Hx of partial thyroidectomy Status post left foot surgery History of sleeve gastrectomy History of endometrial ablation Hx of toe surgery History of bladder suspension procedure Hx of hysterectomy Hx of tubal ligation Hx of appendectomy Family History Father Liver disease Diabetes mellitus Hypertension Mother Hypertension Diabetes mellitus Arthritis Son Asthma Depression Anxiety Daughter Asthma Depression Migraines Chronic pain Anxiety Sister No problems noted. Brother Down's syndrome Hypothyroidism Social History Alcohol intake: never Patient Tobacco Use Status: Never used Tobacco Second Hand Smoke Exposure: No Current occupational status: employed Current occupation: rt handed/[employer] Physical Exam Vital Signs: Last Vital Signs Pulse 80 04/19/25 11:33 BP 124/86 04/19/25 11:33 Pulse Ox 94 04/19/25 11:33 Oxygen Delivery Method Room Air 04/19/25 11:33 BMI result Body Mass Index 31.6 Absence of Cushingoid features. Absence of acromegalic features. Neck exam reveals nl size thyroid about 15 gms. No thyroid nodules palpable. No carotid bruits present. Lungs CTA. Heart S1 S2, Reg R/R. No M/R/ G. Skin exam reveals absence of vitiligo or acanthosis nigricans. Abdominal exam reveals Soft NT/ND with NA BS. No organomegaly present. Neck Other: . Extrem Other: Visual exam of foot performed. No ulcerations or open lesions. No onchomycosis, no callouses.Pulses 2 + distally Sensation intact to monofilament exam. Vibratory sensation sensed is intact with 128 Hz tuning fork Results Reviewed Results Reviewed: Laboratory Last Values Glucose (Clinic) 120 mg/dL (60-115) H 04/19/25 11:41 Assessment & Plan Assessment & Plan (1) Type 2 diabetes mellitus: Code(s): E11.9 - Type 2 diabetes mellitus without complications Category: Medical Plan: This is a 57-year-old female with history of type 2 diabetes being treated with Mounjaro with excellent glycemic control and no known microvascular or macrovascular complications. Plan is to continue current therapy. Will also push lifestyle changes diet and exercise. (2) Hypothyroid: Code(s): E03.9 - Hypothyroidism, unspecified Category: Medical Plan: Currently on 125 mcg levothyroxine. Appears to be clinically and biochemically euthyroid Plan is to continue the current regimen (3) Hyperlipidemia: Code(s): E78.5 - Hyperlipidemia, unspecified Category: Medical Plan: At goal on atorvastatin 20 mg Medications: Refilled tirzepatide (Mounjaro) for 4 weeks 2.5 mg (0.5 mL) subcut QWEEK 2 mL 5RF Coding Level of Care Code Est Pt Level 4 (19257) Diagnoses Type 2 diabetes mellitus E11.9 Hypothyroid E03.9 Hyperlipidemia E78.5
[2025-04-19 11:46] LABS: Glucose, Whole Blood 120 mg/dL (60-115)
--- OUTSIDE RECORDS SUMMARY | 2025-04-19 12:27 | XMS_ITS | Clinical Summary ---
Author Organization [employer] Address [address] [place] [address] [address] [place] [address] Care Team Providers Care Lead Cook Name Role Phone Unavailable Primary Care Provider [...] Most Recently Relevant to Health Maintenance Insurance [facility]
--- OUTSIDE RECORDS SUMMARY | 2025-04-19 12:28 | XMS_ITS | Referral Summary ---
Demographics Address [address] [place] [address] Home Phone Mobile Phone Preferred Language Turkmen Marital Status Jainism Affiliation Unknown Race White Ethnic Group Unknown Author Organization [facility] Address [address] [place] [address] Support Name Relationship Address Phone Rev Baker Emergency Contact [address] [place] [address] Erik Cobb Spouse [address] [place] [address] Care Team Providers Care Digital Account Supervisor Name Role Phone Lexi Dukes Anitha Primary [...] Info) Description 07/19/2025 2:45 PM EDT [facility] [address] [place] [id number] Arun Morgan MD [address] [place] [address] [place] [address] Insurance * Guarantor: Kiana Fournier Account Type Relation to Patient Date of Phone Billing Address Personal/Family Self 1965 [address] [place] [address] [employer] Care Teams Digital Account Supervisor Relationship Specialty Start Date End Date Lexi Dukes [address] [place] [id number] PCP - General 12/07/24
== END 2025-04-19 12:13 | disposition home or self-care (01) ==
LOC: HO.ENCR 11:26
PROVIDERS: PCP Nurse Practitioner Family; Visit Provider Internal Medicine Endocrinology, Diabetes & Metabolism
DX: E11.9 Type 2 diabetes mellitus without complications (principal); E03.9 Hypothyroidism, unspecified; E78.5 Hyperlipidemia, unspecified
CPT/HCPCS: 99214

== ENCOUNTER → 2025-04-19 11:25 | Outpatient (BNVA) | payer OTHER, SELFPAY | PROVIDERS: PCP Nurse Practitioner Family; Visit Provider Internal Medicine Endocrinology, Diabetes & Metabolism | DX: E11.9 Type 2 diabetes mellitus without complications (principal) | CPT/HCPCS: 82947 ==

== ENCOUNTER 2025-04-26 09:50 | Day surgery (SDC) | payer OTHER, SELFPAY ==
--- OUTSIDE RECORDS SUMMARY | 2025-03-21 11:30 | XMS_ITS ---
Author Organization [employer] [facility] Address [address] [address] Care Team Providers Care Architectural Draftsman Name Role Phone Jimmie Cross MD Primary Care Provider ELIJAH Constantino Unavailable [phone] REASON FOR VISIT Annual MACHINE SNELLER Physical Encounters Encounter Location Date Provider Diagnosis [facility] [employer] [address] [place] [phone] 03/21/2025 ELIJAH BATES Encounter for gynecological examination [...] Follow Up: 1 Year, Reason: Y early Hardware Developer Exam Progress Notes * MELISSA KIANA WILLIAMSONDOB:[birth year] (59 yo F)Acc No.[id number]:03/21/2025 PROGRESS NOTES Patient: Avi PAYAN TERI KIANA Provider: Karin BATES MD :1965 A ge:59 Y S ex:Female Date:03/21/2025 Address:[address] [place] [address] Pcp:Jimmie Cross MD Subjective: * Chief Complaints: * 1 . Annual MACHINE SNELLER Physical. 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 She has been in state of [...] - strength training. * ROS: A nnual Hardware Developer Exam ROS: Bowel habit changes d enies. [...] no acute distress, well developed, well nourished, lehr stripper present in room. HEAD: n ormocephalic, atraumatic. [...] * Follow Up: 1 Year (Reason: Yearly Hardware Developer Exam) * Images: Billing Information: * Visit Code: 33526 Preventive Care Est Pt. Age 40-64. 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 She has been in state of [...] ac favio distress, well developed, well nourished, lehr stripper present in room HEAD: normocephalic, atrau matic [...]
--- OUTSIDE RECORDS SUMMARY | 2025-04-07 12:09 | XMS_ITS | Encounter Summary ---
Author Organization [facility] Address [address] [place] [address] Care Team Providers Care Vending Supervisor Name Role Phone Oj Boggs Primary Care Provider Oj Forrester Primary Care Provider Bobby Otero Unavailable Unavailable Lexi Dukes JAVA WEB SERVICES DEVELOPER Primary Care Provider Marcos espino Encounter Details Date Type Department Care Team Description 11/18/2017 Rat Farmer Report Medical Records [address] [place] [id number] Arlette Watson MD Social History Tobacco Use Types Packs/Day Years Used Date Smoking Tobacco: Never Assessed Sex Assigned at Date Recorded Female 03/21/2021 10:23 PM EDT documented as of this encounter Plan of Treatment Not on file documented as of this encounter Visit Diagnoses Not on filedocumented in this encounter Care Teams Vending Supervisor Relationship Specialty Start Date End Date Oj Boggs PCP - General Internal Medicine 12/22/17 08/16/23 Oj Boggs PCP - General 03/08/13 12/21/17 Lexi Dukes NP PCP - General Internal Medicine 08/17/23 Bobby Chavez Endocrinology 08/17/23 documented as of this encounter
--- OUTSIDE RECORDS SUMMARY | 2025-04-07 12:09 | XMS_ITS | Referral Summary ---
Demographics Address [address] [place] [address] Home Phone Mobile Phone Preferred Language Citizen Of [place] Marital Status Episcopal Affiliation Unknown Race White Ethnic Group Unknown Author Organization [facility] Address [address] [place] [address] Support Name Relationship Address Phone Rev Baker Emergency Contact [address] [place] [address] Erik Cobb Spouse [address] [place] [address] Care Team Providers Care Personnel Analyst Name Role Phone Lexi Dukes Anitha Primary Care Provider [phone] Allergies Active Allergy Reactions Criticality Noted Date [...] Info) Description 07/19/2025 2:45 PM EDT Telehealth [facility] [address] [place] [id number] Arun Morgan MD [address] [place] [address] [place] [address] Insurance * Guarantor: Kiana Fournier Account Type Relation to Patient Date of Phone Billing Address Personal/Family Self 1965 [address] [place] [address] [employer] Care Teams Personnel Analyst Relationship Specialty Start Date End Date Lexi Dukes [address] [place] [id number] PCP - General 12/07/24
--- OUTSIDE RECORDS SUMMARY | 2025-04-07 12:09 | XMS_ITS | Clinical Summary ---
Author Organization [employer] Address [address] [place] [address] [address] [place] [address] Care Team Providers Care Fabrication Operator Name Role Phone Unavailable Primary Care [...] Most Recently Relevant to Health Maintenance Insurance [facility]
[2025-04-24 07:47] VITALS: BMI 30.7
--- NOTE | 2025-04-25 08:16 | HO.ANESPROP2 ---
Documented by User: Sara Leroy NP 04/25/25 08:19 HPI - Anesthesia Eval Consult details Narrative: 59yo F for Bilateral C4-C5-C6 Medial Branch Radiofrequency AB s/p EGD 02/2025 with TIVA Anesthesia Pre-Procedure Meds Is the patient on any of the following meds?: GLP1/DPP4 PMFSH Active Problems Active Problems: All Active Problems Cervicogenic headache (Acute) Anxiety (Acute) Depression (Acute) Obstructive sleep apnea on CPAP (Acute) BMI 30.0-30.9,adult (Acute) Obesity (Acute) Greater trochanteric bursitis of both hips (Acute) Cervicalgia (Acute) Muscle spasm (Acute) Left shoulder pain (Acute) Cervical spondylosis (Acute) Sacroiliitis (Acute) Chronic pain syndrome (Acute) Orthostatic dizziness (Acute) Type 2 diabetes mellitus (Acute) Precordial chest pain (Acute) Dizziness (Acute) Fibromyalgia, primary (Acute) GERD (gastroesophageal reflux disease) (Acute) History of sleeve gastrectomy (Acute) Intestinal malabsorption following gastrectomy (Acute) Hyperlipidemia (Acute) Body mass index (BMI) of 24.0-24.9 in adult (Acute) Patellofemoral arthritis of left knee (Acute) Jerman-Danlos syndrome type III (Acute) Irritable bowel syndrome with constipation (Acute) Rectocele (Acute) Hypothyroid (Acute) Cubital tunnel syndrome on left (Acute) Osteochondritis dissecans of left hip (Acute) Varicose veins of right lower extremity with inflammation (Acute) Varicose veins of left lower extremity with inflammation (Acute) Sacroiliac dysfunction (Acute) Greater trochanteric bursitis of right hip (Acute) Leg pain (Acute) Obesity (BMI 30.0-34.9) (Acute) Abdominal bloating (Acute) Low back pain (Acute) RUQ abdominal pain (Acute) Past Medical History Medical History (Updated 04/06/25 @ 14:47 by SERGIO Villavicencio) Anxiety Obstructive sleep apnea on CPAP Obesity Orthostatic dizziness Type 2 diabetes mellitus Jerman-Danlos syndrome type III History of kidney stones Hypothyroidism Back pain Chronic constipation IBS (irritable colon syndrome) Insomnia Hyperlipidemia Fibromyalgia Depression Family History Family History Father Liver disease Diabetes mellitus Hypertension Mother Hypertension Diabetes mellitus Arthritis Son Asthma Depression Anxiety Daughter Asthma Depression Migraines Chronic pain Anxiety Sister No problems noted. Brother Down's syndrome Hypothyroidism Surgical History Surgical History (Updated 04/19/25 @ 11:39 by JESSE Cook) History of repair of rectocele Hx of partial thyroidectomy Status post left foot surgery History of sleeve gastrectomy History of endometrial ablation Hx of toe surgery History of bladder suspension procedure Hx of hysterectomy Hx of tubal ligation Hx of appendectomy History of Problems with Anesthesia: No Social History Social History Alcohol intake: never Patient Tobacco Use Status: Never used Tobacco Second Hand Smoke Exposure: No Use of substances other than those prescribed or required for medical reasons: No Advance Directives: No Advance Directives Information Provided: Yes Current occupational status: employed Current occupation: rt handed/[employer] Meds Allergies Allergy/AdvReac Type Severity Reaction Status Date / Time promethazine (From PHENERGAN) Allergy Intermediate RASH Verified 04/19/25 11:39 cefazolin (CEFAZOLIN) Allergy Unknown ANAPHYLAXIS Verified 04/19/25 11:39 Iodinated Contrast Media (IV Allergy Unknown ANAPHYLAXIS Verified 04/19/25 11:39 Dye, Iodine Containing Contrast ) aripiprazole (From Abilify) AdvReac Severe tardive Verified 04/19/25 11:39 dyskinesia prednisone (PREDNISONE) AdvReac Unknown HYPERTENSION, Verified 04/19/25 11:39 high BP,headache DOG SHAMPOO Allergy Unknown ANAPHYLAXIS Uncoded 04/19/25 11:39 Home Medications ?Medication ?Instructions ?Recorded ?Confirmed ?Last Taken ?Type biotin 10,000 mcg capsule 10,000 mcg PO DAILY 09/10/20 03/10/25 Unknown History multivitamin with iron 1 tab PO DAILY 09/10/20 03/10/25 Unknown History amitriptyline 100 mg tablet 100 mg PO BEDTIME 12/23/22 03/10/25 Unknown History atorvastatin 20 mg tablet 20 mg PO DAILY 12/23/22 03/10/25 Unknown History bupropion HCl 150 mg 24 hr tablet, 150 mg PO QAM 12/23/22 03/10/25 Unknown History extended release duloxetine 60 mg capsule,delayed 60 mg PO QAM 12/23/22 03/10/25 Unknown History release lorazepam 1 mg tablet 1 mg PO TID PRN Anxiety 12/23/22 03/10/25 Unknown History valbenazine 80 mg capsule 80 mg PO DAILY 12/23/22 03/10/25 Unknown History (Jose) loratadine 10 mg tablet 10 mg PO DAILY 03/01/24 03/10/25 Unknown History pregabalin 200 mg capsule 200 mg PO BID 03/01/24 03/10/25 Unknown History epinephrine 0.3 mg/0.3 mL 1 mg IM DAILY 10/03/24 03/10/25 Unknown History injection, auto-injector mirtazapine 15 mg tablet 15 mg PO BEDTIME 02/24/25 03/10/25 Unknown History Exam Height,Weight and Vital Signs: Height 5 ft 4 in Weight 81.193 kg Pertinent Lab Results Pertinent Lab Results: Laboratory Tests 03/07/25 08:36 WBC 7.5 Hgb 13.2 Hct 38.3 Plt Count 278 Sodium 142 Potassium 3.9 Chloride 107 Carbon Dioxide 29 BUN 15 Creatinine 0.73 Narrative Narrative: ECHO 2022 Conclusions: - The left ventricular systolic function is normal. The calculated ejection fraction is 55% by biplane method. - No obvious valvular pathology seen on this study. - There is mild dilatation of the ascending aorta measuring 3.80 cm. Cardiopulm Stress 2022 Protocol: ANNE Max HR: 171 BPM 105% of Pred: 162 BPM Max BP: 184/068 mmHG Max Work Load: 5.8 METS Exercise stress test exercise 4 min of anne protocol achieving 90% MPHR, with mild to moderate SOB, 6/10 chest discomfort in immedate recovery, without arrhythmias seen through artifact, with normotensive response to exercise, without EKG changes Chest doe resolved with rest.Test reviewed with Dr. Navarro Exercise stress echocardiogram was reviewed. At rest, there is normal LVEF and wall motion. With peak exercise, there is appropriate augmentation of wall thickening and contractility. There is normal decrease in end-systolic volumes. Overall, no evidence of ischemia at the attained workload. Assessment and Plan Assessment Anesthesia Assessment: Chart Reviewed Final Anesthetic Review History of Problems with Anesthesia: No Documented by User: Leyla Botello MD 04/26/25 10:45 PMF Past Medical History Medical History (Updated 04/06/25 @ 14:47 by SERGIO Villavicencio) Anxiety Obstructive sleep apnea on CPAP Obesity Orthostatic dizziness Type 2 diabetes mellitus Jerman-Danlos syndrome type III History of kidney stones Hypothyroidism Back pain Chronic constipation IBS (irritable colon syndrome) Insomnia Hyperlipidemia Fibromyalgia Depression Family History Family History Father Liver disease Diabetes mellitus Hypertension Mother Hypertension Diabetes mellitus Arthritis Son Asthma Depression Anxiety Daughter Asthma Depression Migraines Chronic pain Anxiety Sister No problems noted. Brother Down's syndrome Hypothyroidism Family history of problems with anesthesia: No Surgical History Surgical History (Updated 04/19/25 @ 11:39 by JESSE Cook) History of repair of rectocele Hx of partial thyroidectomy Status post left foot surgery History of sleeve gastrectomy History of endometrial ablation Hx of toe surgery History of bladder suspension procedure Hx of hysterectomy Hx of tubal ligation Hx of appendectomy Social History Social History Alcohol intake: never Patient Tobacco Use Status: Never used Tobacco Second Hand Smoke Exposure: No Use of substances other than those prescribed or required for medical reasons: No Advance Directives: No Advance Directives Information Provided: Yes Current occupational status: employed Current occupation: rt handed/[employer] Meds Allergies Allergy/AdvReac Type Severity Reaction Status Date / Time promethazine (From PHENERGAN) Allergy Intermediate RASH Verified 04/19/25 11:39 cefazolin (CEFAZOLIN) Allergy Unknown ANAPHYLAXIS Verified 04/19/25 11:39 Iodinated Contrast Media (IV Allergy Unknown ANAPHYLAXIS Verified 04/19/25 11:39 Dye, Iodine Containing Contrast ) aripiprazole (From Abilify) AdvReac Severe tardive Verified 04/19/25 11:39 dyskinesia prednisone (PREDNISONE) AdvReac Unknown HYPERTENSION, Verified 04/19/25 11:39 high BP,headache DOG SHAMPOO Allergy Unknown ANAPHYLAXIS Uncoded 04/19/25 11:39 Home Medications ?Medication ?Instructions ?Recorded ?Confirmed ?Last Taken ?Type biotin 10,000 mcg capsule 10,000 mcg PO DAILY 09/10/20 03/10/25 Unknown History multivitamin with iron 1 tab PO DAILY 09/10/20 03/10/25 Unknown History amitriptyline 100 mg tablet 100 mg PO BEDTIME 12/23/22 03/10/25 Unknown History atorvastatin 20 mg tablet 20 mg PO DAILY 12/23/22 03/10/25 Unknown History bupropion HCl 150 mg 24 hr tablet, 150 mg PO QAM 12/23/22 03/10/25 Unknown History extended release duloxetine 60 mg capsule,delayed 60 mg PO QAM 12/23/22 03/10/25 Unknown History release lorazepam 1 mg tablet 1 mg PO TID PRN Anxiety 12/23/22 03/10/25 Unknown History valbenazine 80 mg capsule 80 mg PO DAILY 12/23/22 03/10/25 Unknown History (Ingrezza) loratadine 10 mg tablet 10 mg PO DAILY 03/01/24 03/10/25 Unknown History pregabalin 200 mg capsule 200 mg PO BID 03/01/24 03/10/25 Unknown History epinephrine 0.3 mg/0.3 mL 1 mg IM DAILY 10/03/24 03/10/25 Unknown History injection, auto-injector mirtazapine 15 mg tablet 15 mg PO BEDTIME 02/24/25 03/10/25 Unknown History Exam Airway Mallampati Class: II TM Dist: >3cm Neck ROM: Full Heart: rrr Lungs: cta Assessment and Plan Assessment Anesthesia Assessment: Anesthesia Plan Discussed Final Anesthetic Review Family History of Problems with Anesthesia: No NPO: Yes ASA Class: III Final Preanesthetic Review: No Changes in Pt Med Stat, Meds/Allgs Chart Reviewed and Consent Obtained/Reviewed Patient Risk: Intermediate Procedure Risk: Intermediate Anesthetic Plan Anesthetic Plan: MAC: Disposition: Standard PACU
--- NOTE | ~2025-04-26 | FL_ITS ---
EXAMINATION: FL GUIDANCE ONLY HISTORY: C4-C6 RFA COMPARISON: None available. TECHNIQUE: Fluoroscopy time: 41.3 seconds. Cumulative Dose: 14.763 mGy. DAP: 1.3446 mGym2 Images: 6. FINDINGS: Fluoroscopic spot films of the neck demonstrate needles in place bilaterally. FL/FL guidance in OR IMPRESSION: Fluoroscopy during procedure. Please see procedure report for additional information. Electronically signed by: Bobby Segovia MD 04/26/2025 01:02 PM EDT
[2025-04-26 10:12] VITALS: BMI 31.4
[2025-04-26 10:25] VITALS: BP 150/85; PULSE 86; RESP 16; TEMP 36.2; O2SAT 98
[2025-04-26 10:27] LABS: Glucose, Whole Blood 133 mg/dL (60-115)
[2025-04-26] MEDS: Lactated Ringers 1,000 ML 100 ML IVCONT (10:28)
--- NOTE | 2025-04-26 11:44 | MHC.SHP ---
Pre-Procedural Eval Section A - 24 Hr Update-Section A only Date of Service: 04/26/25 The patient is an INPATIENT: No Changes since office visit: Yes Patient answered all questions The patient has been examined within 24 hours of the surgical procedure. The History & Physical has been completed within 30 days and I have reviewed it.: No Section B - Complete if H&P > 30 days Chief Complaint: Spondylosis without myelopathy or radiculopathy, Relevant Family History (Specify if Yes): Yes Relevant Social History: None Present Medications: see Short Stay Collaborative assessment Medical History: No relevant PMH History of Previous Operations: No relevant previous surgery Allergies: Allergies Allergy/AdvReac Type Severity Reaction Status Date / Time promethazine (From PHENERGAN) Allergy Intermediate RASH Verified 04/19/25 11:39 cefazolin (CEFAZOLIN) Allergy Unknown ANAPHYLAXIS Verified 04/19/25 11:39 Iodinated Contrast Media (IV Allergy Unknown ANAPHYLAXIS Verified 04/19/25 11:39 Dye, Iodine Containing Contrast ) aripiprazole (From Abilify) AdvReac Severe tardive Verified 04/19/25 11:39 dyskinesia prednisone (PREDNISONE) AdvReac Unknown HYPERTENSION, Verified 04/19/25 11:39 high BP,headache DOG SHAMPOO Allergy Unknown ANAPHYLAXIS Uncoded 04/19/25 11:39 Review of Systems Sugical H&P ROS: Negative: Constitution, Cardiovascular and Respiratory Exam Surgical H&P Exam: Normal: HEENT, Normal: Heart and Normal: Lungs Plan Diagnosis/Plan: Unchanged I have reviewed the history and physical and performed a pertinent physical examination on my patient. No changes have occurred unless specified. Time Spent With Patient Time: Total time managing care of this patient today ____ minutes.
--- NOTE | 2025-04-26 12:45 | P.BOP_ITS ---
Brief Operative Note Date of Service: 04/26/25 Pre-op diagnosis: Cervical spondylosis Post-op diagnosis: same Procedure: Radiofrequency lesioning cervical medial branch nerves, Bilateral C4, C5, C6 Surgeon: Demarcus Mejia MD Anesthesia: MAC Was an Technical Designer used for this Procedure?: No Estimated blood loss (mL): 5 Pathology: none sent Condition: stable Disposition: PACU
--- NOTE | 2025-04-26 12:47 | W.PM.OPN ---
Operative Note Operative Note Date of Service: 04/26/25 Narrative: Preprocedure Diagnosis: Cervical spondylosis Postprocedure Diagnosis: Cervical spondylosis Procedure: Radiofrequency lesioning cervical medial branch nerves, Bilateral C4, C5, C6 After obtaining written consent, pre-procedure blood pressure and heart rate were stable and recorded in the nursing record. The patient was placed in the prone position and sedated. The?cervical?area was prepped with chloraprep and draped in sterile fashion. The skin over the target for each of the medial branch nerves was anesthetized with 0.75% lidocaine. An 18 gauge radiofrequency cannula was advanced to each target site under AP, CESAR and lateral fluoroscopic views. No paresthesias were elicited with needle placement and aspiration was negative for heme and CSF. Impedences were verified under 600 ohms. Motor testing (2 Hz) confirmed needle placement at each site within the appropriate voltage thresholds. Each site was injected with 1 ml 2% preservative-free lidocaine. Radiofrequency lesioning was performed for 90 seconds at 80 deg Celcius. The needle was removed, skin cleansed and a sterile bandage was applied. The patient tolerated the procedure well and no complications were encountered. Following the procedure the patient's vital signs were stable. The patient was discharged home in good condition with post-procedural instructions. Time Out: Immediately prior to the procedure, the following was verbally confirmed that there is a signed consent form and that the correct patient, planned procedure, site and side are consistent with documentation and that necessary equipment and/or blood products are available prior to the start of the case. Complications: none EBL: <5 cc
[2025-04-26 12:49] VITALS: BP 155/81; PULSE 90; RESP 12; TEMP 36.1; O2SAT 94
[2025-04-26 12:50] VITALS: BP 164/92; PULSE 88; RESP 12; O2SAT 94
[2025-04-26 12:55] VITALS: BP 164/95; PULSE 86; RESP 16; O2SAT 94
[2025-04-26 13:00] VITALS: BP 164/95; PULSE 86; RESP 16; TEMP 36.1; O2SAT 94
[2025-04-26 13:15] VITALS: BP 169/96; PULSE 84; RESP 16; O2SAT 94
== END 2025-04-26 13:42 | disposition home or self-care (01) ==
PROVIDERS: PCP Nurse Practitioner Family; Visit Provider Internal Medicine
PROC: (CPT 64633; principal; 2025-04-26 11:30)
DX: M47.812 Spondylosis without myelopathy or radiculopathy, cervical region (principal); G44.86 Cervicogenic headache; M62.838 Other muscle spasm; G89.4 Chronic pain syndrome; M54.2 Cervicalgia; M79.7 Fibromyalgia; Q79.69 Other Ehlers-Danlos syndromes; E11.9 Type 2 diabetes mellitus without complications; E78.5 Hyperlipidemia, unspecified; G47.33 Obstructive sleep apnea (adult) (pediatric); R42 Dizziness and giddiness; F32.A Depression, unspecified; F41.9 Anxiety disorder, unspecified; Z79.899 Other long term (current) drug therapy; Z99.89 Dependence on other enabling machines and devices; Z88.8 Allergy status to other drugs, medicaments and biological substances; Z91.041 Radiographic dye allergy status; Z98.890 Other specified postprocedural states; Z98.84 Bariatric surgery status
CPT/HCPCS: 64633; 64634 ×2; 82947; J2003; J2250; J2704; J2795; J3010

== ENCOUNTER → 2025-04-26 09:50 | Outpatient (BNV) | payer OTHER, SELFPAY | PROVIDERS: PCP Nurse Practitioner Family; Visit Provider Internal Medicine | DX: M47.812 Spondylosis without myelopathy or radiculopathy, cervical region (principal) | CPT/HCPCS: 64633; 64634 ==

== ENCOUNTER 2025-05-08 10:43 | Outpatient (AMB) | payer OTHER, SELFPAY ==
--- OUTSIDE RECORDS SUMMARY | 2025-03-21 11:30 | XMS_ITS ---
Author Organization [employer] [facility] Address [address] [address] Care Team Providers Care Radiographer Mammographer Name Role Phone Jimmie Cross MD Primary Care Provider ELIJAH Constantino Unavailable [phone] REASON FOR VISIT Annual MAIL LIST PROCESSOR Physical Encounters Encounter Location Date Provider Diagnosis [facility] [address] [place] [phone] 03/21/2025 ELIJAH BATES Encounter for gynecological examination [...] Follow Up: 1 Year, Reason: Y early Pit Boss Exam Progress Notes * MELISSA KIANA WILLIAMSONDOB:[birth year] (59 yo F)Acc No.[id number]:03/21/2025 PROGRESS NOTES Patient: Avi PAYAN TERI KIANA Provider: Karin BATES MD :1965 A ge:59 Y S ex:Female Date:03/21/2025 Address:[address] [place] [address] Pcp:Jimmie Cross MD Subjective: * Chief Complaints: * 1 . Annual MAIL LIST PROCESSOR Physical. 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 She has been in state of [...] - strength training. * ROS: A nnual Pit Boss Exam ROS: Bowel habit changes d enies. [...] no acute distress, well developed, well nourished, stamp redemption clerk present in room. HEAD: n ormocephalic, atraumatic. [...] * Follow Up: 1 Year (Reason: Yearly Pit Boss Exam) * Images: Billing Information: * Visit Code: 46462 Preventive Care Est Pt. Age 40-64. 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 She has been in state of [...] ac favio distress, well developed, well nourished, stamp redemption clerk present in room HEAD: normocephalic, atrau matic [...]
--- NOTE | 2025-05-08 10:44 | MHC.OFFVIS ---
Vital Signs 05/08/25 10:45 Height 5 ft 4 in Weight 177 lb BMI 30.4 BP 143/73 H Blood Pressure Location Lt brachial Position Sitting Respiration 16 Pulse 91 Pulse Source Pulse Oximeter Pulse Oximetry (%) 97 Oxygen Delivery Method Room Air Intake Visit Reasons: PAIN AFTER RFA PROCEDURE Evaporator Helper Required: No Allergies promethazine (From PHENERGAN) Allergy (Intermediate, Verified 05/08/25 10:46) RASH cefazolin (CEFAZOLIN) Allergy (Unknown, Verified 05/08/25 10:46) ANAPHYLAXIS Iodinated Contrast Media (IV Dye, Iodine Containing Contrast ) Allergy (Unknown, Verified 05/08/25 10:46) ANAPHYLAXIS aripiprazole (From Abilify) Adverse Reaction (Severe, Verified 05/08/25 10:46) tardive dyskinesia prednisone (PREDNISONE) Adverse Reaction (Unknown, Verified 05/08/25 10:46) HYPERTENSION, high BP,headache DOG SHAMPOO Allergy (Unknown, Uncoded 05/08/25 10:46) ANAPHYLAXIS Medication List - Last Reconciled 05/08/25 by Brittany Duran LPN acetaminophen 1,000 mg (2 x 500 mg) PO Q6H PRN amitriptyline 100 mg PO BEDTIME atorvastatin 20 mg PO DAILY biotin 10,000 mcg PO DAILY bupropion HCl XL 150 mg PO QAM duloxetine 60 mg PO QAM epinephrine 1 mg IM DAILY fludrocortisone 0.1 mg PO DAILY levothyroxine 125 mcg PO DAILY linaclotide (Linzess) 290 mcg PO QAM loratadine 10 mg PO DAILY lorazepam 1 mg PO TID PRN mirtazapine 15 mg PO BEDTIME multivitamin with iron 1 tab PO DAILY nystatin 1 appl topical QID pregabalin 200 mg PO BID tirzepatide (Mounjaro) 2.5 mg (0.5 mL) subcut QWEEK tizanidine 2 mg PO TID PRN 30 days valbenazine (Ingrezza) 80 mg PO DAILY HPI HPI PAIN AFTER RFA PROCEDURE: Details: History of Present Illness The patient is a 59-year-old female presenting with follow-up for post-procedural pain management. She underwent C4, C5, C6 bilateral lumbar cervical medial branch radiofrequency ablation under anesthesia. Following the procedure, she reports experiencing significant pain, stiffness, and cracking in the cervical region, which is more intense than her previous pain. The pain radiates to her shoulder blade and is accompanied by muscle spasms, leading to a noticeable hump in her back. The patient has a history of fibromyalgia and chronic pain, which has been managed with various medications including tramadol and oxycodone. She has also tried muscle relaxants like tizanidine and cyclobenzaprine, but they have been ineffective or caused adverse effects such as hypotension. Recently, she underwent a rectocele repair, which did not result in complications, and she has returned to work after a month-long recovery period. She continues to experience pain despite using [id number] medications like Tylenol and ibuprofen. Pain Description - Onset: Post-procedural following cervical medial branch radiofrequency ablation - Quality: Intense, stiff, cracking sensation - Location: Cervical region, radiating to shoulder blade - Exacerbating factors: Muscle spasms, physical activity - Relieving factors: None effectively identified - Interference: Affects ability to work and perform daily activities Physical Exam - Musculoskeletal: Tenderness to palpation on the right side of the cervical region Pain Management - Affect: Pain impacting daily activities and work - Analgesia: Current use of Tylenol and ibuprofen; previous use of tramadol and oxycodone - Adverse Effects: Hypotension with tizanidine - Activities of Daily Living: Pain limits work and daily functions - Aberrant Drug Related Behaviors: None reported [facility] Medical History (Updated 04/06/25 @ 14:47 by SERGIO Villvaicencio) Anxiety Obstructive sleep apnea on CPAP Obesity Orthostatic dizziness Type 2 diabetes mellitus Jerman-Danlos syndrome type III History of kidney stones Hypothyroidism Back pain Chronic constipation IBS (irritable colon syndrome) Insomnia Hyperlipidemia Fibromyalgia Depression Surgical History (Updated 04/19/25 @ 11:39 by JESSE Cook) History of repair of rectocele Hx of partial thyroidectomy Status post left foot surgery History of sleeve gastrectomy History of endometrial ablation Hx of toe surgery History of bladder suspension procedure Hx of hysterectomy Hx of tubal ligation Hx of appendectomy Family History Father Liver disease Diabetes mellitus Hypertension Mother Hypertension Diabetes mellitus Arthritis Son Asthma Depression Anxiety Daughter Asthma Depression Migraines Chronic pain Anxiety Sister No problems noted. 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 - Recommend massage therapy to alleviate muscle tension. - Consider acupuncture as an adjunctive therapy for pain management. - Continue alternating Tylenol and ibuprofen for pain control, with a maximum of 4,000 mg of Tylenol per day. - Advise the use of NAC supplement if continued high doses of Tylenol are required. - Monitor for side effects of Flexeril and report any adverse reactions. Patient was informed and verbally consented to the use of an ambient scribe for clinic note documentation during this visit. Discussion Notes I discussed with the patient the management of her post-procedural pain, emphasizing the importance of using Flexeril for muscle relaxation and considering massage therapy as a non-pharmacological approach. We also talked about the potential benefits of acupuncture and the safe use of Tylenol and ibuprofen, with a maximum daily dose of 4,000 mg for Tylenol. I advised her to use an NAC supplement if she requires high doses of Tylenol and to monitor for any side effects from Flexeril, reporting them promptly. Patient Instructions - Take Flexeril as prescribed for muscle relaxation. - Consider massage therapy to help relieve muscle tension. - Try acupuncture if possible for additional pain relief. - Alternate Tylenol and ibuprofen for pain, not exceeding 4,000 mg of Tylenol per day. - Use NAC supplement if taking high doses of Tylenol. - Report any side effects from Flexeril to the clinic. Medications: New cyclobenzaprine 10 mg PO BID PRN 60 tabs 2RF muscle spasm Coding Level of Care Code Est Pt Level 3 (27795) Diagnoses Muscle spasm M62.838 Cervical spondylosis M47.812
[2025-05-08 10:45] VITALS: BP 143/73; PULSE 91; RESP 16; O2SAT 97; BMI 30.4
--- OUTSIDE RECORDS SUMMARY | 2025-05-08 11:43 | XMS_ITS | Clinical Summary ---
Author Organization [employer] Address [address] [place] [address] [address] [place] [address] Care Team Providers Care Cyber Engineer Name Role Phone Unavailable Primary Care Provider [...] Most Recently Relevant to Health Maintenance Insurance [facility]
--- OUTSIDE RECORDS SUMMARY | 2025-05-08 11:44 | XMS_ITS | Clinical Summary ---
Demographics Address [address] [place] [address] Home Phone Mobile Phone Preferred Language Nauruan Marital Status Mandaen Affiliation Unknown Race White Ethnic Group Unknown Author Organization [facility] Address [address] [place] [address] Support Name Relationship Address Phone Rev Baker Emergency Contact [address] [place] [address] Erik Cobb Spouse [address] [place] [address] Care Team Providers Care Rubber Grinder Name Role Phone Lexi Dukes Anitha Primary [...] once a day. Active biotin 10,000 mcg tablet,disintegr ating Active buPROPion XL (WELLBUTRIN XL) 150 mg tablet 12/13/2024 Activ e dicyclomine (BENTYL) 10 mg capsule Active DULoxetine DR (CYMBALTA) 60 mg capsule Take 120 mg by mouth. Active fludrocortisone (FLORINEF) 0.1 mg tablet Active ipratropium (ATROVENT) 0.03% nasal spray SMARTSIG:Terrence th Nares 10/06/2024 Active levothyroxine (SYNTHROID, LEVOTHROID) 125 mcg tablet 11/25/2024 Active lidocaine (LIDODERM) 5% patch 11/09/2024 Active linaCLOtide (LINZESS) 290 mcg Active loratadine (CLARITIN) 10 mg tablet Active LORazepam (ATIVAN) 1 mg tablet Take 1 tablet by mouth every 8 (eight) hours. Active multivitamin/iro n/folic acid (MULTI COMPLETE WITH IRON ORAL) Acti ve pregabalin (LYRICA) 200 mg capsule Active traZODone (DESYREL) 50 mg tablet Active Ingrezza 80 mg capsule Active Family History Medical History Relation Name Comments [...] Info) Description 07/19/2025 2:45 PM EDT Telehealth [facility] [address] [place] [address] Arun Morgan MD [address] [place] [id number] Health Maintenance Due Date Last Done Comments [...] (2 of 2) 01/26/2025 12/01/2024 Influenza Vaccine (#1) 2025 , 07/04/2021, 10/19/2017 RSV Vaccine (60+ years old a nd patients) (1 - 1-dose 75+ series) 12/10/2039 Hepatitis B Vaccines Aged Out No long er eligible based on patient's age to complete this topic Insurance * Guarantor: Kiana Fournier Account Type Relation to Patient Date of Phone Billing Address Personal/Family Self [address] [place] [address] [employer] Care Teams Rubber Grinder Relationship Specialty Start Date End Date Lexi Dukes [address] [place] [address] [address] [place] [address] PCP - General 12/07/24
== END 2025-05-08 11:22 | disposition home or self-care (01) ==
LOC: HO.PMC 10:43
PROVIDERS: PCP Nurse Practitioner Family; Visit Provider Internal Medicine
DX: M62.838 Other muscle spasm (principal); M47.812 Spondylosis without myelopathy or radiculopathy, cervical region
CPT/HCPCS: 99213

== ENCOUNTER 2025-05-12 08:44 | Outpatient (REF) | payer OTHER, SELFPAY ==
--- OUTSIDE RECORDS SUMMARY | 2025-03-21 11:30 | XMS_ITS ---
Author Organization [facility] [employer] [facility] Address [address] [address] Care Team Providers Care Stull Hewer Name Role Phone Jimmie Cross MD Primary Care Provider ELIJAH Constantino Unavailable [phone] REASON FOR VISIT Annual LEAD BI DEVELOPER Physical Encounters Encounter Location Date Provider Diagnosis [facility] [employer] [address] [place] [phone] 03/21/2025 ELIJAH BATES Encounter for gynecological examination [...] Follow Up: 1 Year, Reason: Y early Field Service Representative Exam Progress Notes * MELISSA KIANA WILLIAMSONDOB:[birth year] (59 yo F)Acc No.[id number]:03/21/2025 PROGRESS NOTES Patient: Avi PAYAN TERI KIANA Provider: Karin BATES MD :1965 A ge:59 Y S ex:Female Date:03/21/2025 Address:[address] [place] [address] Pcp:Jimmie Cross MD Subjective: * Chief Complaints: * 1 . Annual LEAD BI DEVELOPER Physical. 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 She has been in state of [...] - strength training. * ROS: A nnual Field Service Representative Exam ROS: Bowel habit changes d enies. [...] no acute distress, well developed, well nourished, electronic publishing specialist present in room. HEAD: n ormocephalic, atraumatic. [...] * Follow Up: 1 Year (Reason: Yearly Field Service Representative Exam) * Images: Billing Information: * Visit Code: 94716 Preventive Care Est Pt. Age 40-64. * Procedure Codes: * Electronic signature of ELIJAH BATES MD on 05/12/2025 at 08:56 AM EDT Sign off status: Pending * Provider: Karin BATES MD Date: 0 03/21/2025 Generated for Jenai gabo/Haydee/eTransmitting on: 0 05/12/2025 08:56 AM EDT History and Physical Notes * HPI (History of Present Illness) Category Sub-Category Detail Notes Category Not es Constitutional Kiana is a 59yo s/p supracervical hysterectomy in 1998 who presents for her yearly operations officer exam. She has been in state of [...] ac favio distress, well developed, well nourished, electronic publishing specialist present in room HEAD: normocephalic, atrau matic [...]
--- NOTE | ~2025-05-12 | US_ITS ---
EXAMINATION: US COMPLETE ABDOMEN WITH LIVER ELASTOGRAPHY CLINICAL INFORMATION: K21.9 - Gastro-esophageal reflux disease without esophagitis COMPARISON: None available. TECHNIQUE: Real-time imaging of the abdominal viscera. Noninvasive ultrasound liver fibrosis assessment is performed using Elysia ElastPQ point quantification shear wave elastography (pSWE) with a C5-2 MHz transducer. Multiple elastography samples are obtained. FINDINGS: PANCREAS: The visualized pancreatic head and body are normal in appearance. The remainder of the pancreas is obscured from visualization by the overlying bowel gas. ABDOMINAL AORTA: No aortic aneurysm is seen. INFERIOR VENA CAVA: Visualized portions are normal. LIVER: The liver demonstrates normal size, contour and echogenicity. No focal lesion or intrahepatic biliary duct dilatation. The right lobe measures 17 cm in length. The left lobe measures 10 cm in length. Main portal vein is patent with a normal direction of flow and a continuously forward undulating venous waveform. Shear wave liver elastography median stiffness is 1.4 m/s (reference: normal median stiffness is 1.3 m/s or less). IQR/median stiffness to assess sampling precision is 0.12 (reference: good quality data set is IQR/median stiffness of 0.15 or less). GALLBLADDER: There is a small echogenic focus on the posterior wall of the gallbladder without posterior acoustic shadowing measuring 2 mm diameter. COMMON BILE DUCT: Normal in caliber measuring 0.3 cm in diameter. RIGHT KIDNEY: No hydronephrosis. No stones are evident. There is ill-defined lesion 14 mm in diameter that demonstrates heterogeneous hypoechogenicity located in the upper pole. It does not demonstrate posterior acoustic enhancement. The kidney measures 11 cm in maximum dimension. LEFT KIDNEY: No hydronephrosis. No renal calculi or focal parenchymal lesions. The kidney measures 11 cm in maximum dimension. SPLEEN: Unremarkable. The spleen measures 8 cm in maximum dimension. FREE FLUID: None seen. US/US abdomen comp w elastography IMPRESSION: 1. Borderline hepatomegaly. 2. Liver elastography: Measurements are consistent with a high probability of normal liver stiffness. Suspected 2 mm gallbladder polyp Ill-defined 14 mm indeterminate right upper kidney lesion. Follow-up CT or MRI abdomen/renal without and with IV contrast. REFERENCE: Society of Radiologists in Ultrasound Liver Stiffness Thresholds (2020): LIVER STIFFNESS THRESHOLDS: *Liver Stiffness equal or less than 1.3 m/s: High probability of being normal. *Liver Stiffness less than 1.7 m/s: In the absence of other known clinical signs, rules out compensated advanced chronic liver disease. *Liver Stiffness 1.7-2.1 m/s: Suggestive of compensated advanced chronic liver disease but need further test for confirmation. *Liver Stiffness over 2.1 m/s: Rules in compensated advanced chronic liver disease. *Liver Stiffness over 2.4 m/s: Suggestive of clinically significant portal hypertension. QUALITY OF DATA SET: *IQR/Median value equal or less than 0.15 implies a quality data set. *IQR/Median value over 0.15 implies a poor quality data set. SIGNIFICANT CHANGE FROM PRIOR EXAM: Significant change if liver stiffness measurement is 10% or greater from prior exam. OTHER CONSIDERATIONS: The stage of liver fibrosis may be overestimated in the setting of acute hepatitis, liver inflammation, elevated liver function tests, hepatic vascular congestion, obstructive cholestasis, non-fasting state, and infiltrative diseases such as amyloidosis and lymphoma. In some patients with NAFLD, the liver stiffness thresholds for compensated advanced chronic liver disease may be lower. In causes other than viral hepatitis and NAFLD, liver stiffness thresholds are not well established. Electronically signed by: Stephan Plunkett MD 05/12/2025 12:06 PM EDT
--- OUTSIDE RECORDS SUMMARY | 2025-05-12 08:56 | XMS_ITS | Clinical Summary ---
Author Organization [employer] Address [address] [place] [address] [address] [place] [address] Care Team Providers Care Perforator Operator Name Role Phone Unavailable Primary Care [...] Most Recently Relevant to Health Maintenance Insurance [facility]
--- OUTSIDE RECORDS SUMMARY | 2025-05-12 08:57 | XMS_ITS | Clinical Summary ---
Demographics Address [address] [place] [address] Home Phone Mobile Phone Preferred Language Prydeinig Marital Status Lutheran Affiliation Unknown Race White Ethnic Group Unknown Author Organization [facility] Address [address] [place] [address] Support Name Relationship Address Phone Rev Baker Emergency Contact [address] [place] [address] Erik Cobb Spouse [address] [place] [address] Care Team Providers Care Tray Casting Machine Operator Name Role Phone Lexi Dukes Anitha Primary [...] Info) Description 07/19/2025 2:45 PM EDT Telehealth [facility] [address] [place] [address] Arun Morgan MD [address] [place] [address] Health Maintenance Due Date Last Done Comments [...] Self [address] [place] [address] [employer] Care Teams Tray Casting Machine Operator Relationship Specialty Start Date End Date Lexi Dukes [address] [place] [address] [address] [place] [address] PCP - General 12/07/24
== END 2025-05-12 08:45 | disposition home or self-care (01) ==
LOC: HO.US 08:44
PROVIDERS: PCP Nurse Practitioner Family; Visit Provider Surgery
DX: K21.9 Gastro-esophageal reflux disease without esophagitis (principal)
CPT/HCPCS: 76700; 76981

== ENCOUNTER → 2025-05-12 08:46 | Outpatient (BNV) | payer OTHER, SELFPAY | PROVIDERS: PCP Nurse Practitioner Family; Visit Provider Radiology Diagnostic Radiology | DX: K21.9 Gastro-esophageal reflux disease without esophagitis (principal) | CPT/HCPCS: 76700 ==

== ENCOUNTER 2025-05-29 08:54 | Outpatient (AMB) | payer OTHER, SELFPAY ==
--- OUTSIDE RECORDS SUMMARY | 2024-12-23 11:00 | XMS_ITS ---
Author Organization [facility] Address [address] [place] [id number] Care Team Providers Care Career Representative Name Role Phone Jimmie Cross MD Primary Care Provider ELIJAH Constantino Unavailable [phone] Allergies Allergen (clinical drug ingredient) Drug/Non Drug Allergy documented on EMR Reaction Allergy Type Onset Date Status IYP dye (uncoded) anaphylaxis Allergy Active aripiprazole Abilify tardive dyskinesia Drug Allergy Active cefazolin Cefazolin anaphylaxis Drug Allergy Activ e prednisone Prednisone severe headache/HTN Drug Allergy Active promethazine Promethazine hives Drug Allergy A ctive REASON FOR VISIT Annual DIRECTOR INSTRUCTIONAL MATERIAL Physical Social History Tobacco Use: Social History Observation Description Date Details (start date - stop date) Never Smoker NA - NA Tobacco Use/Smoking Question Answer Notes Are you a nonsmoker AUDIT-C (Standard) Question Answer Notes Did you have a drink containing alcohol in the p ast year? No Points 0 Interpretation Negative Encounters Encounter Location Date Provider Diagnosis [address] [address] 12/23/2024 ELIJAH BATES Encounter for gynecological examination (general) (routine) without abnormal findings Z01.419 ; Encounter for screening mammogram for malignant neoplasm of breast Z12.31 and Encounter for screening for infections with a predominantly sexual mode of transmission Z11.3 Assessments Encounter Date Diagnosis (ICD Code) Assessment Notes Treatment Notes Treatment Clinical Notes Section Notes 12/23/2024 Encounter for gynecological examination (general) (routine) without abnormal findings (ICD-10 - Z01.419) During the visit, the following areas of concern were addressed: Discussed cervical cancer screening with either cytology alone every 3 years or high risk HPV co-testing every 5 years as per ASCCP guidelines. Advised continued annual pelvic exams. Patient encouraged to increase her level of exercise. SBE technique encouraged/tau ght. Patient reminded when annual mammogram is due. Patient encouraged to keep colon screening up to date. 12/23/2024 Encounter for screening mammogram for malignant neoplasm of breast (ICD-10 - Z12.31) 12/23/2024 Encounter for screening for infections with a predominantly sexual mode of transmission (ICD-10 - Z11.3) Plan Of Treatment Treatment Notes Assessment Notes Encounter for gynecological examination (general) (routine) without abnormal findings During the visit, the following areas of concern were addressed: Discussed cervical cancer screening with either cytology alone every 3 years or high risk HPV co-testing every 5 years as per ASCCP guidelines. Advised continued annual pelvic exams. Patient encouraged to increase her level of exercise. SBE technique encouraged/taught. Patient reminded when annual mammogram is due. Patient encouraged to keep colon screening up to date. Pending Test Test Name Order Date MM Digital Screening Mammogram 3D 2024 Next Appt Details Follow Up: 1 Year, Reason: Y early Propeller Inspector Exam Progress Notes * KIANA SANTIZODOB:[birth year] (59 yo F)Acc No.[id number]:12/23/2024 PROGRESS NOTES Patient: Avi PAYAN KIANA WILLIAMSON Provider: Karin BATES MD :[id number] A ge:59 Y S ex:Female Date:12/23/2024 Address:[address] [place] [address] Pcp:Jimmie Cross MD Subjective: * Chief Complaints: * 1 . Annual DIRECTOR INSTRUCTIONAL MATERIAL Physical. * HPI: C onstitutional: Karin sarkar is a 59yo s/p supracervical hysterectomy in 1998 who presents for her yearly driver guard exam. She has been in state of good health since her last exam. She has the following concerns: . Last year she requested referral to urogyn for prolapse. She reports . She has received the Moderna Covid-19 vaccine. Relationship status: * for 20 years, together for 35-36 yrs. She is not sexually active - due to 's ED. Sexual partner(s): male. She does not wish to have STI testing. She does* report vaginal dryness - discussed Replenz. She does* have hot flashes/night sweats - intermittent - has been using estradiol patches. The patient has had an abnormal pap smear within the last 5 years. Her most recent pap smear was 12/10/23 - NIL, neg HR HPV. The previous pap was 08/25/22 - ASCUS, + HR HPV, Neg HPV 16/18/45. Due for cotesting today. She has not been diagnosed with breast cancer. She does not have a family history of breast cancer. Her last mammogram was *03/23/23. She does *not have a family history of colon cancer. She a has had a colonoscopy. The last colonoscopy was 2017. The patient does* sometimes exercise. She goes to the gym 1-3 times weekly with a friend - strength training. * ROS: A nnual Propeller Inspector Exam ROS: Bowel habit changes d enies. B ladder symptoms d enies. V aginal discharge, unusual d enies. V aginal itch or odor d enies. w eight or appetite changes d enies. C hest pains, SOB d enies. d epression d enies.? B reast: Denies B reast lump. D enies N ipple discharge.? H ematology: Denies S wollen glands. S kin: Patient denies c hanging moles. P sychiatric: Denies A nxiety. * Medical History: O ther specified arthritis, unspecified site, Hypothyroidism, unspecified, Pure hypercholesterolemia, unspecified, Hypermobile Jerman-Danlos syndrome, Major depressive disorder, recurrent, mild, Anxiety disorder, unspecified, Post- traumatic stress disorder, unspecified, Rectocele, Orthostatic hypotension, Drug induced subacute dyskinesia, Decreased libido, Menopausal and female climacteric states, Hormone replacement therapy, Cervical high risk human papillomavirus (HPV) DNA test positive, Atypical squamous cells of undetermined significance on cytologic smear of cervix (ASC-US), Dense breasts, unspecified, Mammographic heterogeneous density, bilateral breasts. * Propeller Inspector History: G ravida/ Para 3 /2. S exual activity n ot currently sexually active. L ast Pap Smear: 1 10/26/21 ASCUS, POS HRHPV -16,18/45, 08/22/19 NIL, NEG HPV, 08/31/17 - NIL, +HR- HPV. M ammogram: 50-75% density, 11/15/2019, 50-75% density, 10/15/2018, 50-75% density. A bnormal Pap Smear: - +HPV, 08/2017 - NIL, +HPV. L MP and menses 1 999 Supracervical HYST. H istory of STD's: H erpes Simplex Virus (HSV). B irth Control: h ysterectomy - supracervical. M enarche 1 2. C olonoscopy 2 018. G ardasil: h as not had vaccine. * OB History: T otal pregnancies 3 . N VD 2 . A bortion(s) 1 . P regnancy # 1: n ormal spontaneous vaginal delivery (), 09/14/86, Anshul, 7lb 5oz, PIH. P regnancy # 2: e lective terminations of (ETOP) (T1 due to depression). P regnancy # 3 n ormal spontaneous vaginal delivery (), 01/29/90, female to male, Del, 7lb 10oz, no complications. F ull-term delivery 2 . * Social History: T obacco Use: T obacco Use/Smoking A re you a n onsmoker S exual History: D etails of Sexual History A re you sexually active? N o D rugs/Alcohol: D rugs H ave you used drugs other than those for medical reasons in the past 12 months? N o M iscellaneous: Leilani muro: yes, 2 (one biologic boy, one F2M transition). Domestic violence: no. Exercise: none. Home smoke detector use: yes, smoke detectors, carbon monoxide detector. Housing: renting. Living with: spouse. Marital status: , Erik. Natural support system: yes. Occupation: [employer]. Others at home: none. Pets: none. Sexual abuse: no. Sexually active: no. Travel outside of the [place]: no. Verbal abuse: no. D rug/Alcohol: A ELI-C (Standard) D id you have a drink containing alcohol in the past year? N o P oints 0 I nterpretation N egative * Allergies: I YP dye: anaphylaxis, Cefazolin: anaphylaxis, Prednisone: severe headache/HTN, Promethazine: hives, Abilify: tardive dyskinesia. Objective: * Vitals: * Examination: G eneral Examination: GENERAL APPEARANCE: i n no acute distress, well developed, well nourished, lighting fixture installer present in room. HEAD: n ormocephalic, atraumatic. NECK/THYROID: n verona supple, full range of motion, thyroid normal. LYMPH NODES: n o axillary or supraclavicular adenopathy.? SKIN: normal, good turgor, no rashes, no suspicious lesions. BREASTS: normal, no dimpling, no discharge, no drainage, no masses palpable bilaterally, nontender. ABDOMEN: soft, non-tender, non distended without masses or hepatosplenomegay. RECTAL: normal tone, no masses palpable. BACK: no costovertebral angle tenderness. FEMALE GENITOURINARY: V ulva without lesions or masses, vagina pink without abnormal discharge, lesions or masses, cervix appears normal and is not tender to palpation, uterus is surgically absent, ovaries are not palpable. NEUROLOGIC: alert and oriented, gait normal. PSYCH: alert, oriented, cognitive function intact, cooperative with exam, good eye contact, mood/affect full range, speech clear. Assessment: * Assessment: 1. E ncounter for gynecological examination (general) (routine) without abnormal findings - Z01.419 (Primary) 2 . E ncounter for screening mammogram for malignant neoplasm of breast - Z12.31 3 . E ncounter for screening for infections with a predominantly sexual mode of transmission - Z11.3 Plan: * Treatment: 2. E ncounter for screening mammogram for malignant neoplasm of breast I maging: MM Digital Screening Mammogram 3D * Follow Up: 1 Year (Reason: Yearly Propeller Inspector Exam) * Images: Billing Information: * Visit Code: 14023 Preventive Care Est Pt. Age 40-64. * Procedure Codes: * Electronic signature of ELIJAH BATES MD on 05/29/2025 at 09:58 AM EDT Sign off status: Pending * Provider: Karin BATES MD Date: 0 12/23/2024 Generated for Jenai gabo/Haydee/eTransmitting on: 0 05/29/2025 09:58 AM EDT History and Physical Notes * HPI (History of Present Illness) Category Sub-Category Detail Notes Category Not es Constitutional Kiana is a 59yo s/p supracervical hysterectomy in 1998 who presents for her yearly driver guard exam. She has been in state of good health since her last exam. She has the following concerns: . Last year she requested referral to urogyn for prolapse. She reports . She has received the Moderna Covid-19 vaccine. Relationship status: * for 20 years, together for 35-36 yrs. She is not sexually active - due to 's ED. Sexual partner(s): male. She does not wish to have STI testing. She does* report vaginal dryness - discussed Replenz. She does* have hot flashes/night sweats - intermittent - has been using estradiol patches. The patient has had an abnormal pap smear within the last 5 years. Her most recent pap smear was 12/10/23 - NIL, neg HR HPV. The previous pap was 08/25/22 - ASCUS, + HR HPV, Neg HPV 16/18/45. Due for cotesting today. She has not been diagnosed with breast cancer. She does not have a family history of breast cancer. Her last mammogram was *03/23/23. She does *not have a family history of colon cancer. She a has had a colonoscopy. The last colonoscopy was 2017. The patient does* sometimes exercise. She goes to the gym 1-3 times weekly with a friend - strength training Examination Category Sub-Category Detail Notes Category Not es General Examination GENERAL APPEARANCE: in no ac port lions distress, well developed, well nourished, lighting fixture installer present in room HEAD: normocephalic, atrau matic NECK/THYROID: neck supple, full ra nge of motion, thyroid normal ABDOMEN: soft, non-tender, no n distended without masses or hepatosplenomegay NEUROLOGIC: alert and oriented, gait normal SKIN: normal, good turgor, no rashes, no suspicious lesions BACK: no costovertebral an gle tenderness BREASTS: normal, no dimpling, no discharge, no drainage, no masses palpable bilaterally, nontender LYMPH NODES: no axillary or supra clavicular adenopathy RECTAL: normal tone, no mass es palpable PSYCH: alert, oriented, cog nitive function intact, cooperative with exam, good eye contact, mood/affect full range, speech clear FEMALE GENITOURINARY: Vulva without lesi ons or masses, vagina pink without abnormal discharge, lesions or masses, cervix appears normal and is not tender to palpation, uterus is surgically absent, ovaries are not palpable
--- OUTSIDE RECORDS SUMMARY | 2025-03-21 11:30 | XMS_ITS ---
Author Organization [facility] [employer] [facility] Address [address] [address] Care Team Providers Care Partner Manager Name Role Phone Jimmie Cross MD Primary Care Provider ELIJAH Constantino Unavailable [phone] REASON FOR VISIT Annual MARKET DEVELOPMENT TRAINER Physical Encounters Encounter Location Date Provider Diagnosis [facility] [employer] [address] [place] [phone] 03/21/2025 ELIJAH BATES Encounter for gynecological examination [...] Follow Up: 1 Year, Reason: Y early Hose Tubing Backer Exam Progress Notes * MELISSA KIANA WILLIAMSONDOB:[birth year] (59 yo F)Acc No.[id number]:03/21/2025 PROGRESS NOTES Patient: Avi PAYAN TERI KIANA Provider: Karin BATES MD :1965 A ge:59 Y S ex:Female Date:03/21/2025 Address:[address] [place] [address] Pcp:Jimmie Cross MD Subjective: * Chief Complaints: * 1 . Annual MARKET DEVELOPMENT TRAINER Physical. 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 She has been in state of [...] - strength training. * ROS: A nnual Hose Tubing Backer Exam ROS: Bowel habit changes d enies. [...] no acute distress, well developed, well nourished, quality assurance monitor present in room. HEAD: n ormocephalic, atraumatic. [...] * Follow Up: 1 Year (Reason: Yearly Hose Tubing Backer Exam) * Images: Billing Information: * Visit Code: 19821 Preventive Care Est Pt. Age 40-64. 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 She has been in state of [...] General Examination GENERAL APPEARANCE: in no ac [place] distress, well developed, well nourished, quality assurance monitor present in room HEAD: normocephalic, atrau matic [...]
[2025-05-29 09:01] VITALS: BP 150/74; PULSE 92; RESP 18; O2SAT 99; BMI 29.7
--- NOTE | 2025-05-29 09:01 | A.OFFVIS_ITS ---
Vital Signs 05/29/25 09:01 Height 5 ft 4 in Weight 173 lb BMI 29.7 BP 150/74 H Blood Pressure Location Lt brachial Position Sitting Respiration 18 Pulse 92 Pulse Source Pulse Oximeter Pulse Oximetry (%) 99 Oxygen Delivery Method Room Air Intake Visit Reasons: S/p B/l C4-C5-C6 MB RFA 04/26/25 Customer Service Trainer Required: No Allergies promethazine (From PHENERGAN) Allergy (Intermediate, Verified 05/29/25 09:03) RASH cefazolin (CEFAZOLIN) Allergy (Unknown, Verified 05/29/25 09:03) ANAPHYLAXIS Iodinated Contrast Media (IV Dye, Iodine Containing Contrast ) Allergy (Unknown, Verified 05/29/25 09:03) ANAPHYLAXIS aripiprazole (From Abilify) Adverse Reaction (Severe, Verified 05/29/25 09:03) tardive dyskinesia prednisone (PREDNISONE) Adverse Reaction (Unknown, Verified 05/29/25 09:03) HYPERTENSION, high BP,headache DOG SHAMPOO Allergy (Unknown, Uncoded 05/08/25 10:46) ANAPHYLAXIS HPI Comments Details: The patient is a 59-year-old female presenting with ongoing pain management following a cervical radiofrequency ablation (RFA). The patient underwent cervical medial branch RFA on April 26, which was followed by significant pain and muscle spasms the next day. She managed the pain initially with tizanidine, but due to persistent severe pain, she followed up with Dr. Mejia on May 08, who prescribed cyclobenzaprine, which provided minimal relief. The patient described the pain as severe, with a sensation of heaviness in the head and difficulty supporting the neck initially after RFA. She also reported a bulging sensation in the neck area, with surrounding tissue feeling numb and later developing a burning sensation claire to a sunburn. The patient has been using a massager, TENS unit and a heating pad for relief, which provides temporary comfort. She alternates between Tylenol, cyclobenzaprine and ibuprofen for pain management. The patient has a history of low back pain and hip therapy from a year ago and currently experiences muscle tension extending to the shoulder. She has been advised to resume physical therapy, including ultrasound wave therapy and the use of a TENS unit, which she owns but needs assistance in setting up for cervical use. The patient also reports headaches, which have improved post RFA procedure, and she has applied for intermittent FMLA due to fibromyalgia flares and chronic neck pain. - Onset: Pain began after cervical RFA on April 26. - Quality: Described as severe, with heaviness in the head and a burning sensation in the neck. - Location: Primarily in the cervical region, with radiation to the shoulder. - Exacerbating factors: Movement and pressure on the neck. - Relieving factors: Use of massager, heating pad, Tylenol, and ibuprofen. - Interference: Affects daily activities, including work and sleep. - Affect: Pain impacts daily function and work performance. - Analgesia: Current pain level is 2/10 with the use of tizanidine, cyclobenzaprine, Tylenol, and ibuprofen. - Adverse Effects: Minimal relief from cyclobenzaprine, no other adverse effects reported. - Activities of Daily Living: Pain affects ability to work at a desk and perform daily tasks. - Aberrant Drug Related Behaviors: No aberrant behaviors reported. Past Procedures: 04/26/25: Bilateral C4-C5-C6 MB RFA-80% ongoing pain relief 03/03/24: Bilateral C3-C4-C5 MBB-100% pain relief for 24 hours 02/18/24: Right Diagnostic C4-C5-C6 MBB-100% pain relief for >6 hours 02/11/24: Left Diagnostic C4-C5-C6 MBB-100% pain relief for >6 hours PFSH Medical History Anxiety Obstructive sleep apnea on CPAP Obesity Orthostatic dizziness Type 2 diabetes mellitus Jerman-Danlos syndrome type III History of kidney stones Hypothyroidism Back pain Chronic constipation IBS (irritable colon syndrome) Insomnia Hyperlipidemia Fibromyalgia Depression Surgical History History of repair of rectocele Hx of partial thyroidectomy Status post left foot surgery History of sleeve gastrectomy History of endometrial ablation Hx of toe surgery History of bladder suspension procedure Hx of hysterectomy Hx of tubal ligation Hx of appendectomy Family History Father Liver disease Diabetes mellitus Hypertension Mother Hypertension Diabetes mellitus Arthritis Son Asthma Depression Anxiety Daughter Asthma Depression Migraines Chronic pain Anxiety Sister No problems noted. 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 - Neurological: Reports headaches, heaviness in the head, and numbness in the neck area extending to right occipital region. - Integumentary: Reports burning sensation in the posterior neck area. All systems reviewed & are unremarkable except as noted in HPI and below Physical Exam Vital Signs: Last Vital Signs Pulse 92 05/29/25 09:01 Resp 18 05/29/25 09:01 BP 150/74 H 05/29/25 09:01 Pulse Ox 99 05/29/25 09:01 Oxygen Delivery Method Room Air 05/29/25 09:01 BMI result Body Mass Index 29.7 General: Appears afebrile. Alert and oriented. Mood and affect appropriate. Follows and participates in conversation appropriately. Respiratory effort is unlabored. No cough. Able to transition from sit to stand unassisted. Ambulates with bilaterally normal heel strike and toe off. Neck Neck: Yes normal visual inspection, Yes full ROM, Yes no lymphadenopathy, Yes supple, No anterior neck swelling, Yes no JVD, No prominent supraclavicular fat pad and Yes prominent dorsocervical fat pad Back/Spine/Pelvis Other: Multiple widespread TTPs 16/16 bilaterally, including upper and lower extremities. Cervical Spine: cervical ROM normal, loss of normal cervical lordosis, cervical muscular tenderness, pain with cervical ROM, No Cervical spine scars present, cervical spasm (upper trapezius and rhomboids) and No Cervical spine tenderness Pelvis: buttock tenderness Sacroiliac joints: bilaterally tender to palpation Assessment & Plan Assessment & Plan (1) Fibromyalgia, primary: Code(s): M79.7 - Fibromyalgia Category: Medical (2) Cervical spondylosis: Code(s): M47.812 - Spondylosis without myelopathy or radiculopathy, cervical region Category: Medical (3) Muscle spasm: Code(s): M62.838 - Other muscle spasm Category: Medical (4) Cervicalgia: Code(s): M54.2 - Cervicalgia Category: Medical Plan The plan includes resuming physical therapy to address muscle tension and neck pain, with a focus on ultrasound wave therapy and proper use of the TENS unit. The patient is advised to continue using the massager and heating pad for symptomatic relief. Medication management will continue with tizanidine, cyclobenzaprine, Tylenol, and ibuprofen as needed for pain control. The patient is encouraged to bring the TENS unit to physical therapy for proper setup and guidance. The patient has applied for intermittent FMLA to manage fibromyalgia flares and chronic neck pain and is advised to bring the necessary paperwork for completion. All questions and concerns have been answered and patient agreed with the treatment plan. Follow up after PT and sooner as needed. Patient was informed and verbally consented to the use of an ambient scribe for clinic note documentation during this visit. Orders: Orders PT Evaluation and Treatment Today M47.812 - Spondylosis without myelopathy or radiculopathy, cervical region, M54.2 - Cervicalgia, M62.838 - Other muscle spasm, M79.7 - Fibromyalgia Patient Instructions: - Continue physical therapy sessions and bring TENS unit for setup. - Use massager and heating pad as needed for pain relief. - Continue alternating Tylenol and ibuprofen for pain management. - Bring FMLA paperwork for completion. Coding Level of Care Code Est Pt Level 4 (34460) Complex EM visit Add On G2211 Diagnoses Fibromyalgia, primary M79.7 Cervical spondylosis M47.812 Muscle spasm M62.838 Cervicalgia M54.2
--- OUTSIDE RECORDS SUMMARY | 2025-05-29 09:57 | XMS_ITS | Clinical Summary ---
Author Organization [employer] Address [address] [place] [address] [address] [place] [address] Care Team Providers Care Throw Out Clerk Name Role Phone Unavailable Primary Care Provider [...] 10/29 Tobacco Screening 04/07/2024 04/07/2023 COVID-19 Vaccine (3 - season) 2025 01/11/2021, 12/14/2020 Influenza Vaccine (#1) 2025 , [...] Most Recently Relevant to Health Maintenance Insurance [facility] [place] [place] [id number]
--- OUTSIDE RECORDS SUMMARY | 2025-05-29 09:58 | XMS_ITS | Clinical Summary ---
Demographics Address [address] [place] [address] Home Phone Mobile Phone Preferred Language Jamaican Marital Status Sabianism Affiliation Unknown Race White Ethnic Group Unknown Author Organization [facility] Address [address] [place] [address] Support Name Relationship Address Phone Rev Baker Emergency Contact [address] [place] [address] Erik Cobb Spouse [address] [place] [address] Care Team Providers Care Stitcher Utility Name Role Phone Lexi Dukes Anitha Primary [...] Info) Description 07/19/2025 2:45 PM EDT Telehealth [facility] [address] [place] [address] Arun Morgan MD [address] [place] [address] Health Maintenance Due Date Last Done Comments Cervical Cancer Screening 1964 Cologuard 1964 Colon Cancer Screening 1964 Colonoscopy 1964 FOBT / Fit Test 1964 HIV Screening 1964 HPV and Pap Smear 1964 Hepatitis C Screening 1964 Pap Smear 1964 Sigmoidoscopy 1964 DTaP,Tdap,and Td Vaccines (1 - Tdap) 1986 Mammogram 2004 Pneumococcal Vaccine: 50+ Years (2 of 2 - PCV) 09/09/2019 09/09/2018 Alcohol/Substance Use Screening 09/21/2024 Depression Screening and Follow-Up 09/21/2024 Social Drivers of Health Annual Screening 09/21/2024 Zoster Vaccines (2 of 2) 01/26/2025 12/01/2024 COVID-19 Vaccine (3 - 2024-2 6 season) 2025 01/11/2021, 12/14/2020 Influenza Vaccine (#1) 2025 , 07/04/2021, 10/19/2017 RSV Vaccine (60+ years old a nd patients) (1 - 1-dose 75+ series) 12/10/2039 Hepatitis B Vaccines Aged Out No long er eligible based on patient's age to complete this topic Insurance * Guarantor: Kiana Fournier Account Type Relation to Patient Date of Phone Billing Address Personal/Family Self [address] [place] [address] [employer] Care Teams Stitcher Utility Relationship Specialty Start Date End Date Lexi Dukes [address] [place] [address] [address] [place] [address] PCP - General 12/07/24
--- OUTSIDE RECORDS SUMMARY | 2025-05-29 09:58 | XMS_ITS | Patient Health Record ---
Author Organization [facility] Address [address] [place] [address] Care Team Providers Care Hims Manager Name Role Phone Jimmie Cross MD Primary Care Provider ELIJAH Constantino Unavailable [phone] Allergies Allergen (clinical drug ingredient) Drug/Non Drug [...] tablet in the morning Orally Once a day; Duration: 30 day(s) Active Diphenhydramine PRN Acti ve Dicyclomine HCl 10 MG 2 capsules Orally TWICE a day Active Ingrezza 80 MG 1 capsule Orally Once a day; Duration: 30 days Active Estradiol 0.06 MG/24HR 1 patch to skin Transdermal weekly; Duration: 90 days 07/03/2022 Active DULoxetine HCl 60 MG 1 capsule Orally Once a day Active Levothyroxine Sodium 125 MCG 1 tablet in the morning on an empty stomach Orally Once a day Active Abilify 5 MG 1 tablet Orally Once a day Not-Taking ZyrTEC Allergy 10 MG 1 tablet Orally Once a day Active Opurity Not-Taking Biotin 63092 MCG 1 tablet Orally Once a day Active Linzess 290 MCG 1 capsule at least 30 minutes before the first meal of the day on an empty stomach Orally Once a day; Duration: 30 day(s) Active Fludrocortisone Acetate 0.1 MG [...] test positive, high risk on vaginal specimen ([id number]) Cervical high risk human papillomavirus (HPV) DNA test positive (R87.810) Active confirmed Problem Herniation of rectum into vagina (201126795) Rectocele (N81.6) Active confirmed Problem Reduced libido (6187560) Decreased libido (R68.82) Active confirmed Problem Menopause (550446671) Menopausal and female climacteric states (N95.1) Active confirmed Plan Of Treatment Pending Test Test Name Order Date Urinalysis 08/22/2019 Urinalysis 08/11/2019 THIN PREP,HPV,LILLIAN IF HPV+/CYT-,CT/GC(>2 9YR)(DIAG) 08/22/2019 MM Digital Screening Mammogram 3D 2021 MM Digital Screening Mammogram 3D 2020 MM Digital Screening Mammogram 3D 2023 Insurance Providers Payer Name Payer Address Payer Phone Subscriber Number Group Number Insured Name Patient Relationship to Insured Coverage Start Date Coverage End Date [employer] [place] [address] [address] [place] [address] [id number] IBRAHIMA GREEN Self - patient is the insured BCBS MEDICARE HMO [address] [place] [address] [id number] IBRAHIMA GREEN Self - patient is [...]
--- OUTSIDE RECORDS SUMMARY | 2025-05-29 09:58 | XMS_ITS | Encounter Summary ---
Author Organization [facility] Address [address] [place] [address] [address] [place] [address] Care Team Providers Care Certified Nursing Assistant Instructor Name Role Phone Unavailable Primary Care Provider Unavailabl e Encounter Details Date Type Department Care Team (Latest Contact Info) Description 10/28/2018 Abstract [facility] CONVERSIONS Dental, Provider, DDS Social History Tobacco [...]
== END 2025-05-29 09:20 | disposition home or self-care (01) ==
LOC: HO.PMC 08:54
PROVIDERS: PCP Nurse Practitioner Family; Visit Provider Nurse Practitioner Family
DX: M79.7 Fibromyalgia (principal); M47.812 Spondylosis without myelopathy or radiculopathy, cervical region; M62.838 Other muscle spasm; M54.2 Cervicalgia
CPT/HCPCS: 99214

== ENCOUNTER 2025-07-13 12:02 | Outpatient (RCR) | payer OTHER, SELFPAY ==
--- NOTE | 2025-06-15 14:02 | MHC.PT.EP ---
[facility] [place] Office [place] [facility] [place] Office [address] Grisel Ivan [address] [phone] F: [phone] F: [phone] F: [phone] F: [phone] Physical Therapy Plan of Care Date of Evaluation: 06/09/25 Date of Surgery: Diagnosis: NECK PAIN (KP) Assessment: MARIN IS A PLEASANT 59 YO FEMALE WHO UNDERWENT RFA WITH PAIN MANAGEMENT FOLLOWING WHICH HER PAIN WORSENED AND NOW FEELS LIKE SPASMS IN THE NECK AND UPPER TRAP REGION. ALSO WITH INJECTIONS AT THAT TIME AND REPORTS CONT NUMBNESS SINCE AND SENSATION THAT FEELS LIKE A SUNBURN SHE DID MENTION THIS TO PAIN MANAGEMENT BUT THEY OFFERED NO RECOMMENDATIONS AT THAT TIME. SHE HAS TRIALLED MS RELAX AND NSAIDS WITHOUT RELIEF BUT NOTES HEAT IS HELPFUL. PAIN ON THE RIGHT IS GREATER THAN LEFT AND WORSENS DAY GOES ON. SHE STATES THAT SHE WALKS THE NECK IS TOO TIRED TO HOLD UP AND FEELS SHE FORWARD FLEXED. REPORTS VERY MILD CHANGE IN SENSATION IN DIANA FOREARMS. UPON EXAM IMPAIRMENTS INCLUDE DECREASED CERVICAL ROM AND DECREASED UE STRENGTH, ALTERED POSTURE AND POSITIONING, INCREASED TISSUE TENSION AND PAIN. FUNCTIONAL LIMITATIONS INCLUDE DECREASED ABILITY TO PERFORM STATIC STANDING, PROLONGED SEATED ACTIVITIES AND COMPUTER USE, DECREASED TOLERANCE TO ADLs AND HOMEMAKING TASKS. SHE REPORTS DECREASED PARTICIPATION IN COMMUNITY AND RECREATIONAL ACTIVITIES AND DISRUPTED SLEEP. Frequency and Duration: The patient will be seen 2 X WEEK FOR 5 WEEKS Short Term Goals: INITIATE HEP AND PROMOTE SELF MANAGEMENT OF SYMPTOMS Hardware Installation Coordinator Goals: Patient will demonstrate full, pain-free cervical range of motion in all planes within normal limits (WNL). Patient will return to all work or recreational activities (e.g., prolonged computer use, driving, lifting) without symptom exacerbation. Patient will demonstrate improved cervical and scapular muscle strength to at least 4+/5 on manual muscle testing to support postural stability. Patient will report neck pain =2/10 consistently over one week during all routine activities Patient will independently perform a prescribed home exercise program and demonstrate understanding of ergonomics and posture education with 100% accuracy. Patient will tolerate prolonged static and dynamic postures (e.g., working at a desk or computer for 1+ hours) without neck pain or fatigue. Treatment Plan: Modalities to reduce pain, spasms and effusion. Manual therapy to restore motion and function. Therapeutic exercise to improve strength and flexibility. Neuromuscular re-education for posture and balance. Therapeutic activities to return to functional activities of daily living. Electronically signed by: Annalisa Fontana PT DPT Please sign and return to therapist. Thank you for your referral.
== END 2025-08-30 08:39 | disposition home or self-care (01) ==
LOC: HO.PT 12:02
PROVIDERS: PCP Nurse Practitioner Family; Visit Provider Nurse Practitioner Family
DX: M47.812 Spondylosis without myelopathy or radiculopathy, cervical region (principal); M54.2 Cervicalgia; M79.7 Fibromyalgia; M62.838 Other muscle spasm
CPT/HCPCS: 97110; 97140; 97161; 97162; 97530

== ENCOUNTER 2025-08-14 12:21 | Outpatient (REF) | payer OTHER, SELFPAY ==
--- NOTE | ~2025-08-14 | MM_ITS ---
EXAMINATION: MM SCREENING DIGITAL BREAST TOMOSYNTHESIS, BILATERAL CLINICAL INFORMATION: Screening. Asymptomatic. COMPARISON: Comparison made to multiple prior, most recent March 23, 2023, and most remote March 03, 2013. TECHNIQUE: Digital breast tomosynthesis is performed in mediolateral oblique and craniocaudal views along with computer-aided detection (CAD). Synthesized 2D images are generated from the tomosynthesis. FINDINGS: BREAST COMPOSITION: The breasts are heterogeneously dense, which may obscure small masses. BILATERAL BREASTS: No significant masses, suspicious calcifications or other abnormalities are seen in either breast. MM/MM tomosynthesis screening BI IMPRESSION: BILATERAL BREASTS: Negative, no mammographic evidence of malignancy. Normal interval follow-up is recommended in 12 months. ASSESSMENT: BI-RADS: Category 1: Negative RECOMMENDATION: Routine annual mammography screening. FOLLOW-UP: 1 year F/U This examination should not preclude the clinical evaluation of a suspicious palpable abnormality. This patient's information was entered into a reminder system with a target due date for their next mammogram. Electronically signed by: Tom Osei MD 08/15/2025 01:02 PM MATTIE
--- OUTSIDE RECORDS SUMMARY | 2025-08-14 16:21 | XMS_ITS | Clinical Summary ---
Demographics Address [address] [place] [address] Home Phone Mobile Phone Preferred Language Ghanaian Marital Status Buddhist Affiliation Unknown Race White Ethnic Group Unknown Author Organization [facility] Address [address] [place] [address] Support Name Relationship Address Phone Rev Baker Emergency Contact [address] [place] [address] Erik Cobb Spouse [address] [place] [address] Care Team Providers Care Gut Snatcher Name Role Phone Lexi Dukes Anitha Primary [...] tablet Active Ingrezza 80 mg capsule Active Encounters Date Type Department Care Team Description 07/19/2025 2:45 PM EDT Telehealth [facility] [address] [place] [address] Arun Morgan MD Akathisia (Primary Dx) 07/19/2025 myChart Message [facility] [address] [place] [address] Arun Morgan MD CLIVE Scan from Last 3 Months Family History Medical [...] Care Team (Late st Contact Info) Description 01/03/2026 4:15 PM EDT Office Visit [facility] [address] [place] [address] Arun Morgan MD [address] [place] [address] Health Maintenance Due Date Last Done Comments Cervical Cancer Screening 1965 Cologuard 1964 Colon Cancer Screening 1964 Colonoscopy 1964 FOBT / Fit Test 1964 HIV Screening 1964 HPV and Pap Smear 1964 Hepatitis C Screening 1964 Pap Smear 1964 Sigmoidoscopy 1964 Mammogram 2004 Pneumococcal Vaccine: 50+ Ye ars (2 of 2 - PCV) 09/09/2019 09/09/2018, 06/19/2015 Alcohol/Substance Use Screening 09/21/2024 Depression Screening and Follow-Up 09/21/2024 Social Drivers of Health Noemi ual Screening 09/21/2024 Zoster Vaccines (2 of 2) 01/26/2025 12/01/2024 Hepatitis B Vaccines (3 of 3 - 19+ 3-dose series) 04/03/2025 11/18/2024, 10/04/2024 COVID-19 Vaccine (3 - 2024-2 6 season) 2025 01/11/2021, 12/14/2020 DTaP,Tdap,and Td Vaccines (2 - Td or Tdap) 10/22/2027 10/22/2017 RSV Vaccine (60+ years old a nd patients) (1 - 1-dose 75+ series) 12/10/2039 Influenza Vaccine Completed 07/04/2025, , 07/04/2021, Additional history exists Insurance * Guarantor: Kiana Fournier Account Type Relation to Patient Date of Phone Billing Address Personal/Family Self 1965 [address] [place] [address] [employer] Care Teams Gut Snatcher Relationship Specialty Start Date End Date Lexi Dukes [address] [place] [address] PCP - General 12/07/24
--- OUTSIDE RECORDS SUMMARY | 2025-08-14 16:21 | XMS_ITS | Encounter Summary ---
Author Organization [facility] Address [address] [place] [address] Phone Care Team Providers Care Hazardous Substances Scientist Name Role Phone Lexi Dukes NP Primary Care Provider + Reason for Visit * Reason Onset Date Comments Establish Care 08/09/2025 Encounter Details Date Type Department Care Team (Late st Contact Info) Description 08/09/2025 Telephone [facility] Rheumatology [address] [place] [address] Lexi Dukes, LEXX [address] [address] Establish Care Social History Tobacco Use Types Packs/Day Years Used Date Smoking Tobacco: Never Assessed Comments Unknown Sex and Gender Information Value Date Recorded Sex Assigned at Not on file Legal Sex Female 5:27 PM EST Gender Identity Not on file Sexual Orientation Not on file documented as of this encounter Progress Notes * Anshul [place] - 08/09/2025 10:54 AM EST Pt called in, she will be getting a referral faxed to [facility] later this week. Pt will call back to confirm. Central Support Concrete Mixing Plant Laborer (Please do not reply to this user; this inbox is not monitored.) Thank you. documented in this encounter Plan of Treatment Not on file documented as of this encounter Visit Diagnoses Not on filedocumented in this encounter Care Teams Hazardous Substances Scientist Relationship Specialty Start Date End Date Lexi Dukes NP [address] [place] [address] PCP - General Nurse Practitioner 06/14/25 documented as of this encounter Additional Source Comments The information contained in this document represents components of the legal health record. It is not the complete legal health record.[facility]
--- OUTSIDE RECORDS SUMMARY | 2025-08-14 16:21 | XMS_ITS | Encounter Summary ---
Author Organization [facility] Address [address] [facility] [address] [place] [address] Phone Care Team Providers Care Bilingual Speech Language Pathologist Name Role Phone Lexi Dukes NP Primary Care Provider + Reason for Visit * Reason Onset Date Comments referral 06/28/2025 Encounter Details Date Type Department Care Team ([facility] st Contact Info) Description 06/28/2025 Telephone [facility] Pulmonary, Allergy and Critical Care Medicine [address] [place] [address] Zora referral Social History Tobacco Use Types Packs/Day Years Used Date Smoking Tobacco: Never Assessed Comments Unknown Sex and Gender Information Value Date Recorded Sex Assigned at Not on file Legal Sex Female 5:27 PM EST Gender Identity Not on file Sexual Orientation Not on file documented as of this encounter Progress Notes * Odette Nesbitt LPN - 07/18/2025 12:05 PM EDT Referral has not been received * Zora Soto - 06/28/2025 10:20 AM EDT [facility] PEN Top Smart Phrases: Locating Referral Fax Hello, We are notifying you that the patient called to schedule a new patient appointment. The referral is not listed on file or in the media tab. The patient has informed us that the referral was faxed out. Please review the SFA and contact the patient with the referral determination if it is on file or not. Thank you If caller not the patient: Name: Relationship: Referral Order Details provided by caller Diagnosis: N/A Reason/Specify: N/A Referred To Name:N/A Referral Fax Out Dates: 2 weeks ago Additional information: Agent Action: > Route Encounter to FD Pool > Reason for Call: Referral > Comment: Call Back & Locate Referral in SFA Needed > Reiterate Scripting: Provide our referral not on file scripting Required Scripting: If the referral is not on file: Mary, thank you for calling. I see that you'vementioned your provider faxed over a referral, but we have not yet received it on our end. Sometimes there can be a delay in processing or receiving faxes. Can you please confirm the date it was sent and the fax number that was used? Provide the caller with the office fax number. I will be happy to send a message over to the office for them to review their records and let you know if they've received it. documented in this encounter Plan of Treatment Not on file documented as of this encounter Visit Diagnoses Not on filedocumented in this encounter Care Teams Bilingual Speech Language Pathologist Relationship Specialty Start Date End Date Lexi Dukes NP [address] [place] [address] PCP - General Nurse Practitioner 06/14/25 documented as of this encounter Additional Source Comments The information contained in this document represents components of the legal health record. It is not the complete legal health record.[facility]
--- OUTSIDE RECORDS SUMMARY | 2025-08-14 16:21 | XMS_ITS | Clinical Summary ---
Author Organization [facility] Address [address] [facility] [address] [place] [address] Phone Care Team Providers Care Quality Control Director Name Role Phone Lexi Dukes NP Primary Care Provider + Encounters Date Type Department Care Team Description 08/09/2025 Telephone [facility] Rheumatology [address] [place] [address] Lexi Dukes, LEXX Establish Care 06/28/2025 Telephone [facility] Pulmonary, Allergy and Critical Care Medicine [address] [place], [place] [id number] Zora Soto referral from Last 3 Months Social History Tobacco Use Types Packs/Day Years Used Date Smoking Tobacco: Never Assessed Comments Unknown Sex and Gender Information Value Date Recorded Sex Assigned at Not on file Legal Sex Female 5:27 PM EST Gender Identity Not on file Sexual Orientation Not on file Plan of Treatment Not on file Medical Devices Not on file Insurance [employer] JOAN BURNS [place] JOAN BURNS [place] Care Teams Quality Control Director Relationship Specialty Start Date End Date Lexi Dukes NP [address] [place] [address] PCP - General Nurse Practitioner 06/14/25 Additional Source Comments The information contained in this document represents components of the legal health record. It is not the complete legal health record.[facility]
--- OUTSIDE RECORDS SUMMARY | 2025-08-14 16:21 | XMS_ITS | Clinical Summary ---
Author Organization [employer] [facility] Address [address] [place] [address] [address] [place] [address] Care Team Providers Care Intake Clinician Name Role Phone Unavailable Primary Care Provider [...] Most Recently Relevant to Health Maintenance Insurance [facility]
--- OUTSIDE RECORDS SUMMARY | 2025-08-14 16:21 | XMS_ITS | Encounter Summary ---
Author Organization [employer] Address [address] [place] [address] [place] [address] Care Team Providers Care Sr Solutions Consultant Name Role Phone Unavailable Primary Care Provider Unavailabl e Encounter Details Date Type Department Care Team (Latest Contact Info) Description 10/28/2018 Abstract [facility] CONVERSIONS Dental, Provider, DDS Social History [...]
--- OUTSIDE RECORDS SUMMARY | 2025-08-14 16:22 | XMS_ITS | Encounter Summary ---
Demographics Address [address] [place] [address] Home Phone Mobile Phone Preferred Language [place] Marital Status Voodoo Affiliation Unknown Race White Ethnic Group Unknown Author Organization [facility] Address [address] [place] [address] Support Name Relationship Address Phone Rev Olivia Emergency Contact [address] [place] [address] Erik Cobb Spouse [address] [place] [address] Care Team Providers Care Field Control Inspector Name Role Phone Lexi Dukes Anitha Primary Care Provider Encounter Details Date Type Department Care Team (Late st Contact Info) Description 07/19/2025 Guguchu Message [facility] [address] [place] [id number] Arun Morgan MD [address] [place] [address] [phone] CLIVE Scan Social History Tobacco Use Types Packs/Day Years Used Date Smoking Tobacco: Never Smokeless Tobacco: Never Alcohol Use Standard Drinks/Week Comments Yes 0 (1 standard drink = 0.6 oz pur e alcohol) 1 sangria 2-3 times per year Comments Unknown Sex and Gender Information Value Date Recorded Sex Assigned at Female 09/28/2024 11:21 AM EST Legal Sex Female 11:17 AM EST Gender Identity Female 12/20/2024 6:22 PM EDT Sexual Orientation Straight 12/20/2024 6: 22 PM EDT documented as of this encounter Miscellaneous Notes * Telephone Encounter - Darby Santiago MA - 08/02/2025 4:46 PM EST Fax sent to [facility] to fax # to obtain Clive Scan report and images through [employer]. documented in this encounter Plan of Treatment Upcoming Encounters Date Type Department Care Team (Late st Contact Info) Description 01/03/2026 4:15 PM EDT Office Visit [facility] [address] [place] [id number] Arun Morgan MD [address] [place] [id number] documented as of this encounter Visit Diagnoses Not on filedocumented in this encounter Care Teams Field Control Inspector Relationship Specialty Start Date End Date Lexi Dukes [address] [place] [id number] PCP - General 12/07/24 documented as of this encounter
== END 2025-08-14 12:22 | disposition home or self-care (01) ==
LOC: HO.MAMMO 12:21
PROVIDERS: PCP Nurse Practitioner Family; Visit Provider Nurse Practitioner Family
DX: M70.61 Trochanteric bursitis, right hip (principal); Z12.31 Encounter for screening mammogram for malignant neoplasm of breast
CPT/HCPCS: 20610; 77063; 77067; J0665; J1100; J2003

== ENCOUNTER → 2025-08-14 12:30 | Outpatient (BNV) | payer OTHER, SELFPAY | PROVIDERS: PCP Nurse Practitioner Family; Visit Provider Radiology Body Imaging | DX: Z12.31 Encounter for screening mammogram for malignant neoplasm of breast (principal) | CPT/HCPCS: 77063; 77067 ==

== ENCOUNTER 2025-08-14 13:55 | Outpatient (AMB) | payer OTHER, SELFPAY ==
--- NOTE | 2025-08-14 14:15 | A.OFFVIS_ITS ---
Intake Visit Reasons: OV- Follow up for right Hip pain Intake Note: Kiana is a 59 year old female who presents today as a follow up for her right hip pain. At last visit on 02/17/25 she was referred the patient to pain management for intra-articular cortisone injections. At today's visit she states that the right hip pain is still there and now the pain is radiating into the right hip. She states that the right hip pain has a burning sensation that is constant. She would like to add that due to the pain in her right hip she is loosing sleep. Allergies promethazine (From PHENERGAN) Allergy (Intermediate, Verified 05/29/25 09:03) RASH cefazolin (CEFAZOLIN) Allergy (Unknown, Verified 05/29/25 09:03) ANAPHYLAXIS Iodinated Contrast Media (IV Dye, Iodine Containing Contrast ) Allergy (Unknown, Verified 05/29/25 09:03) ANAPHYLAXIS aripiprazole (From Abilify) Adverse Reaction (Severe, Verified 05/29/25 09:03) tardive dyskinesia prednisone (PREDNISONE) Adverse Reaction (Unknown, Verified 05/29/25 09:03) HYPERTENSION, high BP,headache DOG SHAMPOO Allergy (Unknown, Uncoded 05/08/25 10:46) ANAPHYLAXIS HPI HPI OV- Follow up for right Hip pain: Details: Ms. Garcia is a 59-year-old female who presents to the office today for follow up of right greater trochanteric hip pain. Her last cortisone injection was January of this year. She continues to have a burning sensation along the lateral aspect of the hip traveling down towards the knee. She denies any numbness or tingling. [facility] Medical History Anxiety Obstructive sleep apnea on CPAP Obesity Orthostatic dizziness Type 2 diabetes mellitus Jerman-Danlos syndrome type III History of kidney stones Hypothyroidism Back pain Chronic constipation IBS (irritable colon syndrome) Insomnia Hyperlipidemia Fibromyalgia Depression Surgical History History of repair of rectocele Hx of partial thyroidectomy Status post left foot surgery History of sleeve gastrectomy History of endometrial ablation Hx of toe surgery History of bladder suspension procedure Hx of hysterectomy Hx of tubal ligation Hx of appendectomy Family History Father Liver disease Diabetes mellitus Hypertension Mother Hypertension Diabetes mellitus Arthritis Son Asthma Depression Anxiety Daughter Asthma Depression Migraines Chronic pain Anxiety Sister No problems noted. 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 Tenderness to palpation over the greater trochanteric bursa bilaterally. 5/5 strength with resisted hip flexion, knee extension, abduction, and abduction. Able to perform straight leg raise. NVI. Office Procedures AMB Joint Injection/Aspiration Joint Injection/Aspiration Primary Site: Right Trochanteric Bursa Prep: site was prepped using aseptic technique, ethochloride spray was applied and injection warnings given Injected: 40 mg of, Decadron, with 3 mL of, 1% plain Lidocaine, 0.25% Bupivacaine and Other (Right greater trochanteric bursa) Approach Used: other (Lateral) Procedure: The patient tolerated the procedure well, but had some pain with the injection and there was some relief with the local anesthesia Coding 25198 - Glenohumeral/Tronchanteric Bursa/Intraarticular Procedure code (CPT) selection complete Assessment & Plan Assessment & Plan (1) Greater trochanteric bursitis of right hip: Code(s): M70.61 - Trochanteric bursitis, right hip Category: Medical Plan The patient was offered a cortisone injection in right hip greater trochanteric bursa. The patient was explained the risks, benefits, and alternatives to receiving this injection. After receiving consent for the injection, the patient had the procedure done while in the office today. The patient tolerated the procedure well with no complications. The risks, benefits, and alternatives to a corticosteroid injection were discussed with the patient, including the potential benefits of decreased inflammation and pain, improved function, and diagnostic value. Risks were reviewed, including post-injection flare, skin or fat atrophy, transient facial flushing, temporary elevation in blood glucose, bruising, and rare but serious complications such as infection, tendon weakening or rupture, and cartilage damage with repeated injections. Procedure-related discomfort and possible vasovagal symptoms were also explained. Alternatives were reviewed, including NSAIDs, physical therapy, activity modification, bracing, ice/heat, weight management, hyaluronic acid injections when appropriate, PRP or other orthobiologics, oral steroids, surgery depending on pathology, and observation. The patient verbalized understanding and elected to proceed. After receiving consent for the injection, the patient had the procedure done while in the [facility] today. The patient tolerated the procedure well with no complications. Follow-up will be PRN, or sooner if needed Coding Level of Care Code Est Pt Level 3 (17062) Diagnoses Greater trochanteric bursitis of right hip M70.61 CPT Codes Coding - Joint 7: 76416 - Glenohumeral/Tronchanteric Bursa/Intraarticular ([id number])
== END 2025-08-14 15:17 | disposition home or self-care (01) ==
LOC: HO.HOS 13:56
PROVIDERS: PCP Nurse Practitioner Family; Visit Provider Physician Assistant
DX: M70.61 Trochanteric bursitis, right hip (principal)
CPT/HCPCS: 20610; 99213

== ENCOUNTER 2025-08-28 12:47 | Outpatient (REF) | payer OTHER, SELFPAY ==
[2025-08-28 13:15] LABS: Appearance Urine Cloudy; Glucose Urine UA Negative (Negative); PH 6.0 (5.0-9.0); Specific Gravity - Urine 1.015 (1.005-1.025); UMIC TRIGGER UA YES
== END 2025-08-28 12:48 | disposition home or self-care (01) ==
LOC: HO.LAB 12:47
PROVIDERS: PCP Nurse Practitioner Family; Visit Provider Nurse Practitioner Family
DX: R30.0 Dysuria (principal)
CPT/HCPCS: 81001